=== PATIENT | male | born 1945 | race Caucasian/White ===

== ENCOUNTER 2025-01-28 10:11 | Outpatient (CLI) | payer MEDICARE, SELFPAY ==
--- NOTE | ~2025-01-28 | US_ITS ---
EXAMINATION: US soft tissue head and neck DATE: 01/28/2025 10:41 INDICATION: Glottis and swollen neck with difficulty swallowing and breathing TECHNIQUE: Multiple grayscale and Doppler ultrasound images of the left and right neck and submandibu lar regions were obtained. COMPARISON: None FINDINGS: No abnormal masses, fluid collections or pathologically enlarged lymphadenopathy at the region of con cern. Thyroid measures 3.2 x 1.1 x 1.3 similar on the right and 3.4 x 1.3 x 0.9 cm on the left. IMPRESSION: 1. No abnormal masses, fluid collections or pathologically enlarged lymphadenopathy in the visualized cervical soft tissues. Reviewed, dictated and finalized at location A. IMPRESSION: 1. No abnormal masses, fluid collections or pathologically enlarged lymphadenop athy in the visualized cervical soft tissues.
== END 2025-01-28 10:12 | disposition home or self-care (01) ==
LOC: MICIMG 10:12
PROVIDERS: PCP Family Medicine; Visit Provider Family Medicine
DX: R22.1 Localized swelling, mass and lump, neck (principal); K14.8 Other diseases of tongue
CPT/HCPCS: 76536

== ENCOUNTER 2025-03-18 07:52 | Emergency (ER) | payer MEDICARE, SELFPAY ==
--- NOTE | ~2025-03-18 | CT_ITS ---
CT soft tissue neck w con Ordering provider: Zain Vicente MD History: 80 years Male with . non healing tongue ulcer, right . Comparison: None. Technique: CT soft tissues neck was performed with contrast. . Automated exposure control and iterat kristin reconstruction technique were employed. The dose-length product was 426.94 mGy-cm. 75 mL Omnipaqu e 350 was given IV. Findings: LOWER HEAD: The visualized brain parenchyma, optic globes/orbits and mastoids are normal. The visua lized paranasal sinuses shows bilateral maxillary and ethmoid sinuses. SALIVARY GLANDS: Normal. THYROID: Normal. SUPRAHYOID DEEP SPACES: Normal. CAROTID ARTERIES: Left carotid atherosclerotic changes with narrowing of about 20-30 %. Right carotid atherosclerotic changes with no stenosis. JUGULAR VEINS: Normal. TONSILS: Normal. ORAL CAVITY: Partially obscured by dental amalgam but normal as visualized. PHARYNX, LARYNX AND TRACHEA: Narrowing in the area of the oropharynx. Clinical evaluation advised. Ot herwise, Patent and normal. No prevertebral soft tissue swelling. SUPERFICIAL SOFT TISSUES: Normal. No lymphadenopathy or neck mass. THORACIC INLET/VISUALIZED UPPER CHEST: Emphysematous changes of the lungs. The SKELETAL: Age appropriate degenerative changes. IMPRESSION: 1. Bilateral maxillary and ethmoid sinus disease. 2. Narrowing of the procedure in the area of the oropharynx. The mentioned ulcer in the tongue is no t demonstrated. Clinical evaluation advised. Metallic Artifacts are seen in the area of the tongue. 3. Bilateral atherosclerotic changes of the carotid arteries with narrowing of 20-30% on the left.. Reviewed, dictated and finalized at location A. IMPRESSION: 1. Bilateral maxillary and ethmoid sinus disease. 2. Narrowing of the procedure in the area of the oropharynx. The mentioned ulc er in the tongue is not demonstrated. Clinical evaluation advised. Metallic Art ifacts are seen in the area of the tongue. 3. Bilateral atherosclerotic changes of the carotid arteries with narrowing of 20-30% on the left..
[2025-03-18 07:54] VITALS: BP 149/77; PULSE 68; RESP 18; TEMP 36.6; O2SAT 98
[2025-03-18 08:32] LABS: Basophils Absolute Auto 0.1 K/mm3 (0.0-0.1); Basophils Percent Auto 1.5 % (0.2-1.2); Eosinophils Absolute Auto 0.2 K/mm3 (0-0.3); Eosinophils Percent Auto 2.6 % (0-4.4); Hematocrit 37.5 % (42.0-52.0); Hemoglobin 12.1 g/dL (14.0-18.0); Immature Granulocyte Absolute 0.02 K/mm3 (0.00-0.031); Immature Granulocyte Percent A 0.3 % (0-0.5); Lymphocytes Absolute Auto 1.04 K/mm3 (0.9-3.2); Lymphocytes Percent Auto 16.9 % (18.3-44.2); Mean Corpuscular HGB Conc 32.3 g/dl (32-36); Mean Corpuscular Hemoglobin 28.9 pg (26-34); Mean Corpuscular Volume 89.5 fl (80-100); Mean Platelet Volume 8.9 fl (7.4-10.4); Monocytes Absolute Auto 0.5 K/mm3 (0.1-0.6); Monocytes Percent Auto 8.6 % (2.6-8.5); Neutrophils Absolute Auto 4.3 K/mm3 (1.3-6.7); Neutrophils Percent Auto 70.1 % (45.5-73.1); Platelet Count Result 178 k/mm3 (150-375); Red Blood Count 4.19 M/mm3 (4.6-6.20); Red Cell Distribution Width 14.2 % (11.5-14.5); White Blood Count 6.2 K/mm3 (4.5-10.0)
[2025-03-18 08:43] LABS: Alanine Aminotransferase 20 U/L (6-50); Albumin Level 3.8 g/dL (3.5-5.1); Alkaline Phosphatase 59 U/L (38-126); Anion Gap 7 mmol/L (4-12); Aspartate Amino Transferase 28 U/L (17-59); Blood Urea Nitrogen 17 mg/dL (9-20); Calcium 8.5 mg/dL (8.4-10.2); Carbon Dioxide 25 mmol/L (22-30); Chloride 103 mmol/L (98-107); Estimated CRCL calculation 48 ml/min; Estimated Glomerular Filt Rate > 60; Glucose 103 mg/dL (65-110); Potassium 4.1 mmol/L (3.4-5.0); Sodium 135 mmol/L (137-145)
--- OUTSIDE RECORDS SUMMARY | 2025-03-18 09:08 | XMS_ITS | Clinical Summary ---
Author Organization [facility] Facility Address [address] [place] [address] Care Team Providers Care Asphalt Tar And Gravel Roofer Name Role Phone Antoine Lundberg MD Primary Care Provider [phone] Allergies Active Allergy Reactions Criticality Noted Date Comments Bupropion 07/04/2022 Other reaction(s): worsening symptoms Medications zolpidem (AMBIEN) 5 MG tablet Take 5 mg by mouth at night if needed 03/14/2022 Active tiZANidine (ZANAFLEX) 2 MG tablet Take 2 mg by mouth every 8 (eight) hours 03/10/2022 Active sertraline (ZOLOFT) 100 MG tablet Take 100 mg by mouth in the morning and 100 mg in the evening. 03/10/2022 Active lamoTRIgine (LaMICtal) 25 MG tablet Take 25 mg by mouth in the morning and 25 mg in the evening. 03/13/2022 Active hydrALAZINE 50 MG tablet Take 50 mg by mouth in the morning and 50 mg at noon and 50 mg in the evening. 03/20/2022 Active carvedilol (COREG) 6.25 MG tablet TAKE 1 TABLET BY MOUTH EVERY 12 HOURS TAKE WITH SNACK / FOOD 03/20/2022 Active atorvastatin (LIPITOR) 40 MG tablet Take 40 mg by mouth 1 (one) time each day 03/14/2022 Active ALPRAZolam (XANAX) 0.25 MG tablet Take 0.25 mg by mouth in the morning and 0.25 mg in the evening. 01/31/2022 Active levothyroxine (SYNTHROID, LEVOTHROID) 200 MCG tablet Take 200 mcg by mouth 1 (one) time each day Active lisinopril 20 MG tablet Take 1 tablet (20 mg total) by mouth 1 (one) time each day 90 tablet 3 06/07/2022 Active levothyroxine (SYNTHROID, LEVOTHROID) 50 MCG tablet Take 50 mcg by mouth 1 (one) time each day Active Active Problems Problem Noted Date Diagnosed Date Weight loss 07/04/2022 Vitamin D deficiency 07/04/2022 Tobacco user 07/04/2022 Screening status 07/04/2022 Restless legs 07/04/2022 Recurrent major depressive episodes, mild 2021 Patient encounter status 07/04/2022 Obstructive sleep apnea syndrome 07/04/2022 Muscle weakness of upper limb 07/04/2022 Insomnia 07/04/2022 Hypertensive disorder 07/04/2022 Hyperglycemia 07/04/2022 History of nasal sinus surgery 07/04/2022 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 Stephens;ll referred by Dr. 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 Arthritis 07/04/2022 Anxiety 07/04/2022 Allergic disorder of skin 07/04/2022 Acute nontraumatic kidney injury 07/04/2022 Hypothyroidism 06/23/2022 Overview (07/04/2022): E03.9 Hypothyroidism Hyperlipidemia 06/23/2022 Anemia 06/23/2022 Pneumonia 02/14/2022 Overview (07/29/2024): Replacing diagnoses that were inactivated after the 07/29/24 Regulatory Import Acute respiratory failure with hypoxia 2 Pleural effusion 02/03/2022 Hypertensive urgency 02/03/2022 Dyspnea 02/03/2022 Cervical radiculopathy 05/20/2021 Cervicalgia 05/20/2021 Post-laminectomy syndrome 09/14/2014 Lumbago 09/14/2014 Degeneration of lumbar intervertebral disc 09/14 Immunizations Immunization Administration Dates Next Due Influenza, Unspecified 09/12/2021,2019,09/15/2019,08/16/2018 ,09/05/2017,09/20/2016,09/07/2015, 4,08/26/2013,07/30/2012,08/25/2011 Moderna SARS-COV-2 08/24/2021,02/04/2021, 021 Pneumococcal Conjugate 13-Valent 09/07/2015 Pneumococcal Polysaccharide 04/29/2019, 4 Zoster 10/29/2013 Social History Tobacco Use Types Packs/Day Years Used Date Smoking Tobacco: Every Day Smokeless Tobacco: Never Alcohol Use Standard Drinks/Week Comments Never 0 (1 standard drink = 0.6 oz pur e alcohol) Sex and Gender Information Value Date Recorded Sex Assigned at Not on file Legal Sex Male 12:09 PM EDT Gender Identity Not on file Sexual Orientation Not on file Last Filed Vital Signs Vital Sign Reading Time Taken Comments Blood Pressure 111/59 07/05/2022 9:10 AM CDT Pulse 54 07/05/2022 9:10 AM CDT Temperature - - Respiratory Rate - - Oxygen Saturation - - Inhaled Oxygen Concentration - - Weight 72.1 kg (159 lb) 07/05/2022 9:10 AM CDT Height 162.6 cm (5' 4 ) 07/05/2022 9:10 AM CDT Body Mass Index 27.29 07/05/2022 9:10 AM CDT Plan of Treatment Health Maintenance Due Date Last Done Comments Influenza Vaccine (Season Ended) 2025 09/12/2021, 08/02/2020, 09/15/2019, Additional history exists Pneumococcal Vaccine: 50+ Years Completed 04/29/2019, 09/07/2015, 06/01/2014 Hepatitis B Vaccine Aged Out No longe r eligible based on patient's age to complete this topic Insurance [facility] ([id number]) Care Teams Asphalt Tar And Gravel Roofer Relationship Specialty Start Date End Date Antoine Lundberg MD [address] [place] [phone] PCP - General Occupational Medicine 02/23/22
--- OUTSIDE RECORDS SUMMARY | 2025-03-18 09:09 | XMS_ITS | Encounter Summary ---
Author Organization [facility] Address [address] [place] [address] Care Team Providers Care Hydraulic Dredge Operator Name Role Phone Antoine Lundberg MD Primary Care Provider [phone] Encounter Details Date Type Department Care Team (Late st Contact Info) Description 07/05/2023 Lab Requisition [facility] - DermPath Lab [address] [place] [id number] Latrice Swan MD [address] [place] [address] Neoplasm of unspecified behavior of bone, soft tissue, and skin Social History Tobacco Use Types Packs/Day Years Used Date Smoking Tobacco: Every Day Cigarettes 1 61 Smokeless Tobacco: Never Alcohol Use Standard Drinks/Week Comments No 0 (1 standard drink = 0.6 oz pur e alcohol) AUDIT-C Answer Date Recorded Q1: How often do you have a drink containing alc ohol? Never 02/14/2022 Average Number of Drinks Not on file 022 Frequency of Binge Drinking Not on file 01/27 Overall Financial Resource Strain (CARDIA) Answe r Date Recorded How hard is it for you to pa y for the very basics like food, housing, medical care, and heating? Not hard at all 06/12/2023 PHQ-2 Answer Date Recorded PHQ2 TOTAL SCORE 0 09/15/2022 [facility] [place] [facility] Occup[facility] - Occupational Stress Questionnaire Answer Date Recorded Do you feel stress - tense, restless, nervous, or anxious, or unable to sleep at night because your mind is troubled all the time - these days? Not at all 06/12/2023 Hunger Vital Sign Answer Date Recorded Within the past 12 months, y ou worried that your food would run out before you got the money to buy more. Never true 06/12/20 23 Within the past 12 months, t he food you bought just didn't last and you didn't have money to get more. Never true 06/12/2023 PRAPARE - Transportation Answer Date Re corded In the past 12 months, has l ack of transportation kept you from medical appointments or from getting medications? No 05/29 In the past 12 months, has l ack of transportation kept you from meetings, work, or from getting things needed for daily living? No 06/12/2023 Housing Stability Vital Sign Answer Deshaun e Recorded In the last 12 months, was t here a time when you were not able to pay the mortgage or rent on time? No 06/12/2023 In the last 12 months, how many places have you lived? 1 06/12/2023 In the last 12 months, was t here a time when you did not have a steady place to sleep or slept in a nursing home (including now)? 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 Answer Date of Assessment Author No 06/12/2023 11:45 PM CDT Marsha Doran LPN * Is person blind or have serious difficulty seeing? Answer Date of Assessment Author No 06/12/2023 11:45 PM CDT Marsha Doran LPN * Does person have serious difficulty walking/climbing stairs? Answer Date of Assessment Author No 06/12/2023 11:45 PM CDT Marsha Doran LPN * Does person have difficulty dressing/bathing? Answer Date of Assessment Author No 06/12/2023 11:45 PM CDT Marsha Doran LPN * Does person have difficulty doing errands alone? Answer Date of Assessment Author No 06/12/2023 11:45 PM CDT Marsha Doran LPN documented as of this encounter Mental Status * Does person have difficulty concentrating/remembering/making decisions? Answer Entry Date Author No 06/12/2023 11:45 PM CDT Marsha Doran LPN documented in this encounter Plan of Treatment Not on file documented as of this encounter Procedures Procedure Name Priority Date/Time Associated Diagnosis Comments DERMATOPATHOLOGY Routine 07/04/2023 3:33 AM CDT Neoplasm of unspecified behavior of bone, soft tissue, and skin documented in this encounter Results * DERMATOPATHOLOGY (07/04/2023 3:33 AM CDT) Case Report Dermatopathology Report Case: [id number] Authorizing Provider: Latrice Swan MD Collected: 07/04/2023 03:33 AM Ordering Location: [facility] Lab Received: 07/06/2023 09:55 AM Pathologist: Bertha Rodriguez MD Specimens: A) - Skin, right medial malar cheek B) - Skin, right sabianism C) - Skin, left lateral neck 3 1:37 PM CDT DERMATOPATHOLOGY LABORATORY Final Diagnosis Specimen A. 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 SKIN, right sabianism: BASAL CELL CARCINOMA, NODULAR TYPE (C44.319) Specimen C. SKIN, left lateral neck: BASAL CELL CARCINOMA, NODULAR TYPE (C44.41) 3 1:37 PM CDT DERMATOPATHOLOGY LABORATORY at 1337 CDT Clinical History A-B: Neoplasm of unspecified behavior vs basal cell carcinoma C: Neoplasm of unspecified behavior vs squamous cell carcinoma vs basal cell carcinoma vs irritated seborrheic keratosis 3 1:37 PM CDT DERMATOPATHOLOGY LABORATORY Gross Description Specimen A: Received is one formalin filled container labeled with the patient's name and designated right medial malar cheek. The specimen consists of a shave biopsy measuring 3x2x1 mm. Jar 0. Specimen B: Received is one formalin filled container labeled with the patient's name and designated right sabianism. The specimen consists of a shave biopsy measuring 7x4x1 mm. Jar 0. Specimen C: Received is one formalin filled container labeled with the patient's name and designated left lateral neck. The specimen consists of a shave biopsy measuring 8x5x2 mm. Jar 0. 3 1:37 PM T DERMATOPATHOLOGY LABORATORY Microscopic Description Specimen A. SKIN, right medial malar cheek: Within the dermis there are aggregates of basaloid cells with a high nuclear to cytoplasmic ratio and peripheral palisading. Additional deeper sections were obtained and reviewed. Specimen B. SKIN, right sabianism: Within the dermis there are aggregates of basaloid cells with a high nuclear to cytoplasmic ratio and peripheral palisading. Specimen C. SKIN, left lateral neck: Within the dermis there are aggregates of basaloid cells with a high nuclear to cytoplasmic ratio and peripheral palisading. 3 1:37 PM T DERMATOPATHOLOGY LABORATORY Disclaimer An external and internal positive and negative controls are appropriate for the histochemical, immunohistochemical and immunofluorescence stain(s) in this case (if any), except where stated explicitly. The performance characteristics of the stain(s) cited in this report were developed and its performance characteristic determined by the Dermatopathology Laboratory at [facility], directed by Dr. Lara Nava. These tests need not be, and therefore are not, approved by the [place] Food and Drug Administration. The tests are used for clinical purposes. Billing Codes Specimen Charges Stain Charges 89614 05175 74760 1 1 1 3 1:37 PM CDT DERMATOPATHOLOGY LABORATORY Embedded Images 3 1:37 PM CDT DERMATOPATHOLOGY LABORATORY Pathology/Cytology TISSUE SPECIMEN FROM SKIN / Unknown 07/04/2023 3:33 AM CDT 07/06/2023 9:55 AM CDT Miscellaneous samples (specimen) TISSUE SPECIMEN FROM SKIN / Unknown 07/04/2023 3:33 AM CDT 07/06/2023 9:55 AM CDT Miscellaneous samples (specimen) TISSUE SPECIMEN FROM SKIN / Unknown 07/04/2023 3:33 AM CDT 07/06/2023 9:55 AM CDT us Latrice Swan MD LAB - PATHOLOGY/CYTOLOGY [facility]IREZ Final Result DERMATOPATHOLOGY LABORATORY [facility] - Department of Dermatology [facility] Specialized Medicine [facility] [facility], [address]rd Floor [address] [phone] documented in this encounter Visit Diagnoses Diagnosis Neoplasm of unspecified behavior of bone, soft tissue, and skin documented in this encounter Care Teams Hydraulic Dredge Operator Relationship Specialty Start Date End Date Antoine Lundberg MD [address] [address] PCP - General Internal Medicine 03/30/19 documented as of this encounter
--- OUTSIDE RECORDS SUMMARY | 2025-03-18 09:09 | XMS_ITS | Encounter Summary ---
Author Organization [facility] Address [address] [place] [address] Care Team Providers Care Welding Teacher Name Role Phone Indra Yates MD Primary Care Provider [phone] Megha Crane Unavailable [phone] Tacos Moreno MD Unavailable [phone] Antonieta Pimentel MD Unavailable [phone] Gurmeet Sands MD Unavailable Mao Dodson MD Unavailable [phone] Encounter Details Date Type Department Care Team (Late st Contact Info) Description 01/19/2025 Results Follow-Up [facility] Pulmonology [address] [facility] [address] [place] [address] [place] [address] [place] [address] [address] [place] [address] CT Chest WO Contrast Social History Tobacco Use Types Packs/Day Years Used Date Smoking Tobacco: Every Day Cigarettes Smokeless Tobacco: Never Alcohol Use Standard Drinks/Week Comments No 0 (1 standard drink = 0.6 oz pur e alcohol) PHQ-2 Answer Date Recorded PHQ-2 Total Score (If total score is 3 or more points, staff should administer the PHQ-9) 5 12/31/2024 PHQ-9 Answer Date Recorded PHQ-9 Total Score 14 12/31/2024 Sex and Gender Information Value Date Recorded Sex Assigned at Not on file Legal Sex Male 12:09 AM PUBLICIST Gender Identity Not on file Sexual Orientation Not on file documented as of this encounter Plan of Treatment Not on file documented as of this encounter Visit Diagnoses Not on filedocumented in this encounter Care Teams Welding Teacher Relationship Specialty Start Date End Date Indra Yates MD [address] [place] [address] PCP - General Family Medicine 07/02/24 Megha Craen PA [address] [place], [place] [address] Physician Assembly Department Supervisor 07/02/24 Tacos Moreno MD [address] [place] [address] Referring Physician Psychiatry 12/31/24 Antonieta Pimentel MD [address] [place] [address] Consulting Physician Pulmonary Disease 12/31/24 Gurmeet Sands MD [address] [place] [address] Consulting Physician Gastroenterology 12/31/24 Mao Dodson MD [address] [place] [address] Consulting Physician Otolaryngology 02/25/25 documented as of this encounter
--- OUTSIDE RECORDS SUMMARY | 2025-03-18 09:09 | XMS_ITS | Encounter Summary ---
Author Organization [facility] Address [address] [facility] [place] [address] Care Team Providers Care Meteorology Instructor Name Role Phone Antoine Lundberg MD Primary Care Provider [phone] Encounter Details Date Type Department Care Team (Late st Contact Info) Description 05/09/[address] [facility] DermPath Lab [address] [facility] [place] [phone] Latrice Swan MD [address] [address] [place] [address] Social History Tobacco Use Types Packs/Day Years Used Date Smoking Tobacco: Every Day Cigarettes Alcohol Use Standard Drinks/Week Comments No 0 (1 standard drink = 0.6 oz pur e alcohol) Sex and Gender Information Value Date Recorded Sex Assigned at Male 06/12/2023 3:47 PM CDT Legal Sex Male 4:34 AM INFORMATION TECHNOLOGY INTERN Gender Identity Not on file Sexual Orientation Not on file documented as of this encounter Plan of Treatment Not on file documented as of this encounter Procedures Procedure Name Priority Date/Time Associated Diagnosis Comments DERMATOPATHOLOGY Routine 05/08/2018 12:0 0 AM CDT documented in this encounter Results * DERMATOPATHOLOGY (05/08/2018 12:00 AM CDT) Case Report Dermatopathology Report Case: [id number] Authorizing Provider: Latrice Swan MD Collected: 05/08/2018 12:00 AM Pathologist: Kelsey Martell MD Received: 05/09/2018 08:33 AM Specimen: Skin, left superior neck 1:42 PM CDT DERMATOPATHOLOGY LABORATORY Final Diagnosis Specimen A. SKIN, left superior neck: BASAL CELL CARCINOMA (C44.41) (see microscopic description and comment) 1:42 PM CDT DERMATOPATHOLOGY LABORATORY at 1342 CDT Clinical History Neoplasm of unspecified behavior vs actinic keratosis vs basal cell carcinoma vs squamous cell carcinoma. 1:42 PM CDT DERMATOPATHOLOGY LABORATORY Gross Description Specimen A: Received is one formalin filled container labeled with the patient's name and designated left superior neck. The specimen consists of a shave biopsy measuring [id number]. Jar 0. 1:42 PM CDT DERMATOPATHOLOGY LABORATORY Microscopic Description Specimen A. SKIN, left superior neck: The specimen consists of aggregates of basaloid cells, located within the superficial dermis, with high nuclear to cytoplasmic ratio and peripheral palisading. COMMENT: The small size of the specimen limits subtyping of the lesion. 1:42 PM CDT DERMATOPATHOLOGY LABORATORY Disclaimer An external and internal positive and negative controls are appropriate for the histochemical, immunohistochemical and immunofluorescence stain(s) in this case (if any), except where stated explicitly. The performance characteristics of the stain(s) cited in this report were developed and its performance characteristic determined by the Dermatopathology Laboratory at [facility]. These tests need not be, and therefore are not, approved by the [place] Food and Drug Administration. The tests are used for clinical purposes. Billing Codes Specimen Charges Stain Charges 61115 1 8 1:42 PM CDT DERMATOPATHOLOGY LABORATORY Embedded Images 1:42 PM CDT DERMATOPATHOLOGY LABORATORY Pathology/Cytolog y TISSUE SPECIMEN FROM SKIN / Unknown 05/08/2018 05/09/2018 8:33 AM CDT us Latrice Swan MD LAB - PATHOLOGY/CYTOLOGY [facility] RAMIREZ Final Result DERMATOPATHOLOGY LABORATORY [facility] - Department of Dermatology [facility] [facility], 5th Floor Lab [address] [phone] documented in this encounter Visit Diagnoses Not on filedocumented in this encounter Care Teams Meteorology Instructor Relationship Specialty Start Date End Date Antoine Lundberg MD [address] [address] PCP - General Internal Medicine 03/30/19 documented as of this encounter
--- OUTSIDE RECORDS SUMMARY | 2025-03-18 09:09 | XMS_ITS | Encounter Summary ---
Author Organization [facility] Address [address] [place] [address] Care Team Providers Care Admitting Counselor Name Role Phone Syd Tate MD Primary Care Provider [phone] Encounter Details Date Type Department Care Team (Latest Contact Info) Description 02/04/2005 Inpatient Historical [facility] [place] [address] [place] [address] LUNG CONTUSION-CLOSED (Primary Dx) Social History Tobacco Use Types Packs/Day Years Used Date Smoking Tobacco: Never Assessed Sex and Gender Information Value Date Recorded Sex Assigned at Not on file Legal Sex Male 4:43 AM AMMUNITION AND EXPLOSIVES HANDLER Gender Identity Not on file Sexual Orientation Not on file documented as of this encounter Plan of Treatment Not on file documented as of this encounter Procedures Procedure Name Priority Date/Time Associated Diagnosis Comments CREATININE Routine 02/04/2005 2:26 PM CDT documented in this encounter Results * CREATININE (02/04/2005 2:26 PM CDT) CREATININE 0.9 0.5 - 1.3 mg/dL INTERFACE SYSTEM 02/04/2005 2:26 PM CDT Alicia Valelcillo MD CHEMISTRY ORDERABLES Final Resul t INTERFACE SYSTEM Refer to clinic/hospital department documented in this encounter Visit Diagnoses Diagnosis Lung contusion without mention of open wound into thorax- Primary documented in this encounter Care Teams Admitting Counselor Relationship Specialty Start Date End Date Syd Tate MD [address] [facility] [address] [place] [address] PCP - General 02/04/05 06/27/23 documented as of this encounter
--- OUTSIDE RECORDS SUMMARY | 2025-03-18 09:09 | XMS_ITS | Encounter Summary ---
Author Organization [facility] Address [address] [place] [address] Care Team Providers Care Metal Fabricating Shop Helper Name Role Phone Syd Tate MD Primary Care Provider [phone] Antoine Lundebrg MD Primary Care Provider [phone] Encounter Details Date Type Department Care Team (Late st Contact Info) Description 11/03/2014 Therapy Visit EXTERNAL NON-SS DEPT Unknown, Provider Social History Tobacco Use Types Packs/Day Years Used Date Smoking Tobacco: Every Day Cigarettes Alcohol Use Standard Drinks/Week Comments No 0 (1 standard drink = 0.6 oz pur e alcohol) Sex and Gender Information Value Date Recorded Sex Assigned at Male 06/12/2023 3:47 PM CDT Legal Sex Male 4:34 AM 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
--- OUTSIDE RECORDS SUMMARY | 2025-03-18 09:09 | XMS_ITS | Encounter Summary ---
Author Organization [facility] Address [address] [place] [address] Care Team Providers Care Bleacher Operator Name Role Phone Syd Tate MD Primary Care Provider [phone] Encounter Details Date Type Department Care Team (Late st Contact Info) Description 02/05/[address] [facility] Trauma and General Surgery [address] [facility] [address] [phone] [place] [address] [place] [address] Social History Tobacco Use Types Packs/Day Years Used Date Smoking Tobacco: Never Assessed Sex and Gender Information Value Date Recorded Sex Assigned at Not on file Legal Sex Male 4:43 AM INSTRUMENT REPAIRER HELPER Gender Identity Not on file Sexual Orientation Not on file documented as of this encounter Plan of Treatment Not on file documented as of this encounter Visit Diagnoses Not on filedocumented in this encounter Care Teams Bleacher Operator Relationship Specialty Start Date End Date Syd Tate MD [address] [facility] [address] [place] [address] PCP - General 02/04/05 06/27/23 documented as of this encounter
--- OUTSIDE RECORDS SUMMARY | 2025-03-18 09:09 | XMS_ITS | Referral Summary ---
Author Organization [facility] Address [address] [place] [address] Care Team Providers Care Fashion Intern Name Role Phone Indra Yates MD Primary Care Provider [phone] Megha Crane Unavailable [phone] Tacos Moreno MD Unavailable [phone] Antonieta Pimentel MD Unavailable [phone] Gurmeet Sands MD Unavailable Mao Dodson MD Unavailable [phone] Encounters Date Type Department Care Team Description 03/04/2025 9:00 AM CDT Office Visit [facility] Pulmonary [address] [address] Antonieta Pimentel MD Obstructive sleep apnea syndrome (Primary Dx); Centrilobular emphysema (HCC); Restless legs; Cigarette nicotine dependence without complication; Abnormal CT of the chest; Recurrent cold sores; Psychophysiological insomnia; Non-seasonal allergic rhinitis due to pollen; Pulmonary air trapping; Simple chronic bronchitis (HCC) 02/25/2025 10:00 AM CDT Office Visit [facility] Primary Care at [address] [address] Indra Yates MD Encounter for annual wellness visit (AWV) in Medicare patient (Primary Dx); RLS (restless legs syndrome); Personal history of nicotine dependence 02/17/2025 Telephone [facility] Pulmonary [place] [address] [facility] [address] [place] [address] Chris Thompson CMA 02/11/2025 11:30 AM CDT Office Visit [facility] [place] [facility] [id number] [place] [address] [address] [place] [address] Hao Mann MD Acquired hypothyroidism (Primary Dx) 01/28/2025 Orders Only [facility] Primary Care at [address] [address] Indra Yates MD Neck mass; Acquired macroglossia 01/28/2025 9:00 AM CDT Office Visit [facility] Primary Care at [address] [address] Indra Yates MD Encounter for Medicare annual wellness exam (Primary Dx); Moderately severe major depression (HCC); Chronic lymphocytic leukemia (HCC); Other emphysema (HCC); Autoimmune hepatitis (HCC); Stage 3a chronic kidney disease (HCC); Primary hypertension; Vitamin D deficiency; Mixed hyperlipidemia; Acquired hypothyroidism; Centrilobular emphysema (HCC); Neck mass; Acquired macroglossia; Need for hepatitis C screening test 01/19/2025 Results Follow-Up [facility] Pulmonology [address] [facility] [address] [place] [address] Antonieta Pimentel MD CT Chest WO Contrast 01/13/2025 8:03 AM CDT - 01/13/2025 11:59 PM CDT Hospital Encounter [facility] Respiratory [address] [place] [address] Obstructive sleep apnea syndrome; Restless legs; Psychophysiological insomnia; Cigarette nicotine dependence without complication; Pharyngeal dysphagia; Tongue swelling Discharge Disposition: Discharge to home or self care 01/12/2025 3:15 PM CDT - 01/12/2025 11:59 PM CDT Hospital Encounter [facility] [address] [place] [address] Obstructive sleep apnea syndrome; Restless legs; Psychophysiological insomnia; Cigarette nicotine dependence without complication; Pharyngeal dysphagia; Tongue swelling Discharge Disposition: Discharge to home or self care 01/09/2025 Telephone [facility] Diabetes and Endocrinology [address] [place] [address] Hao Mann MD New referral to Endocrinology 2025 10:00 AM CDT Office Visit [facility] Gastroenterology at [address] [place] [address] Belen Carter NP Irritable bowel syndrome with both constipation and diarrhea 01/04/2025 Results Follow-Up [facility] Primary Care at [address] [address] Indra Yates MD Comprehensive metabolic panel, CBC with auto differential, Lipid panel, Additional followed-up results: 4 12/31/2024 9:42 AM ASSISTANT REFINERY OPERATOR - 12/31/2024 11:59 PM ASSISTANT REFINERY OPERATOR Hospital Encounter [address] [address] Primary hypertension; Mixed hyperlipidemia; Acquired hypothyroidism Discharge Disposition: Discharge to home or self care 12/31/2024 9:45 AM ASSISTANT REFINERY OPERATOR Lab [facility] Outpatient Lab at [address] [address] Hyperlipidemia (Primary Dx); Hypertensive disorder; Hypothyroidism 12/31/2024 9:00 AM ASSISTANT REFINERY OPERATOR Office Visit [facility] Primary Care at [address] [address] Indra Yates MD Mixed hyperlipidemia (Primary Dx); Chronic diastolic heart failure (HCC); Primary hypertension; Acquired hypothyroidism; Vitamin D deficiency; Tongue swelling; Other emphysema (HCC); Stage 3a chronic kidney disease (HCC) from Last 3 Months Allergies Active Allergy Reactions Criticality Noted Date Comments Bupropion Other (See comments) Low 07/04/2022 Other reaction(s): worsening symptoms Medications sertraline (ZOLOFT) 100 mg tablet Take 2 tablets (200 mg total) by mouth daily Active atorvastatin (LIPITOR) 40 mg tablet Take 1 tablet (40 mg total) by mouth daily Active potassium 99 mg tablet Take 1 tablet (99 mg total) by mouth daily Active carvediloL (COREG) 6.25 mg tablet Take 1 tablet (6.25 mg total) by mouth 02/28/20 22 Active fluorouraciL (EFUDEX) 5 % cream 10/19/20 21 Active hydrALAZINE (APRESOLINE) 50 mg tablet Take 1 tablet (50 mg total) by mouth 3 (three) times a day 02/28/20 22 Active zolpidem (AMBIEN) 10 mg tabletIndications :Sleep-Onset Insomnia Take 1 tablet (10 mg total) by mouth nightly as needed for sleep 30 tablet 1 11/06/19 25 Active dicyclomine (BENTYL) 20 mg tablet Take 1 tablet (20 mg total) by mouth every 6 (six) hours 12/01/19 25 Active ondansetron ODT (ZOFRAN-ODT) 4 mg disintegrating tablet Take 1 tablet (4 mg total) by mouth every 8 (eight) hours as needed for nausea 12/01/19 25 Active magnesium glycinate 100 mg magnesium capsule every 8 hours Active inulin (FIBER GUMMIES ORAL) Take by mouth Active Bifidobacterium infantis (ALIGN) 4 mg capsule 1 capsule (4 mg total) Active vitamin B complex capsule Take 1 capsule by mouth daily Active amLODIPine (NORVASC) 10 mg tabletIndications :hypertension Take 1 tablet (10 mg total) by mouth daily 30 tablet 3 01/29/20 25 026 Active Unithroid 200 mcg tabletIndications :Acquired hypothyroidism Take 1 tablet (200 mcg total) by mouth airway traffic controller before breakfast 90 tablet 02/12/20 25 025 Active escitalopram (LEXAPRO) 5 mg tablet 1 tablet (5 mg total) daily 01/22/20 25 025 Discontinued rOPINIRole (REQUIP) 1 mg tablet Take 1 tablet (1 mg total) by mouth daily 01/22/20 25 025 Discontinued Active Problems Problem Noted Date Diagnosed Date Recurrent cold sores 03/04/[address] of the chest 03/04/2025 Non-seasonal allergic rhinitis due to pollen 04/2025 Pulmonary air trapping 03/04/2025 Simple chronic bronchitis 03/04/2025 Moderately severe major depression 01/28/2025 Irritable bowel syndrome wit h both constipation and diarrhea 2025 Assessment & Plan (2025 10:52 AM CDT): 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 States that he can have constipation along with abdominal bloating. Supplemental fiber supplements provided great relief in the past but did not stay consistent. - Discuss repeat colonoscopy but declined at this time. -Discussed possible food irritants -Recommended restarting fiber supplements at 5 g daily may titrate up to 25 g -Recommend starting [id number] probiotic like align or [employer]. -IB guard to help with complaints of abdominal bloating and gas as well as increased exercise. -Discuss small titration dose of MiraLax to help have regularity if fiber is not well tolerated. CKD (chronic kidney disease) stage 3, GFR 30-59 ml/min 12/31/2024 Cigarette nicotine dependence without complicati on 12/03/2024 Tongue swelling 12/03/2024 Pharyngeal dysphagia 12/03/2024 Anxiety 07/04/2022 Assessment & Plan (09/09/2024 1:22 PM ASSISTANT REFINERY OPERATOR): Discussed with Dr. Yates, his PCP. In he is to continue BuSpar 7.5 b.i.d.. I gave him another 30 days of alprazolam and made him a follow-up appointment with Dr. Yates to discuss. I did discuss with patient that goal would be to decrease and discontinue the alprazolam. We discussed risks and benefits of benzodiazepine medication, including fall risk, memory problems, and reasons to discontinue the medication which also includes that he takes it in the evening along with his Ambien which would cause further sedation. 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 Stephens;ll referred by Dr. Da Silva office 2018 Hypertensive disorder 07/04/2022 Insomnia 07/04/2022 Muscle weakness of upper extremity 07/04/2022 Obstructive sleep apnea syndrome 07/04/2022 Pulmonary emphysema 07/04/2022 Overview (07/02/2024): Incidental finding on CXR [facility] Recurrent major depressive episodes, mild 2021 Restless legs 07/04/2022 Assessment & Plan (09/09/2024 1:20 PM ASSISTANT REFINERY OPERATOR): Being treated by pulmonology. Will check ferritin today Vitamin D deficiency 07/04/2022 Anemia 06/23/2022 Hyperlipidemia 06/23/2022 Hypothyroidism 06/23/2022 Overview (07/02/2024): E03.9 Hypothyroidism Pleural effusion 02/03/2022 Cervicalgia 05/20/2021 Lumbosacral radiculopathy 09/14/2014 Degeneration of intervertebral disc of lumbar re gion 09/14/2014 Lumbago 09/14/2014 History of degenerative disc disease 09/14/2014 Resolved Problems Problem Noted Date Diagnosed Date Resolved Date Encounter to establish care 07/02/2024 09/04/2024 Assessment & Plan (07/02/2024 9:53 AM CDT): A(n) initial Medicare Annual Wellness Visit has been performed today. Pepito Ott is not up to date on screening tests. He is in need of hep B, C and Cholesterol screening. He is not up to date on needed preventative vaccinations; He is in need of Influenza and Zoster. We discussed healthy lifestyle habits, educational material has been given. Medications reviewed, changes documented as per the medical record and discussed with patient along with risks vs benefits. Specific topics reviewed: drugs, ETOH, and tobacco, importance of regular dental care, importance of regular exercise, importance of varied diet, limit TV, media violence, minimize junk food, and seat belts. Return in 3 months Acute nontraumatic kidney injury 07/04/2022 09/04/2024 Allergic contact dermatitis, unspecified cause 07/04/2022 09/04/2024 Calculus of gallbladder with out cholecystitis without obstruction 07/04/2022 09/04/2024 Hyperglycemia 07/04/2022 09/04/2024 Weight loss 07/04/2022 09/04/2024 Acute respiratory failure with hypoxia 02/14/2022 09/04/2024 Pneumonia due to infectious organism 02/14/2022 09/04/2024 Pneumonia 02/14/2022 09/04/2024 Overview (09/04/2024): Replacing diagnoses that were inactivated after the 07/29/24 Regulatory Import Dyspnea 02/03/2022 09/04/2024 Hypertensive urgency 02/03/2022 024 Complication of surgical procedure 09/14/2014 09/04/2024 Immunizations Immunization Administration Dates Next Due Influenza, Quadrivalent, Hig h Dose, Preservative Free, Intrr 07/05/2023,09/26/2022,09/12/2021 Influenza, Quadrivalent, Spl it, Preservative Free, Intramuscular 09/20/2016 Influenza, Trivalent, Adjuva nted, Intramuscular 08/06/2024 Influenza, Trivalent, High D ose, Split, Preservative Free, Intramuscular 09/05/2017 Influenza, Trivalent, IM (MDV) 08/16/2017,2015 Influenza, Unspecified 08/04/2024,2020,08/02/2020,09/15,08/16/2018,09/07/2015,08/03/2014 ,08/26/2013,07/30/2012,08/25/2011 Pneumococcal Conjugate PCV 13 09/07/2015 Pneumococcal Conjugate Pcv20 09/26/2022 Pneumococcal Polysaccharide PPV23 04/29/2019,10/2014,06/01/2014 Tdap 10/03/2023 ZOSTER LIVE 10/29/2013 Social History Tobacco Use Types Packs/Day Years Used Date Smoking Tobacco: Every Day Cigarettes 1 64.4 Started: 1959 Smokeless Tobacco: Never Tobacco Cessation:Ready to Q uit: Not Asked; Counseling Given: Not Answered Alcohol Use Standard Drinks/Week Comments No 0 (1 standard drink = 0.6 oz pur e alcohol) PHQ-2 Answer Date Recorded PHQ-2 Total Score (If total score is 3 or more points, staff should administer the PHQ-9) 2 02/25/2025 PHQ-9 Answer Date Recorded PHQ-9 Total Score 19 01/28/2025 Sex and Gender Information Value Date Recorded Sex Assigned at Not on file Legal Sex Male 12:09 AM ASSISTANT REFINERY OPERATOR Gender Identity Not on file Sexual Orientation Not on file Last Filed Vital Signs Vital Sign Reading Time Taken Comments Blood Pressure 124/70 03/04/2025 9:00 AM CDT Pulse 86 03/04/2025 9:00 AM CDT Temperature 35.8 C (96.4 F) 03/04/2025 9:00 AM CDT Respiratory Rate 16 03/04/2025 9:00 AM CDT Oxygen Saturation 94% 03/04/2025 9:00 AM CDT Inhaled Oxygen Concentration - - Weight 65.3 kg (144 lb) 03/04/2025 9:00 AM CDT Height 162.6 cm (5' 4 ) 03/04/2025 9:00 AM CDT Body Mass Index 24.72 03/04/2025 9:00 AM CDT Plan of Treatment Not on file Procedures Procedure Name Priority Date/Time Associated Diagnosis Comments PULMONARY FUNCTION TEST (PFT) Routine 01/13/2025 10:00 AM CDT Obstructive sleep apnea syndrome Restless legs Psychophysiological insomnia Cigarette nicotine dependence without complication Pharyngeal dysphagia Tongue swelling CT CHEST WO CONTRAST Schedule Routine, Read Routine (OP Routine) 01/12/2025 3:43 PM CDT Obstructive sleep apnea syndrome Restless legs Psychophysiological insomnia Cigarette nicotine dependence without complication Pharyngeal dysphagia Tongue swelling EGFR Routine 12/31/2024 9:42 AM ASSISTANT REFINERY OPERATOR Primary hypertension T4, FREE Routine 12/31/2024 9:42 AM ASSISTANT REFINERY OPERATOR Primary hypertension Acquired hypothyroidism DIFFERENTIAL AUTO Routine 12/31/2024 9:4 2 AM ASSISTANT REFINERY OPERATOR Primary hypertension THYROID FUNCTION CASCADE Routine 12/31/2024 9:42 AM ASSISTANT REFINERY OPERATOR Primary hypertension Acquired hypothyroidism LIPID PANEL Routine 12/31/2024 9:42 AM ASSISTANT REFINERY OPERATOR Mixed hyperlipidemia CBC WITH AUTO DIFFERENTIAL Routine 12/31/2024 9:42 AM ASSISTANT REFINERY OPERATOR Primary hypertension COMPREHENSIVE METABOLIC PANEL Routine 12/31/2024 9:42 AM ASSISTANT REFINERY OPERATOR Primary hypertension from Last 3 Months Results * Pulmonary Function Test - (01/13/2025 10:00 AM CDT) FVC POST 2.91 L 01/13/2025 11:08 AM CDT [facility] FEV1 POST 1.58 L 01/13/2025 11:08 AM CDT [facility] [id number] 54.17 % 01/13/2025 11:08 AM CDT [facility] TNJ10-38% POST 0.62 L/s 01/13/2025 11:08 AM CDT [facility] PEF POST 3.07 L/s 01/13/2025 11:08 AM CDT [facility] DLCOc SB 7.83 ml/(min*mm Hg) 01/13/2025 11:08 AM CDT [facility] DLCO/VA PRE 2.04 ml/(min*mm Hg*L) 01/13/2025 11:08 AM CDT [facility] VA 3.84 L 01/13/2025 11:08 AM CDT [facility] TLC PRE 5.92 L 01/13/2025 11:08 AM CDT [facility] VC PRE 2.64 L 01/13/2025 11:08 AM CDT [facility] IC PRE 1.34 L 01/13/2025 11:08 AM CDT [facility] FRC PL PRE 4.30 L 01/13/2025 11:08 AM CDT [facility] ERV PRE 1.02 L 01/13/2025 11:08 AM CDT [facility] RV PRE 3.28 L 01/13/2025 11:08 AM CDT [facility] RAW PRE 3.28 cmH2O*s/L 01/13/2025 11:08 AM CDT [facility] VTG 4.20 L 01/13/2025 11:08 AM CDT [facility] FVC PRE 2.64 L 01/13/2025 11:08 AM CDT [facility] FEV1 PRE 1.73 L 01/13/2025 11:08 AM CDT [facility] [id number] 65.37 % 01/13/2025 11:08 AM CDT [facility] RFS90-91% PRE 0.99 L/s 01/13/2025 11:08 AM CDT [facility] PEF PRE 4.66 L/s 01/13/2025 11:08 AM CDT [facility] Anatomical Region Laterality Modality PFT 01/13/2025 9:00 AM CDT Impressions 01/15/2025 10:10 AM CDT 1. Mild obstructive ventilatory defect. 2. There is significant bronchodilator response. 3. Lung volumes demonstrate gas trapping. 4. Severe diffusion impairment. Clinical correlation is advised. Electronically signed by John Vaughan DO Pulmonary & Critical Care Narrative 01/15/2025 10:10 AM CDT PULMONARY FUNCTION TESTS Pepito Laura Ott 80 y.o. 01/15/2025 INTERPRETATION Please see technologist's comments mentioned in attached results report. SPIROMETRY: Pre bronchodilator FEV1 is 72 % predicted, FVC is 83 % predicted, FEV1/FVC is 65 Bronchodilator response: There is significant bronchodilator response Inspection of the patient's flow-volume loops shows: Expiratory airflow obstruction. LUNG VOLUMES: Lung volumes by body plethysmography: TLC is 100 % predicted, RV is 124 % predicted DLCO: Unadjusted for hemoglobin and carboxyhemoglobin DLCO is 38 % predicted Antonieta Pimentel MD PFT ORDERABLES Final Resul t * CT Chest WO Contrast (01/12/2025 3:43 PM CDT) Anatomical Region Laterality Modality Body N/A Computed Tomogra phy 01/17/2025 2:31 PM CDT Narrative 01/17/2025 2:33 PM CDT EXAM DESCRIPTION: CT CHEST WO CONTRAST REASON FOR STUDY: Dyspnea, chronic, unclear etiology, Respiratory illness, nondiagnostic xray Patient complains of shortness of breath that began about 1.5 years ago. Dyspnea, chronic, unclear etiology; Respiratory illness, nondiagnostic xray Dx: Obstructive sleep apnea syndrome G47.33 (ICD-10-CM); Restless legs G25.81 (ICD-10-CM); Psychophysiological insomnia F51.04 (ICD-10-CM); Cigarette nicotine dependence without complication F17.210 (ICD-10-CM); Pharyngeal dysphagia R13.13 (ICD-10-CM); Tongue swelling R22.0 (ICD-10-CM) TECHNIQUE: CT scan of the chest performed without intravenous contrast using helical scanning technique. Reconstructed coronal and sagittal MPR images reviewed. All images stored on PACS. Automated exposure control was used as a dose optimization technique for this examination. COMPARISON: None available FINDINGS: The sensitivity for detection of solid visceral lesions is diminished without the use of intravenous contrast. LUNGS: Moderate bilateral emphysema. There are multiple patchy ground-glass opacities and nodules greatest in the lower lobes, consistent with multifocal pneumonia. No lobar consolidation. Small bibasilar atelectasis. PLEURA: No effusion. No pneumothorax. MEDIASTINUM/VANNA: Calcified mediastinal lymph nodes. HEART: Heart size is normal with no pericardial effusion. CORONARY ARTERY CALCIFICATION: Present VASCULATURE: Atheromatous disease of the aorta with coronary artery calcification. No aneurysms of the aorta. AXILLA: No adenopathy. CHEST WALL: No masses. No subcutaneous air. HARDWARE/LINES/TUBES: None. UPPER ABDOMEN: No significant abnormality. MUSCULOSKELETAL: No significant abnormality. OTHER: No other significant abnormality. IMPRESSION: Multifocal pneumonia. No lobar consolidation. Moderate emphysema. THIS IS AN ELECTRONICALLY VERIFIED FINAL REPORT 01/17/2025 2:33 PM - Electronically signed by Juanis Dominguez M.D. FT T: Report ID: [id number] Reading Location: [place] [address] Procedure Note Juanis Felton MD - 01/17/2025 EXAM DESCRIPTION: CT CHEST WO CONTRAST REASON FOR STUDY: Dyspnea, chronic, unclear etiology, Respiratoryillness, nondiagnostic xray Patient complains of shortness of breath that began about 1.5 years ago. Dyspnea, chronic, unclear etiology; Respiratory illness, nondiagnosticxray Dx: Obstructive sleep apnea syndrome G47.33 (ICD-10-CM); Restless legsG25.81 (ICD-10-CM); Psychophysiological insomnia F51.04 (ICD-10-CM); Cigarette nicotine dependence without complication F17.210 (ICD-10-CM); Pharyngeal dysphagia R13.13 (ICD-10-CM); Tongue swelling R22.0 (ICD-10-CM) TECHNIQUE: CT scan of the chest performed without intravenous contrastusing helical scanning technique. Reconstructed coronal and sagittal MPR images reviewed. All images stored on PACS. Automated exposure control was usedas a dose optimization technique for this examination. COMPARISON: None available FINDINGS: The sensitivity for detection of solid visceral lesions is diminished without the use of intravenous contrast. LUNGS: Moderate bilateral emphysema. There are multiple patchyground-glass opacities and nodules greatest in the lower lobes, consistent withmultifocal pneumonia. No lobar consolidation. Small bibasilar atelectasis. PLEURA: No effusion. No pneumothorax. MEDIASTINUM/VANNA: Calcified mediastinal lymph nodes. HEART: Heart size is normal with no pericardial effusion. CORONARY ARTERY CALCIFICATION: Present VASCULATURE: Atheromatous disease of the aorta with coronary artery calcification. No aneurysms of the aorta. AXILLA: No adenopathy. CHEST WALL: No masses. No subcutaneous air. HARDWARE/LINES/TUBES: None. UPPER ABDOMEN: No significant abnormality. MUSCULOSKELETAL: No significant abnormality. OTHER: No other significant abnormality. IMPRESSION: Multifocal pneumonia. No lobar consolidation. Moderate emphysema. THIS IS AN ELECTRONICALLY VERIFIED FINAL REPORT 01/17/2025 2:33 PM - Electronically signed by Juanis Dominguez M.D. FT T: Report ID: [id number] Reading Location: [place] [address] Antonieta Pimentel MD IM CT PROCEDURES Final Res ult * eGFR (12/31/2024 9:42 AM ASSISTANT REFINERY OPERATOR) eGFR 75 >=60 mL/min/1. 73 m2 Comment: Interpretive Data Reference Interval Normal >/= 90 mL/min/1.73m2 Mildly decreased* 60 - 89 mL/min/1.73m2 Mildly to moderately decreased 45 - 59 mL/min/1.73m2 Moderately to severely decreased 30 - 44 mL/min/1.73m2 Severely decreased 15 - 29 mL/min/1.73m2 Kidney Failure < 15 mL/min/1.73m2 *Relative to young adult level Estimated glomerular filtration rate is determined by the 2020 CKD-EPI equation recommended by the National Kid[employer] (A Unifying Approach to GFR Estimation: Recommendations of the NKF-ASK Task Force on Reassessing the Inclusion of Race in Diagnosing Kidney Disease, JASN 202). The CKD-EPI equation should not be used for patients with unstable renal function and has not been validated in children and those over 70. Current interpretive data was last reviewed 2021. Blood 12/31/2024 9:42 AM ASSISTANT REFINERY OPERATOR 12/31/2024 3:35 PM ASSISTANT REFINERY OPERATOR us Indra Yates MD LAB BLOOD ORDERABLES Final Result [facility] [address] [address] Department [place] [address] * Differential, auto (12/31/2024 9:42 AM ASSISTANT REFINERY OPERATOR) Neutrophil abs 2.9 1.5 - 6.5 K/cumm Imm gran abs 0.0 0.0 - 0.1 K/cumm [facility] Lymphocyte abs 1.4 0.8 - 3.3 K[facility] Monocyte abs 0.5 0.2 - 0.8 K[facility]umm [facility] Eosinophil abs 0.3 0.0 - 0.5 K[facility]umm [facility] Basophil abs 0.1 0.0 - 0.1 K/cumm [facility] Neutrophil pct 56.5 % [facility] Comment: Interpretive Data Percent cell count reference ranges are not reported, since discordance with absolute values may lead to misinterpretation of CBC data. Current Interpretive Data was last revised on 2018. Imm gran pct 0.2 % [facility] Comment: Interpretive Data Percent cell count reference ranges are not reported, since discordance with absolute values may lead to misinterpretation of CBC data. Current Interpretive Data was last revised on 2018. Lymphocyte pct 26.3 % [facility] Comment: Interpretive Data Percent cell count reference ranges are not reported, since discordance with absolute values may lead to misinterpretation of CBC data. Current Interpretive Data was last revised on 2018. Monocyte pct 9.7 % [facility] Comment: Interpretive Data Percent cell count reference ranges are not reported, since discordance with absolute values may lead to misinterpretation of CBC data. Current Interpretive Data was last revised on 2018. Eosinophil pct 5.0 % [facility] Comment: Interpretive Data Percent cell count reference ranges are not reported, since discordance with absolute values may lead to misinterpretation of CBC data. Current Interpretive Data was last revised on 2018. Basophil pct 2.3 % [facility] Comment: Interpretive Data Percent cell count reference ranges are not reported, since discordance with absolute values may lead to misinterpretation of CBC data. Current Interpretive Data was last revised on 2018. Blood 12/31/2024 9:42 AM ASSISTANT REFINERY OPERATOR 12/31/2024 3:07 PM ASSISTANT REFINERY OPERATOR Indra Yates MD LAB BLOOD ORDERABLES Final Result Performing Organization Address [facility] de Phone Number JAMEEL [id number] [address] Department [employer] [place] [address] * (ABNORMAL) Thyroid Function Richardson (12/31/2024 9:42 AM ASSISTANT REFINERY OPERATOR) TSH 13.40(H) 0.30 - 4.20 mcIUnit/mL Blood 12/31/2024 9:42 AM ASSISTANT REFINERY OPERATOR 12/31/2024 3:07 PM ASSISTANT REFINERY OPERATOR Indra Yates MD LAB BLOOD ORDERABLES Final Result Performing Organization Address [facility] de Phone Number [facility] [id number] [address] Department of [employer] [place] [address] * CBC with auto differential (12/31/2024 9:42 AM ASSISTANT REFINERY OPERATOR) WBC 5.2 3.8 - 9.9 K/cumm Hgb 14.1 13.0 - 17.5 g/dL [facility] Hct 43.1 38.9 - 50.3 % [facility] Plt 174 150 - 400 K/cumm [facility] MPV 9.8 9.1 - 12.3 fL [facility] RBC 4.69 4.30 - 5.80 M/cumm [facility] MCV 91.9 81.3 - 96.4 fL [facility] MCH 30.1 27.1 - 33.3 pg [facility] MCHC 32.7 32.3 - 35.7 g/dL [facility] RDW CV 13.6 11.1 - 14.9 % [facility] RDW SD 45.7 35.7 - 48.1 fL [facility] NRBC abs 0.00 0.00 - 0.01 K/cumm [facility] Blood 12/31/2024 9:42 AM ASSISTANT REFINERY OPERATOR 12/31/2024 3:07 PM ASSISTANT REFINERY OPERATOR Indra Yates MD LAB BLOOD ORDERABLES Final Result Performing Organization Address [facility] Co de Phone Number JAMEEL FITCH [phone] [address] [facility] of [employer] [place] [address] * T4, free (12/31/2024 9:42 AM ASSISTANT REFINERY OPERATOR) Free T4 1.35 0.90 - 1.70 ng/dL Blood 12/31/2024 9:42 AM ASSISTANT REFINERY OPERATOR 12/31/2024 3:35 PM ASSISTANT REFINERY OPERATOR Indra Yates MD LAB BLOOD ORDERABLES Final Result Performing Organization Address [facility] Co de Phone Number JAMEEL [phone] [address] Department of [employer] [place] [address] * (ABNORMAL) Lipid panel (12/31/2024 9:42 AM ASSISTANT REFINERY OPERATOR) Cholesterol 94 30 - 199 mg/dL Comment: Interpretive Data Ages < or = 19 years Acceptable: <170 mg/dL Borderline high: 170-199 mg/dL High: >or= 200 mg/dL Ages > or = 20 years Desirable: <200 mg/dL Borderline high: 200-239 mg/dL High: >or= 240 mg/dL Literature References: 1. Expert Panel on Integrated Guidelines for Cardiovascular Health and Risk Reduction in Children and Adolescents. Pediatrics 2011;128:S213 2. NCEP Expert Panel. Circulation 2004;110:227 Current Interpretive Data was last revised on 2018. Triglycerides 138 <=149 mg/dL JAMEEL Comment: Interpretive Data Ages < or = 9 years Acceptable: <75 mg/dL Borderline high: 75-99 mg/dL High: >or= 100 mg/dL Ages 10 to 20 years Acceptable: <90 mg/dL Borderline high: 90-129 mg/dL High: >or= 130 mg/dL Ages > or = 20 years Desirable: <150 mg/dL Borderline high: 150-199 mg/dL High: 200-499 mg/dL Very high: >or= 499 mg/dL Literature References: 1. Expert Panel on Integrated Guidelines for Cardiovascular Health and Risk Reduction in Children and Adolescents. Pediatrics 2011;128:S213 2. NCEP Expert Panel. Circulation 2004;110:227 Current Interpretive Data was last revised on 2018. HDL 25(L) >=40 mg/dL [facility] Comment: Interpretive Data Ages < or = 19 years Acceptable: >45 mg/dL Borderline low: 40-45 mg/dL Low: <40 mg/dL Ages > or = 20 years Desirable: >or= 60 mg/dL Low: <40 mg/dL Literature References: 1. Expert Panel on Integrated Guidelines for Cardiovascular Health and Risk Reduction in Children and Adolescents. Pediatrics 2011;128:S213 2. NCEP Expert Panel. Circulation 2004;110:227 Current Interpretive Data was last revised on 2018. LDL, calculated 45 <=129 mg/dL [facility] Comment: Interpretive Data Ages < or = 19 years Acceptable: <110 mg/dL Borderline high: 110-129 mg/dL High: >or= 130 mg/dL Ages > or = 20 years Optimal: <100 mg/dL Near optimal: 100-129 mg/dL Borderline high: 130-159 mg/dL High: >160 mg/dL Calculated using the Rubén LDL-C estimating equation. This equation was implemented on 2024. Prior to this date LDL-C was estimated using the Friedewald equation. Literature References: 1. Expert Panel on Integrated Guidelines for Cardiovascular Health and Risk Reduction in Children and Adolescents. Pediatrics 2011;128:S213 2. NCEP Expert Panel. Circulation 2004;110:227 3. Rubén Larson et al. NEAL Cardiol. 2020 February 26;5(5):540-548. doi: 10.1001/jamacardio.2020.0013 Current Interpretive Data was last revised on 2024. Non-HDL Cholesterol 69 mg/dL [facility] Comment: Interpretive Data Ages < or = 19 years Acceptable: <120 mg/dL Borderline high: 120-144 mg/dL High: >145 mg/dL Ages > or = 20 years When triglycerides are >200 mg/dL, Non-HDL cholesterol is a secondary target of therapy with treatment goals that are 30 mg/dL greater than the LDL cholesterol target. Literature References: 1. Expert Panel on Integrated Guidelines for Cardiovascular Health and Risk Reduction in Children and Adolescents. Pediatrics 2011;128:S213 2. NCEP Expert Panel. Circulation 2004;110:227 Current Interpretive Data was last revised on 2018. Chol/HDL ratio 4 [facility] Blood 12/31/2024 9:42 AM ASSISTANT REFINERY OPERATOR 12/31/2024 3:07 PM ASSISTANT REFINERY OPERATOR Indra Yates MD LAB BLOOD ORDERABLES Final Result [facility] [id number] [address] Department [place] [address] * Comprehensive metabolic panel (12/31/2024 9:42 AM ASSISTANT REFINERY OPERATOR) Sodium 138 135 - 145 mmol/L Potassium, pl 4.5 3.3 - 4.9 mmol/L [facility] Chloride 101 97 - 110 mmol/L [facility] CO2 26 22 - 32 mmol/L [facility] Anion gap 11 2 - 15 mmol/L [facility] BUN 14 6 - 25 mg/dL [facility] Creatinine 1.02 0.80 - 1.30 mg/dL [facility] Glucose 115 70 - 199 mg/dL [facility] Comment: Interpretive Data Fasting glucose >/= 126 mg/dl is diagnostic for diabetes. Fasting is defined as no caloric intake for at least 8 hours. Fasting glucose between 100 mg/dl to 125 mg/dl is diagnostic of prediabetes. In a patient with classic symptoms of hyperglycemia or hyperglycemic crisis, a random glucose >/= 200 mg/dl is diagnostic for diabetes. In the absence of unequivocal hyperglycemia, results should be confirmed by repeat testing. The classification and Diagnosis of Diabetes Diabetes Care 2021; 46: S19-S40. Current interpretive data was last revised 2022. Calcium 9.2 8.5 - 10.3 mg/dL [facility] Bilirubin, total 0.7 0.1 - 1.2 mg/dL [facility] Protein, pl 7.0 6.5 - 8.5 g/dL [facility] Albumin 4.1 3.5 - 5.0 g/dL [facility] Alk phos 75 40 - 130 Units/L [facility] ALT 19 7 - 55 Units/L [facility] AST 29 10 - 50 Units/L [facility] Blood 12/31/2024 9:42 AM ASSISTANT REFINERY OPERATOR 12/31/2024 3:07 PM ASSISTANT REFINERY OPERATOR Indra Yates MD LAB BLOOD ORDERABLES Final Result [facility] [id number] [address] Department [place] [address] from Last 3 Months Insurance [employer] MED[employer]ARE HMO PPO [facility] MEDICARE ADVANTAGE Care Teams Fashion Intern Relationship Specialty Start Date End Date Indra Yates MD [address] [place] [address] PCP - General Family Medicine 07/02/24 Megha Crane PA [address] [place], [place] [address] Physician Second Language Tutor 07/02/24 Tacos Moreno MD [address] [place] [address] Referring Physician Psychiatry 12/31/24 Antonieta Pimentel MD [address] [place] [address] Consulting Physician Pulmonary Disease 12/31/24 Gurmeet Sands MD [address] [place] [address] Consulting Physician Gastroenterology 12/31/24 Mao Dodson MD [address] [place] [address] Consulting Physician Otolaryngology 02/25/25
--- OUTSIDE RECORDS SUMMARY | 2025-03-18 09:09 | XMS_ITS | Clinical Summary ---
Author Organization [email or web address] [facility] Address [address] [place] [address] Phone Care Team Providers Care Stop Attacher Name Role Phone Unavailable Primary Care Provider Unavailabl e Allergies Active Allergy Reactions Criticality Noted Date Comments Bupropion Other (See Comments) 07/04/2022 Other reaction(s): worsening symptoms Medications acetaminophen (Tylenol 8 Hour) 650 mg Extended Release tablet 0 2 Active ALPRAZolam (XANAX) 0.25 mg tablet 1 tablet(s), Oral, bid, 180 tablet(s), 1, 1, Route to Pharmacy Electronically, [facility] [id number], 162, cm, 12/28/2022 0808, Height, 70.7, kg, 12/28/2022 1031, Weight 3 Active carvediloL (COREG) 6.25 mg tablet Take 6.25 mg by mouth. 2 Active atorvastatin (LIPITOR) 40 mg tablet Take 40 mg by mouth. 2 Active hydrALAZINE (APRESOLINE) 50 mg tablet 1 tablet(s), Oral, tid, 270 tablet(s), 3, 3, Route to Pharmacy Electronically, [facility] ([facility] ), [id number], 162, cm, 06/26/2022 0830, Height, 70.6, kg, 06/26/2022 1027, Weight 3 Active HYDROcodone-brien taminophen (NORCO) 5-325 mg tablet Take 1 Tablet by mouth every 4 hours as needed. 3 Active levothyroxine 200 mcg tablet See Instructions, 90 tablet(s), 3, TAKE 1 TABLET DAILY BEFORE BREAKFAST, Route to Pharmacy Electronically, [facility] ([facility]), [id number], Instructions Replace Required Details, 162, cm, 12/28/2022 0808, Height, 70.7, kg, 12/28/2022 1031, Weight 3 Active lisinopriL (PRINIVIL) 20 mg tablet Take 20 mg by mouth daily. 2 Active ondansetron (ZUPLENZ) 4 mg Film 1 dose(s), Oral, [id number], PRN, 10 each, MISC, 0, nausea 2 Active sertraline (ZOLOFT) 100 mg tablet Take 200 mg by mouth daily. 2 Active zolpidem (AMBIEN) 10 mg tablet Take 10 mg by mouth. 3 Active POTASSIUM CHLORIDE ORAL Take by mouth. A ctive magnesium oxide 250 mg magnesium Tablet Take by mouth. Activ e B-complex + vitamin C (SUPER B-C) Tablet Take 1 Tablet by mouth daily. Active psyllium (METAMUCIL) Packet Take 1 Packet by mouth daily. 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[employer] Gender Identity Not on file Sexual Orientation Not on file Last Filed Vital Signs Vital Sign Reading Time Taken Comments Blood Pressure 125/68 08/01/2023 9:19 AM CDT Pulse 48 08/01/2023 9:19 AM CDT Temperature - - Respiratory Rate - - Oxygen Saturation - - Inhaled Oxygen Concentration - - Weight 65.9 kg (145 lb 3.2 oz) 08/01/2023 9:19 A M CDT Height 162.6 cm (5' 4 ) 08/01/2023 9:19 AM CDT Body Mass Index 24.92 08/01/2023 9:19 AM CDT Plan of Treatment Health Maintenance Due Date Last Done Comments DTAP/TDAP/TD VACCINES (1 - Tdap) 1965 ZOSTER VACCINE (2 of 3) 12/24/2013 10/29/2013 RSV VACCINE (60+ or ) (1 - 1-dose 75+ series) 2021 INFLUENZA VACCINE (#1) 2024 07/05/2023, 2015 COVID-19 Vaccine (4 - 2023-2 5 season) 2024 08/24/2021, 02/04/2021, 2021 PNEUMOCOCCAL VACCINE 50+ YEARS Completed 1 11/26/2021, 04/29/2019, 09/07/2015, Additional history exists Insurance [employer] MEDICARE
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
--- OUTSIDE RECORDS SUMMARY | 2025-03-18 09:09 | XMS_ITS | Encounter Summary ---
Author Organization [facility] Address [address] [place] [address] Care Team Providers Care Music Professionals Name Role Phone Syd Tate MD Primary Care Provider [phone] Antoine Lundberg MD Primary Care Provider [phone] Encounter Details Date Type Department Care Team (Late st Contact Info) Description 09/21/2014 Therapy Visit EXTERNAL NON-SS DEPT Unknown, Provider Social History Tobacco Use Types Packs/Day Years Used Date Smoking Tobacco: Every Day Cigarettes Alcohol Use Standard Drinks/Week Comments No 0 (1 standard drink = 0.6 oz pur e alcohol) Sex and Gender Information Value Date Recorded Sex Assigned at Male 06/12/2023 3:47 PM CDT 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
--- OUTSIDE RECORDS SUMMARY | 2025-03-18 09:09 | XMS_ITS | Encounter Summary ---
Author Organization [employer] Address [address] [place] [address] Care Team Providers Care Baggage Clerk Name Role Phone Syd Tate MD Primary Care Provider Encounter Details Date Type Department Care Team (Late st Contact Info) Description 02/04/2005 Outpatient Historical [facility] (Adt Cardiology-[facility]) [address] [place] [address] Yosi Ervin MD [address] 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
--- OUTSIDE RECORDS SUMMARY | 2025-03-18 09:09 | XMS_ITS | Encounter Summary ---
Author Organization [facility] Address [address] [place] [address] Care Team Providers Care Skin Installer Name Role Phone Syd Tate MD Primary Care Provider [phone] Encounter Details Date Type Department Care Team (Late st Contact Info) Description 03/21/2005 Outpatient Historical [facility] Trauma and General Surgery [address] [facility] [address] [address] [place] [address] [place] [address] Social History Tobacco Use Types Packs/Day Years Used Date Smoking Tobacco: Never Assessed Sex and Gender Information Value Date Recorded Sex Assigned at Not on file 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
--- OUTSIDE RECORDS SUMMARY | 2025-03-18 09:09 | XMS_ITS | Encounter Summary ---
Author Organization [facility] Address [address] [place] [address] Care Team Providers Care Liquefaction And Regasification Helper Name Role Phone Syd Tate MD Primary Care Provider [phone] Encounter Details Date Type Department Care Team (Late st Contact Info) Description 02/20/2005 Outpatient Historical [facility] Trauma and General Surgery [address] [facility] [place] [address] Anand Cabrales MD [address] [facility] [address] [place] [address] Social History Tobacco Use Types Packs/Day Years Used Date Smoking Tobacco: Never Assessed Sex and Gender Information Value Date Recorded Sex Assigned at Not on file 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
--- OUTSIDE RECORDS SUMMARY | 2025-03-18 09:09 | XMS_ITS | Clinical Summary ---
Author Organization [facility] Address [address] [place] [address] Care Team Providers Care Work Environment Safety Inspector Name Role Phone Antoine Lundberg MD Primary Care Provider [phone] Source Comments [facility],non-owned Affiliates and Associated Physician Practices is amultiple site organization consisting of ambulatory clinics and hospital sitesin [place], [place], [place] and [place]. This disclosure is being madepursuant to the Care Everywhere program and may not contain all information available regarding this patient. Last updated 18.[facility] Allergies No known active allergies Medications * Be aware that medications may not be up to date on this document. Alwaysverify current medications with the patient. SYNTHROID 200 MCG tablet Take 1 (one) tablet by mouth daily before breakfast 7 Active ALPRAZolam (XANAX) 0.25 MG tablet Take 1 (one) tablet by mouth 2 times daily 2 Active lisinopril (PRINIVIL; ZESTRIL) 20 MG tablet Take 1 (one) tablet by mouth once daily 30 tablet 2 Active sertraline (ZOLOFT) 100 MG tablet Take 2 (two) tablets by mouth once daily 2 Active hydrALAZINE (APRESOLINE) 50 MG tablet Take 1 (one) tablet by mouth 3 times daily 2 Active carvedilol (COREG) 6.25 MG tablet Take 1 (one) tablet by mouth 2 times daily with morning and evening meal 2 Active atorvastatin (LIPITOR) 40 MG tablet Take 1 (one) tablet by mouth every evening 2 Active zolpidem (Ambien) 10 MG tablet Take 1 (one) tablet by mouth at bedtime 3 Active potassium chloride (Klor-Con) 20 MEQ packet Active B Complex-C (vitamin B complex with C) Take 1 (one) tablet by mouth once daily Active fluorouracil (Efudex) 5 % cream APPLY TOPICALLY TO THE SCALP TWICE DAILY FOR 4 WEEKS TOLERATED 1 Active levothyroxine (Synthroid) 50 MCG tablet 3 Active magnesium oxide 250 MG tablet Active PSYLLIUM PO Take 1 packet by mouth once daily Active busPIRone (Buspar) 7.5 MG tablet Take 1 (one) tablet by mouth 2 times daily 4 Active Active Problems Problem Noted Date Diagnosed Date Calculus of gallbladder with out cholecystitis without obstruction 06/12/2023 Musculoskeletal pain 09/15/2022 Acute respiratory failure with hypoxia 2 Pneumonia of both lungs due to infectious organi sm 02/14/2022 SOB (shortness of breath) 02/03/2022 Pleural effusion 02/03/2022 Hypertensive urgency 02/03/2022 Nonintractable headache 02/03/2022 Cervicalgia 05/20/2021 Cervical radiculopathy 05/20/2021 Lumbosacral radiculopathy 12/01/2016 Lumbar radiculopathy 09/14/2014 Lumbago 09/14/2014 DDD (degenerative disc disease), lumbar 09/14/20 14 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 - Occupational Stress [...] place to sleep or slept in a assisted (including now)? No 06/12/2023 Sex and Gender Information Value Date Recorded Sex Assigned at Male 06/12/2023 3:47 PM CDT Legal Sex Male 4:34 AM DOOR PERSON Gender Identity Not on file Sexual Orientation Not on file Last Filed Vital Signs Vital Sign Reading Time Taken Comments Blood Pressure 120/64 09/04/2024 9:32 AM DOOR PERSON Pulse 50 09/04/2024 9:32 AM DOOR PERSON Temperature 37.2 C (99 F) 06/14/2023 7:59 AM CDT Respiratory Rate 18 06/13/2023 11:43 PM CDT Oxygen Saturation 97% 09/04/2024 9:32 AM DOOR PERSON Inhaled Oxygen Concentration - - Weight 68 kg (150 lb) 09/04/2024 9:32 AM DOOR PERSON Height 162.6 cm (5' 4 ) 06/12/2023 11:25 PM CDT Body Mass Index 25.75 06/12/2023 11:25 PM CDT Plan of Treatment Health Maintenance Due Date Last Done Comments DTAP/TDAP/TD VACCINES (1 - Tdap) 1965 LUNG CANCER SCREENING 01/06/1996 ZOSTER VACCINE (1 of 2) 01/06/1996 Respiratory Syncytial Virus (RSV) Vaccine Pt: or over 60 yrs (1 - 1-dose 75+ series) 2021 COVID-19 VACCINE ( season) 2024 09/26/2022, 06/05/2022, 08/24/2021, Additional history exists DEPRESSION SCREENING 10/29/2024 09/15/2022 MEDICARE AWV CALENDAR YEAR 2024 INFLUENZA VACCINE (Season Ended) 2025 09/26/2022, 09/12/2021, 08/02/2020, Additional history exists PNEUMOCOCCAL VACCINE 50+ Completed 09/26/2022 HEPATITIS B VACCINE Aged Out No longe r eligible based on patient's age to complete this topic HIB VACCINE Aged Out No longer eligi ble based on patient's age to complete this topic HPV VACCINE Aged Out No longer eligi ble based on patient's age to complete this topic MENINGOCOCCAL (Group B) VACCINE SHARED DECISION-MAKING Aged Out No longer eligible based on patient's age to complete this topic MENINGOCOCCAL GROUPS A/C/Y/W VACCINE Aged Out No longer eligible based on patient's age to complete this topic Insurance [facility] MANAGED MEDICARE ADV ZACHERY Advance Directives * Full Code (Latest Code Status on File) Date Activated Date Inactivated Comments 06/12/2023 11:23 PM 06/14/2023 1:13 PM * LIMITED RESUSCITATION-PRIOR AND AFTER ARREST Date Activated Date Inactivated Comments 02/20/2022 10:04 AM 02/27/2022 5:11 PM Question Answer Comments Limited Resuscitation: No Chest Compress ionNo Intubation, No Invasive VentilationNo Cardioversion, No Defibrilation, No External or Internal Pacemaker * Full Code Date Activated Date Inactivated Comments 02/14/2022 8:04 PM 02/20/2022 10:04 AM * Full Code Date Activated Date Inactivated Comments 02/03/2022 10:10 PM 02/05/2022 12:33 PM Care Teams Work Environment Safety Inspector Relationship Specialty Start Date End Date Antoine Lundberg MD [address] [facility] [address] [place] [address] PCP - General Internal Medicine 03/30/19
--- OUTSIDE RECORDS SUMMARY | 2025-03-18 09:09 | XMS_ITS | Encounter Summary ---
Author Organization [facility] Address [address] [place] [address] Care Team Providers Care Rib Sawyer Name Role Phone Syd Tate MD Primary Care Provider [phone] Encounter Details Date Type Department Care Team (Late st Contact Info) Description 03/06/2005 Outpatient Historical [facility] Trauma and General Surgery [address] [facility] [address] [facility] [place] [address] Anand Cabrales MD [address] [place] [address] Social History Tobacco Use Types Packs/Day Years Used Date Smoking Tobacco: Never Assessed Sex and Gender Information Value Date Recorded Sex Assigned at Not on file 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
--- OUTSIDE RECORDS SUMMARY | 2025-03-18 09:09 | XMS_ITS | Clinical Summary ---
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 -IB guard to help with complaints of abdominal bloating and gas as well as increased exercise. -Discuss small titration dose of MiraLax to help have regularity if fiber is not well tolerated. CKD (chronic kidney disease) stage 3, GFR 30-59 ml/min 12/31/2024 Cigarette nicotine dependence without complicati on 12/03/2024 Tongue swelling 12/03/2024 Pharyngeal dysphagia 12/03/2024 Anxiety 07/04/2022 Assessment & Plan (09/09/2024 1:22 PM SLOT FLOOR SUPERVISOR): Discussed with Dr. Yates, his PCP. In [...] 07/04/2022 Assessment & Plan (09/09/2024 1:20 PM SLOT FLOOR SUPERVISOR): Being treated by pulmonology. Will check ferritin [...] 024 Complication of surgical procedure 09/14/2014 09/04/2024 Encounters Date Type Department Care Team Description 03/04/2025 9:00 AM CDT Office Visit [facility] Pulmonary [address] [phone] Antonieta Pimentel MD Obstructive sleep apnea syndrome (Primary Dx); Centrilobular emphysema (HCC); Restless legs; Cigarette nicotine dependence without complication; Abnormal CT of the chest; Recurrent cold sores; Psychophysiological insomnia; Non-seasonal allergic rhinitis due to pollen; Pulmonary air trapping; Simple chronic bronchitis (HCC) 02/25/2025 10:00 AM CDT Office Visit [facility] Primary Care at [address] [phone] Indra Yates MD Encounter for annual wellness visit (AWV) in Medicare patient (Primary Dx); RLS (restless legs syndrome); Personal history of nicotine dependence 02/17/[address] [phone] Chris Thompson CMA 02/11/2025 11:30 AM CDT Office Visit [facility] Specialists of [address] [address] Hao Mann MD Acquired hypothyroidism (Primary Dx) 01/28/2025 9:00 AM CDT Office Visit [facility] Primary Care at [address] [phone] Indra Yates MD Encounter for Medicare annual wellness exam (Primary Dx); Moderately severe major depression (HCC); Chronic lymphocytic leukemia (HCC); Other emphysema (HCC); Autoimmune hepatitis (HCC); Stage 3a chronic kidney disease (HCC); Primary hypertension; Vitamin D deficiency; Mixed hyperlipidemia; Acquired hypothyroidism; Centrilobular emphysema (HCC); Neck mass; Acquired macroglossia; Need for hepatitis C screening test 01/28/2025 Orders Only [facility] Primary Care at [address] [phone] Indra Yates MD Neck mass; Acquired macroglossia 01/19/2025 Results Follow-Up [facility] Pulmonology [address] [place] [address] Chest WO Contrast 01/13/2025 8:03 AM CDT - 01/13/2025 11:59 PM CDT Hospital Encounter [facility] Respiratory [address] [place] [address] Obstructive sleep apnea syndrome; Restless legs; Psychophysiological insomnia; Cigarette nicotine dependence without complication; Pharyngeal dysphagia; Tongue swelling Discharge Disposition: Discharge to home or self care 01/12/2025 3:15 PM CDT - 01/12/2025 11:59 PM CDT Hospital Encounter [facility] [address] [place] [address] Obstructive sleep apnea syndrome; Restless legs; Psychophysiological insomnia; Cigarette nicotine dependence without complication; Pharyngeal dysphagia; Tongue swelling Discharge Disposition: Discharge to home or self care 01/09/2025 Telephone [facility] Diabetes and Endocrinology [address] [place] [phone] Hao Mann MD New referral to Endocrinology 2025 10:00 AM CDT Office Visit [facility] Gastroenterology at [place] [address] [place] [address] Belen Carter NP Irritable bowel syndrome with both constipation and diarrhea 01/04/2025 Results Follow-Up [facility] Primary Care at [address] [phone] Indra Yates MD Comprehensive metabolic panel, CBC with auto differential, Lipid panel, Additional followed-up results: 4 12/31/2024 9:45 AM SLOT FLOOR SUPERVISOR Lab [facility] Outpatient Lab at [address] [phone] Hyperlipidemia (Primary Dx); Hypertensive disorder; Hypothyroidism 12/31/2024 9:42 AM SLOT FLOOR SUPERVISOR - 12/31/2024 11:59 PM SLOT FLOOR SUPERVISOR Hospital Encounter [address] [address] Primary hypertension; Mixed hyperlipidemia; Acquired hypothyroidism Discharge Disposition: Discharge to home or self care 12/31/2024 9:00 AM SLOT FLOOR SUPERVISOR Office Visit [facility] Primary Care at [address] [phone] Indra Yates MD Mixed hyperlipidemia (Primary Dx); Chronic diastolic heart failure (HCC); Primary hypertension; Acquired hypothyroidism; Vitamin D deficiency; Tongue swelling; Other emphysema (HCC); Stage 3a chronic kidney disease (HCC) from Last 3 Months Immunizations Immunization Administration Dates Next Due Influenza, [...] PPV23 04/29/2019,10/2014,06/01/2014 Tdap 10/03/2023 ZOSTER LIVE 10/29/2013 Surgical History Surgery Date Site/Laterality Comments NASAL SEPTUM SURGERY VASECTOMY SPINE SURGERY spinal stenosis FOOT SURGERY Medical History Medical History Date Comments Sleep apnea Hypertension Hyperlipidemia GERD (gastroesophageal reflux disease) Hypothyroidism Depression Anxiety Arthritis Social History Tobacco Use Types Packs/Day Years [...] on file Legal Sex Male 12:09 AM SLOT FLOOR SUPERVISOR Gender Identity Not on file Sexual Orientation Not on file Obstetrics History Last Filed Vital Signs Vital Sign Reading [...] 03/04/2025 9:00 AM CDT Plan of Treatment Health Maintenance Due Date Last Done Comments Hepatitis C Screening 1945 Lung Cancer Screening 01/06/1996 Covid-19 Vaccine ( season) 2024 09/26/2022, 06/05/2022, 08/24/2021, Additional history exists Zoster Vaccine (1 of 2) 10/02/2025 10/29/2013 Post poned from 12/24/2013 (Insurance / Financial) Depression Screening 02/25/2026 02/25/2025, 01/28/2025, 01/28/2025, Additional history exists Fall Risk Assessment 02/25/2026 02/25/2025, 01/28/2025, 07/02/2024 Well Visit 65+ 02/25/2026 02/25/2025 DTaP/Tdap/Td Vaccine (2 - Td or Tdap) 10/03/2033 10/03/2023 Pneumococcal vaccine 65+ Completed 022, 04/29/2019, 09/07/2015, Additional history exists Hepatitis B Screening Completed 07/02/2024 Influenza Vaccine Completed 08/06/2024, , 07/05/2023, Additional history exists Procedures Procedure Name Priority Date/Time Associated Diagnosis [...] Tongue swelling EGFR Routine 12/31/2024 9:42 AM SLOT FLOOR SUPERVISOR Primary hypertension T4, FREE Routine 12/31/2024 9:42 AM SLOT FLOOR SUPERVISOR Primary hypertension Acquired hypothyroidism DIFFERENTIAL AUTO Routine 12/31/2024 9:4 2 AM SLOT FLOOR SUPERVISOR Primary hypertension THYROID FUNCTION CASCADE Routine 12/31/2024 9:42 AM SLOT FLOOR SUPERVISOR Primary hypertension Acquired hypothyroidism LIPID PANEL Routine 12/31/2024 9:42 AM SLOT FLOOR SUPERVISOR Mixed hyperlipidemia CBC WITH AUTO DIFFERENTIAL Routine 12/31/2024 9:42 AM SLOT FLOOR SUPERVISOR Primary hypertension COMPREHENSIVE METABOLIC PANEL Routine 12/31/2024 9:42 AM SLOT FLOOR SUPERVISOR Primary hypertension from Last 3 Months Results * Pulmonary Function Test - (01/13/2025 10:00 AM CDT) FVC POST 2.91 L 01/13/2025 11:08 AM CDT [facility] FEV1 POST 1.58 L 01/13/2025 11:08 AM CDT [facility] [id number] 54.17 % 01/13/2025 11:08 AM CDT [facility] [id number]% POST 0.62 L/s 01/13/2025 11:08 AM CDT [facility] PEF POST 3.07 L/s 01/13/2025 11:08 AM CDT [facility] DLCOc SB 7.83 ml/(min*mm Hg) 01/13/2025 11:08 AM CDT [facility] DLCO/VA PRE 2.04 ml/(min*mm Hg*L) 01/13/2025 11:08 AM CDT [facility] VA 3.84 L 01/13/2025 11:08 AM CDT [facility] TLC PRE 5.92 L 01/13/2025 11:08 AM CDT [facility] VC PRE 2.64 L 01/13/2025 11:08 AM CDT [facility] IC PRE 1.34 L 01/13/2025 11:08 AM CDT [facility] FRC PL PRE 4.30 L 01/13/2025 11:08 AM CDT [facility] ERV PRE 1.02 L 01/13/2025 11:08 AM CDT [facility] RV PRE 3.28 L 01/13/2025 11:08 AM T [facility] RAW PRE 3.28 cmH2O*s/L 01/13/2025 11:08 AM T [facility] VTG 4.20 L 01/13/2025 11:08 AM T [facility] FVC PRE 2.64 L 01/13/2025 11:08 AM CDT [facility] FEV1 PRE 1.73 L 01/13/2025 11:08 AM T [facility] [id number] 65.37 % 01/13/2025 11:08 AM T [facility] CMH99-04% PRE 0.99 L/s 01/13/2025 11:08 AM T [facility] PEF PRE 4.66 L/s 01/13/2025 11:08 AM T [facility] Anatomical Region Laterality Modality PFT 01/13/2025 [...] Juanis Dominguez M.D. FT T: Report ID: [id number] Reading Location: [place] [address] Procedure Note Juanis Felton MD - 01/17/2025 [...] Juanis Dominguez M.D. FT T: Report ID: [id number] Reading Location: [place] [address] Antonieta Pimentel MD IMG CT PROCEDURES Final Res ult * eGFR (12/31/2024 9:42 AM SLOT FLOOR SUPERVISOR) eGFR 75 >=60 mL/min/1. 73 m2 Comment: [...] of Race in Diagnosing Kidney Disease, JASN 2020). The CKD-EPI equation should not be used for patients with unstable renal function and has not been validated in children and those over 70. Current interpretive data was last reviewed 2021. Blood 12/31/2024 9:42 AM SLOT FLOOR SUPERVISOR 12/31/2024 3:35 PM SLOT FLOOR SUPERVISOR us Indra Yates MD LAB BLOOD ORDERABLES Final Result J[facility]EL [address] Department [place] [address] * Differential, auto (12/31/2024 9:42 AM SLOT FLOOR SUPERVISOR) Neutrophil abs 2.9 1.5 - 6.5 K/cumm Imm gran abs 0.0 0.0 - 0.1 K/cumm [facility] Lymphocyte abs 1.4 0.8 - 3.3 K/cumm [facility] Monocyte abs 0.5 0.2 - 0.8 K/cumm [facility] Eosinophil abs 0.3 0.0 - 0.5 K/cumm [facility] Basophil abs 0.1 0.0 - 0.1 K/cumm [facility] Neutrophil pct 56.5 % [facility] Comment: Interpretive Data Percent cell count reference ranges are not reported, since discordance with absolute values may lead to misinterpretation of CBC data. Current Interpretive Data was last revised on 2018. Imm gran pct 0.2 % [facility] Comment: Interpretive Data Percent cell count reference ranges are not reported, since discordance with absolute values may lead to misinterpretation of CBC data. Current Interpretive Data was last revised on 2018. Lymphocyte pct 26.3 % [facility] Comment: Interpretive Data Percent cell count reference ranges are not reported, since discordance with absolute values may lead to misinterpretation of CBC data. Current Interpretive Data was last revised on 2018. Monocyte pct 9.7 % [facility] Comment: Interpretive Data Percent cell count reference ranges are not reported, since discordance with absolute values may lead to misinterpretation of CBC data. Current Interpretive Data was last revised on 2018. Eosinophil pct 5.0 % [facility] Comment: Interpretive Data Percent cell count reference ranges are not reported, since discordance with absolute values may lead to misinterpretation of CBC data. Current Interpretive Data was last revised on 2018. Basophil pct 2.3 % [facility] Comment: Interpretive Data Percent cell count reference ranges are not reported, since discordance with absolute values may lead to misinterpretation of CBC data. Current Interpretive Data was last revised on 2018. Blood 12/31/2024 9:42 AM SLOT FLOOR SUPERVISOR 12/31/2024 3:07 PM SLOT FLOOR SUPERVISOR Indra Yates MD LAB BLOOD ORDERABLES Final Result Performing Organization Address City/State/[facility] Co de Phone Number JAMEEL FIT[facility] [phone] [address] [facility] [employer] [place] [address] * (ABNORMAL) Thyroid Function [place] (12/31/2024 9:42 AM SLOT FLOOR SUPERVISOR) TSH 13.40(H) 0.30 - 4.20 mcIUnit/mL Blood 12/31/2024 9:42 AM SLOT FLOOR SUPERVISOR 12/31/2024 3:07 PM SLOT FLOOR SUPERVISOR Indra Yates MD LAB BLOOD ORDERABLES Final Result Performing Organization Address [facility] de Phone Number JAMEEL FITCH [phone] [address] [facility] [place] [address] * CBC with auto differential (12/31/2024 9:42 AM SLOT FLOOR SUPERVISOR) WBC 5.2 3.8 - 9.9 K/cumm Hgb 14.1 13.0 - 17.5 g/dL [facility] Hct 43.1 38.9 - 50.3 % [facility] Plt 174 150 - 400 K/cumm [facility] MPV 9.8 9.1 - 12.3 fL [facility] RBC 4.69 4.30 - 5.80 M/cumm [facility] MCV 91.9 81.3 - 96.4 fL [facility] MCH 30.1 27.1 - 33.3 pg [facility] MCHC 32.7 32.3 - 35.7 g/dL [facility] RDW CV 13.6 11.1 - 14.9 % [facility] RDW SD 45.7 35.7 - 48.1 fL [facility] NRBC abs 0.00 0.00 - 0.01 K/cumm [facility] Blood 12/31/2024 9:42 AM SLOT FLOOR SUPERVISOR 12/31/2024 3:07 PM SLOT FLOOR SUPERVISOR Indra Yates MD LAB BLOOD ORDERABLES Final Result Performing Organization Address City/[facility] Co de Phone Number JAMEEL FITCH [id number] [address] [facility] [employer] [place] [address] * T4, free (12/31/2024 9:42 AM SLOT FLOOR SUPERVISOR) Free T4 1.35 0.90 - 1.70 ng/dL Blood 12/31/2024 9:42 AM SLOT FLOOR SUPERVISOR 12/31/2024 3:35 PM SLOT FLOOR SUPERVISOR Indra Yates MD LAB BLOOD ORDERABLES Final Result JAMEEL [place]CH [address] [address] Department [place] [address] * (ABNORMAL) Lipid panel (12/31/2024 9:42 AM SLOT FLOOR SUPERVISOR) Cholesterol 94 30 - 199 mg/dL Comment: [...] on 2018. Triglycerides 138 <=149 mg/dL [facility] Comment: Interpretive Data Ages < or = [...] on 2018. HDL 25(L) >=40 mg/dL [facility] Comment: Interpretive Data Ages < or = [...] 2018. LDL, calculated 45 <=129 mg/dL [facility] Comment: Interpretive Data Ages < or = [...] 3. Rubén Larson et al. NEAL Cardiol. 2019February 26;5(5):540-548. doi: 10.1001/jamacardio.2020.0013 Current Interpretive Data was last revised on 2024. Non-HDL Cholesterol 69 mg/dL [facility] Comment: Interpretive Data Ages < or = [...] last revised on 2018. Chol/HDL ratio 4 [facility] Blood 12/31/2024 9:42 AM SLOT FLOOR SUPERVISOR 12/31/2024 3:07 PM SLOT FLOOR SUPERVISOR Indra Yates MD LAB [place] [address] [address] [facility] [place] [address] * Comprehensive metabolic panel (12/31/2024 9:42 AM SLOT FLOOR SUPERVISOR) Sodium 138 135 - 145 mmol/L Potassium, pl 4.5 3.3 - 4.9 mmol/L [facility] Chloride 101 97 - 110 mmol/L [facility] CO2 26 22 - 32 mmol/L [facility] Anion gap 11 2 - 15 mmol/L [facility] BUN 14 6 - 25 mg/dL [facility] Creatinine 1.02 0.80 - 1.30 mg/dL [facility] Glucose 115 70 - 199 mg/dL [facility] Comment: Interpretive Data Fasting glucose >/= 126 [...] classification and Diagnosis of Diabetes Diabetes Care 202; 46: S19-S40. Current interpretive data was last [...] Units/L [facility] Blood 12/31/2024 9:42 AM SLOT FLOOR SUPERVISOR 12/31/2024 3:07 PM SLOT FLOOR SUPERVISOR Indra Yates MD LAB BLOOD ORDERABLES Final Result Performing Organization Address City/State/[place] Number [place] [address] [address] Department [place] [address] from Last 3 Months Insurance [employer] HMO PPO Member Subscriber Plan / Payer (Ef fective 2018-Present) Name:Pepito Ott Relation to Subscriber:Self Name:Pepito Ott Payer ID:[id number] (NAIC) Type:MEDICARE RISK OTHER Address: [address] [facility] MEDICARE [facility] Address: [address] [address] [place] [address] Care Teams Search Specialist Relationship Specialty Start Date End Date Indra Yates MD [address] [place] [address] PCP - General Family Medicine 07/02/24 Megha Crane PA [address] [place] [address] Physician Wire Spring Relay Adjuster 07/02/24 Tacos Moreno MD [address] [place] [address] Referring Physician Psychiatry 12/31/24 Antonieta Pimentel MD [address] [place] [address] Consulting Physician Pulmonary Disease 12/31/24 Gurmeet Sands MD [address] [place] [address] Consulting Physician Gastroenterology 12/31/24 Mao Dodson MD [address] [place] [address] Consulting Physician Otolaryngology 02/25/25
--- NOTE | 2025-03-18 09:50 | ED_ITS ---
HPI - General Adult General Chief complaint: Dental/Oral Stated complaint: sore on tongue Time Seen by Provider: 03/18/25 08:03 History of Present Illness HPI narrative: Patient is a 80-year-old male who presents ER with a nonhealing ulcer to the right side of his tongue. Ongoing for approximately 2 months. He had an ultrasound of his neck that was unremarkable on 01/28/2025. He has been trying different mouth washes without improvement. Has increased feeling of swelling that gives some discomfort with swallowing and eating. He does have history of significant tobacco use since a child. Related Data Home Medications ?Medication ?Instructions ?Recorded ?Confirmed ?Last Taken ?Type amlodipine 10 mg tablet mg PO 03/18/25 03/18/25 Unknown History atorvastatin 40 mg tablet mg PO 03/18/25 03/18/25 Unknown History carvedilol 6.25 mg tablet mg PO 03/18/25 03/18/25 Unknown History hydralazine 50 mg tablet mg PO 03/18/25 03/18/25 Unknown History levothyroxine 200 mcg tablet mcg PO 03/18/25 03/18/25 Unknown History (Unithroid) zolpidem 10 mg tablet mg PO 03/18/25 03/18/25 Unknown History Allergies Allergy/AdvReac Type Severity Reaction Status Date / Time bupropion AdvReac Mild Unknown Unverified 03/18/25 13:14 Review of Systems 2 Constitutional: Constitutional: Reports no additional constitutional complaints ENT: Reports system reviewed and no additional complaints, except as documented Cardiovascular: Cardiovascular: Reports no additional cardiovascular complaints Respiratory: Respiratory: Reports no additional respiratory complaints PMFSH Past Medical History Medical History (Updated 03/18/25 @ 18:45 by Zain Vicente MD) Hyperlipidemia Hypertension Social History Social History Smoking status: Current every day smoker Exam 2 Narrative: GENERAL: Well-appearing, well-nourished, and in no acute distress. HEAD: Normocephalic, atraumatic. ENT: Mucous membranes moist. 1 cm lesion lateral aspect of the tongue on the right near the posterior aspect of the tongue. Is not firm and is not bleeding. No purulent drainage. Posterior oropharynx unremarkable on inspection. NECK: Supple. CHEST: Clear to auscultation. No respiratory distress. HEART: Regular rate and rhythm. Normal peripheral pulses. EXTREMITIES: Normal range of motion. No edema. NEURO: Alert and oriented x3. PSYCH: Normal mood and affect. Course Course Emergency Course: Discussed case with ENT who will see the patient in clinic and biopsy the lesion. Patient educated the there is is significant chance that this is an or pharyngeal cancer. Hopefully it is early since there are no enlarged lymph nodes. Vital Signs Vital signs: Vital Signs Temperature 98 F 03/18/25 07:54 Pulse Rate 68 03/18/25 07:54 Respiratory Rate 18 03/18/25 07:54 Blood Pressure 149/77 H 03/18/25 07:54 Pulse Oximetry 98 03/18/25 07:54 Oxygen Delivery Room Air 03/18/25 07:54 Temperature 98 F 03/18/25 07:54 Pulse Rate 63 03/18/25 11:15 Respiratory Rate 16 03/18/25 11:15 Blood Pressure 142/77 H 03/18/25 11:15 Pulse Oximetry 99 03/18/25 11:15 Oxygen Delivery Room Air 03/18/25 07:54 Medical Decision Making Vital Signs Vital Signs: Vital Signs Temperature 98 F 03/18/25 07:54 Pulse Rate 68 03/18/25 07:54 Respiratory Rate 18 03/18/25 07:54 Blood Pressure 149/77 H 03/18/25 07:54 Pulse Oximetry 98 03/18/25 07:54 Oxygen Delivery Room Air 03/18/25 07:54 Temperature 98 F 03/18/25 07:54 Pulse Rate 63 03/18/25 11:15 Respiratory Rate 16 03/18/25 11:15 Blood Pressure 142/77 H 03/18/25 11:15 Pulse Oximetry 99 03/18/25 11:15 Oxygen Delivery Room Air 03/18/25 07:54 Lab Data 03/18/25 08:25 03/18/25 08:25 Labs: Lab Results 03/18/25 Range/Units 08:25 WBC 6.2 (4.5-10.0) K/mm3 RBC 4.19 L (4.6-6.20) M/mm3 Hgb 12.1 L (14.0-18.0) g/dL Hct 37.5 L (42.0-52.0) % MCV 89.5 (80-100) fl MCH 28.9 (26-34) pg MCHC 32.3 (32-36) g/dl RDW 14.2 (11.5-14.5) % Plt Count 178 (150-375) k/mm3 MPV 8.9 (7.4-10.4) fl Immature Gran % (Auto) 0.3 (0-0.5) % Neut % (Auto) 70.1 (45.5-73.1) % Lymph % (Auto) 16.9 L (18.3-44.2) % [place] % (Auto) 8.6 H (2.6-8.5) % Eos % (Auto) 2.6 (0-4.4) % Baso % (Auto) 1.5 H (0.2-1.2) % Lymph # (Auto) 1.04 (0.9-3.2) K/mm3 [place] # (Auto) 0.5 (0.1-0.6) K/mm3 Eos # (Auto) 0.2 (0-0.3) K/mm3 Baso # (Auto) 0.1 (0.0-0.1) K/mm3 Abs Immat Gran (auto) 0.02 (0.00-0.031) K/mm3 Absolute Neuts (auto) 4.3 (1.3-6.7) K/mm3 Absolute Nucleated RBC 0.000 (0.0-0.012) K/mm3 Nucleated RBC % 0.0 (0.0-0.2) % Sodium 135 L (137-145) mmol/L Potassium 4.1 (3.4-5.0) mmol/L Chloride 103 (98-107) mmol/L Carbon Dioxide 25 (22-30) mmol/L Anion Gap 7 (4-12) mmol/L BUN 17 D (9-20) mg/dL Creatinine 0.91 (0.7-1.3) mg/dL Estim Creat Clear Calc 48 ml/min Estimated GFR > 60 (59 - ) Glucose 103 (65-110) mg/dL Calcium 8.5 (8.4-10.2) mg/dL Total Bilirubin 1.0 (0.2-1.3) mg/dL AST 28 (17-59) U/L ALT 20 (6-50) U/L Alkaline Phosphatase 59 (38-126) U/L Total Protein 7.0 (6.3-8.2) g/dL Albumin 3.8 (3.5-5.1) g/dL Imaging Data Radiologist's impression: ITS Impressions Soft Tissue Neck CT 03/18/25 09:21 IMPRESSION: 1. Bilateral maxillary and ethmoid sinus disease. 2. Narrowing of the procedure in the area of the oropharynx. The mentioned ulcer in the tongue is not demonstrated. Clinical evaluation advised. Metallic Artifacts are seen in the area of the tongue. 3. Bilateral atherosclerotic changes of the carotid arteries with narrowing of 20-30% on the left.. Discharge Plan Discharge Clinical Impression: Lesion of tongue Patient Disposition: Home Condition: Stable Additional Instructions: You have a nonhealing tongue ulcer. You need to be seen by ENT. Call the number listed for a biopsy to be performed. Patient Language: Austrian Prescriptions: No Action zolpidem 10 mg tablet PO levothyroxine [Unithroid] 200 mcg tablet PO carvedilol 6.25 mg tablet PO amlodipine 10 mg tablet PO hydralazine 50 mg tablet PO atorvastatin 40 mg tablet PO doxycycline hyclate 100 mg capsule 100 mg PO BID Qty: 14 0RF ondansetron 4 mg tablet,disintegrating 4 mg PO Q6-8H PRN (Reason: nausea and vomiting) Qty: 14 0RF dicyclomine 20 mg tablet 20 mg PO QID PRN (Reason: abdominal pain) Qty: 20 0RF Follow-up/Referrals: Trudy,Indra Botello MD [Primary Care Provider] - Jamey Ye MD [Physician] - 1 Week
[2025-03-18 11:15] VITALS: BP 142/77; PULSE 63; RESP 16; O2SAT 99
== END 2025-03-18 11:16 | disposition home or self-care (01) ==
PROVIDERS: Emergency Provider Emergency Medicine; PCP Family Medicine
DX: K14.8 Other diseases of tongue (principal); I10 Essential (primary) hypertension; E78.5 Hyperlipidemia, unspecified; F17.200 Nicotine dependence, unspecified, uncomplicated; J32.2 Chronic ethmoidal sinusitis; J32.0 Chronic maxillary sinusitis; Z79.899 Other long term (current) drug therapy
CPT/HCPCS: 36415; 70491; 80053; 85025; 99284; Q9967

== ENCOUNTER → 2025-03-18 14:02 | Outpatient (REF) | payer MEDICARE, SELFPAY ==
--- NOTE | 2025-03-18 14:02 | S_PTH ---
PATIENT: Pepito Ott LOC: [facility] U#:[id number] AGE/SX: 80/M ROOM: RE03/18/[address]: Jamey Ye MD : 1945 BED: DIS: SPEC #: [id number] RECD: 03/19/25 07:36 STATUS: BO RETosha #: [id number] CHANDAN: 03/18/25 14:[address]: Jamey Ye DEPT: [facility] Surgical RECD BY: Christi Ruby ENTERED: 03/19/25 07:36 SP TYPE: Surgical OTHR DR: Indra YatesMD Tissues: A - Mass Procedures: Hematoxylin and Eosin Stain Gross and Microscopic Level 3
--- OUTSIDE RECORDS SUMMARY | 2025-03-18 14:15 | XMS_ITS | Clinical Summary ---
Author Organization [facility] Facility Address [address] [place] [id number] Care Team Providers Care High School Assistant Principal Name Role Phone Antoine Lundberg MD Primary Care Provider [phone] Allergies Active Allergy Reactions Criticality Noted Date [...] 9:10 AM CDT Height 162.6 cm (5' 4) 07/05/2022 9:10 AM CDT Body Mass Index 27.29 07/05/2022 9:10 AM CDT Plan of Treatment Health Maintenance Due Date Last Done Comments Influenza Vaccine (Season Ended) 2025 09/12/2021, 08/02/2020, 09/15/2019, Additional history exists Pneumococcal Vaccine: 50+ Years Completed 04/29/2019, 09/07/2015, 06/01/2014 Hepatitis B Vaccine Aged Out No longe r eligible based on patient's age to complete this topic Insurance [facility] ([id number]) Care Teams High School Assistant Principal Relationship Specialty Start Date End Date Antoine Lundberg MD [address] [place] [phone] PCP - General Occupational Medicine 02/23/22
--- OUTSIDE RECORDS SUMMARY | 2025-03-18 14:15 | XMS_ITS | Encounter Summary ---
Author Organization [facility] Address 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
--- OUTSIDE RECORDS SUMMARY | 2025-03-18 14:15 | XMS_ITS | Encounter Summary ---
Author Organization [facility] Address 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 [address] [place] [address] PCP - General 02/04/05 06/27/23 documented as of this encounter
--- OUTSIDE RECORDS SUMMARY | 2025-03-18 14:15 | XMS_ITS | Encounter Summary ---
Author Organization [facility] Address [address] [place] [address] Care Team Providers Care Commercial Litigation Associate Name Role Phone Syd Tate MD Primary Care Provider [phone] Encounter Details Date Type Department Care Team (Late st Contact Info) Description 02/04/2005 Outpatient Historical [facility] Support Serv. (Adt Cardiology-[facility]) [address] 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
--- OUTSIDE RECORDS SUMMARY | 2025-03-18 14:16 | XMS_ITS | Encounter Summary ---
Author Organization [facility] Healthcare Address [address] [place] [address] Care Team Providers Care Peoplesoft Taleo Manager Name Role Phone Indra Yates MD Primary Care Provider [phone] Megha Crane Unavailable [phone] Tacos Moreno MD Unavailable [phone] Antonieta Pimentel MD Unavailable [phone] Gurmeet Sands MD Unavailable Mao Dodson MD Unavailable [phone] Encounter Details Date Type Department Care Team (Late st Contact Info) Description 01/19/2025 Results Follow-Up [facility] Medical Group Pulmonology [address] [facility] [facility] [address] [place] [address] [place] [address] [place] [address] [address] [place] [address] CT Chest WO Contrast Social [...] on file 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 Gender Identity Not on file Sexual Orientation Not on file documented as of this encounter Plan of Treatment Not on file documented as of this encounter Visit Diagnoses Not on filedocumented in this encounter Care Teams Peoplesoft Taleo Manager Relationship Specialty Start Date End Date Indra Yates MD [address] [place] [address] PCP - General Family Medicine 07/02/24 Megha Crane PA [address] [place], [place] [address] Physician Research Worker Encyclopedia 07/02/24 Tacos Moreno MD [address] [place] [address] Referring Physician Psychiatry 12/31/24 Antonieta Pimentel MD [address] [place] [address] Consulting Physician Pulmonary Disease 12/31/24 Gurmeet Sands MD [address] [facility] [place] [address] Consulting Physician Gastroenterology 12/31/24 Mao Dodson MD [address] [place] [address] Consulting Physician Otolaryngology 02/25/25 documented as of this encounter
--- OUTSIDE RECORDS SUMMARY | 2025-03-18 14:16 | XMS_ITS | Encounter Summary ---
Author Organization [facility] Address [address] [place] [address] Care Team Providers Care Grain Distributor Name Role Phone Syd Tate MD Primary Care Provider [phone] Encounter Details Date Type Department Care Team (Late st Contact Info) Description 02/20/2005 Outpatient Historical [facility] Trauma and General Surgery [address] [facility] [address] [facility] [place] [address] Anand Cabrales MD [address] [facility] [address] [place] [address] Social History Tobacco Use Types Packs/Day Years Used Date Smoking Tobacco: Never Assessed Sex and Gender Information Value Date Recorded Sex Assigned at Not on file 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
--- OUTSIDE RECORDS SUMMARY | 2025-03-18 14:16 | XMS_ITS | Encounter Summary ---
Author Organization [facility] Health Address [address] 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
--- OUTSIDE RECORDS SUMMARY | 2025-03-18 14:16 | XMS_ITS | Encounter Summary ---
Author Organization [facility] Address [address] [place] [address] Care Team Providers Care Manager Psychology Name Role Phone Syd Tate MD Primary Care Provider [phone] Encounter Details Date Type Department Care Team (Late st Contact Info) Description 03/06/2005 Outpatient Historical [facility] Trauma and General Surgery [address] [facility] [address] 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
--- OUTSIDE RECORDS SUMMARY | 2025-03-18 14:16 | XMS_ITS | Encounter Summary ---
Author Organization [facility] Address [address] [place] [address] Care Team Providers Care Skein Winder Name Role Phone Syd Tate MD Primary Care Provider [phone] Encounter Details Date Type Department Care Team (Late st Contact Info) Description 03/21/2005 Outpatient Historical [facility] Trauma and General Surgery [address] [facility] [address] [address] [place] [address] [place] [address] Social History Tobacco Use Types Packs/Day Years Used Date Smoking Tobacco: Never Assessed Sex and Gender Information Value Date Recorded Sex Assigned at Not on file 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 [address] [place] [address] PCP - General 02/04/05 06/27/23 documented as of this encounter
--- OUTSIDE RECORDS SUMMARY | 2025-03-18 14:16 | XMS_ITS | Encounter Summary ---
Author Organization [facility] Address [address] [place] [address] Care Team Providers Care Game Technician Name Role Phone Antoine Lundberg MD Primary Care Provider [phone] Encounter Details Date Type Department Care Team (Late st Contact Info) Description 05/09/2018 Lab Requisition [facility] Care DermPath Lab [address] 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 Jar 0. 1:42 PM CDT DERMATOPATHOLOGY LABORATORY [...] characteristic determined by the Dermatopathology Laboratory at [facility]. These tests need not be, and therefore are not, approved by the [place] Food and Drug Administration. The tests are used for clinical purposes. Billing Codes Specimen Charges Stain Charges 81580 1 8 1:42 PM CDT DERMATOPATHOLOGY LABORATORY Embedded Images 1:42 PM CDT DERMATOPATHOLOGY LABORATORY Pathology/Cytolog y TISSUE SPECIMEN FROM SKIN / Unknown 05/08/2018 05/09/2018 8:33 AM CDT us Latrice Swan MD LAB - PATHOLOGY/CYTOLOGY NORBERT RAMIREZ Final Result DERMATOPATHOLOGY LABORATORY [facility] - Department of Dermatology [facility] [facility], 5th Floor Lab [address] [phone] documented in this encounter Visit Diagnoses Not on filedocumented in this encounter Care Teams Game Technician Relationship Specialty Start Date End Date Antoine Lundberg MD [address] [address] PCP - General Internal Medicine 03/30/19 documented as of this encounter
--- OUTSIDE RECORDS SUMMARY | 2025-03-18 14:16 | XMS_ITS | Referral Summary ---
Author Organization [facility] Address [address] [place] [address] Care Team Providers Care Freight Forwarder Name Role Phone Indra Yates MD Primary Care Provider [phone] Megha Crane Unavailable [phone] Tacos Moreno MD Unavailable [phone] Antonieta Pimentel MD Unavailable [phone] Gurmeet Sands MD Unavailable Mao Dodson MD Unavailable [phone] Encounters Date Type Department Care Team Description 03/04/2025 9:00 AM CDT Office Visit [facility] Pulmonary [address] [address] Antonieta Pimentel MD Obstructive sleep apnea syndrome (Primary Dx); Centrilobular emphysema (HCC); Restless legs; Cigarette nicotine dependence without complication; Abnormal CT of the chest; Recurrent cold sores; Psychophysiological insomnia; Non-seasonal allergic rhinitis due to pollen; Pulmonary air trapping; Simple chronic bronchitis (HCC) 02/25/2025 10:00 AM CDT Office Visit [facility] Primary Care at [address] [address] Indra Yates MD Encounter for annual wellness visit (AWV) in Medicare patient (Primary Dx); RLS (restless legs syndrome); Personal history of nicotine dependence 02/17/2025 Telephone [facility] Pulmonary [place] [address] [place] [address] Chris Thompson CMA 02/11/2025 11:30 AM CDT Office Visit [facility] [address] [place] [address] [address] [place] [address] Hao Mann MD Acquired hypothyroidism (Primary Dx) 01/28/2025 Orders Only [facility] Primary Care at [address] [address] Indra Yates MD Neck mass; Acquired macroglossia 01/28/2025 9:00 AM CDT Office Visit [facility] Primary Care at [address] [address] Indra Yates MD Encounter for Medicare annual wellness exam (Primary Dx); Moderately severe major depression (HCC); Chronic lymphocytic leukemia (HCC); Other emphysema (HCC); Autoimmune hepatitis (HCC); Stage 3a chronic kidney disease (HCC); Primary hypertension; Vitamin D deficiency; Mixed hyperlipidemia; Acquired hypothyroidism; Centrilobular emphysema (HCC); Neck mass; Acquired macroglossia; Need for hepatitis C screening test 01/19/2025 Results Follow-Up [facility] Pulmonology [address] [facility] [address] [place] [id number] Antonieta Pimentel MD CT Chest WO Contrast 01/13/2025 8:03 AM CDT - 01/13/2025 11:59 PM CDT Hospital Encounter [facility] Respiratory [address] [place] [address] Obstructive sleep apnea syndrome; Restless legs; Psychophysiological insomnia; Cigarette nicotine dependence without complication; Pharyngeal dysphagia; Tongue swelling Discharge Disposition: Discharge to home or self care 01/12/2025 3:15 PM CDT - 01/12/2025 11:59 PM CDT Hospital Encounter [facility] [address] [place] [address] Obstructive sleep apnea syndrome; Restless legs; Psychophysiological insomnia; Cigarette nicotine dependence without complication; Pharyngeal dysphagia; Tongue swelling Discharge Disposition: Discharge to home or self care 01/09/2025 Telephone [facility] Diabetes and Endocrinology [address] [place] [address] Hao Mann MD New referral to Endocrinology 2025 10:00 AM CDT Office Visit [facility] Gastroenterology at [address] [place] [address] Belen Carter NP Irritable bowel syndrome with both constipation and diarrhea 01/04/2025 Results Follow-Up [facility] Primary Care at [address] [address] Indra Yates MD Comprehensive metabolic panel, CBC with auto differential, Lipid panel, Additional followed-up results: 4 12/31/2024 9:42 AM UX DESIGN LEAD - 12/31/2024 11:59 PM UX DESIGN LEAD Hospital Encounter [address] [address] Primary hypertension; Mixed hyperlipidemia; Acquired hypothyroidism Discharge Disposition: Discharge to home or self care 12/31/2024 9:45 AM UX DESIGN LEAD Lab [facility] Outpatient Lab at [address] [address] Hyperlipidemia (Primary Dx); Hypertensive disorder; Hypothyroidism 12/31/2024 9:00 AM UX DESIGN LEAD Office Visit [facility] Primary Care at [address] [address] Indra Yates MD Mixed hyperlipidemia [...] 1 tablet (200 mcg total) by mouth sole stapler welt before breakfast 90 tablet 02/12/20 25 025 [...] titrate up to 25 g -Recommend starting mvtu-cww-[id number] probiotic like align or Edkimo. -IB guard to help with complaints of abdominal bloating and gas as well as increased exercise. -Discuss small titration dose of MiraLax to help have regularity if fiber is not well tolerated. CKD (chronic kidney disease) stage 3, GFR 30-59 ml/min 12/31/2024 Cigarette nicotine dependence without complicati on 12/03/2024 Tongue swelling 12/03/2024 Pharyngeal dysphagia 12/03/2024 Anxiety 07/04/2022 Assessment & Plan (09/09/2024 1:22 PM UX DESIGN LEAD): Discussed with Dr. Yates, his PCP. In [...] 07/04/2022 Assessment & Plan (09/09/2024 1:20 PM UX DESIGN LEAD): Being treated by pulmonology. Will check ferritin [...] on file Legal Sex Male 12:09 AM UX DESIGN LEAD Gender Identity Not on file Sexual Orientation [...] 9:00 AM CDT Height 162.6 cm (5' 4) 03/04/2025 9:00 AM CDT Body Mass Index [...] Tongue swelling EGFR Routine 12/31/2024 9:42 AM UX DESIGN LEAD Primary hypertension T4, FREE Routine 12/31/2024 9:42 AM UX DESIGN LEAD Primary hypertension Acquired hypothyroidism DIFFERENTIAL AUTO Routine 12/31/2024 9:4 2 AM UX DESIGN LEAD Primary hypertension THYROID FUNCTION CASCADE Routine 12/31/2024 9:42 AM UX DESIGN LEAD Primary hypertension Acquired hypothyroidism LIPID PANEL Routine 12/31/2024 9:42 AM UX DESIGN LEAD Mixed hyperlipidemia CBC WITH AUTO DIFFERENTIAL Routine 12/31/2024 9:42 AM UX DESIGN LEAD Primary hypertension COMPREHENSIVE METABOLIC PANEL Routine 12/31/2024 9:42 AM UX DESIGN LEAD Primary hypertension from Last 3 Months Results * Pulmonary Function Test - (01/13/2025 10:00 AM CDT) FVC POST 2.91 L 01/13/2025 11:08 AM CDT [facility] FEV1 POST 1.58 L 01/13/2025 11:08 AM CDT [facility] [id number] 54.17 % 01/13/2025 11:08 AM CDT [facility] STI62-24% POST 0.62 L/s 01/13/2025 11:08 AM CDT [facility] PEF POST 3.07 L/s 01/13/2025 11:08 AM CDT [facility] DLCOc SB 7.83 ml/(min*mm Hg) 01/13/2025 11:08 AM CDT [facility] DLCO/VA PRE 2.04 ml/(min*mm Hg*L) 01/13/2025 11:08 AM CDT [facility] VA 3.84 L 01/13/2025 11:08 AM CDT [facility] TLC PRE 5.92 L 01/13/2025 11:08 AM CDT [facility] VC PRE 2.64 L 01/13/2025 11:08 AM CDT [facility] IC PRE 1.34 L 01/13/2025 11:08 AM CDT [facility] FRC PL PRE 4.30 L 01/13/2025 11:08 AM CDT [facility] ERV PRE 1.02 L 01/13/2025 11:08 AM CDT [facility] RV PRE 3.28 L 01/13/2025 11:08 AM CDT [facility] RAW PRE 3.28 cmH2O*s/L 01/13/2025 11:08 AM CDT [facility] VTG 4.20 L 01/13/2025 11:08 AM CDT [facility] FVC PRE 2.64 L 01/13/2025 11:08 AM CDT [facility] FEV1 PRE 1.73 L 01/13/2025 11:08 AM CDT [facility] [id number] 65.37 % 01/13/2025 11:08 AM CDT [facility] LDB06-66% PRE 0.99 L/s 01/13/2025 11:08 AM CDT [facility] PEF PRE 4.66 L/s 01/13/2025 11:08 AM CDT [facility] Anatomical Region Laterality Modality PFT 01/13/2025 9:00 [...] Juanis Dominguez M.D. FT T: Report ID: [id number] Reading Location: [place] [address] Procedure Note Juanis Felton MD - 01/17/2025 [...] Juanis Dominguez M.D. FT T: Report ID: [id number] Reading Location: [place] [address] Antonieta Pimentel MD IM CT PROCEDURES Final Res ult * eGFR (12/31/2024 9:42 AM UX DESIGN LEAD) eGFR 75 >=60 mL/min/1. 73 m2 Comment: [...] last reviewed 2021. Blood 12/31/2024 9:42 AM UX DESIGN LEAD 12/31/2024 3:35 PM UX DESIGN LEAD us Indra Yates MD LAB BLOOD ORDERABLES Final Result [facility] [address] Department of [place] [address] * Differential, auto (12/31/2024 9:42 AM UX DESIGN LEAD) Neutrophil abs 2.9 1.5 - 6.5 K/cumm Imm gran abs 0.0 0.0 - 0.1 K/cumm [facility] Lymphocyte abs 1.4 0.8 - 3.3 K/cumm [facility] Monocyte abs 0.5 0.2 - 0.8 K/cumm [facility] Eosinophil abs 0.3 0.0 - 0.5 K/cumm [facility] Basophil abs 0.1 0.0 - 0.1 K/cumm [facility] Neutrophil pct 56.5 % [facility] Comment: Interpretive Data Percent cell count reference ranges are not reported, since discordance with absolute values may lead to misinterpretation of CBC data. Current Interpretive Data was last revised on 2018. Imm gran pct 0.2 % [facility] Comment: Interpretive Data Percent cell count reference ranges are not reported, since discordance with absolute values may lead to misinterpretation of CBC data. Current Interpretive Data was last revised on 2018. Lymphocyte pct 26.3 % [facility] Comment: Interpretive Data Percent cell count reference ranges are not reported, since discordance with absolute values may lead to misinterpretation of CBC data. Current Interpretive Data was last revised on 2018. Monocyte pct 9.7 % [facility] Comment: Interpretive Data Percent cell count reference ranges are not reported, since discordance with absolute values may lead to misinterpretation of CBC data. Current Interpretive Data was last revised on 2018. Eosinophil pct 5.0 % [facility] Comment: Interpretive Data Percent cell count reference ranges are not reported, since discordance with absolute values may lead to misinterpretation of CBC data. Current Interpretive Data was last revised on 2018. Basophil pct 2.3 % [facility] Comment: Interpretive Data Percent cell count reference ranges are not reported, since discordance with absolute values may lead to misinterpretation of CBC data. Current Interpretive Data was last revised on 2018. Blood 12/31/2024 9:42 AM UX DESIGN LEAD 12/31/2024 3:07 PM UX DESIGN LEAD Indra Yates MD LAB BLOOD ORDERABLES Final Result Performing Organization Address [facility] de Phone Number JAMEEL [address] [place] [address] * (ABNORMAL) Thyroid Function [place] (12/31/2024 9:42 AM UX DESIGN LEAD) TSH 13.40(H) 0.30 - 4.20 mcIUnit/mL Blood 12/31/2024 9:42 AM UX DESIGN LEAD 12/31/2024 3:07 PM UX DESIGN LEAD Indra Yates MD LAB BLOOD ORDERABLES Final Result Performing Organization Address [facility] de Phone Number [facility] [address] Department [place] [address] * CBC with auto differential (12/31/2024 9:42 AM UX DESIGN LEAD) WBC 5.2 3.8 - 9.9 K/cumm Hgb 14.1 13.0 - 17.5 g/dL [facility] Hct 43.1 38.9 - 50.3 % [facility] Plt 174 150 - 400 K/cumm [facility] MPV 9.8 9.1 - 12.3 fL [facility] RBC 4.69 4.30 - 5.80 M/cumm [facility] MCV 91.9 81.3 - 96.4 fL [facility] MCH 30.1 27.1 - 33.3 pg [facility] MCHC 32.7 32.3 - 35.7 g/dL [facility] RDW CV 13.6 11.1 - 14.9 % [facility] RDW SD 45.7 35.7 - 48.1 fL [facility] NRBC abs 0.00 0.00 - 0.01 K/cumm [facility] Blood 12/31/2024 9:42 AM UX DESIGN LEAD 12/31/2024 3:07 PM UX DESIGN LEAD Indra Yates MD LAB BLOOD ORDERABLES Final Result Performing Organization Address City/[facility] Co de Phone Number JAMEEL FITCH [address] [facility] [place] [address] * T4, free (12/31/2024 9:42 AM UX DESIGN LEAD) Free T4 1.35 0.90 - 1.70 ng/dL Blood 12/31/2024 9:42 AM UX DESIGN LEAD 12/31/2024 3:35 PM UX DESIGN LEAD Indra Yates MD LAB BLOOD ORDERABLES Final Result Performing Organization Address [facility] Co de Phone Number JAMEEL [address] Department [place] [employer] [address] * (ABNORMAL) Lipid panel (12/31/2024 9:42 AM UX DESIGN LEAD) Cholesterol 94 30 - 199 mg/dL Comment: [...] revised on 2024. Non-HDL Cholesterol 69 mg/dL [facility] Comment: Interpretive Data Ages < or [...] last revised on 2018. Chol/HDL ratio 4 [facility] Blood 12/31/2024 9:42 AM UX DESIGN LEAD 12/31/2024 3:07 PM UX DESIGN LEAD Indra Yates MD LAB BLOOD ORDERABLES Final Result [facility] [address] Department of [place] [address] * Comprehensive metabolic panel (12/31/2024 9:42 AM UX DESIGN LEAD) Sodium 138 135 - 145 mmol/L Potassium, pl 4.5 3.3 - 4.9 mmol/L [facility] Chloride 101 97 - 110 mmol/L [facility] CO2 26 22 - 32 mmol/L [facility] Anion gap 11 2 - 15 mmol/L [facility] BUN 14 6 - 25 mg/dL [facility] Creatinine 1.02 0.80 - 1.30 mg/dL [facility] Glucose 115 70 - 199 mg/dL [facility] Comment: Interpretive Data Fasting glucose >/= [...] Units/L [facility] Blood 12/31/2024 9:42 AM UX DESIGN LEAD 12/31/2024 3:07 PM UX DESIGN LEAD Indra Yates MD LAB BLOOD ORDERABLES Final Result [facility] [address] Department of [place] [address] from Last 3 Months Insurance [employer] MEDICARE HMO PPO [facility] MEDICARE ADVANTAGE Care Teams Freight Forwarder Relationship Specialty Start Date End Date Indra Yates MD [address] [place] [address] PCP - General Family Medicine 07/02/24 Megha Crane PA [address] [place], [place] [address] Physician Supervisor Vendor Quality 07/02/24 Tacos Moreno MD [address] [place] [address] Referring Physician Psychiatry 12/31/24 Antonieta Pimentel MD [address] [place] [address] Consulting Physician Pulmonary Disease 12/31/24 Gurmeet Sands MD [address] [place] [address] Consulting Physician Gastroenterology 12/31/24 Mao Dodson MD [address] [place] [address] Consulting Physician Otolaryngology 02/25/25
--- OUTSIDE RECORDS SUMMARY | 2025-03-18 14:16 | XMS_ITS | Encounter Summary ---
Author Organization [facility] Health Address [address] [place] [address] Care Team Providers Care Patch Worker Name Role Phone Syd Tate MD Primary Care Provider [phone] Antoine Lundberg MD Primary Care Provider [phone] Encounter Details Date Type Department Care Team [...] PM CDT Legal Sex Male 4:34 AM CORE MOUNTER Gender Identity Not on file Sexual Orientation Not on file documented as of this encounter Plan of Treatment Not on file documented as of this encounter Visit Diagnoses Not on filedocumented in this encounter Care Teams Patch Worker Relationship Specialty Start Date End Date Syd Tate MD [address] [facility] [address] [place] [address] PCP - General 09/13/08 04/01/16 Antoine Lundberg MD [address] [place] [address] PCP - General Internal Medicine 03/30/19 documented as of this encounter
--- OUTSIDE RECORDS SUMMARY | 2025-03-18 14:16 | XMS_ITS | Clinical Summary ---
Author Organization [facility] Address [address] [place] [address] Care Team Providers Care Drug Abuse Worker Name Role Phone Antoine Lundberg MD Primary Care Provider [phone] Source Comments [facility],non-owned Affiliates and Associated Physician Practices is amultiple site organization consisting of ambulatory clinics and hospital sitesin [place], [place], [place] and [place]. This disclosure is being madepursuant to the Care Everywhere program and may not contain all information available regarding this patient. Last updated 18.[facility] Allergies No known active allergies Medications * [...] Type Department Care Team Description 01/06/2025 Telephone [facility] Sleep Services [address] [place] [phone] Stephanie Lyons, SOLVENT RECOVERER-PROCUREMENT REPRESENTATIVE Update (/) from Last 3 Months Immunizations [...] Date Recorded PHQ2 TOTAL SCORE 0 09/15/2022 [facility] - Occupational Stress [...] place to sleep or slept in a skilled nursing (including now)? No 06/12/2023 Sex and Gender Information Value Date Recorded Sex Assigned at Male 06/12/2023 3:47 PM CDT Legal Sex Male 4:34 AM FINANCIAL CONSULTANT Gender Identity Not on file Sexual Orientation Not on file Last Filed Vital Signs Vital Sign Reading Time Taken Comments Blood Pressure 120/64 09/04/2024 9:32 AM FINANCIAL CONSULTANT Pulse 50 09/04/2024 9:32 AM FINANCIAL CONSULTANT Temperature 37.2 C (99 F) 06/14/2023 7:59 AM CDT Respiratory Rate 18 06/13/2023 11:43 PM CDT Oxygen Saturation 97% 09/04/2024 9:32 AM FINANCIAL CONSULTANT Inhaled Oxygen Concentration - - Weight 68 kg (150 lb) 09/04/2024 9:32 AM FINANCIAL CONSULTANT Height 162.6 cm (5' 4) 06/12/2023 11:25 PM CDT Body Mass Index [...] patient's age to complete this topic Insurance [facility] MANAGED MEDICARE ADV ZACHERY Advance Directives * [...] 10:10 PM 02/05/2022 12:33 PM Care Teams Drug Abuse Worker Relationship Specialty Start Date End Date Antoine Lundberg MD [address] [facility] [address] [place] [address] PCP - General Internal Medicine 03/30/19
--- OUTSIDE RECORDS SUMMARY | 2025-03-18 14:16 | XMS_ITS | Clinical Summary ---
Author Organization [facility] Address [address] [place] [address] Care Team Providers Care Roll Tube Setter Name Role Phone Indra Yates MD Primary Care Provider [phone] Megha Crane Unavailable [phone] Tacos Moreno MD Unavailable [phone] Antonieta Pimentel MD Unavailable [phone] Gurmeet Sands MD Unavailable Mao Dodson MD Unavailable [phone] Allergies Active Allergy Reactions Criticality Noted Date [...] 1 tablet (200 mcg total) by mouth resident assistant cna before breakfast 90 tablet 02/12/20 25 025 [...] titrate up to 25 g -Recommend starting [id number]-bta-[id number] probiotic like align or [facility]. [...] 07/04/2022 Assessment & Plan (09/09/2024 1:22 PM CREDIT VERIFICATION CLERK): Discussed with Dr. Yates, his PCP. In [...] 07/04/2022 Assessment & Plan (09/09/2024 1:20 PM CREDIT VERIFICATION CLERK): Being treated by pulmonology. Will check ferritin [...] Description 03/04/2025 9:00 AM CDT Office Visit [facility] Pulmonary [address] [phone] Antonieta Pimentel MD Obstructive sleep apnea syndrome (Primary Dx); Centrilobular emphysema (HCC); Restless legs; Cigarette nicotine dependence without complication; Abnormal CT of the chest; Recurrent cold sores; Psychophysiological insomnia; Non-seasonal allergic rhinitis due to pollen; Pulmonary air trapping; Simple chronic bronchitis (HCC) 02/25/2025 10:00 AM CDT Office Visit [facility] Primary Care at [address] [phone] Indra Yates MD Encounter for annual wellness visit (AWV) in Medicare patient (Primary Dx); RLS (restless legs syndrome); Personal history of nicotine dependence 02/17/[address] [phone] Chris Thompson CMA 02/11/2025 11:30 AM CDT Office Visit [facility] Specialists of [address] [address] Hao Mann MD Acquired hypothyroidism (Primary Dx) 01/28/2025 9:00 AM CDT Office Visit [facility] Primary Care at [address] [phone] Indra Yates MD Encounter for Medicare annual wellness exam (Primary Dx); Moderately severe major depression (HCC); Chronic lymphocytic leukemia (HCC); Other emphysema (HCC); Autoimmune hepatitis (HCC); Stage 3a chronic kidney disease (HCC); Primary hypertension; Vitamin D deficiency; Mixed hyperlipidemia; Acquired hypothyroidism; Centrilobular emphysema (HCC); Neck mass; Acquired macroglossia; Need for hepatitis C screening test 01/28/2025 Orders Only [facility] Primary Care at [address] [phone] Indra Yates MD Neck mass; Acquired macroglossia 01/19/2025 Results Follow-Up [facility] Pulmonology [address] [place] [address] Chest WO Contrast 01/13/2025 8:03 AM CDT - 01/13/2025 11:59 PM CDT Hospital Encounter [facility] Respiratory [address] [place] [address] Obstructive sleep apnea syndrome; Restless legs; Psychophysiological insomnia; Cigarette nicotine dependence without complication; Pharyngeal dysphagia; Tongue swelling Discharge Disposition: Discharge to home or self care 01/12/2025 3:15 PM CDT - 01/12/2025 11:59 PM CDT Hospital Encounter [facility] [address] [place] [address] Obstructive sleep apnea syndrome; Restless legs; Psychophysiological insomnia; Cigarette nicotine dependence without complication; Pharyngeal dysphagia; Tongue swelling Discharge Disposition: Discharge to home or self care 01/09/2025 Telephone [facility] Diabetes and Endocrinology [address] [place] [phone] Hao Mann MD New referral to Endocrinology 2025 10:00 AM CDT Office Visit [facility] Gastroenterology at [place] [address] [place] [address] Belen Carter NP Irritable bowel syndrome with both constipation and diarrhea 01/04/2025 Results Follow-Up [facility] Primary Care at [address] [phone] Indra Yates MD Comprehensive metabolic panel, CBC with auto differential, Lipid panel, Additional followed-up results: 4 12/31/2024 9:45 AM CREDIT VERIFICATION CLERK Lab [facility] Outpatient Lab at [address] [phone] Hyperlipidemia (Primary Dx); Hypertensive disorder; Hypothyroidism 12/31/2024 9:42 AM CREDIT VERIFICATION CLERK - 12/31/2024 11:59 PM CREDIT VERIFICATION CLERK Hospital Encounter [address] [address] Primary hypertension; Mixed hyperlipidemia; Acquired hypothyroidism Discharge Disposition: Discharge to home or self care 12/31/2024 9:00 AM CREDIT VERIFICATION CLERK Office Visit [facility] Primary Care at [address] [phone] Indra Yates MD Mixed hyperlipidemia [...] on file Legal Sex Male 12:09 AM CREDIT VERIFICATION CLERK Gender Identity Not on file Sexual Orientation [...] Tongue swelling EGFR Routine 12/31/2024 9:42 AM CREDIT VERIFICATION CLERK Primary hypertension T4, FREE Routine 12/31/2024 9:42 AM CREDIT VERIFICATION CLERK Primary hypertension Acquired hypothyroidism DIFFERENTIAL AUTO Routine 12/31/2024 9:4 2 AM CREDIT VERIFICATION CLERK Primary hypertension THYROID FUNCTION CASCADE Routine 12/31/2024 9:42 AM CREDIT VERIFICATION CLERK Primary hypertension Acquired hypothyroidism LIPID PANEL Routine 12/31/2024 9:42 AM CREDIT VERIFICATION CLERK Mixed hyperlipidemia CBC WITH AUTO DIFFERENTIAL Routine 12/31/2024 9:42 AM CREDIT VERIFICATION CLERK Primary hypertension COMPREHENSIVE METABOLIC PANEL Routine 12/31/2024 9:42 AM CREDIT VERIFICATION CLERK Primary hypertension from Last 3 Months Results * Pulmonary Function Test - (01/13/2025 10:00 AM CDT) FVC POST 2.91 L 01/13/2025 11:08 AM CDT [facility] FEV1 POST 1.58 L 01/13/2025 11:08 AM CDT [facility] [id number] 54.17 % 01/13/2025 11:08 AM CDT [facility] YVK90-97% POST 0.62 L/s 01/13/2025 11:08 AM CDT [facility] PEF POST 3.07 L/s 01/13/2025 11:08 AM CDT [facility] DLCOc SB 7.83 ml/(min*mm Hg) 01/13/2025 11:08 AM CDT [facility] DLCO/VA PRE 2.04 ml/(min*mm Hg*L) 01/13/2025 11:08 AM CDT [facility] VA 3.84 L 01/13/2025 11:08 AM CDT [facility] TLC PRE 5.92 L 01/13/2025 11:08 AM CDT [facility] VC PRE 2.64 L 01/13/2025 11:08 AM CDT [facility] IC PRE 1.34 L 01/13/2025 11:08 AM CDT [facility] FRC PL PRE 4.30 L 01/13/2025 11:08 AM CDT [facility] ERV PRE 1.02 L 01/13/2025 11:08 AM CDT [facility] RV PRE 3.28 L 01/13/2025 11:08 AM T [facility] RAW PRE 3.28 cmH2O*s/L 01/13/2025 11:08 AM T [facility] VTG 4.20 L 01/13/2025 11:08 AM T [facility] FVC PRE 2.64 L 01/13/2025 11:08 AM CDT [facility] FEV1 PRE 1.73 L 01/13/2025 11:08 AM T [facility] CVE2HCU-AGO 65.37 % 01/13/2025 11:08 AM T [facility] ECR90-16% PRE 0.99 L/s 01/13/2025 11:08 AM T [facility] PEF PRE 4.66 L/s 01/13/2025 11:08 AM T [facility] Anatomical Region Laterality Modality PFT 01/13/2025 9:00 [...] Juanis Dominguez M.D. FT T: Report ID: [id number] Reading Location: [place] [address] Procedure Note Juanis Felton MD - 01/17/2025 [...] Juanis Dominguez M.D. FT T: Report ID: [id number] Reading Location: [place] [address] Antonieta Pimentel MD IMG CT PROCEDURES Final Res ult * eGFR (12/31/2024 9:42 AM CREDIT VERIFICATION CLERK) eGFR 75 >=60 mL/min/1. 73 m2 Comment: [...] last reviewed 2021. Blood 12/31/2024 9:42 AM CREDIT VERIFICATION CLERK 12/31/2024 3:35 PM CREDIT VERIFICATION CLERK us Indra Yates MD LAB BLOOD ORDERABLES Final Result [facility] [address] Department [place] [address] * Differential, auto (12/31/2024 9:42 AM CREDIT VERIFICATION CLERK) Neutrophil abs 2.9 1.5 - 6.5 K/cumm Imm gran abs 0.0 0.0 - 0.1 K/cumm [facility] Lymphocyte abs 1.4 0.8 - 3.3 K/cumm [facility] Monocyte abs 0.5 0.2 - 0.8 K/cumm [facility] Eosinophil abs 0.3 0.0 - 0.5 K/cumm [facility] Basophil abs 0.1 0.0 - 0.1 K/cumm [facility] Neutrophil pct 56.5 % [facility] Comment: Interpretive Data Percent cell count reference ranges are not reported, since discordance with absolute values may lead to misinterpretation of CBC data. Current Interpretive Data was last revised on 2018. Imm gran pct 0.2 % [facility] Comment: Interpretive Data Percent cell count reference ranges are not reported, since discordance with absolute values may lead to misinterpretation of CBC data. Current Interpretive Data was last revised on 2018. Lymphocyte pct 26.3 % [facility] Comment: Interpretive Data Percent cell count reference ranges are not reported, since discordance with absolute values may lead to misinterpretation of CBC data. Current Interpretive Data was last revised on 2018. Monocyte pct 9.7 % [facility] Comment: Interpretive Data Percent cell count reference ranges are not reported, since discordance with absolute values may lead to misinterpretation of CBC data. Current Interpretive Data was last revised on 2018. Eosinophil pct 5.0 % [facility] Comment: Interpretive Data Percent cell count reference ranges are not reported, since discordance with absolute values may lead to misinterpretation of CBC data. Current Interpretive Data was last revised on 2018. Basophil pct 2.3 % [facility] Comment: Interpretive Data Percent cell count reference ranges are not reported, since discordance with absolute values may lead to misinterpretation of CBC data. Current Interpretive Data was last revised on 2018. Blood 12/31/2024 9:42 AM CREDIT VERIFICATION CLERK 12/31/2024 3:07 PM CREDIT VERIFICATION CLERK Indra Yates MD LAB BLOOD ORDERABLES Final Result Performing Organization Address City/State/[facility] Co de Phone Number [facility] [id number] [address] [facility] [place] [address] * (ABNORMAL) Thyroid Function [place] (12/31/2024 9:42 AM CREDIT VERIFICATION CLERK) TSH 13.40(H) 0.30 - 4.20 mcIUnit/mL Blood 12/31/2024 9:42 AM CREDIT VERIFICATION CLERK 12/31/2024 3:07 PM CREDIT VERIFICATION CLERK Indra Yates MD LAB BLOOD ORDERABLES Final Result Performing Organization Address [facility] de Phone Number J[facility] [address] [address] [address] [facility] [place] [address] * CBC with auto differential (12/31/2024 9:42 AM CREDIT VERIFICATION CLERK) WBC 5.2 3.8 - 9.9 K/cumm Hgb [...] K/cumm [facility] Blood 12/31/2024 9:42 AM CREDIT VERIFICATION CLERK 12/31/2024 3:07 PM CREDIT VERIFICATION CLERK Indra Yates MD LAB BLOOD ORDERABLES Final Result Performing Organization Address City/[facility] Co de Phone Number JAMEEL [address] [address] [address] [facility] [place] [address] * T4, free (12/31/2024 9:42 AM CREDIT VERIFICATION CLERK) Free T4 1.35 0.90 - 1.70 ng/dL Blood 12/31/2024 9:42 AM CREDIT VERIFICATION CLERK 12/31/2024 3:35 PM CREDIT VERIFICATION CLERK Indra Yates MD LAB BLOOD ORDERABLES Final Result [facility] [address] [address] [address] [facility] [place] [address] * (ABNORMAL) Lipid panel (12/31/2024 9:42 AM CREDIT VERIFICATION CLERK) Cholesterol 94 30 - 199 mg/dL Comment: [...] 4 [facility] FITCH Blood 12/31/2024 9:42 AM CREDIT VERIFICATION CLERK 12/31/2024 3:07 PM CREDIT VERIFICATION CLERK Indra Yates MD LAB [place]LOOD [place] [address] [address] [facility] [place] [address] * Comprehensive metabolic panel (12/31/2024 9:42 AM CREDIT VERIFICATION CLERK) Sodium 138 135 - 145 mmol/L Potassium, [...] Units/L [facility] Blood 12/31/2024 9:42 AM CREDIT VERIFICATION CLERK 12/31/2024 3:07 PM CREDIT VERIFICATION CLERK Indra Yates MD LAB BLOOD ORDERABLES Final Result Performing Organization Address [place] Number [place] [address] [address] [place] [address] from Last 3 Months Insurance [employer] H[employer] PPO Member Subscriber Plan / Payer (Ef fective 2018-Present) Name:Pepito Ott Relation to Subscriber:Self Name:Pepito Ott Payer ID:[id number] (NAIC) Type:MEDICARE RISK OTHER Address: [address] [facility] MEDICARE [facility] MEDIC[facility] Address: [address] [address] [place] [address] Care Teams Roll Tube Setter Relationship Specialty Start Date End Date Indra Yates MD [address] [place] [address] PCP - General Family Medicine 07/02/24 Megha Crane PA [address] [place] [address] Physician Agent Licensing Clerk 07/02/24 Tacos Moreno MD [address] [place] [address] Referring Physician Psychiatry 12/31/24 Antonieta Pimentel MD [address] [place] [address] Consulting Physician Pulmonary Disease 12/31/24 Gurmeet Sands MD [address] [place] [address] Consulting Physician Gastroenterology 12/31/24 Mao Dodson MD [address] [place] [address] Consulting Physician Otolaryngology 02/25/25
--- OUTSIDE RECORDS SUMMARY | 2025-03-18 14:16 | XMS_ITS | Clinical Summary ---
Author Organization [facility] Address [address] [place] [address] Phone Care Team Providers Care Instrument Maker Apprentice Name Role Phone Unavailable Primary Care Provider Unavailabl e Allergies Active Allergy Reactions Criticality Noted Date Comments Bupropion Other (See Comments) 07/04/2022 Other reaction(s): worsening symptoms Medications acetaminophen (Tylenol 8 Hour) 650 mg Extended Release tablet 0 2 Active ALPRAZolam (XANAX) 0.25 mg tablet 1 tablet(s), Oral, bid, 180 tablet(s), 1, 1, Route to Pharmacy Electronically, [facility] ([facility] ), [id number], 162, cm, 12/28/2022 0808, Height, 70.7, kg, 12/28/2022 1031, Weight 3 Active carvediloL (COREG) 6.25 mg tablet Take 6.25 mg by mouth. 2 Active atorvastatin (LIPITOR) 40 mg tablet Take 40 mg by mouth. 2 Active hydrALAZINE (APRESOLINE) 50 mg tablet 1 tablet(s), Oral, tid, 270 tablet(s), 3, 3, Route to Pharmacy Electronically, [facility] ([facility] ), [id number], 162, cm, 06/26/2022 0830, Height, 70.6, kg, 06/26/2022 1027, Weight 3 Active HYDROcodone-brien taminophen (NORCO) 5-325 mg tablet Take 1 Tablet by mouth every 4 hours as needed. 3 Active levothyroxine 200 mcg tablet See Instructions, 90 tablet(s), 3, TAKE 1 TABLET DAILY BEFORE BREAKFAST, Route to Pharmacy Electronically, [facility] ([facility]), [id number], Instructions Replace Required Details, 162, cm, 12/28/2022 0808, Height, 70.7, kg, 12/28/2022 1031, Weight 3 Active lisinopriL (PRINIVIL) 20 mg tablet Take 20 mg by mouth daily. 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
--- OUTSIDE RECORDS SUMMARY | 2025-03-18 14:16 | XMS_ITS | Encounter Summary ---
Author Organization [facility] Address [address] [place] [address] Care Team Providers Care Timber Girdler Name Role Phone Antoine Lundberg MD Primary Care Provider [phone] Encounter Details Date Type Department Care Team (Late st Contact Info) Description 07/05/2023 Lab Requisition [facility] [address] [place] [phone] Latrice Swan MD [address] [place] [address] Neoplasm of unspecified behavior of bone, soft [...] Date Recorded PHQ2 TOTAL SCORE 0 09/15/2022 [facility] - Occupational Stress [...] place to sleep or slept in a mcc (including now)? 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 Answer Date of Assessment Author No 06/12/2023 11:45 PM CDT Marsha oDran LPN * Is person blind or have [...] AM CDT) Case Report Dermatopathology Report Case: [id number] Authorizing Provider: Latrice Swan MD Collected: 07/04/2023 03:33 AM Ordering Location: [facility] DermPath Lab Received: 07/06/2023 09:55 AM Pathologist: Bertha Rodriguez MD Specimens: A) - Skin, right medial malar cheek B) - Skin, right sikhism C) - Skin, left lateral neck 3 1:37 PM CDT DERMATOPATHOLOGY LABORATORY Final Diagnosis Specimen A. 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 SKIN, right sikhism: BASAL CELL CARCINOMA, NODULAR TYPE (C44.319) Specimen [...] with the patient's name and designated right sikhism. The specimen consists of a shave biopsy [...] obtained and reviewed. Specimen B. SKIN, right sikhism: Within the dermis there are aggregates of [...] determined by the Dermatopathology Laboratory at [facility], directed by Dr. Lara Nava. These tests need not be, and therefore are not, approved by the [place] Food and Drug Administration. The tests are used for clinical purposes. Billing Codes Specimen Charges Stain Charges 86718 [id number] 1 1 1 3 1:37 PM CDT [...] PATHOLOGY/CYTOLOGY NORBERT RAMIREZ Final Result DERMATOPATHOLOGY LABORATORY [facility] - Department of Dermatology [facility] Specialized Medicine [facility], [address]rd Floor [address] [phone] documented in this encounter Visit Diagnoses Diagnosis Neoplasm of unspecified behavior of bone, soft tissue, and skin documented in this encounter Care Teams Timber Girdler Relationship Specialty Start Date End Date Antoine Lundberg MD [address] [address] PCP - General Internal Medicine 03/30/19 documented as of this encounter
== END ==
LOC: ANHGOSHLAB 14:02
PROVIDERS: PCP Family Medicine; Visit Provider Otolaryngology
DX: K14.8 Other diseases of tongue (principal)
CPT/HCPCS: 88304

== ENCOUNTER 2025-03-19 19:02 | Observation (INO) | payer MEDICARE, SELFPAY ==
--- NOTE | ~2025-03-19 | CT_ITS ---
CLINICAL INDICATION: Abdominal pain, nausea and vomiting COMPARISON: 12/01/2024. TECHNIQUE: Multiple contiguous axial images of the abdomen and pelvis were performed following the ad ministration of with 100 mL Omnipaque-350 intravenous contrast The dose-length product (DLP) was 358.39 mGy-cm. Automated exposure control and iterative reconstruction technique were employed. FINDINGS/OBSERVATIONS: Visualized lower thorax: Calcified pleural plaques are demonstrated. The remainder of the bilateral lung bases are clear. The heart is borderline enlarged, without pericardial effusion. Liver: The liver demonstrates homogeneous enhancement and is not enlarged. Gallbladder and biliary system: The gallbladder is surgically absent. Pancreas: The pancreas enhances homogeneously without ductal dilatation. Spleen: Punctate calcifications identified within the splenic parenchyma, suggesting prior granulomat ous disease. The remainder of the spleen otherwise enhances homogeneously and is not enlarged. Kidneys: The bilateral kidneys enhance symmetrically without hydronephrosis or renal calculi. Adrenal glands: Unremarkable. Gastrointestinal tract: Colonic diverticulosis without surrounding inflammatory change. Remaining bowel loops are fluid-filled and otherwise unremarkable. Appendix: The appendix is not definitively visualized. However, no pericecal inflammatory change is identified suggest the presence of acute appendicitis. Vasculature: Calcified atherosclerotic disease without aneurysmal dilatation Lymph nodes: No pathologically enlarged or morphologically suspicious lymph nodes within the retroperitoneum or at the root of the mesentery. Pelvic structures: The bladder is minimally distended, and otherwise unremarkable. The prostate gland is enlarged, and demonstrates mass effect on the base of the bladder. Body wall and musculoskeletal: Age-appropriate degenerative disease within the lumbosacral spine. IMPRESSION: No acute pathology within the abdomen or pelvis, as detailed above. Reviewed, dictated and finalized at location A.
--- NOTE | ~2025-03-19 | XR_ITS ---
Portable chest x-ray Comparison: None Clinical History: Hypoxia, cough Findings: Calcified right midlung granuloma present. Possible minimal left pleural effusion. Probabl e COPD. Cardiomediastinal silhouette is stable. Bones and soft tissues are unremarkable. Impression: Minimal left pleural effusion. COPD. Reviewed, dictated and finalized at location . Impression: Minimal left pleural effusion. COPD.
--- NOTE | ~2025-03-19 | CT_ITS ---
History: Right-sided headache with facial paresthesias PROCEDURE: CT head without contrast. COMPARISON: 10/03/2023 TECHNIQUE: Axial imaging of the head performed from the skull base to the vertex without IV contrast. Sagittal a nd coronal reformations obtained. DLP: 681 mGy-cm FINDINGS: The ventricles are enlarged. The dilatation of the ventricles is proportional to the degree of sulcal prominence, not uncommon in the senescent brain. Decreased attenuation is identified within the periventricular white matter, likely secondary to micr ovascular ischemic disease, in a patient of this age. There is no mass, mass effect or midline shift. There is no abnormal extra-axial fluid collection or intracranial hemorrhage. Visualized paranasal sinuses are clear. The mastoid air cells are well aerated. No acute displaced fractures within the overlying cranium. Impression: No acute intracranial hemorrhage or suspicious mass effect. Reviewed, dictated and finalized at location A. Impression: No acute intracranial hemorrhage or suspicious mass effect.
--- NOTE | ~2025-03-19 | CT_ITS ---
Clinical Indication: Hypoxia CT Scan of the Chest with Contrast: Technique: Contiguous sections were acquired throughout the chest after intravenous administration of 100 cc of Omnipaque 350. Dose reduction technique was used on this scan by utilizing automated expos ure control and iterative reconstruction technique. The dose-length product (DLP) was 281.18 mGy-cm. Findings: There is no evidence of any significant mediastinal, hilar or axillary lymphadenopathy. There is no f illing defect in the pulmonary arterial tree to suggest pulmonary embolus. There is no evidence of ao rtic dissection or aneurysm. There is no evidence of pleural or pericardial effusion. Moderate to advanced emphysema present. There are scattered, focal calcified pleural plaques Images through the upper abdomen reveal heterogeneous splenic enhancement, likely related to timing o f contrast and imaging.. Impression: No evidence of pulmonary embolus, aortic dissection, or aortic aneurysm. Moderate to advanced emphysema. Numerous scattered focal calcified pleural plaques. Heterogeneous splenic enhancement is likely related to timing of the contrast bolus. Reviewed, dictated and finalized at [facility]. Impression: No evidence of pulmonary embolus, aortic dissection, or aortic aneurysm. Moderate to advanced emphysema. Numerous scattered focal calcified pleural plaq ues. Heterogeneous splenic enhancement is likely related to timing of the contrast b olus.
--- OUTSIDE RECORDS SUMMARY | 2025-03-19 19:05 | XMS_ITS | Referral Summary ---
Author Organization [facility] Address [address] [place] [address] Care Team Providers Care Pre Coder Name Role Phone Indra Yates MD Primary Care Provider [phone] Megha Crane Unavailable [phone] Tacos Moreno MD Unavailable [phone] Antonieta Pimentel MD Unavailable [phone] Gurmeet Sands MD Unavailable Mao Dodson MD Unavailable [phone] Encounters Date Type Department Care Team Description 03/04/2025 9:00 AM CDT Office Visit [facility] [address] [address] Antonieta Pimentel MD Obstructive sleep apnea syndrome (Primary Dx); Centrilobular emphysema (HCC); Restless legs; Cigarette nicotine dependence without complication; Abnormal CT of the chest; Recurrent cold sores; Psychophysiological insomnia; Non-seasonal allergic rhinitis due to pollen; Pulmonary air trapping; Simple chronic bronchitis (HCC) 02/25/2025 10:00 AM CDT Office Visit [facility] at [address] [address] Indra Yates MD Encounter for annual wellness visit (AWV) in Medicare patient (Primary Dx); RLS (restless legs syndrome); Personal history of nicotine dependence 02/17/2025 Telephone [facility] [place] [address] [place] [address] Chris Thompson CMA 02/11/2025 11:30 AM CDT Office Visit [facility] [address] [place] [address] [address] [place] [address] Hao Mann MD Acquired hypothyroidism (Primary Dx) 01/28/2025 Orders Only [facility] at [address] [address] Indra Yates MD Neck mass; Acquired macroglossia 01/28/2025 9:00 AM CDT Office Visit [facility] at [address] [address] Indra Yates MD Encounter for Medicare annual wellness exam (Primary Dx); Moderately severe major depression (HCC); Chronic lymphocytic leukemia (HCC); Other emphysema (HCC); Autoimmune hepatitis (HCC); Stage 3a chronic kidney disease (HCC); Primary hypertension; Vitamin D deficiency; Mixed hyperlipidemia; Acquired hypothyroidism; Centrilobular emphysema (HCC); Neck mass; Acquired macroglossia; Need for hepatitis C screening test 01/19/2025 Results Follow-Up [facility] Pulmonology [address] [facility] [address] [place] [address] Antonieta Pimentel MD CT Chest WO Contrast 01/13/2025 8:03 AM CDT - 01/13/2025 11:59 PM CDT Hospital Encounter [facility] Respiratory [address] [place] [address] Obstructive sleep apnea syndrome; Restless legs; Psychophysiological insomnia; Cigarette nicotine dependence without complication; Pharyngeal dysphagia; Tongue swelling Discharge Disposition: Discharge to home or self care 01/12/2025 3:15 PM CDT - 01/12/2025 11:59 PM CDT Hospital Encounter [facility] CT [address] [place] [address] Obstructive sleep apnea syndrome; Restless legs; Psychophysiological insomnia; Cigarette nicotine dependence without complication; Pharyngeal dysphagia; Tongue swelling Discharge Disposition: Discharge to home or self care 01/09/2025 Telephone [facility] [address] [place] [address] Hao Mann MD New referral to Endocrinology 2025 10:00 AM CDT Office Visit [facility] Gastroenter[facility] at [address] [place] [address] Belen Carter NP Irritable bowel syndrome with both constipation and diarrhea 01/04/2025 Results Follow-Up [facility] at [address] [address] Indra Yates MD Comprehensive metabolic panel, CBC with auto differential, Lipid panel, Additional followed-up results: 4 12/31/2024 9:42 AM PATIENT ACCESS SPECIALIST - 12/31/2024 11:59 PM PATIENT ACCESS SPECIALIST Hospital Encounter [address] [address] Primary hypertension; Mixed hyperlipidemia; Acquired hypothyroidism Discharge Disposition: Discharge to home or self care 12/31/2024 9:45 AM PATIENT ACCESS SPECIALIST Lab [facility] at [address] [address] Hyperlipidemia (Primary Dx); Hypertensive disorder; Hypothyroidism 12/31/2024 9:00 AM PATIENT ACCESS SPECIALIST Office Visit [facility] at [address] [address] Indra Yates MD Mixed hyperlipidemia [...] 1 tablet (200 mcg total) by 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 -IB guard to help with complaints of abdominal bloating and gas as well as increased exercise. -Discuss small titration dose of MiraLax to help have regularity if fiber is not well tolerated. CKD (chronic kidney disease) stage 3, GFR 30-59 ml/min 12/31/2024 Cigarette nicotine dependence without complicati on 12/03/2024 Tongue swelling 12/03/2024 Pharyngeal dysphagia 12/03/2024 Anxiety 07/04/2022 Assessment & Plan (09/09/2024 1:22 PM PATIENT ACCESS SPECIALIST): Discussed with Dr. Yates, his PCP. In [...] 07/04/2022 Assessment & Plan (09/09/2024 1:20 PM PATIENT ACCESS SPECIALIST): Being treated by pulmonology. Will check ferritin [...] on file Legal Sex Male 12:09 AM PATIENT ACCESS SPECIALIST Gender Identity Not on file Sexual Orientation [...] Tongue swelling EGFR Routine 12/31/2024 9:42 AM PATIENT ACCESS SPECIALIST Primary hypertension T4, FREE Routine 12/31/2024 9:42 AM PATIENT ACCESS SPECIALIST Primary hypertension Acquired hypothyroidism DIFFERENTIAL AUTO Routine 12/31/2024 9:4 2 AM PATIENT ACCESS SPECIALIST Primary hypertension THYROID FUNCTION CASCADE Routine 12/31/2024 9:42 AM PATIENT ACCESS SPECIALIST Primary hypertension Acquired hypothyroidism LIPID PANEL Routine 12/31/2024 9:42 AM PATIENT ACCESS SPECIALIST Mixed hyperlipidemia CBC WITH AUTO DIFFERENTIAL Routine 12/31/2024 9:42 AM PATIENT ACCESS SPECIALIST Primary hypertension COMPREHENSIVE METABOLIC PANEL Routine 12/31/2024 9:42 AM PATIENT ACCESS SPECIALIST Primary hypertension from Last 3 Months Results * Pulmonary Function Test - (01/13/2025 10:00 AM CDT) FVC POST 2.91 L 01/13/2025 11:08 AM CDT [facility] FEV1 POST 1.58 L 01/13/2025 11:08 AM CDT [facility] [id number] 54.17 % 01/13/2025 11:08 AM CDT [facility] IVL50-78% POST 0.62 L/s 01/13/2025 11:08 AM CDT [facility] PEF POST 3.07 L/s 01/13/2025 11:08 AM CDT [facility] DLCOc SB 7.83 ml/(min*mm Hg) 01/13/2025 11:08 AM CDT [facility] DLCO/VA PRE 2.04 ml/(min*mm Hg*L) 01/13/2025 11:08 AM CDT [facility] VA 3.84 L 01/13/2025 11:08 AM CDT [facility] TLC PRE 5.92 L 01/13/2025 11:08 AM CDT [facility] VC PRE 2.64 L 01/13/2025 11:08 AM CDT [facility] IC PRE 1.34 L 01/13/2025 11:08 AM CDT [facility] FRC PL PRE 4.30 L 01/13/2025 11:08 AM CDT [facility] ERV PRE 1.02 L 01/13/2025 11:08 AM CDT [facility] RV PRE 3.28 L 01/13/2025 11:08 AM CDT [facility] RAW PRE 3.28 cmH2O*s/L 01/13/2025 11:08 AM CDT [facility] VTG 4.20 L 01/13/2025 11:08 AM CDT [facility] FVC PRE 2.64 L 01/13/2025 11:08 AM CDT [facility] FEV1 PRE 1.73 L 01/13/2025 11:08 AM CDT [facility] [id number] 65.37 % 01/13/2025 11:08 AM CDT [facility] ICP67-90% PRE 0.99 L/s 01/13/2025 11:08 AM CDT [facility] PEF PRE 4.66 L/s 01/13/2025 11:08 AM CDT [facility] Anatomical Region Laterality Modality PFT 01/13/2025 9:00 [...] Juanis Dominguez M.D. FT T: Report ID: [id number] Reading Location: [place] [address] Procedure Note Juanis Felton MD - 01/17/2025 [...] Juanis Dominguez M.D. FT T: Report ID: [id number] Reading Location: [place] [address] Antonieta Pimentel MD IM CT PROCEDURES Final Res ult * eGFR (12/31/2024 9:42 AM PATIENT ACCESS SPECIALIST) eGFR 75 >=60 mL/min/1. 73 m2 Comment: [...] last reviewed 2021. Blood 12/31/2024 9:42 AM PATIENT ACCESS SPECIALIST 12/31/2024 3:35 PM PATIENT ACCESS SPECIALIST us Indra Yates MD LAB BLOOD ORDERABLES Final Result [facility] [address] Department [place] [address] * Differential, auto (12/31/2024 9:42 AM PATIENT ACCESS SPECIALIST) Neutrophil abs 2.9 1.5 - 6.5 K/cumm Imm gran abs 0.0 0.0 - 0.1 K/cumm [facility] Lymphocyte abs 1.4 0.8 - 3.3 K/cumm [facility] Monocyte abs 0.5 0.2 - 0.8 K/cumm [facility] Eosinophil abs 0.3 0.0 - 0.5 K/cumm [facility] Basophil abs 0.1 0.0 - 0.1 K/cumm [facility] Neutrophil pct 56.5 % [facility] Comment: Interpretive Data Percent cell count reference ranges are not reported, since discordance with absolute values may lead to misinterpretation of CBC data. Current Interpretive Data was last revised on 2018. Imm gran pct 0.2 % [facility] Comment: Interpretive Data Percent cell count reference ranges are not reported, since discordance with absolute values may lead to misinterpretation of CBC data. Current Interpretive Data was last revised on 2018. Lymphocyte pct 26.3 % [facility] Comment: Interpretive Data Percent cell count reference ranges are not reported, since discordance with absolute values may lead to misinterpretation of CBC data. Current Interpretive Data was last revised on 2018. Monocyte pct 9.7 % [facility] Comment: Interpretive Data Percent cell count reference ranges are not reported, since discordance with absolute values may lead to misinterpretation of CBC data. Current Interpretive Data was last revised on 2018. Eosinophil pct 5.0 % [facility] Comment: Interpretive Data Percent cell count reference ranges are not reported, since discordance with absolute values may lead to misinterpretation of CBC data. Current Interpretive Data was last revised on 2018. Basophil pct 2.3 % [facility] Comment: Interpretive Data Percent cell count reference ranges are not reported, since discordance with absolute values may lead to misinterpretation of CBC data. Current Interpretive Data was last revised on 2018. Blood 12/31/2024 9:42 AM PATIENT ACCESS SPECIALIST 12/31/2024 3:07 PM PATIENT ACCESS SPECIALIST Indra Yates MD LAB BLOOD ORDERABLES Final Result Performing Organization Address [facility] de Phone Number JAMEEL [address] [address] [place] [address] * (ABNORMAL) Thyroid Function [place] (12/31/2024 9:42 AM PATIENT ACCESS SPECIALIST) TSH 13.40(H) 0.30 - 4.20 mcIUnit/mL Blood 12/31/2024 9:42 AM PATIENT ACCESS SPECIALIST 12/31/2024 3:07 PM PATIENT ACCESS SPECIALIST Indra Yates MD LAB BLOOD ORDERABLES Final Result Performing Organization Address [facility] de Phone Number [facility] [address] [place] [address] * CBC with auto differential (12/31/2024 9:42 AM PATIENT ACCESS SPECIALIST) WBC 5.2 3.8 - 9.9 K/cumm Hgb 14.1 13.0 - 17.5 g/dL [facility] Hct 43.1 38.9 - 50.3 % [facility] Plt 174 150 - 400 K/cumm [facility] MPV 9.8 9.1 - 12.3 fL [facility] RBC 4.69 4.30 - 5.80 M/cumm [facility] MCV 91.9 81.3 - 96.4 fL [facility] MCH 30.1 27.1 - 33.3 pg [facility] MCHC 32.7 32.3 - 35.7 g/dL [facility] RDW CV 13.6 11.1 - 14.9 % [facility] RDW SD 45.7 35.7 - 48.1 fL [facility] NRBC abs 0.00 0.00 - 0.01 K/cumm [facility] Blood 12/31/2024 9:42 AM PATIENT ACCESS SPECIALIST 12/31/2024 3:07 PM PATIENT ACCESS SPECIALIST Indra Yates MD LAB BLOOD ORDERABLES Final Result Performing Organization Address City/[facility] Co de Phone Number JAMEEL FITCH [address] [address] [facility] [place] [address] * T4, free (12/31/2024 9:42 AM PATIENT ACCESS SPECIALIST) Free T4 1.35 0.90 - 1.70 ng/dL Blood 12/31/2024 9:42 AM PATIENT ACCESS SPECIALIST 12/31/2024 3:35 PM PATIENT ACCESS SPECIALIST Indra Yates MD LAB BLOOD ORDERABLES Final Result Performing Organization Address [facility] Co de Phone Number JAMEEL [address] [address] [place] [address] * (ABNORMAL) Lipid panel (12/31/2024 9:42 AM PATIENT ACCESS SPECIALIST) Cholesterol 94 30 - 199 mg/dL Comment: [...] revised on 2024. Non-HDL Cholesterol 69 mg/dL [facility] Comment: Interpretive Data Ages < or [...] last revised on 2018. Chol/HDL ratio 4 [facility] Blood 12/31/2024 9:42 AM PATIENT ACCESS SPECIALIST 12/31/2024 3:07 PM PATIENT ACCESS SPECIALIST Indra Yates MD LAB BLOOD ORDERABLES Final Result [facility] [address] Department [place] [address] * Comprehensive metabolic panel (12/31/2024 9:42 AM PATIENT ACCESS SPECIALIST) Sodium 138 135 - 145 mmol/L Potassium, pl 4.5 3.3 - 4.9 mmol/L [facility] Chloride 101 97 - 110 mmol/L [facility] CO2 26 22 - 32 mmol/L [facility] Anion gap 11 2 - 15 mmol/L [facility] BUN 14 6 - 25 mg/dL [facility] Creatinine 1.02 0.80 - 1.30 mg/dL [facility] Glucose 115 70 - 199 mg/dL [facility] Comment: Interpretive Data Fasting glucose >/= [...] Units/L [facility] Blood 12/31/2024 9:42 AM PATIENT ACCESS SPECIALIST 12/31/2024 3:07 PM PATIENT ACCESS SPECIALIST Indra Yates MD LAB BLOOD ORDERABLES Final Result [facility] [address] Department [place] [address] from Last 3 Months Insurance [employer] MEDICARE HMO PPO [facility] MEDICARE [employer] [facility] MEDICARE Address: [address] [address] [place] [address] Care Teams Pre Coder Relationship Specialty Start Date End Date Indra Yates MD [address] [place] [address] PCP - General Family Medicine 07/02/24 Megha Crane PA [address] [place], [place] [address] Physician Construction Representative 07/02/24 Tacos Moreno MD [address] [place] [address] Referring Physician Psychiatry 12/31/24 Antonieta Pimentel MD [address] [place] [address] Consulting Physician Pulmonary Disease 12/31/24 Gurmeet Sands MD [address] [place] [address] Consulting Physician Gastroenterology 12/31/24 Mao Dodson MD [address] [place] [address] Consulting Physician Otolaryngology 02/25/25
--- OUTSIDE RECORDS SUMMARY | 2025-03-19 19:05 | XMS_ITS | Encounter Summary ---
Author Organization [employer] Address [address] [place] [address] Care Team Providers Care Mmd Unit Teacher Name Role Phone Syd Tate MD Primary Care Provider [phone] Encounter Details Date Type Department Care Team (Late st Contact Info) Description 02/04/[address] [facility] Support Serv. (Adt Cardiology-[facility]) [address] 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
--- OUTSIDE RECORDS SUMMARY | 2025-03-19 19:05 | XMS_ITS | Encounter Summary ---
Author Organization [facility] Address [address] [place] [address] Care Team Providers Care Project Development Engineer Name Role Phone Syd Tate MD Primary Care Provider [phone] Encounter Details Date Type Department Care Team (Late st Contact Info) Description 03/06/[address] 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
--- OUTSIDE RECORDS SUMMARY | 2025-03-19 19:05 | XMS_ITS | Continuity of Care Document ---
Author Organization [facility] Address [address] [place] [address] Phone Care Team Providers Care Oilseed Meat Presser Name Role Phone Elisabeth Carmen DPT Unavailable Unavailable Procedures Procedure Date THERAPEUTIC EXERCISES NEUROMUSCULAR RE-ED FUNC ACTIVITY 15 MIN ELECTRIC STIMULATION UNATT THERAPEUTIC EXERCISES NEUROMUSCULAR RE-ED FUNC ACTIVITY 15 MIN THERAPEUTIC EXERCISES NEUROMUSCULAR RE-ED FUNC ACTIVITY 15 MIN THERAPEUTIC EXERCISES NEUROMUSCULAR RE-ED FUNC ACTIVITY 15 MIN THERAPEUTIC EXERCISES NEUROMUSCULAR RE-ED MANUAL THERAPY FUNC ACTIVITY 15 MIN FUNC ACTIVITY 15 MIN THERAPEUTIC EXERCISES FUNC ACTIVITY 15 MIN PT EVALUATION THERAPEUTIC EXERCISES Advance Directives Directive Yes / No Effective Date File Name No Information Encounters Encounter Description Practice Location Reason(s) For Visit Diagnoses Date Provider Providers Copied on Encounter [facility], [address] [place], [place] [address], [place], [place], [id number], tel:[phone] [place] No Information Kermit Barber. [address] [facility], [address], [place]. tel:[phone], [place], [place], [id number], [place] tel:[phone] [place] No Information Kermit Barber. [address] [facility], [address], [place], [address], [place]. tel:[phone] [address], [place], [place], [id number], [place] tel:[phone] [place] No Information Carmen Farren. [address] [place] [address], [address], [place], [address], [place]. tel:[phone] [address], [place], [place], [id number], [place] tel:[phone] [place] No Information Kermit Barber. [address] [facility], [address], [place], [address], [place]. tel:[phone] [address], [place], [place], [address], [place] tel:[phone] [place] No Information Carmen Farren. [address] [facility], [address], [place], [address], [place]. tel:[phone] [address], [place], [place], [address], [place] tel:[phone] [place] No Information Carmenchula Barber. [address] [facility], [address], [place], [address], [place]. tel:[phone], [place], [address], [place] tel:[phone] [place] No Information Kermit Barber. [address] [place] [address], [address], [place], [address], [place]. tel:[phone], [place], [place], [address], [place] tel:[phone] Sandra Ortiz Kermit Barber. [address] [facility], [address], [place], [address], [place]. tel:[phone] Family History Family Member Type Diagnosis Age At Onset No Information Payers Payer name Insurance type Covered libertarian ID Angelica gisellgloria(s) Marcelo [id number] Social History Type Description Quantity Date Captured Comments Sex Male Smoking Status No Information Chief Complaint And Reason For Visit No Information Reason For Referral Reason For Referral No Information History Of Present Illness Encounter Date Complaint History Of Prese nt Illness No Information Functional Status Date Functional Assessmen t No Information Instructions Date Instruction Additional Infor mation No Information Assessments Type Assessment Date No Information Patient Care Teams Name Effective Dates (start - stop) Status Members No Information
--- OUTSIDE RECORDS SUMMARY | 2025-03-19 19:05 | XMS_ITS | Encounter Summary ---
Author Organization [facility] Address 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
--- OUTSIDE RECORDS SUMMARY | 2025-03-19 19:05 | XMS_ITS | Encounter Summary ---
Author Organization [employer] Address 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
--- OUTSIDE RECORDS SUMMARY | 2025-03-19 19:05 | XMS_ITS | Clinical Summary ---
Author Organization [facility] Address [address] [place] [address] Care Team Providers Care Bladder Cleaner Name Role Phone Indra Yates MD Primary Care Provider [phone] Megha Crane Unavailable [phone] Tacos Moreno MD Unavailable [phone] Antonieta Pimentel MD Unavailable [phone] Gurmeet Sands MD Unavailable Mao Dodson MD Unavailable [phone] Allergies Active Allergy Reactions Criticality Noted Date [...] 1 tablet (200 mcg total) by mouth watershed tender before breakfast 90 tablet 02/12/20 25 025 [...] titrate up to 25 g -Recommend starting [id number] probiotic like align or [facility]. [...] 07/04/2022 Assessment & Plan (09/09/2024 1:22 PM FUR DRESSING SUPERVISOR): Discussed with Dr. Yates, his PCP. [...] 07/04/2022 Assessment & Plan (09/09/2024 1:20 PM FUR DRESSING SUPERVISOR): Being treated by pulmonology. Will check [...] Description 03/04/2025 9:00 AM CDT Office Visit [facility] Pulmonary [address] [phone] Antonieta Pimentel MD Obstructive sleep apnea syndrome (Primary Dx); Centrilobular emphysema (HCC); Restless legs; Cigarette nicotine dependence without complication; Abnormal CT of the chest; Recurrent cold sores; Psychophysiological insomnia; Non-seasonal allergic rhinitis due to pollen; Pulmonary air trapping; Simple chronic bronchitis (HCC) 02/25/2025 10:00 AM CDT Office Visit [facility] Primary Care at [address] [address] Indra Yates MD Encounter for annual wellness visit (AWV) in Medicare patient (Primary Dx); RLS (restless legs syndrome); Personal history of nicotine dependence 02/17/[address] [phone] Chris Thompson CMA 02/11/2025 11:30 AM CDT Office Visit [facility] Specialists of [address] [address] Hao Mann MD Acquired hypothyroidism (Primary Dx) 01/28/2025 9:00 AM CDT Office Visit [facility] Primary Care at [address] [address] Indra Yates MD Encounter for Medicare annual wellness exam (Primary Dx); Moderately severe major depression (HCC); Chronic lymphocytic leukemia (HCC); Other emphysema (HCC); Autoimmune hepatitis (HCC); Stage 3a chronic kidney disease (HCC); Primary hypertension; Vitamin D deficiency; Mixed hyperlipidemia; Acquired hypothyroidism; Centrilobular emphysema (HCC); Neck mass; Acquired macroglossia; Need for hepatitis C screening test 01/28/2025 Orders Only [facility] Primary Care at [address] [address] Indra Yates MD Neck mass; Acquired macroglossia 01/19/2025 Results Follow-Up [facility] Pulmonology [address] [place] [address] Chest WO Contrast 01/13/2025 8:03 AM CDT - 01/13/2025 11:59 PM CDT Hospital Encounter [facility] Respiratory [address] [place] [address] Obstructive sleep apnea syndrome; Restless legs; Psychophysiological insomnia; Cigarette nicotine dependence without complication; Pharyngeal dysphagia; Tongue swelling Discharge Disposition: Discharge to home or self care 01/12/2025 3:15 PM CDT - 01/12/2025 11:59 PM CDT Hospital Encounter [facility] CT [address] [place] [address] Obstructive sleep apnea syndrome; Restless legs; Psychophysiological insomnia; Cigarette nicotine dependence without complication; Pharyngeal dysphagia; Tongue swelling Discharge Disposition: Discharge to home or self care 01/09/2025 Telephone [facility] Diabetes and Endocrinology [address] [place] [phone] Hao Mann MD New referral to Endocrinology 2025 10:00 AM CDT Office Visit [facility] Gastroenterology at [place] [address] [place] [address] Belen Carter NP Irritable bowel syndrome with both constipation and diarrhea 01/04/2025 Results Follow-Up [facility] Primary Care at [address] [phone] Indra Yates MD Comprehensive metabolic panel, CBC with auto differential, Lipid panel, Additional followed-up results: 4 12/31/2024 9:45 AM FUR DRESSING SUPERVISOR Lab [facility] Outpatient Lab at [address] [phone] Hyperlipidemia (Primary Dx); Hypertensive disorder; Hypothyroidism 12/31/2024 9:42 AM FUR DRESSING SUPERVISOR - 12/31/2024 11:59 PM FUR DRESSING SUPERVISOR Hospital Encounter [address] [address] Primary hypertension; Mixed hyperlipidemia; Acquired hypothyroidism Discharge Disposition: Discharge to home or self care 12/31/2024 9:00 AM FUR DRESSING SUPERVISOR Office Visit [facility] Primary Care at [address] [address] Indra Yates MD Mixed hyperlipidemia [...] on file Legal Sex Male 12:09 AM FUR DRESSING SUPERVISOR Gender Identity Not on file Sexual [...] Tongue swelling EGFR Routine 12/31/2024 9:42 AM FUR DRESSING SUPERVISOR Primary hypertension T4, FREE Routine 12/31/2024 9:42 AM FUR DRESSING SUPERVISOR Primary hypertension Acquired hypothyroidism DIFFERENTIAL AUTO Routine 12/31/2024 9:4 2 AM FUR DRESSING SUPERVISOR Primary hypertension THYROID FUNCTION CASCADE Routine 12/31/2024 9:42 AM FUR DRESSING SUPERVISOR Primary hypertension Acquired hypothyroidism LIPID PANEL Routine 12/31/2024 9:42 AM FUR DRESSING SUPERVISOR Mixed hyperlipidemia CBC WITH AUTO DIFFERENTIAL Routine 12/31/2024 9:42 AM FUR DRESSING SUPERVISOR Primary hypertension COMPREHENSIVE METABOLIC PANEL Routine 12/31/2024 9:42 AM FUR DRESSING SUPERVISOR Primary hypertension from Last 3 Months Results * Pulmonary Function Test - (01/13/2025 10:00 AM CDT) FVC POST 2.91 L 01/13/2025 11:08 AM CDT [facility] FEV1 POST 1.58 L 01/13/2025 11:08 AM CDT [facility] [id number] 54.17 % 01/13/2025 11:08 AM CDT [facility] CQV75-05% POST 0.62 L/s 01/13/2025 11:08 AM CDT [facility] PEF POST 3.07 L/s 01/13/2025 11:08 AM CDT [facility] DLCOc SB 7.83 ml/(min*mm Hg) 01/13/2025 11:08 AM CDT [facility] DLCO/VA PRE 2.04 ml/(min*mm Hg*L) 01/13/2025 11:08 AM CDT [facility] VA 3.84 L 01/13/2025 11:08 AM CDT [facility] TLC PRE 5.92 L 01/13/2025 11:08 AM CDT [facility] VC PRE 2.64 L 01/13/2025 11:08 AM CDT [facility] IC PRE 1.34 L 01/13/2025 11:08 AM CDT [facility] FRC PL PRE 4.30 L 01/13/2025 11:08 AM CDT [facility] ERV PRE 1.02 L 01/13/2025 11:08 AM CDT [facility] RV PRE 3.28 L 01/13/2025 11:08 AM T [facility] RAW PRE 3.28 cmH2O*s/L 01/13/2025 11:08 AM T [facility] VTG 4.20 L 01/13/2025 11:08 AM T [facility] FVC PRE 2.64 L 01/13/2025 11:08 AM CDT [facility] FEV1 PRE 1.73 L 01/13/2025 11:08 AM T [facility] [id number] 65.37 % 01/13/2025 11:08 AM T [facility] SGY07-57% PRE 0.99 L/s 01/13/2025 11:08 AM T [facility] PEF PRE 4.66 L/s 01/13/2025 11:08 AM T [facility] Anatomical Region Laterality Modality PFT 01/13/2025 [...] Juanis Dominguez M.D. FT T: Report ID: [id number] Reading Location: [place] [address] Procedure Note Juanis Felton MD - 01/17/2025 [...] Juanis Dominguez M.D. FT T: Report ID: [id number] Reading Location: [place] [address] Antonieta Pimentel MD IMG CT PROCEDURES Final Res ult * eGFR (12/31/2024 9:42 AM FUR DRESSING SUPERVISOR) eGFR 75 >=60 mL/min/1. 73 m2 [...] last reviewed 2021. Blood 12/31/2024 9:42 AM FUR DRESSING SUPERVISOR 12/31/2024 3:35 PM FUR DRESSING SUPERVISOR us Indra Yates MD LAB BLOOD ORDERABLES Final Result JAMEEL [address] [address] Department [place] [address] * Differential, auto (12/31/2024 9:42 AM FUR DRESSING SUPERVISOR) Neutrophil abs 2.9 1.5 - 6.5 K/cumm Imm gran abs 0.0 0.0 - 0.1 K/cumm [facility] Lymphocyte abs 1.4 0.8 - 3.3 K/cumm [facility] Monocyte abs 0.5 0.2 - 0.8 K/cumm [facility] Eosinophil abs 0.3 0.0 - 0.5 K/cumm [facility] Basophil abs 0.1 0.0 - 0.1 K/cumm [facility] Neutrophil pct 56.5 % [facility] Comment: Interpretive Data Percent cell count reference [...] revised on 2018. Blood 12/31/2024 9:42 AM FUR DRESSING SUPERVISOR 12/31/2024 3:07 PM FUR DRESSING SUPERVISOR Indra Yates MD LAB BLOOD ORDERABLES Final Result Performing Organization Address City/State/[facility] Co de Phone Number JAMEEL FITCH [address] [address] [facility] [place] [address] * (ABNORMAL) Thyroid Function [place] (12/31/2024 9:42 AM FUR DRESSING SUPERVISOR) TSH 13.40(H) 0.30 - 4.20 mcIUnit/mL Blood 12/31/2024 9:42 AM FUR DRESSING SUPERVISOR 12/31/2024 3:07 PM FUR DRESSING SUPERVISOR Indra Yates MD LAB BLOOD ORDERABLES Final Result Performing Organization Address [facility] de Phone Number JAMEEL FITCH [address] [address] [facility] [place] [address] * CBC with auto differential (12/31/2024 9:42 AM FUR DRESSING SUPERVISOR) WBC 5.2 3.8 - 9.9 K/cumm [...] K/cumm [facility] Blood 12/31/2024 9:42 AM FUR DRESSING SUPERVISOR 12/31/2024 3:07 PM FUR DRESSING SUPERVISOR Indra Yates MD LAB BLOOD ORDERABLES Final Result Performing Organization Address City/[facility] Co de Phone Number JAMEEL FITCH [address] [address] [facility] [place] [address] * T4, free (12/31/2024 9:42 AM FUR DRESSING SUPERVISOR) Free T4 1.35 0.90 - 1.70 ng/dL Blood 12/31/2024 9:42 AM FUR DRESSING SUPERVISOR 12/31/2024 3:35 PM FUR DRESSING SUPERVISOR Indra Yates MD LAB BLOOD ORDERABLES Final Result JAMEEL FITCH [address] [address] Department [place] [address] * (ABNORMAL) Lipid panel (12/31/2024 9:42 AM FUR DRESSING SUPERVISOR) Cholesterol 94 30 - 199 mg/dL [...] on 2018. LDL, calculated 45 <=129 mg/dL AJ[facility] FITCH Comment: Interpretive Data Ages < or [...] 4 JAMEEL FITCH Blood 12/31/2024 9:42 AM FUR DRESSING SUPERVISOR 12/31/2024 3:07 PM FUR DRESSING SUPERVISOR Indra Yates MD LAB [place] [address] [address] [facility] [place] [address] * Comprehensive metabolic panel (12/31/2024 9:42 AM FUR DRESSING SUPERVISOR) Sodium 138 135 - 145 mmol/L [...] Units/L [facility] Blood 12/31/2024 9:42 AM FUR DRESSING SUPERVISOR 12/31/2024 3:07 PM FUR DRESSING SUPERVISOR Indra Yates MD LAB BLOOD ORDERABLES Final Result Performing Organization Address City/State/[place] [address] [address] [facility] [place] [address] from Last 3 Months Insurance [employer] HMO PPO Member Subscriber Plan / Payer (Ef fective 2018-Present) Name:Pepito Ott Relation to Subscriber:Self Name:Pepito Ott Payer ID:[id number] (NAIC) Type:MEDICARE RISK OTHER Address: [address] [facility] MEDICARE ADVANTAGE Care Teams Bladder Cleaner Relationship Specialty Start Date End Date Indra Yates MD [address] [place] [address] PCP - General Family Medicine 07/02/24 Megha Crane PA [address] [place] [address] Physician Computer Trainer 07/02/24 Tacos Moreno MD [address] [place] [address] Referring Physician Psychiatry 12/31/24 Antonieta Pimentel MD [address] [place] [address] Consulting Physician Pulmonary Disease 12/31/24 Gurmeet Sands MD [address] [facility] [place] [address] Consulting Physician Gastroenterology 12/31/24 Mao Dodson MD [address] [place] [address] Consulting Physician Otolaryngology 02/25/25
--- OUTSIDE RECORDS SUMMARY | 2025-03-19 19:05 | XMS_ITS | Clinical Summary ---
Author Organization [facility] Facility Address [address] [place] [address] Care Team Providers Care Insole Presser Name Role Phone Antoine Lundberg MD Primary Care Provider [phone] Allergies Active Allergy Reactions Criticality Noted Date [...] age to complete this topic Insurance Celsa [facility] ([id number]) Care Teams Insole Presser Relationship Specialty Start Date End Date Antoine Lundberg MD [address] [place] [phone] PCP - General Occupational Medicine 02/23/22
--- OUTSIDE RECORDS SUMMARY | 2025-03-19 19:05 | XMS_ITS | Encounter Summary ---
Author Organization [facility] Address [address] [place] [address] Care Team Providers Care Hris Coordinator Name Role Phone Syd Tate MD Primary Care Provider [phone] Encounter Details Date Type Department Care Team (Late st Contact Info) Description 02/20/2005 Outpatient Historical [facility] Trauma and General Surgery [address] [facility] [address] [facility] [place] [address] Anand Cabrales MD [address] [place] [address] Social History Tobacco Use Types Packs/Day Years Used Date Smoking Tobacco: Never Assessed Sex and Gender Information Value Date Recorded Sex Assigned at Not on file Legal Sex Male 4:43 AM ELECTRICAL AND INSTRUMENT ENGINEER Gender Identity Not on file Sexual Orientation Not on file documented as of this encounter Plan of Treatment Not on file documented as of this encounter Visit Diagnoses Not on filedocumented in this encounter Care Teams Hris Coordinator Relationship Specialty Start Date End Date Syd Tate MD [address] [facility] [address] [place] [address] PCP - General 02/04/05 06/27/23 documented as of this encounter
--- OUTSIDE RECORDS SUMMARY | 2025-03-19 19:05 | XMS_ITS | Encounter Summary ---
Author Organization [facility] Address [address] [place] [address] Care Team Providers Care Meteorological Equipment Repairer Name Role Phone Syd Tate MD Primary Care Provider [phone] Encounter Details Date Type Department Care Team (Late st Contact Info) Description 03/21/2005 Outpatient Historical [facility] Trauma and General Surgery [address] [address] [phone] [place] [address] [place] [address] Social History Tobacco Use Types Packs/Day Years Used Date Smoking Tobacco: Never Assessed Sex and Gender Information Value Date Recorded Sex Assigned at Not on file Legal Sex Male 4:43 AM LEAD SUSTAINABILITY SPECIALIST Gender Identity Not on file Sexual Orientation Not on file documented as of this encounter Plan of Treatment Not on file documented as of this encounter Visit Diagnoses Not on filedocumented in this encounter Care Teams Meteorological Equipment Repairer Relationship Specialty Start Date End Date Syd Tate MD [address] [facility] [address] [place] [address] PCP - General 02/04/05 06/27/23 documented as of this encounter
--- OUTSIDE RECORDS SUMMARY | 2025-03-19 19:06 | XMS_ITS | Encounter Summary ---
Author Organization [facility] Address [address] [place] [address] Care Team Providers Care Collections Clerk Name Role Phone Antoine Lundberg MD Primary Care Provider [phone] Encounter Details Date Type Department Care Team (Late st Contact Info) Description 07/05/2023 Lab Requisition [facility] - DermPath Lab [address] [facility] [place] [phone] Latrice Swan MD [address] [place] [address] Neoplasm of unspecified behavior of bone, soft [...] Date Recorded PHQ2 TOTAL SCORE 0 09/15/2022 [facility] [place] [facility] Occupat ional [facility] - Occupational Stress [...] place to sleep or slept in a usp (including now)? No 06/12/2023 Sex and Gender Information Value Date Recorded Sex Assigned at Male 06/12/2023 3:47 PM CDT Legal Sex Male 4:34 AM FLIGHT SERVICE SPECIALIST Gender Identity Not on file Sexual [...] AM CDT) Case Report Dermatopathology Report Case: [id number] Authorizing Provider: Latrice Swan MD Collected: 07/04/2023 03:33 AM Ordering Location: [facility] DermPath Lab Received: 07/06/2023 09:55 AM Pathologist: Bertha Rodriguez MD Specimens: A) - Skin, right medial malar cheek B) - Skin, right lutheran C) - Skin, left lateral neck 3 1:37 PM CDT DERMATOPATHOLOGY LABORATORY Final Diagnosis Specimen A. 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 SKIN, right lutheran: BASAL CELL CARCINOMA, NODULAR TYPE (C44.319) Specimen [...] with the patient's name and designated right lutheran. The specimen consists of a shave biopsy [...] obtained and reviewed. Specimen B. SKIN, right lutheran: Within the dermis there are aggregates of [...] by the Dermatopathology Laboratory at [facility], directed by Dr. Lara Nava. These tests need not be, and therefore are not, approved by the [place] Food and Drug Administration. The tests are used for clinical purposes. Billing Codes Specimen Charges Stain Charges 22420 61177 03944 1 1 1 3 1:37 PM CDT [...] PATHOLOGY/CYTOLOGY NORBERT RAMIREZ Final Result DERMATOPATHOLOGY LABORATORY [facility] - Department of Dermatology [facility] Specialized Medicine [facility] [facility], [address]rd Floor [address] [phone] documented in this encounter Visit Diagnoses Diagnosis Neoplasm of unspecified behavior of bone, soft tissue, and skin documented in this encounter Care Teams Collections Clerk Relationship Specialty Start Date End Date Antoine Lundberg MD [address] [address] PCP - General Internal Medicine 03/30/19 documented as of this encounter
--- OUTSIDE RECORDS SUMMARY | 2025-03-19 19:06 | XMS_ITS | Encounter Summary ---
Author Organization [facility] Address [address] [place] [address] Care Team Providers Care Box Gluer Name Role Phone Indra Yates MD Primary Care Provider [phone] Megha Crane Unavailable [phone] Tacos Moreno MD Unavailable [phone] Antonieta Pimentel MD Unavailable [phone] Gurmeet Sands MD Unavailable Mao Dodson MD Unavailable [phone] Encounter Details Date Type Department Care Team (Late st Contact Info) Description 01/19/2025 Results Follow-Up [facility] Pulmonology [address] [address] [place] [address] [place] [address] [place] [address] [address] [place] [address] CT Chest WO Contrast Social [...] on file Legal Sex Male 12:09 AM SKIP LOCATOR Gender Identity Not on file Sexual Orientation Not on file documented as of this encounter Plan of Treatment Not on file documented as of this encounter Visit Diagnoses Not on filedocumented in this encounter Care Teams Box Gluer Relationship Specialty Start Date End Date Indra Yates MD [address] [place] [address] PCP - General Family Medicine 07/02/24 Megha Crane PA [address] [place], [place] [address] Physician Irrigation Service Technician 07/02/24 Tacos Moreno MD [address] [place] [address] Referring Physician Psychiatry 12/31/24 Antonieta Pimentel MD [address] [place] [address] Consulting Physician Pulmonary Disease 12/31/24 Gurmeet Sands MD [address] [facility] [address] Consulting Physician Gastroenterology 12/31/24 Mao Dodson MD [address] [place] [address] Consulting Physician Otolaryngology 02/25/25 documented as of this encounter
--- OUTSIDE RECORDS SUMMARY | 2025-03-19 19:06 | XMS_ITS | Encounter Summary ---
Author Organization [facility] Address [address] [place] [address] Care Team Providers Care Cooling Tower Operator Name Role Phone Antoine Lundberg MD Primary Care Provider [phone] Encounter Details Date Type Department Care Team (Late st Contact Info) Description 05/09/2018 Lab Requisition [facility] Care DermPath Lab [address] [place] [phone] Latrice Swan MD [address] [facility] [address] [place] [address] Social History Tobacco Use Types Packs/Day Years Used Date Smoking Tobacco: Every Day Cigarettes Alcohol Use Standard Drinks/Week Comments No 0 (1 standard drink = 0.6 oz pur e alcohol) Sex and Gender Information Value Date Recorded Sex Assigned at Male 06/12/2023 3:47 PM CDT Legal Sex Male 4:34 AM PRUNE WASHER Gender Identity Not on file Sexual Orientation Not on file documented as of this encounter Plan of Treatment Not on file documented as of this encounter Procedures Procedure Name Priority Date/Time Associated Diagnosis Comments DERMATOPATHOLOGY Routine 05/08/2018 12:0 0 AM CDT documented in this encounter Results * DERMATOPATHOLOGY (05/08/2018 12:00 AM CDT) Case Report Dermatopathology Report Case: [id number] Authorizing Provider: Latrice Swan MD Collected: 05/08/2018 [...] specimen consists of a shave biopsy measuring [id number]. Jar 0. 1:42 PM CDT DERMATOPATHOLOGY LABORATORY [...] characteristic determined by the Dermatopathology Laboratory at [facility]. These tests need not be, and therefore are not, approved by the [place] Food and Drug Administration. The tests are used for clinical purposes. Billing Codes Specimen Charges Stain Charges 17748 1 8 1:42 PM CDT DERMATOPATHOLOGY LABORATORY Embedded Images 1:42 PM CDT DERMATOPATHOLOGY LABORATORY Pathology/Cytolog y TISSUE SPECIMEN FROM SKIN / Unknown 05/08/2018 05/09/2018 8:33 AM CDT us Latrice Swan MD LAB - PATHOLOGY/CYTOLOGY NORBERT RAMIREZ Final Result DERMATOPATHOLOGY LABORATORY [facility] - Department of Dermatology [facility] [place], 5th Floor Lab [address] [phone] documented in this encounter Visit Diagnoses Not on filedocumented in this encounter Care Teams Cooling Tower Operator Relationship Specialty Start Date End Date Antoine Lundberg MD [address] [address] PCP - General Internal Medicine 03/30/19 documented as of this encounter
--- OUTSIDE RECORDS SUMMARY | 2025-03-19 19:06 | XMS_ITS | Encounter Summary ---
Author Organization [facility] Address [address] [place] [address] Care Team Providers Care Certified Fraud Examiner Name Role Phone Syd Tate MD Primary Care Provider [phone] Antoine Lundberg MD Primary Care Provider Encounter Details Date [...] PM CDT Legal Sex Male 4:34 AM MANAGER RISK Gender Identity Not on file Sexual Orientation Not on file documented as of this encounter Plan of Treatment Not on file documented as of this encounter Visit Diagnoses Not on filedocumented in this encounter Care Teams Certified Fraud Examiner Relationship Specialty Start Date End Date Syd Tate MD [address] [facility] [address] [place] [address] PCP - General 09/13/08 04/01/16 Antoine Lundberg MD [address] [place] [address] PCP - General Internal Medicine 03/30/19 documented as of this encounter
--- OUTSIDE RECORDS SUMMARY | 2025-03-19 19:06 | XMS_ITS | Continuity of Care Document ---
Author Organization [facility] Address [address] [place] [address] [address] [place] [address] Phone Care Team Providers Care Line Erector Apprentice Name Role Phone Franky Templeton MD Unavailable Unavailable Medications Medication Instructions Dosage Effective Dates (start - stop) Status Comments Restasis 0.05 % eye drops in a dropperette instill 1 drop BID OU - Active prednisolone 1 %-gatifloxacin 0.5 %-bromfenac 0.075 % eye drops,suspen 1 drop in operative eye TID, starting 4 hours after surgery and use for 2 weeks. - Active 7ml replace acetate with phosphate .sx 02/07/21 prednisolone acetate 1 %-bromfenac 0.075 % eye drops,suspension 1 drop in operative eye BID for weeks 3 and 4. - Active 4ml replace acetate with phosphate .sx 02/07/21 Procedures Procedure Date CATARACT SURG W/IOL, 1 STAGE CATARACT SURG W/IOL, 1 STAGE OFFICE/OUTPATIENT VISIT, [facility] O[facility]ARMACY 2 EYES Advance Directives Directive Yes / No Effective Date File Name No Information Encounters Encounter Description Practice Location Reason(s) For Visit Diagnoses Date Provider Providers Copied on Encounter [facility], [address], [place], [place], [id number], [place] tel:[phone] [facility] JAYLON DARBY No Information 3 Jareth Wilkins. [address] , [address], [place], [place], [id number] , [place]. tel:[phone] Referring Provider: Franky Vargas, [address], [place], [address]. tel:[phone] [facility], [address] [place] [address], [id number], tel:[phone] [facility] No Information 1 Jareth Wilkins. [address], [address], [place], [place], [id number] , [place]. tel:[phone] Referring Provider: Franky Vargas, [address], [place], [address]. tel:[phone] [facility], [address] [place] [address], [id number], [place] tel:[phone] [facility] No Information 1 Jareth Wilkins. [address], [address], [place], [place], [id number] , [place]. tel:[phone] Referring Provider: Franky Vargas, [address], [place], [address]. tel:[phone] [facility], [address] [place] [address], [id number], [place] tel:[phone] [facility] JAYLON DARBY No Information 1 Duncan Bhakta. [address], [place], [place], [address] , [place]. tel:[phone] OFFICE/OUTPA TIENT VISIT, [facility], [address] [place] [address], [id number], tel:[phone] [facility] No Information 1 Jareth Wilkins. [address], [place], [place], [id number] , [place]. tel:[phone] Referring Provider: Livia Niehoff OD, [address] [place], [address]. tel:[phone] Family History Family Member Type Diagnosis Age At Onset No Information Payers Payer name Insurance type Covered libertarian ID Authoriza tigloria(s) [facility] [id number] Social History Type Description Quantity Date Captured [...]
--- OUTSIDE RECORDS SUMMARY | 2025-03-19 19:06 | XMS_ITS | Encounter Summary ---
Author Organization [facility] Address [address] 

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
--- OUTSIDE RECORDS SUMMARY | 2025-03-19 19:06 | XMS_ITS | Clinical Summary ---
Author Organization [facility] Address [address] [place] [address] Phone Care Team Providers Care Test Hole Driller Name Role Phone Unavailable Primary Care Provider Unavailabl e Allergies Active Allergy Reactions Criticality Noted Date Comments Bupropion Other (See Comments) 07/04/2022 Other reaction(s): worsening symptoms Medications acetaminophen (Tylenol 8 Hour) 650 mg Extended Release tablet 0 2 Active ALPRAZolam (XANAX) 0.25 mg tablet 1 tablet(s), Oral, bid, 180 tablet(s), 1, 1, Route to Pharmacy Electronically, [facility] ([facility] ), [id number], 162, cm, 12/28/2022 0808, Height, 70.7, kg, 12/28/2022 1031, Weight 3 Active carvediloL (COREG) 6.25 mg tablet Take 6.25 mg by mouth. 2 Active atorvastatin (LIPITOR) 40 mg tablet Take 40 mg by mouth. 2 Active hydrALAZINE (APRESOLINE) 50 mg tablet 1 tablet(s), Oral, tid, 270 tablet(s), 3, 3, Route to Pharmacy Electronically, [facility] ([facility] ), [id number], 162, cm, 06/26/2022 0830, Height, 70.6, kg, 06/26/2022 1027, Weight 3 Active HYDROcodone-brien taminophen (NORCO) 5-325 mg tablet Take 1 Tablet by mouth every 4 hours as needed. 3 Active levothyroxine 200 mcg tablet See Instructions, 90 tablet(s), 3, TAKE 1 TABLET DAILY BEFORE BREAKFAST, Route to Pharmacy Electronically, [facility] ([facility]), [id number], Instructions Replace Required Details, 162, cm, 12/28/2022 0808, Height, 70.7, kg, 12/28/2022 1031, Weight 3 Active lisinopriL (PRINIVIL) 20 mg tablet Take 20 mg by mouth daily. 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
[2025-03-19 19:19] VITALS: BP 110/63; PULSE 67; RESP 15; TEMP 36.4; O2SAT 96
[2025-03-19 19:36] LABS: Basophils Absolute Auto 0.1 K/mm3 (0.0-0.1); Eosinophils Absolute Auto 0.2 K/mm3 (0-0.3); Eosinophils Percent Auto 3.2 % (0-4.4); Hematocrit 37.2 % (42.0-52.0); Hemoglobin 12.4 g/dL (14.0-18.0); Immature Granulocyte Absolute 0.02 K/mm3 (0.00-0.031); Immature Granulocyte Percent A 0.4 % (0-0.5); Lymphocytes Absolute Auto 1.15 K/mm3 (0.9-3.2); Lymphocytes Percent Auto 20.5 % (18.3-44.2); Mean Corpuscular HGB Conc 33.3 g/dl (32-36); Mean Corpuscular Hemoglobin 28.8 pg (26-34); Mean Corpuscular Volume 86.3 fl (80-100); Mean Platelet Volume 8.9 fl (7.4-10.4); Monocytes Absolute Auto 0.5 K/mm3 (0.1-0.6); Monocytes Percent Auto 8.9 % (2.6-8.5); Neutrophils Absolute Auto 3.7 K/mm3 (1.3-6.7); Platelet Count Result 175 k/mm3 (150-375); Red Blood Count 4.31 M/mm3 (4.6-6.20); White Blood Count 5.6 K/mm3 (4.5-10.0)
[2025-03-19 19:48] LABS: Alanine Aminotransferase 23 U/L (6-50); Albumin Level 3.9 g/dL (3.5-5.1); Alkaline Phosphatase 69 U/L (38-126); Anion Gap 10 mmol/L (4-12); Aspartate Amino Transferase 34 U/L (17-59); Bilirubin,Total 0.9 mg/dL (0.2-1.3); Blood Urea Nitrogen 18 mg/dL (9-20); Calcium 8.7 mg/dL (8.4-10.2); Carbon Dioxide 23 mmol/L (22-30); Chloride 102 mmol/L (98-107); Estimated CRCL calculation 44 ml/min; Estimated Glomerular Filt Rate > 60; Glucose 111 mg/dL (65-110); Lipase 41 U/L (23-300); Potassium 4.2 mmol/L (3.4-5.0); Sodium 135 mmol/L (137-145)
[2025-03-19 22:58] VITALS: BP 140/72; PULSE 65; RESP 18; TEMP 36.4; O2SAT 93
--- NOTE | 2025-03-19 23:02 | ED_ITS ---
HPI - General Adult General Chief complaint: Unspecified Stated complaint: Tongue ulcer, abd pain, facial pain-seen yesterday Time Seen by Provider: 03/19/25 22:36 Source: patient and family Mode of arrival: EMS Limitations: no limitations History of Present Illness HPI narrative: Patient presents with complaint of headache with associated right-sided facial pain and ear pain. He is also complaining tongue pain for which he has had an ulcer for approximately 1 biopsied within the past 24 hours after being seen in the emergency department yesterday. He is complaining of nausea and diarrhea as well as abdominal no vomiting. He was started on doxycycline sinus infection. He has had decreased p.o. intake . He has photophobia but no phonophobia. He usually wears hearing aids bilaterally but have not been wearing them. He denies any acute hearing changes. He has chronic right ear tinnitus without any acute changes. No paresthesias in his face or elsewhere. He is not on anticoagulation. /family not symptomatic. Related Data Home Medications ?Medication ?Instructions ?Recorded ?Confirmed ?Last Taken ?Type amlodipine 10 mg tablet 10 mg PO DAILY 03/18/25 03/20/25 Unknown History atorvastatin 40 mg tablet 40 mg PO DAILY 03/18/25 03/20/25 Unknown History carvedilol 6.25 mg tablet 6.25 mg PO Q12H 03/18/25 03/20/25 Unknown History hydralazine 50 mg tablet 50 mg PO TID 03/18/25 03/20/25 Unknown History levothyroxine 200 mcg tablet 200 mcg PO DAILY 03/18/25 03/20/25 Unknown History (Unithroid) zolpidem 10 mg tablet 10 mg PO .hs 03/18/25 03/20/25 Unknown History Bifidobacterium infantis 10.5 mg 10.5 mg PO DAILY 03/20/25 03/20/25 Unknown History (10 million cell) chewable tablet (Align (B.infantis)) inulin 1.7 gram chewable tablet 6 g PO DAILY 03/20/25 03/20/25 Unknown History (Fiber Gummies) potassium chloride 20 mEq oral 40 meq PO DAILY 03/20/25 03/20/25 Unknown History packet sertraline 100 mg tablet 200 mg PO DAILY 03/20/25 03/20/25 Unknown History vitamin B complex 1 cap PO DAILY 03/20/25 03/20/25 Unknown History Allergies Allergy/AdvReac Type Severity Reaction Status Date / Time bupropion AdvReac Mild Unknown Verified 03/20/25 01:11 [facility] Past Medical History Medical History Lesion of tongue Hyperlipidemia Hypertension Social History Social History Smoking packs per day: 1 Smoking cigarettes per day: 20.0 Years smoked: 60 Smoking pack-years: 60.00 Smoking status: Heavy tobacco smoker Tobacco type: cigarettes Additional smoking assessment comments: heavy Alcohol intake: former Substance use: never Substance use type: does not use Do You Feel Safe in your Home?: Yes Lack of Transportation: No Lack of Food: Never True Current Housing: I Have Housing Concerned About Future Housing: No Difficulty Paying Gas/Electric Bills: No Difficulty Paying for Meds: No Currently Unemployed: No Education: Decline to Answer Difficulty w/ Childcare or Family Care: No Spiritual care concerns: No Exam 2 Narrative: GENERAL: well-nourished, and in no acute distress. HEAD: Normocephalic, atraumatic. EYES: Non injected, non icteric ENT: No rhinorrhea or epistaxis. Gross auditory acuity intact. Left tympanic membrane normal. Right tympanic membrane with white tissue/calcification but without effusion, bulging, or erythema and no cholesteatoma. Tacky mucous membranes with lesion along right lateral surface, not actively bleeding. NECK: Supple. No meningismus. CHEST: Speaking in full sentences. No respiratory distress. Lungs clear to auscultation bilaterally without appreciable wheezes or crackles. HEART: Regular rate and rhythm. ABDOMEN: Soft, nondistended. No rigidity or guarding. Not peritoneal EXTREMITIES: Normal range of motion. No lower extremity edema. SKIN: Warm, dry, no rash. NEURO: No focal deficits. Alert and oriented. Answering questions. Following commands. Normal speech without aphasia or dysarthria. Sensation intact throughout distribution of face x3. No loss of nasolabial fold/facial asymmetry and patient able to close eyes and furrow brow without asymmetry. PSYCH: Normal mood and affect. Course Vital Signs Vital signs: Vital Signs Temperature 97.5 F L 03/19/25 19:19 Pulse Rate 67 03/19/25 19:19 Respiratory Rate 15 03/19/25 19:19 Blood Pressure 110/63 03/19/25 19:19 Pulse Oximetry 96 03/19/25 19:19 Oxygen Delivery Room Air 03/19/25 19:19 Temperature 97.9 F 03/20/25 13:20 Pulse Rate 67 03/20/25 13:20 Respiratory Rate 18 03/20/25 13:20 Blood Pressure 131/56 L 03/20/25 13:20 Pulse Oximetry 95 03/20/25 13:20 Oxygen Delivery Nasal Cannula 03/20/25 09:27 Oxygen Flow Rate 2 03/20/25 09:27 Medical Decision Making MDM Narrative Medical decision making narrative: Patient presents with right-sided headache and facial pain and ear pain. He is also complaining of nausea and diarrhea as well as abdominal pain. In addition he has tongue pain. Patient was seen yesterday for the issues with the tongue which he has had a lesion for more than a month. Biopsy taken by ENT, pathology report not yet resulted. He was started on doxycycline for sinus infection. In the emergency department they are afebrile with vital signs within normal limits. After obtaining the patient's history and performing a physical exam, the headache is most likely due to benign etiology. The neurological examination is non-focal, there are no high-risk features on history, vital signs are stable, and the patient is non-toxic appearing. The Ddx for the patient's headache is tension headache, migraine, or other headache of non-emergent etiology. In particular, I suspect migraine due to the unilateral nature with associated mild photophobia and nausea. It is also strongly suspected that his symptoms of nausea diarrhea abdominal pain potentially due to the doxycycline which he started. Nevertheless given his age and risk factors, will obtain CT imaging. Unlikely subdural/epidural hematoma: no history of trauma, no anticoagulation Unlikely meningitis: afebrile, no meningismus, mild photophobia Unlikely acute angle glaucoma: no eye pain Unlikely carbon monoxide poisoning: no other house members with similar symptoms Normocytic anemia stable from previous. Patient given IV fluids and Zofran. The patient's headache was treated symptomatically with ketorolac, compazine after negative CT. This should also help with patient's nausea and pain which he is still complaining about per family. Patient reassessed states that the pain at his face is gone. His nausea is also gone he is still having some epigastric abdominal pain. Omeprazole and Bentyl are ordered. Patient reassessed at 1:40 a.m. and he seated upright, appears while and states he is ready to be discharged. He is nearly asymptomatic although he does state that he has low bit of residual epigastric discomfort. However, patient became hypoxic during ED visit and remains so, requiring supplemental oxygen despite multiple attempts at titrating him off. Patient likely has emphysema/COPD given longstanding smoking history however, the possibility that his tongue lesion is cancer is also puts him at higher risk PE. Dimer elevated. CT imaging ordered though there is a significant delay in its interpretation. Multiple attempts continue to be performed to attempt to titrate patient off of oxygen in the interim but does notably he desaturate to 82-86% frequently if off of oxygen, even when seated upright and fully alert. Patient and family are frustrated. CT does resolved and is without PE although there is notation emphysema. Family note that he has had PFTs and seen a gravure press set up operator. 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 Nevertheless the recommendation is that patient be admitted to undergo home O2 evaluation. Patient had initially declined ABG. Thorough conversation with family and ultimately he does state he is willing to stay. Discussed with on-call hospitalist Dr Alberto. Discussed code status with patient and family at bedside. He does state in the event of cardiopulmonary arrest, do not resuscitate would be more in line with his goals/wishes. Differential Diagnosis Differential Diagnosis: Medication side effect Medical Records Medical records reviewed: Yes I reviewed the external patient's medical records. Medical records narrative: ED visit and ENT note reviewed. Pathology report pending. Vital Signs Vital Signs: Vital Signs Temperature 97.5 F L 03/19/25 19:19 Pulse Rate 67 03/19/25 19:19 Respiratory Rate 15 03/19/25 19:19 Blood Pressure 110/63 03/19/25 19:19 Pulse Oximetry 96 03/19/25 19:19 Oxygen Delivery Room Air 03/19/25 19:19 Temperature 97.9 F 03/20/25 13:20 Pulse Rate 67 03/20/25 13:20 Respiratory Rate 18 03/20/25 13:20 Blood Pressure 131/56 L 03/20/25 13:20 Pulse Oximetry 95 03/20/25 13:20 Oxygen Delivery Nasal Cannula 03/20/25 09:27 Oxygen Flow Rate 2 03/20/25 09:27 Lab Data Lab results reviewed: Yes I reviewed the patient's lab results. Lab results narrative: Normal renal function. Normal lipase. Viral swab negative. 03/19/25 19:30 03/19/25 19:30 Labs: Lab Results 03/19/25 03/20/25 03/20/25 Range/Units 19:30 00:28 02:12 WBC 5.6 (4.5-10.0) K/mm3 RBC 4.31 L (4.6-6.20) M/mm3 Hgb 12.4 L (14.0-18.0) g/dL Hct 37.2 L (42.0-52.0) % MCV 86.3 (80-100) fl MCH 28.8 (26-34) pg MCHC 33.3 (32-36) g/dl RDW 14.0 (11.5-14.5) % Plt Count 175 (150-375) k/mm3 MPV 8.9 (7.4-10.4) fl Immature Gran % (Auto) 0.4 (0-0.5) % Neut % (Auto) 65.0 (45.5-73.1) % Lymph % (Auto) 20.5 (18.3-44.2) % [place] % (Auto) 8.9 H (2.6-8.5) % Eos % (Auto) 3.2 (0-4.4) % Baso % (Auto) 2.0 H (0.2-1.2) % Lymph # (Auto) 1.15 (0.9-3.2) K/mm3 [place] # (Auto) 0.5 (0.1-0.6) K/mm3 Eos # (Auto) 0.2 (0-0.3) K/mm3 Baso # (Auto) 0.1 (0.0-0.1) K/mm3 Abs Immat Gran (auto) 0.02 (0.00-0.031) K/mm3 Absolute Neuts (auto) 3.7 (1.3-6.7) K/mm3 Absolute Nucleated RBC 0.000 (0.0-0.012) K/mm3 Nucleated RBC % 0.0 (0.0-0.2) % D-Dimer 2.82 H (<0.48) ug/mL Sodium 135 L (137-145) mmol/L Potassium 4.2 (3.4-5.0) mmol/L Chloride 102 (98-107) mmol/L Carbon Dioxide 23 (22-30) mmol/L Anion Gap 10 (4-12) mmol/L BUN 18 (9-20) mg/dL Creatinine 1.01 (0.7-1.3) mg/dL Estim Creat Clear Calc 44 ml/min Estimated GFR > 60 (59 - ) Glucose 111 H (65-110) mg/dL Calcium 8.7 (8.4-10.2) mg/dL Total Bilirubin 0.9 (0.2-1.3) mg/dL AST 34 (17-59) U/L ALT 23 (6-50) U/L Alkaline Phosphatase 69 (38-126) U/L NT-Pro-B Natriuret Pep 468 H (19.9-100) pg/mL Total Protein 7.0 (6.3-8.2) g/dL Albumin 3.9 (3.5-5.1) g/dL Lipase 41 (23-300) U/L Urine Color Yellow (Yellow) Urine Appearance Clear (Clear) Urine pH 5.5 (5.0-9.0) Ur Specific [place] 1.034 (1.001-1.035) Urine Protein 2+ H (Negative) mg/dL Urine Glucose (UA) Negative (Negative) mg/dL Urine Ketones Negative (Negative) mg/dL Ur Blood (Man) Negative (Negative) Urine Nitrate Negative (Negative) Urine Bilirubin Negative (Negative) Urine Urobilinogen 0.2 (<2.0) mg/dL Leukocyte Esterase Rfl Trace H (Negative) CARLA/UL Urine RBC 0-2 (0-2) /hpf Urine WBC 0-5 (0-3) /hpf Ur Squamous Epith Cells None seen (Few) /hpf Urine Bacteria None seen /hpf Urine Casts 3-5 Influenza A (RT-PCR) Negative (Negative) Influenza B (RT-PCR) Negative (Negative) RSV (RT-PCR) Negative (Negative) SARS-CoV-2 RNA (RT-PCR) Negative (Negative) Imaging Data Radiologist's impression: XR Stat Rad: Patchy bibasilar airspace opacities could represent atelectasis, pulmonary scarring, however cannot exclude atypical infection or pulmonary edema. Small bilateral pleural effusions. No pneumothorax. The cardiac silhouette is within normal limits. No fracture. No incidental findings Impressions Head CT 03/19/25 23:47 Impression: No acute intracranial hemorrhage or suspicious mass effect. Abdomen/Pelvis CT 03/19/25 23:49 IMPRESSION: No acute pathology within the abdomen or pelvis, as detailed above. Chest X-Ray 03/20/25 06:20 Impression: Minimal left pleural effusion. COPD. Chest CTA 03/20/25 06:24 Impression: No evidence of pulmonary embolus, aortic dissection, or aortic aneurysm. Moderate to advanced emphysema. Numerous scattered focal calcified pleural plaques. Heterogeneous splenic enhancement is likely related to timing of the contrast bolus. Discharge Plan Discharge Clinical Impression: Right facial pain, Otalgia of right ear, Normocytic anemia, Abdominal pain in male, Nausea, Diarrhea, Hypoxia, Emphysema lung, Pleural plaque, COPD (chronic obstructive pulmonary disease) Patient Disposition: Still a Patient Condition: Stable
--- OUTSIDE RECORDS SUMMARY | 2025-03-19 23:11 | XMS_ITS | Clinical Summary ---
Author Organization [facility] Address [address] [place] [address] Care Team Providers Care Fitter Tacker Name Role Phone Antoine Lundberg MD Primary Care Provider [phone] Source Comments [facility],non-owned Affiliates and Associated Physician Practices is amultiple site organization consisting of ambulatory clinics and hospital sitesin [place], [place], [place] and [place]. This disclosure is being madepursuant to the Care Everywhere program and may not contain all information available regarding this patient. Last updated 18.[facility] Allergies No known active allergies Medications * [...] Type Department Care Team Description 01/06/2025 Telephone [facility] [address] [place] [id number] Stephanie Lyons, ORGANIC CHEMISTRY PROFESSOR-FIXING MACHINE OPERATOR Update (/) from Last 3 Months [...] Date Recorded PHQ2 TOTAL SCORE 0 09/15/2022 [facility] Occupat ional Health - Occupational Stress [...] place to sleep or slept in a prison (including now)? No 06/12/2023 Sex and Gender Information Value Date Recorded Sex Assigned at Male 06/12/2023 3:47 PM CDT Legal Sex Male 4:34 AM GENERAL INTERNAL MEDICINE PHYSICIAN Gender Identity Not on file Sexual Orientation Not on file Last Filed Vital Signs Vital Sign Reading Time Taken Comments Blood Pressure 120/64 09/04/2024 9:32 AM GENERAL INTERNAL MEDICINE PHYSICIAN Pulse 50 09/04/2024 9:32 AM GENERAL INTERNAL MEDICINE PHYSICIAN Temperature 37.2 C (99 F) 06/14/2023 7:59 AM CDT Respiratory Rate 18 06/13/2023 11:43 PM CDT Oxygen Saturation 97% 09/04/2024 9:32 AM GENERAL INTERNAL MEDICINE PHYSICIAN Inhaled Oxygen Concentration - - Weight 68 kg (150 lb) 09/04/2024 9:32 AM GENERAL INTERNAL MEDICINE PHYSICIAN Height 162.6 cm (5' 4) 06/12/2023 11:25 [...] patient's age to complete this topic Insurance [facility] MANAGED MEDICARE ADV ZACHERY Advance Directives [...] 10:10 PM 02/05/2022 12:33 PM Care Teams Fitter Tacker Relationship Specialty Start Date End Date Antoine Lundberg MD [address] [facility] [address] [place] [address] PCP - General Internal Medicine 03/30/19
--- OUTSIDE RECORDS SUMMARY | 2025-03-19 23:11 | XMS_ITS | Encounter Summary ---
Author Organization [facility] Address 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
--- OUTSIDE RECORDS SUMMARY | 2025-03-19 23:11 | XMS_ITS | Encounter Summary ---
Author Organization [facility] Address [address] 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
--- OUTSIDE RECORDS SUMMARY | 2025-03-19 23:11 | XMS_ITS | Encounter Summary ---
Author Organization [facility] Address [address] [place] [address] Care Team Providers Care Building Insulation Supervisor Name Role Phone Syd Tate MD Primary Care Provider [phone] Encounter Details Date Type Department Care Team (Late st Contact Info) Description 02/20/2005 Outpatient Historical [facility] Trauma and General Surgery [address] [facility] [address] [facility] [place] [address] Anand Cabrales MD [address] [facility] 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
--- OUTSIDE RECORDS SUMMARY | 2025-03-19 23:11 | XMS_ITS | Clinical Summary ---
Author Organization [facility] Address [address] [place] [address] Care Team Providers Care Planning Division Superintendent Name Role Phone Indra Yates MD Primary Care Provider [phone] Megha Crane Unavailable [phone] Tacos Moreno MD Unavailable [phone] Antonieta Pimentel MD Unavailable [phone] Gurmeet Sands MD Unavailable Mao Dodson MD Unavailable [phone] Allergies Active Allergy Reactions Criticality Noted Date [...] 1 tablet (200 mcg total) by mouth carding doubler before breakfast 90 tablet 02/12/20 25 025 [...] titrate up to 25 g -Recommend starting [id number]-gjq-dwoacsw probiotic like align or [facility]. [...] 07/04/2022 Assessment & Plan (09/09/2024 1:22 PM CABIN SERVICE AGENT): Discussed with Dr. Yates, his PCP. In [...] 07/04/2022 Assessment & Plan (09/09/2024 1:20 PM CABIN SERVICE AGENT): Being treated by pulmonology. Will check ferritin [...] Description 03/04/2025 9:00 AM CDT Office Visit [facility] Pulmonary [address] [phone] Antonieta Pimentel MD Obstructive sleep apnea syndrome (Primary Dx); Centrilobular emphysema (HCC); Restless legs; Cigarette nicotine dependence without complication; Abnormal CT of the chest; Recurrent cold sores; Psychophysiological insomnia; Non-seasonal allergic rhinitis due to pollen; Pulmonary air trapping; Simple chronic bronchitis (HCC) 02/25/2025 10:00 AM CDT Office Visit [facility] Primary Care at [address] [address] Indra Yates MD Encounter for annual wellness visit (AWV) in Medicare patient (Primary Dx); RLS (restless legs syndrome); Personal history of nicotine dependence 02/17/[address] [phone] Chris Thompson CMA 02/11/2025 11:30 AM CDT Office Visit [facility] [address] [address] Hao Mann MD Acquired hypothyroidism (Primary Dx) 01/28/2025 9:00 AM CDT Office Visit [facility] Primary Care at [address] [phone] Indra Yates MD Encounter for Medicare annual wellness exam (Primary Dx); Moderately severe major depression (HCC); Chronic lymphocytic leukemia (HCC); Other emphysema (HCC); Autoimmune hepatitis (HCC); Stage 3a chronic kidney disease (HCC); Primary hypertension; Vitamin D deficiency; Mixed hyperlipidemia; Acquired hypothyroidism; Centrilobular emphysema (HCC); Neck mass; Acquired macroglossia; Need for hepatitis C screening test 01/28/2025 Orders Only [facility] Primary Care at [address] [phone] Indra Yates MD Neck mass; Acquired macroglossia 01/19/2025 Results Follow-Up [facility] Pulmonology [address] [facility] [address] [place] [address] Chest WO Contrast 01/13/2025 8:03 AM CDT - 01/13/2025 11:59 PM CDT Hospital Encounter [facility] Respiratory [address] [place] [address] Obstructive sleep apnea syndrome; Restless legs; Psychophysiological insomnia; Cigarette nicotine dependence without complication; Pharyngeal dysphagia; Tongue swelling Discharge Disposition: Discharge to home or self care 01/12/2025 3:15 PM CDT - 01/12/2025 11:59 PM CDT Hospital Encounter [facility] CT [address] [place] [address] Obstructive sleep apnea syndrome; Restless legs; Psychophysiological insomnia; Cigarette nicotine dependence without complication; Pharyngeal dysphagia; Tongue swelling Discharge Disposition: Discharge to home or self care 01/09/2025 Telephone [facility] Diabetes and Endocrinology [address] [place] [phone] Hao Mann MD New referral to Endocrinology 2025 10:00 AM CDT Office Visit [facility] Gastroenterology at [place] [address] [facility] [address] [place] [address] Belen Carter NP Irritable bowel syndrome with both constipation and diarrhea 01/04/2025 Results Follow-Up [facility] Primary Care at [address] [phone] Indra Yates MD Comprehensive metabolic panel, CBC with auto differential, Lipid panel, Additional followed-up results: 4 12/31/2024 9:45 AM CABIN SERVICE AGENT Lab [facility] Outpatient Lab at [address] [phone] Hyperlipidemia (Primary Dx); Hypertensive disorder; Hypothyroidism 12/31/2024 9:42 AM CABIN SERVICE AGENT - 12/31/2024 11:59 PM CABIN SERVICE AGENT Hospital Encounter [address] [address] Primary hypertension; Mixed hyperlipidemia; Acquired hypothyroidism Discharge Disposition: Discharge to home or self care 12/31/2024 9:00 AM CABIN SERVICE AGENT Office Visit [facility] Primary Care at [address] [phone] Indra Yates MD Mixed [...] on file Legal Sex Male 12:09 AM CABIN SERVICE AGENT Gender Identity Not on file Sexual Orientation [...] Tongue swelling EGFR Routine 12/31/2024 9:42 AM CABIN SERVICE AGENT Primary hypertension T4, FREE Routine 12/31/2024 9:42 AM CABIN SERVICE AGENT Primary hypertension Acquired hypothyroidism DIFFERENTIAL AUTO Routine 12/31/2024 9:4 2 AM CABIN SERVICE AGENT Primary hypertension THYROID FUNCTION CASCADE Routine 12/31/2024 9:42 AM CABIN SERVICE AGENT Primary hypertension Acquired hypothyroidism LIPID PANEL Routine 12/31/2024 9:42 AM CABIN SERVICE AGENT Mixed hyperlipidemia CBC WITH AUTO DIFFERENTIAL Routine 12/31/2024 9:42 AM CABIN SERVICE AGENT Primary hypertension COMPREHENSIVE METABOLIC PANEL Routine 12/31/2024 9:42 AM CABIN SERVICE AGENT Primary hypertension from Last 3 Months Results * Pulmonary Function Test - (01/13/2025 10:00 AM CDT) FVC POST 2.91 L 01/13/2025 11:08 AM CDT [facility] FEV1 POST 1.58 L 01/13/2025 11:08 AM CDT [facility] [id number] 54.17 % 01/13/2025 11:08 AM CDT [facility] [id number]% POST 0.62 L/s 01/13/2025 11:08 AM CDT [facility] PEF POST 3.07 L/s 01/13/2025 11:08 AM CDT [facility] DLCOc SB 7.83 ml/(min*mm Hg) 01/13/2025 11:08 AM CDT [facility] DLCO/VA PRE 2.04 ml/(min*mm Hg*L) 01/13/2025 11:08 AM CDT [facility] VA 3.84 L 01/13/2025 11:08 AM CDT [facility] TLC PRE 5.92 L 01/13/2025 11:08 AM CDT [facility] VC PRE 2.64 L 01/13/2025 11:08 AM CDT [facility] IC PRE 1.34 L 01/13/2025 11:08 AM CDT [facility] FRC PL PRE 4.30 L 01/13/2025 11:08 AM CDT [facility] ERV PRE 1.02 L 01/13/2025 11:08 AM CDT [facility] RV PRE 3.28 L 01/13/2025 11:08 AM T [facility] RAW PRE 3.28 cmH2O*s/L 01/13/2025 11:08 AM T [facility] VTG 4.20 L 01/13/2025 11:08 AM T [facility] FVC PRE 2.64 L 01/13/2025 11:08 AM CDT [facility] FEV1 PRE 1.73 L 01/13/2025 11:08 AM T [facility] [id number] 65.37 % 01/13/2025 11:08 AM T [facility] VWF05-87% PRE 0.99 L/s 01/13/2025 11:08 AM T [facility] PEF PRE 4.66 L/s 01/13/2025 11:08 AM T [facility] Anatomical Region Laterality Modality PFT 01/13/2025 9:00 [...] Juanis Dominguez M.D. FT T: Report ID: [id number] Reading Location: [place] [address] Procedure Note Juanis Felton MD - 01/17/2025 [...] Juanis Dominguez M.D. FT T: Report ID: [id number] Reading Location: [place] [address] Antonieta Pimentel MD IMG CT PROCEDURES Final Res ult * eGFR (12/31/2024 9:42 AM CABIN SERVICE AGENT) eGFR 75 >=60 mL/min/1. 73 m2 Comment: [...] last reviewed 2021. Blood 12/31/2024 9:42 AM CABIN SERVICE AGENT 12/31/2024 3:35 PM CABIN SERVICE AGENT us Indra Yates MD LAB BLOOD ORDERABLES Final Result [address] [address] [facility] [place] [address] * Differential, auto (12/31/2024 9:42 AM CABIN SERVICE AGENT) Neutrophil abs 2.9 1.5 - 6.5 K/cumm Imm gran abs 0.0 0.0 - 0.1 K/cumm [facility] Lymphocyte abs 1.4 0.8 - 3.3 K/cumm [facility] Monocyte abs 0.5 0.2 - 0.8 K/cumm [facility] Eosinophil abs 0.3 0.0 - 0.5 K/cumm [facility] Basophil abs 0.1 0.0 - 0.1 K/cumm [facility] Neutrophil pct 56.5 % [facility] Comment: Interpretive Data Percent cell count reference ranges are not reported, since discordance with absolute values may lead to misinterpretation of CBC data. Current Interpretive Data was last revised on 2018. Imm gran pct 0.2 % [facility] Comment: Interpretive Data Percent cell count reference ranges are not reported, since discordance with absolute values may lead to misinterpretation of CBC data. Current Interpretive Data was last revised on 2018. Lymphocyte pct 26.3 % [facility] Comment: Interpretive Data Percent cell count reference ranges are not reported, since discordance with absolute values may lead to misinterpretation of CBC data. Current Interpretive Data was last revised on 2018. Monocyte pct 9.7 % [facility] Comment: Interpretive Data Percent cell count reference ranges are not reported, since discordance with absolute values may lead to misinterpretation of CBC data. Current Interpretive Data was last revised on 2018. Eosinophil pct 5.0 % [facility] Comment: Interpretive Data Percent cell count reference ranges are not reported, since discordance with absolute values may lead to misinterpretation of CBC data. Current Interpretive Data was last revised on 2018. Basophil pct 2.3 % [facility] Comment: Interpretive Data Percent cell count reference ranges are not reported, since discordance with absolute values may lead to misinterpretation of CBC data. Current Interpretive Data was last revised on 2018. Blood 12/31/2024 9:42 AM CABIN SERVICE AGENT 12/31/2024 3:07 PM CABIN SERVICE AGENT Indra Yates MD LAB BLOOD ORDERABLES Final Result Performing Organization Address City/State/[facility] Co de Phone Number JAMEEL FITCH [id number] [facility] [place] [address] * (ABNORMAL) Thyroid Function [place] (12/31/2024 9:42 AM CABIN SERVICE AGENT) TSH 13.40(H) 0.30 - 4.20 mcIUnit/mL Blood 12/31/2024 9:42 AM CABIN SERVICE AGENT 12/31/2024 3:07 PM CABIN SERVICE AGENT Indra Yates MD LAB BLOOD ORDERABLES Final Result Performing Organization Address [facility] de Phone Number JAMEEL FITCH [address] [facility] [place] [address] * CBC with auto differential (12/31/2024 9:42 AM CABIN SERVICE AGENT) WBC 5.2 3.8 - 9.9 K/cumm Hgb [...] K/cumm [facility] Blood 12/31/2024 9:42 AM CABIN SERVICE AGENT 12/31/2024 3:07 PM CABIN SERVICE AGENT Indra Yates MD LAB BLOOD ORDERABLES Final Result Performing Organization Address City/[facility] Co de Phone Number JAMEEL FITCH [address] [facility] [place] [address] * T4, free (12/31/2024 9:42 AM CABIN SERVICE AGENT) Free T4 1.35 0.90 - 1.70 ng/dL Blood 12/31/2024 9:42 AM CABIN SERVICE AGENT 12/31/2024 3:35 PM CABIN SERVICE AGENT Indra Yates MD LAB BLOOD ORDERABLES Final Result J[facility]EL [facility] [facility] [place] [address] * (ABNORMAL) Lipid panel (12/31/2024 9:42 AM CABIN SERVICE AGENT) Cholesterol 94 30 - 199 mg/dL Comment: [...] 4 JAMEEL FITCH Blood 12/31/2024 9:42 AM CABIN SERVICE AGENT 12/31/2024 3:07 PM CABIN SERVICE AGENT Indra Yates MD LAB [place] [address] [address] [facility] [place] [address] * Comprehensive metabolic panel (12/31/2024 9:42 AM CABIN SERVICE AGENT) Sodium 138 135 - 145 mmol/L Potassium, [...] Units/L [facility] Blood 12/31/2024 9:42 AM CABIN SERVICE AGENT 12/31/2024 3:07 PM CABIN SERVICE AGENT Indra Yates MD LAB BLOOD ORDERABLES Final Result Performing Organization Address City/[place] Number [place] [address] [address] [facility] [place] [address] from Last 3 Months Insurance [employer] H[employer] PPO Member Subscriber Plan / Payer (Ef fective 2018-Present) Name:Pepito Ott Relation to Subscriber:Self Name:Pepito Ott Payer ID:[id number] (NAIC) Type:MEDICARE RISK OTHER Address: [address] [facility] MEDICARE ADVANTAGE Care Teams Planning Division Superintendent Relationship Specialty Start Date End Date Indra Yates MD [address] [place] [address] PCP - General Family Medicine 07/02/24 Megha Crane PA [address] [place] [address] Physician Deckhand [employer] 07/02/24 Tacos Moreno MD [address] [place] [address] Referring Physician Psychiatry 12/31/24 Antonieta Pimentel MD [address] [place] [address] Consulting Physician Pulmonary Disease 12/31/24 Gurmeet Sands MD [address] [place] [address] Consulting Physician Gastroenterology 12/31/24 Mao Dodson MD [address] [place] [address] Consulting Physician Otolaryngology 02/25/25
--- OUTSIDE RECORDS SUMMARY | 2025-03-19 23:11 | XMS_ITS | Encounter Summary ---
Author Organization [facility] Address [address] [place] [address] Care Team Providers Care Admin Dir Name Role Phone Syd Tate MD Primary Care Provider [phone] Encounter Details Date Type Department Care Team (Late st Contact Info) Description 03/06/2005 Outpatient Historical [facility] Trauma and General Surgery [address] [facility] [address] [facility] [place] [address] Anand Cabrales MD [address] [facility] [address] [place] [address] Social History Tobacco Use Types Packs/Day Years Used Date Smoking Tobacco: Never Assessed Sex and Gender Information Value Date Recorded Sex Assigned at Not on file Legal Sex Male 4:43 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
--- OUTSIDE RECORDS SUMMARY | 2025-03-19 23:11 | XMS_ITS | Referral Summary ---
Author Organization [facility] Address [address] [place] [address] Care Team Providers Care Audio Visual Arts Director Name Role Phone Indra Yates MD Primary Care Provider [phone] Megha Crane Unavailable [phone] Tacos Moreno MD Unavailable [phone] Antonieta Pimentel MD Unavailable [phone] Gurmeet Sands MD Unavailable Mao Dodson MD Unavailable [phone] Encounters Date Type Department Care Team Description 03/04/2025 9:00 AM CDT Office Visit [facility] Pulmonary [address] [address] Antonieta Pimentel MD Obstructive sleep apnea syndrome (Primary Dx); Centrilobular emphysema (HCC); Restless legs; Cigarette nicotine dependence without complication; Abnormal CT of the chest; Recurrent cold sores; Psychophysiological insomnia; Non-seasonal allergic rhinitis due to pollen; Pulmonary air trapping; Simple chronic bronchitis (HCC) 02/25/2025 10:00 AM CDT Office Visit [facility] Primary Care at [address] [address] Indra Yates MD Encounter for annual wellness visit (AWV) in Medicare patient (Primary Dx); RLS (restless legs syndrome); Personal history of nicotine dependence 02/17/2025 Telephone [facility] Pulmonary [place] [address] [facility] [address] [place] [address] Chris Thompson CMA 02/11/2025 11:30 AM CDT Office Visit [facility] [address] [place] [address] [address] [place] [address] Hao Mann MD Acquired hypothyroidism (Primary Dx) 01/28/2025 Orders Only [facility] Primary Care at [address] [address] Indra Yates MD Neck mass; Acquired macroglossia 01/28/2025 9:00 AM CDT Office Visit [facility] Primary Care at [address] [address] Indra Yates MD Encounter for Medicare annual wellness exam (Primary Dx); Moderately severe major depression (HCC); Chronic lymphocytic leukemia (HCC); Other emphysema (HCC); Autoimmune hepatitis (HCC); Stage 3a chronic kidney disease (HCC); Primary hypertension; Vitamin D deficiency; Mixed hyperlipidemia; Acquired hypothyroidism; Centrilobular emphysema (HCC); Neck mass; Acquired macroglossia; Need for hepatitis C screening test 01/19/2025 Results Follow-Up [facility] Pulmonology [address] [facility] [address] [place] [address] Antonieta Pimentel MD CT Chest WO Contrast 01/13/2025 8:03 AM CDT - 01/13/2025 11:59 PM CDT Hospital Encounter [facility] Respiratory [address] [place] [address] Obstructive sleep apnea syndrome; Restless legs; Psychophysiological insomnia; Cigarette nicotine dependence without complication; Pharyngeal dysphagia; Tongue swelling Discharge Disposition: Discharge to home or self care 01/12/2025 3:15 PM CDT - 01/12/2025 11:59 PM CDT Hospital Encounter [facility] CT [address] [place] [address] Obstructive sleep apnea syndrome; Restless legs; Psychophysiological insomnia; Cigarette nicotine dependence without complication; Pharyngeal dysphagia; Tongue swelling Discharge Disposition: Discharge to home or self care 01/09/2025 Telephone [facility] Diabetes and Endocrinology [address] [place] [address] Hao Mann MD New referral to Endocrinology 2025 10:00 AM CDT Office Visit [facility] Gastroenterology at [address] [place] [address] Belen Carter NP Irritable bowel syndrome with both constipation and diarrhea 01/04/2025 Results Follow-Up [facility] Primary Care at [address] [address] Indra Yates MD Comprehensive metabolic panel, CBC with auto differential, Lipid panel, Additional followed-up results: 4 12/31/2024 9:42 AM SHOTWELD OPERATOR - 12/31/2024 11:59 PM SHOTWELD OPERATOR Hospital Encounter [address] [address] Primary hypertension; Mixed hyperlipidemia; Acquired hypothyroidism Discharge Disposition: Discharge to home or self care 12/31/2024 9:45 AM SHOTWELD OPERATOR Lab [facility] Outpatient Lab at [address] [address] Hyperlipidemia (Primary Dx); Hypertensive disorder; Hypothyroidism 12/31/2024 9:00 AM SHOTWELD OPERATOR Office Visit [facility] Primary Care at [address] [address] Indra Yates MD Mixed hyperlipidemia [...] 1 tablet (200 mcg total) by mouth day care worker before breakfast 90 tablet 02/12/20 25 025 [...] titrate up to 25 g -Recommend starting qcqe-rcq-bvbldjb probiotic like align or [employer] -IB guard to help with complaints of abdominal bloating and gas as well as increased exercise. -Discuss small titration dose of MiraLax to help have regularity if fiber is not well tolerated. CKD (chronic kidney disease) stage 3, GFR 30-59 ml/min 12/31/2024 Cigarette nicotine dependence without complicati on 12/03/2024 Tongue swelling 12/03/2024 Pharyngeal dysphagia 12/03/2024 Anxiety 07/04/2022 Assessment & Plan (09/09/2024 1:22 PM SHOTWELD OPERATOR): Discussed with Dr. Yates, his PCP. [...] 07/04/2022 Assessment & Plan (09/09/2024 1:20 PM SHOTWELD OPERATOR): Being treated by pulmonology. Will check [...] on file Legal Sex Male 12:09 AM SHOTWELD OPERATOR Gender Identity Not on file Sexual [...] Tongue swelling EGFR Routine 12/31/2024 9:42 AM SHOTWELD OPERATOR Primary hypertension T4, FREE Routine 12/31/2024 9:42 AM SHOTWELD OPERATOR Primary hypertension Acquired hypothyroidism DIFFERENTIAL AUTO Routine 12/31/2024 9:4 2 AM SHOTWELD OPERATOR Primary hypertension THYROID FUNCTION CASCADE Routine 12/31/2024 9:42 AM SHOTWELD OPERATOR Primary hypertension Acquired hypothyroidism LIPID PANEL Routine 12/31/2024 9:42 AM SHOTWELD OPERATOR Mixed hyperlipidemia CBC WITH AUTO DIFFERENTIAL Routine 12/31/2024 9:42 AM SHOTWELD OPERATOR Primary hypertension COMPREHENSIVE METABOLIC PANEL Routine 12/31/2024 9:42 AM SHOTWELD OPERATOR Primary hypertension from Last 3 Months Results * Pulmonary Function Test - (01/13/2025 10:00 AM CDT) FVC POST 2.91 L 01/13/2025 11:08 AM CDT [facility] FEV1 POST 1.58 L 01/13/2025 11:08 AM CDT [facility] [id number] 54.17 % 01/13/2025 11:08 AM CDT [facility] UGH21-64% POST 0.62 L/s 01/13/2025 11:08 AM CDT [facility] PEF POST 3.07 L/s 01/13/2025 11:08 AM CDT [facility] DLCOc SB 7.83 ml/(min*mm Hg) 01/13/2025 11:08 AM CDT [facility] DLCO/VA PRE 2.04 ml/(min*mm Hg*L) 01/13/2025 11:08 AM CDT [facility] VA 3.84 L 01/13/2025 11:08 AM CDT [facility] TLC PRE 5.92 L 01/13/2025 11:08 AM CDT [facility] VC PRE 2.64 L 01/13/2025 11:08 AM CDT [facility] IC PRE 1.34 L 01/13/2025 11:08 AM CDT [facility] FRC PL PRE 4.30 L 01/13/2025 11:08 AM CDT [facility] ERV PRE 1.02 L 01/13/2025 11:08 AM CDT [facility] RV PRE 3.28 L 01/13/2025 11:08 AM CDT [facility] RAW PRE 3.28 cmH2O*s/L 01/13/2025 11:08 AM CDT [facility] VTG 4.20 L 01/13/2025 11:08 AM CDT [facility] FVC PRE 2.64 L 01/13/2025 11:08 AM CDT [facility] FEV1 PRE 1.73 L 01/13/2025 11:08 AM CDT [facility] [id number] 65.37 % 01/13/2025 11:08 AM CDT [facility] RCU00-13% PRE 0.99 L/s 01/13/2025 11:08 AM CDT [facility] PEF PRE 4.66 L/s 01/13/2025 11:08 AM CDT [facility] Anatomical Region Laterality Modality PFT 01/13/2025 9:00 [...] Juanis Dominguez M.D. FT T: Report ID: [id number] Reading Location: [place] [address] Procedure Note Juanis Felton MD - 01/17/2025 [...] Juanis Dominguez M.D. FT T: Report ID: [id number] Reading Location: [place] [address] Antonieta Pimentel MD IM CT PROCEDURES Final Res ult * eGFR (12/31/2024 9:42 AM SHOTWELD OPERATOR) eGFR 75 >=60 mL/min/1. 73 m2 [...] last reviewed 2021. Blood 12/31/2024 9:42 AM SHOTWELD OPERATOR 12/31/2024 3:35 PM SHOTWELD OPERATOR us Indra Yates MD LAB BLOOD ORDERABLES Final Result [facility] [address] [address] Department [place] [address] * Differential, auto (12/31/2024 9:42 AM SHOTWELD OPERATOR) Neutrophil abs 2.9 1.5 - 6.5 K/cumm Imm gran abs 0.0 0.0 - 0.1 K/cumm [facility] Lymphocyte abs 1.4 0.8 - 3.3 K/cumm [facility] Monocyte abs 0.5 0.2 - 0.8 K/cumm [facility] Eosinophil abs 0.3 0.0 - 0.5 K/cumm [facility] Basophil abs 0.1 0.0 - 0.1 K/cumm [facility] Neutrophil pct 56.5 % [facility] Comment: Interpretive Data Percent cell count reference ranges are not reported, since discordance with absolute values may lead to misinterpretation of CBC data. Current Interpretive Data was last revised on 2018. Imm gran pct 0.2 % [facility] Comment: Interpretive Data Percent cell count reference ranges are not reported, since discordance with absolute values may lead to misinterpretation of CBC data. Current Interpretive Data was last revised on 2018. Lymphocyte pct 26.3 % [facility] Comment: Interpretive Data Percent cell count reference ranges are not reported, since discordance with absolute values may lead to misinterpretation of CBC data. Current Interpretive Data was last revised on 2018. Monocyte pct 9.7 % [facility] Comment: Interpretive Data Percent cell count reference ranges are not reported, since discordance with absolute values may lead to misinterpretation of CBC data. Current Interpretive Data was last revised on 2018. Eosinophil pct 5.0 % [facility] Comment: Interpretive Data Percent cell count reference ranges are not reported, since discordance with absolute values may lead to misinterpretation of CBC data. Current Interpretive Data was last revised on 2018. Basophil pct 2.3 % [facility] Comment: Interpretive Data Percent cell count reference ranges are not reported, since discordance with absolute values may lead to misinterpretation of CBC data. Current Interpretive Data was last revised on 2018. Blood 12/31/2024 9:42 AM SHOTWELD OPERATOR 12/31/2024 3:07 PM SHOTWELD OPERATOR Indra Yates MD LAB BLOOD ORDERABLES Final Result Performing Organization Address [facility] de Phone Number JAMEEL [address] [address] [place] [address] * (ABNORMAL) Thyroid Function Heard (12/31/2024 9:42 AM SHOTWELD OPERATOR) TSH 13.40(H) 0.30 - 4.20 mcIUnit/mL Blood 12/31/2024 9:42 AM SHOTWELD OPERATOR 12/31/2024 3:07 PM SHOTWELD OPERATOR Indra Yates MD LAB BLOOD ORDERABLES Final Result Performing Organization Address [facility] de Phone Number [facility] [address] [address] [place] [address] * CBC with auto differential (12/31/2024 9:42 AM SHOTWELD OPERATOR) WBC 5.2 3.8 - 9.9 K/cumm Hgb 14.1 13.0 - 17.5 g/dL [facility] Hct 43.1 38.9 - 50.3 % [facility] Plt 174 150 - 400 K/cumm [facility] MPV 9.8 9.1 - 12.3 fL [facility] RBC 4.69 4.30 - 5.80 M/cumm [facility] MCV 91.9 81.3 - 96.4 fL [facility] MCH 30.1 27.1 - 33.3 pg [facility] MCHC 32.7 32.3 - 35.7 g/dL [facility] RDW CV 13.6 11.1 - 14.9 % [facility] RDW SD 45.7 35.7 - 48.1 fL [facility] NRBC abs 0.00 0.00 - 0.01 K/cumm [facility] Blood 12/31/2024 9:42 AM SHOTWELD OPERATOR 12/31/2024 3:07 PM SHOTWELD OPERATOR Indra Yates MD LAB BLOOD ORDERABLES Final Result Performing Organization Address [facility] Co de Phone Number JAMEEL FITCH [address] [address] [facility] [place] [address] * T4, free (12/31/2024 9:42 AM SHOTWELD OPERATOR) Free T4 1.35 0.90 - 1.70 ng/dL Blood 12/31/2024 9:42 AM SHOTWELD OPERATOR 12/31/2024 3:35 PM SHOTWELD OPERATOR Indra Yates MD LAB BLOOD ORDERABLES Final Result Performing Organization Address [facility] Co de Phone Number JAMEEL [address] [place] [address] * (ABNORMAL) Lipid panel (12/31/2024 9:42 AM SHOTWELD OPERATOR) Cholesterol 94 30 - 199 mg/dL [...] revised on 2024. Non-HDL Cholesterol 69 mg/dL [facility] Comment: Interpretive Data Ages < or = [...] last revised on 2018. Chol/HDL ratio 4 [facility] Blood 12/31/2024 9:42 AM SHOTWELD OPERATOR 12/31/2024 3:07 PM SHOTWELD OPERATOR Indra Yates MD LAB BLOOD ORDERABLES Final Result [facility] [address] [address] Department [place] [address] * Comprehensive metabolic panel (12/31/2024 9:42 AM SHOTWELD OPERATOR) Sodium 138 135 - 145 mmol/L Potassium, pl 4.5 3.3 - 4.9 mmol/L [facility] Chloride 101 97 - 110 mmol/L [facility] CO2 26 22 - 32 mmol/L [facility] Anion gap 11 2 - 15 mmol/L [facility] BUN 14 6 - 25 mg/dL [facility] Creatinine 1.02 0.80 - 1.30 mg/dL [facility] Glucose 115 70 - 199 mg/dL [facility] Comment: Interpretive Data Fasting glucose >/= 126 [...] Units/L [facility] Blood 12/31/2024 9:42 AM SHOTWELD OPERATOR 12/31/2024 3:07 PM SHOTWELD OPERATOR Indra Yates MD LAB BLOOD ORDERABLES Final Result [facility] [address] [address] Department [place] [address] from Last 3 Months Insurance [employer] MEDICARE HMO PPO [facility] MEDICARE ADVANT[facility] MEDIC[facility] Address: [address] [address] [place] [address] Care Teams Audio Visual Arts Director Relationship Specialty Start Date End Date Indra Yates MD [address] [place] [address] PCP - General Family Medicine 07/02/24 Megha Crane PA [address] [place], [place] [address] Physician Marketing Liaison 07/02/24 Tacos Moreno MD [address] [place] [address] Referring Physician Psychiatry 12/31/24 Antonieta Pimentel MD [address] [place] [address] Consulting Physician Pulmonary Disease 12/31/24 Gurmeet Sands MD [address] [facility] [place] [address] Consulting Physician Gastroenterology 12/31/24 Mao Dodson MD [address] [place] [address] Consulting Physician Otolaryngology 02/25/25
--- OUTSIDE RECORDS SUMMARY | 2025-03-19 23:11 | XMS_ITS | Encounter Summary ---
Author Organization [employer] Address [address] [place] [address] Care Team Providers Care Diesel Scoop Operator Name Role Phone Syd Tate MD Primary Care Provider [phone] Encounter Details Date Type Department Care Team (Late st Contact Info) Description 02/04/2005 Outpatient Historical [facility] Support Serv. (Adt Cardiology-SJ) [address] [place] [address] Yosi Ervin MD [address] [facility] [address] [place] [address] Social History Tobacco Use Types Packs/Day Years Used Date Smoking Tobacco: Never Assessed Sex and Gender Information Value Date Recorded Sex Assigned at Not on file Legal Sex Male 4:43 AM MOLDED GRID AND PARTS INSPECTOR Gender Identity Not on file Sexual Orientation Not on file documented as of this encounter Plan of Treatment Not on file documented as of this encounter Visit Diagnoses Not on filedocumented in this encounter Care Teams Diesel Scoop Operator Relationship Specialty Start Date End Date Syd Tate MD [address] [address] PCP - General 02/04/05 06/27/23 documented as of this encounter
--- OUTSIDE RECORDS SUMMARY | 2025-03-19 23:11 | XMS_ITS | Encounter Summary ---
Author Organization [facility] Address [address] [place] [address] Care Team Providers Care Specialty Person Name Role Phone Syd Tate MD Primary Care Provider [phone] Encounter Details Date Type Department Care Team (Late st Contact Info) Description 02/05/2005 Outpatient Historical [facility] Trauma and General Surgery [address] [facility] [address] [address] [place] [address] [place] [address] Social History Tobacco Use Types Packs/Day Years Used Date Smoking Tobacco: Never Assessed Sex and Gender Information Value Date Recorded Sex Assigned at Not on file Legal Sex Male 4:43 AM PSYCHIATRY TEACHER Gender Identity Not on file Sexual Orientation Not on file documented as of this encounter Plan of Treatment Not on file documented as of this encounter Visit Diagnoses Not on filedocumented in this encounter Care Teams Specialty Person Relationship Specialty Start Date End Date Syd Tate MD [address] [facility] [address] [place] [address] PCP - General 02/04/05 06/27/23 documented as of this encounter
--- OUTSIDE RECORDS SUMMARY | 2025-03-19 23:11 | XMS_ITS | Encounter Summary ---
Author Organization [facility] Health Address [address] [address] [place] [address] Care Team Providers Care Logging Tractor Operator Name Role Phone Syd Tate MD Primary Care Provider [phone] Antoine Lundberg MD Primary Care Provider [phone] Encounter Details Date Type Department Care Team [...] PM CDT Legal Sex Male 4:34 AM HAIR BOILER OPERATOR Gender Identity Not on file Sexual Orientation Not on file documented as of this encounter Plan of Treatment Not on file documented as of this encounter Visit Diagnoses Not on filedocumented in this encounter Care Teams Logging Tractor Operator Relationship Specialty Start Date End Date Syd Tate MD [address] [facility] [address] [place] [address] PCP - General 09/13/08 04/01/16 Antoine Lundberg MD [address] [place] [address] PCP - General Internal Medicine 03/30/19 documented as of this encounter
--- OUTSIDE RECORDS SUMMARY | 2025-03-19 23:11 | XMS_ITS | Clinical Summary ---
Author Organization [facility] Address [address] [place] [address] Care Team Providers Care Diecast Machine Operator Name Role Phone Antoine Lundberg MD Primary Care Provider [phone] Allergies Active Allergy Reactions Criticality Noted Date [...] age to complete this topic Insurance [facility] ([id number]) Care Teams Diecast Machine Operator Relationship Specialty Start Date End Date Antoine Lundberg MD [address] [place] [id number] PCP - General Occupational Medicine 02/23/22
--- OUTSIDE RECORDS SUMMARY | 2025-03-19 23:11 | XMS_ITS | Encounter Summary ---
Author Organization [facility] Address [address] [place] [address] Care Team Providers Care Ash Collector Name Role Phone Syd Tate MD Primary Care Provider [phone] Encounter Details Date Type Department Care Team (Latest Contact Info) Description 02/04/2005 Inpatient Historical [facility] [place] [address] [place] [address] LUNG CONTUSION-CLOSED (Primary Dx) Social History Tobacco Use Types Packs/Day Years Used Date Smoking Tobacco: Never Assessed Sex and Gender Information Value Date Recorded Sex Assigned at Not on file Legal Sex Male 4:43 AM CUSHION MAT MAKER Gender Identity Not on file Sexual [...] Primary documented in this encounter Care Teams Ash Collector Relationship Specialty Start Date End Date Syd Tate MD [address] [facility] [address] [place] [address] PCP - General 02/04/05 06/27/23 documented as of this encounter
--- OUTSIDE RECORDS SUMMARY | 2025-03-19 23:11 | XMS_ITS | Continuity of Care Document ---
Author Organization [facility] Address [address] [facility] [address] [place] [address] Phone Care Team Providers Care Urban And Regional Planner Name Role Phone Elisabeth Carmen DPT Unavailable [...] Diagnoses Date Provider Providers Copied on Encounter [facility], [address] [place], [place] [address], [place], [place], [id number], tel:[phone] [place] No Information Kermit Barber. [address] [facility], [address], [address], [place]. tel:[phone], [place], [place], [id number], [place] tel:[phone] [place] No Information Kermit Barber. [address] [facility], [address], [place], [address], [place]. tel:[phone] [address], [place], [place], [id number], [place] tel:[phone] [place] No Information Carmen Farren. [address] [place] [address], [address], [place], [address], [place]. tel:[phone] [address], [place], [place], [id number], [place] tel:[phone] [place] No Information Kermit Barber. [address] [facility], [address], [place], [address], [place]. tel:[phone] [address], [place], [place], [id number], [place] tel:[phone] [place] No Information Carmen Farren. [address] [facility], [address], [place], [address], [place]. tel:[phone] [address], [place], [place], [id number], [place] tel:[phone] [place] No Information Carmenchula Barber. [address] [facility], [address], [place], [address], [place]. tel:[phone], [place], [place], [id number], [place] tel:[phone] [place] No Information Kermit Barber. [address] [place] [address], [address], [place], [address], [place]. tel:[phone], [place], [place], [id number], [place] tel:[phone] Sandra Ortiz Kemrit Barber. [address] [facility], [address], [place], [address], [place]. tel:[phone] Family History Family Member Type Diagnosis Age At Onset No Information Payers Payer name Insurance type Covered democrat ID Angelica gisellgloria(s) Marcelo [id number] Social History Type Description Quantity Date Captured [...]
--- OUTSIDE RECORDS SUMMARY | 2025-03-19 23:11 | XMS_ITS | Encounter Summary ---
Author Organization [facility] Address [address] [place] [address] Care Team Providers Care Student Support Advisor Name Role Phone Indra Yates MD Primary Care Provider [phone] Megha Crane Unavailable [phone] Tacos Moreno MD Unavailable [phone] Antonieta Pimentel MD Unavailable [phone] Gurmeet Sands MD Unavailable Mao Dodson MD Unavailable [phone] Encounter Details Date Type Department Care Team (Late st Contact Info) Description 01/19/2025 Results Follow-Up [facility] Medical Group Pulmonology [address] [facility] [address] [place] [address] [place] [address] [place] [address] [address] [place] [address] CT Chest WO Contrast Social [...] on file Legal Sex Male 12:09 AM PHARMACY INFORMATICS MANAGER Gender Identity Not on file Sexual Orientation Not on file documented as of this encounter Plan of Treatment Not on file documented as of this encounter Visit Diagnoses Not on filedocumented in this encounter Care Teams Student Support Advisor Relationship Specialty Start Date End Date Indra Yates MD [address] [place] [address] PCP - General Family Medicine 07/02/24 Megha Crane PA [address] [place], [place] [address] Physician Auto Rental Clerk 07/02/24 Tacos Moreno MD [address] [place] [address] Referring Physician Psychiatry 12/31/24 Antonieta Pimentel MD [address] [place] [address] Consulting Physician Pulmonary Disease 12/31/24 Gurmeet Sands MD [address] [facility] [place] [address] Consulting Physician Gastroenterology 12/31/24 Mao Dodson MD [address] [place] [address] Consulting Physician Otolaryngology 02/25/25 documented as of this encounter
--- OUTSIDE RECORDS SUMMARY | 2025-03-19 23:12 | XMS_ITS | Encounter Summary ---
Author Organization [facility] Address [address] [place] [address] Care Team Providers Care Registered Nurse Name Role Phone Antoine Lundberg MD Primary Care Provider [phone] Encounter Details Date Type Department Care Team (Late st Contact Info) Description 07/05/2023 Lab Requisition [facility] - DermPath Lab [address] [place] [id number] Latrice Swan MD [address] [place] [address] Neoplasm of unspecified behavior of bone, soft [...] Date Recorded PHQ2 TOTAL SCORE 0 09/15/2022 [facility] - Occupational Stress [...] place to sleep or slept in a correction (including now)? 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 SKIN, right yazidism: BASAL CELL CARCINOMA, NODULAR TYPE (C44.319) Specimen [...] with the patient's name and designated right yazidism. The specimen consists of a shave biopsy [...] obtained and reviewed. Specimen B. SKIN, right yazidism: Within the dermis there are aggregates of [...] characteristic determined by the Dermatopathology Laboratory at [facility], directed by Dr. Lara Nava. These tests need not be, and therefore are not, approved by the [place] Food and Drug Administration. The tests are used for clinical purposes. Billing Codes Specimen Charges Stain Charges 46524 66864 98995 1 1 1 3 1:37 PM CDT [...] PATHOLOGY/CYTOLOGY NORBERT RAMIREZ Final Result DERMATOPATHOLOGY LABORATORY [facility] - Department of Dermatology [facility] Special[facility], 3rd Floor [address] [phone] documented in this encounter Visit Diagnoses Diagnosis Neoplasm of unspecified behavior of bone, soft tissue, and skin documented in this encounter Care Teams Registered Nurse Relationship Specialty Start Date End Date Antoine Lundberg MD [address] [address] PCP - General Internal Medicine 03/30/19 documented as of this encounter
--- OUTSIDE RECORDS SUMMARY | 2025-03-19 23:12 | XMS_ITS | Encounter Summary ---
Author Organization [facility] Address [address] [place] [address] Care Team Providers Care Grinder Set Up Operator External Name Role Phone Antoine Lundberg MD Primary Care Provider [phone] Encounter Details Date Type Department Care Team (Late st Contact Info) Description 05/09/2018 Lab Requisition [facility] Care DermPath Lab 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 Jar 0. 1:42 PM CDT DERMATOPATHOLOGY LABORATORY [...] characteristic determined by the Dermatopathology Laboratory at [facility]. These tests need not be, and therefore are not, approved by the [place] Food and Drug Administration. The tests are used for clinical purposes. Billing Codes Specimen Charges Stain Charges 70733 1 8 1:42 PM CDT DERMATOPATHOLOGY LABORATORY Embedded Images 1:42 PM CDT DERMATOPATHOLOGY LABORATORY Pathology/Cytolog y TISSUE SPECIMEN FROM SKIN / Unknown 05/08/2018 05/09/2018 8:33 AM CDT us Latrice Swan MD LAB - PATHOLOGY/CYTOLOGY NORBERT RAMIREZ Final Result DERMATOPATHOLOGY LABORATORY [facility] - Department of Dermatology [facility] [facility], 5th Floor Lab [address] [phone] documented in this encounter Visit Diagnoses Not on filedocumented in this encounter Care Teams Grinder Set Up Operator External Relationship Specialty Start Date End Date Antoine Lundberg MD [address] [address] PCP - General Internal Medicine 03/30/19 documented as of this encounter
--- OUTSIDE RECORDS SUMMARY | 2025-03-19 23:12 | XMS_ITS | Continuity of Care Document ---
Author Organization [facility] Address [address] [place] [address] [address] [place] [address] Phone Care Team Providers Care Five Roll Refiner Batch Mixer Name Role Phone Franky Templeton MD Unavailable [...] CATARACT SURG W/IOL, 1 STAGE OFFICE/OUTPATIENT VISIT, [facility] OPHTHALMIC BIOMETRY OPHTHALMIC BIOMETRY PHARMACY 2 EYES Advance Directives Directive Yes / No Effective Date File Name No Information Encounters Encounter Description Practice Location Reason(s) For Visit Diagnoses Date Provider Providers Copied on Encounter [facility], [address], [place], [place], [id number], [place] tel:[phone] [facility] JAYLON DARBY No Information 3 Jareth Wilkins. [address] , [address], [place], [place], [id number] , [place]. tel:[phone] Referring Provider: Franky Vargas, [address], [place], [address]. tel:[phone] [facility], [address] [place] [address], [id number], tel:[phone] [facility] No Information 1 Jareth Wilkins. [address], [place], [place], [id number] , [place]. tel:[phone] Referring Provider: Franky Vargas, [address], [place], [address]. tel:[phone] [facility], [address] [place] [address], [id number], [place] tel:[phone] [facility] No Information 1 Jareth Wilkins. [address], [address], [place], [place], [id number] , [place]. tel:[phone] Referring Provider: Franky Vargas, [address], [place], [address]. tel:[phone] [facility], [address] [place] [address], [id number], [place] tel:[phone] O[facility] CONSULT JAYLON DARBY No Information 1 Duncan Bhakta. [address], [address], [place], [place], [id number] , [place]. tel:[phone] OFFICE/OUTPA TIENT VISIT, [facility], [address] [place] [address], [id number], tel:[phone] [facility] No Information 1 Jareth Wilkins. [address], [place], [place], [id number] , [place]. tel:[phone] Referring Provider: Livia Niehoff OD, [address] [place], [address]. tel:[phone] Family History Family Member Type Diagnosis Age At Onset No Information Payers Payer name Insurance type Covered green party ID Authoriza tigloria(s) [facility] [id number] Social History Type Description Quantity Date Captured [...]
--- OUTSIDE RECORDS SUMMARY | 2025-03-19 23:12 | XMS_ITS | Clinical Summary ---
Author Organization [facility] Address [address] [place] [address] Phone Care Team Providers Care Telephone Operator Chief Name Role Phone Unavailable Primary Care Provider Unavailabl e Allergies Active Allergy Reactions Criticality Noted Date Comments Bupropion Other (See Comments) 07/04/2022 Other reaction(s): worsening symptoms Medications acetaminophen (Tylenol 8 Hour) 650 mg Extended Release tablet 0 2 Active ALPRAZolam (XANAX) 0.25 mg tablet 1 tablet(s), Oral, bid, 180 tablet(s), 1, 1, Route to Pharmacy Electronically, [facility] ([facility] ), [id number], 162, cm, 12/28/2022 0808, Height, 70.7, kg, 12/28/2022 1031, Weight 3 Active carvediloL (COREG) 6.25 mg tablet Take 6.25 mg by mouth. 2 Active atorvastatin (LIPITOR) 40 mg tablet Take 40 mg by mouth. 2 Active hydrALAZINE (APRESOLINE) 50 mg tablet 1 tablet(s), Oral, tid, 270 tablet(s), 3, 3, Route to Pharmacy Electronically, [facility] ([facility] ), [id number], 162, cm, 06/26/2022 0830, Height, 70.6, kg, 06/26/2022 1027, Weight 3 Active HYDROcodone-brien taminophen (NORCO) 5-325 mg tablet Take 1 Tablet by mouth every 4 hours as needed. 3 Active levothyroxine 200 mcg tablet See Instructions, 90 tablet(s), 3, TAKE 1 TABLET DAILY BEFORE BREAKFAST, Route to Pharmacy Electronically, [facility] ([facility]), [id number], Instructions Replace Required Details, 162, cm, 12/28/2022 0808, Height, 70.7, kg, 12/28/2022 1031, Weight 3 Active lisinopriL (PRINIVIL) 20 mg tablet Take 20 mg by mouth daily. 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
[2025-03-19] MEDS: ONDANSETRON INJ 4 MG/2 ML VIAL IV PUSH (23:23)
[2025-03-19] MEDS: SODIUM CHLORIDE 0.9% IV 500 ML 999 ML IV CONT (23:23)
--- NOTE | 2025-03-19 23:25 | PC.NURSE ---
This RN attempted to collect urine. Pt was taken to cat scan and will try when he returns.
[2025-03-19] MEDS: MORPHINE SULFATE (*CRX) 2 MG/ML INJ IV PUSH (23:44)
[2025-03-19 23:46] VITALS: O2SAT 95
[2025-03-19 23:48] VITALS: BP 131/65; PULSE 69; RESP 17; O2SAT 95
[2025-03-20] VITALS (32 sets, daily range): BP systolic 104–146; BP diastolic 56–75; PULSE 58–94; RESP 14–18; TEMP 36.6–37.2; O2SAT 88–97; BMI 24.4
[2025-03-20] MEDS: PROCHLORPERAZINE EDISYLATE 10 MG/2 ML VIAL 2.5 MG IV PUSH (00:21)
[2025-03-20] MEDS: KETOROLAC 15 MG/ML VIAL (*BKC) IV PUSH (00:21)
[2025-03-20 00:49] LABS: Add Urine Microscopic? YES; Appearance Urine Clear (Clear); Bacteria Urine None Seen /hpf; Bilirubin Urine Negative (Negative); Blood Urine Negative (Negative); Color Urine Yellow (Yellow); Glucose Urine UA Negative (Negative); Ketones Urine Negative (Negative); Leukocyte Esterase Ur Trace LEU/UL (Negative); Nitrate Urine Negative (Negative); Protein Urine 2+ mg/dL (Negative); RBC Urine 0-2 /hpf (0-2); Specific Grav Ur 1.034 (1.001-1.035); Squamous Epithelial Cell Urine None Seen /hpf (Few); Urobilinogen Urine 0.2 mg/dL (<2.0); WBC Urine 0-5 /hpf (0-3); pH Urine 5.5 (5.0-9.0)
[2025-03-20] MEDS: PANTOPRAZOLE 40 MG TABLET PO (01:11)
[2025-03-20] MEDS: DICYCLOMINE HCL 10 MG CAPSULE PO (01:11)
[2025-03-20 02:15] LABS: NT Pro B Type Natriuretic Pept 468 pg/mL (19.9-100)
[2025-03-20 02:35] LABS: D Dimer 2.82 ug/mL (<0.48)
[2025-03-20 03:18] LABS: Influenza A QL RT-PCR Negative (Negative); Influenza B QL RT-PCR Negative (Negative); RSV RNA, RT-PCR Negative (Negative); SARS-CoV-2 RNA PCR Negative (Negative)
--- NOTE | 2025-03-20 06:40 | PCRCNOTE ---
The patient refused the arterial blood gas. Dr. Lipscomb is aware.
--- NOTE | 2025-03-20 08:58 | ADMGEN ---
This patient, Pepito Ott, was admitted to 2 Medical Room 240-. Patient/family oriented to hospital policies and general routines including ID bracelet, bed and alarms, visiting hours, pain management, procedures, bathroom and other care routines, personal items, smoking policy, room service/diet, and visiting hours. Information on how to activate the Rapid Response Team has been discussed. Patient/Family are encouraged to report perceived risks to care and to ask questions if they do not understand what they are told or what they should do.
[2025-03-20] MEDS: ACETAMINOPHEN 325 MG TABLET 650 MG PO ×2 (15:24→21:38)
--- NOTE | 2025-03-20 21:00 | P.HP_ITS ---
H&P: HPI History of Present Illness Date/Time: 03/20/25 21:00 Chief Complaint: Tongue pain, abdominal pain, nausea, and diarrhea. Narrative: This is a 80-year-old male smoker with chronic obstructive pulmonary disease, hypertension, hyperlipidemia, and hypothyroidism who presented to the emergency department via EMS from home for evaluation of abdominal pain, nausea, and diarrhea. He was seen in the ED 2 days ago for evaluation of an ulcer on the right side of his tongue which had been present for about 2 months. Lesion was biopsied by Dr. Ye later that day and the pathology is still pending. Airway was normal on laryngoscopy. He was given a prescription for doxycycline for sinusitis and was discharged home. He continues to have sinus congestion and drainage with occasional cough due to postnasal drip. He reports pain on the right side of the tongue and the right side of his face since the lesion was biopsied. He is now having nausea and diarrhea however at the time my evaluation he tells me he only had a couple of episodes of diarrhea and none in the last 24 hours or so. He denies fever, chills, sweats, chest pain, pleuritic pain, palpitations, shortness of breath, bloating, belching, hematemesis, melena, hematochezia, dysuria, lower extremity edema, and calf pain. At the time my evaluation he complains mainly of the pain at the site of the tongue biopsy. Nausea has improved and diarrhea has been nonexistent since admission. In the ED: He has been afebrile since arrival with stable vital sounds though SpO2 had dipped into the upper 80s and he is currently on 2 L. labs are signifi cant for WBC count of 5.6, hemoglobin 12.4, sodium 135, proBNP 468. He tested negative for influenza, RSV, and COVID. Chest CTA showed no evidence of pulmonary embolus, aortic dissection, or aortic aneurysm. Moderate to advanced emphysema noted with numerous scattered focal calcified pleural plaques. CT of the abdomen and pelvis as well as head CT were without acute findings. He was given a L of normal saline, prochlorperazine, and ondansetron. Oxygen was unable to be weaned and he was admitted to the hospital for a home O2 evaluation. Review of Systems Review of Systems: 12 systems were reviewed and are negativ e except for as per HPI. [facility] Past Medical History Medical History (Updated 03/20/25 @ 21:21 by Kailey Patel PA-C) Lesion of tongue Depression with anxiety Hypothyroidism Skin cancer Pleural plaque Emphysema of lung Chronic obstructive pulmonary disease Hyperlipidemia Hypertension Surgical History Surgical History (Updated 03/20/25 @ 21:18 by Kailey Patel PA-C) History of tonsillectomy History of spinal surgery Social History Social History (Updated 03/20/25 @ 21:18 by Kailey Patel PA-C) Social History: Surrogate medical decision maker: Alicia Saavedrajimenaprateek, spouse. Code status: Do not resuscitate. Smoking packs per day: 1 Smoking cigarettes per day: 20.0 Years smoked: 60 Smoking pack-years: 60.00 Smoking status: Heavy tobacco smoker Tobacco type: cigarettes Alcohol intake: former Substance use: never Substance use type: does not use Do You Feel Safe in your Home?: Yes Lack of Transportation: No Lack of Food: Never True Current Housing: I Have Housing Concerned About Future Housing: No Difficulty Paying Gas/Electric Bills: No Difficulty Paying for Meds: No Currently Unemployed: No Education: Decline to Answer Difficulty w/ Childcare or Family Care: No Spiritual care concerns: No Meds Home Medications and Allergies Home Medications ?Medication ?Instructions ?Recorded ?Confirmed ?Type dicyclomine 20 mg tablet 20 mg PO QID PRN abdominal pain 12/01/24 03/20/25 Rx #20 tabs amlodipine 10 mg tablet 10 mg PO DAILY 03/18/25 03/20/25 History atorvastatin 40 mg tablet 40 mg PO DAILY 03/18/25 03/20/25 History carvedilol 6.25 mg tablet 6.25 mg PO Q12H 03/18/25 03/20/25 History doxycycline hyclate 100 mg capsule 100 mg PO BID #14 caps 03/18/25 03/20/25 Rx hydralazine 50 mg tablet 50 mg PO TID 03/18/25 03/20/25 History levothyroxine 200 mcg tablet 200 mcg PO DAILY 03/18/25 03/20/25 History (Unithroid) zolpidem 10 mg tablet 10 mg PO .hs 03/18/25 03/20/25 History Bifidobacterium infantis 10.5 mg 10.5 mg PO DAILY 03/20/25 03/20/25 History (10 million cell) chewable tablet (Align (B.infantis)) inulin 1.7 gram chewable tablet 6 g PO DAILY 03/20/25 03/20/25 History (Fiber Gummies) potassium chloride 20 mEq oral 40 meq PO DAILY 03/20/25 03/20/25 History packet sertraline 100 mg tablet 200 mg PO DAILY 03/20/25 03/20/25 History vitamin B complex 1 cap PO DAILY 03/20/25 03/20/25 History Allergies Allergy/AdvReac Type Severity Reaction Status Date / Time bupropion AdvReac Mild Unknown Verified 03/20/25 01:11 Vital Signs Vital Signs - 24 hr 03/19/25 22:58 03/19/25 23:46 03/19/25 23:48 Temperature 97.5 F L Pulse Rate 65 69 Respiratory Rate 18 17 Blood Pressure 140/72 131/65 Pulse Oximetry 93 95 95 Oxygen Delivery Nasal Cannula Oxygen Flow Rate 2 03/20/25 00:31 03/20/25 00:45 03/20/25 01:00 Temperature Pulse Rate Respiratory Rate Blood Pressure 127/71 Pulse Oximetry 90 95 94 Oxygen Delivery Oxygen Flow Rate 03/20/25 01:01 03/20/25 01:13 03/20/25 01:15 Temperature Pulse Rate 67 Respiratory Rate 17 Blood Pressure 117/62 117/62 Pulse Oximetry 93 93 90 Oxygen Delivery Oxygen Flow Rate 03/20/25 01:30 03/20/25 01:31 03/20/25 01:45 Temperature Pulse Rate Respiratory Rate Blood Pressure 114/71 Pulse Oximetry 94 90 91 Oxygen Delivery Oxygen Flow Rate 03/20/25 02:00 03/20/25 02:01 03/20/25 02:15 Temperature Pulse Rate Respiratory Rate Blood Pressure 104/66 Pulse Oximetry 96 95 97 Oxygen Delivery Oxygen Flow Rate 03/20/25 02:30 03/20/25 02:31 03/20/25 02:45 Temperature Pulse Rate Respiratory Rate Blood Pressure 119/65 Pulse Oximetry 95 93 93 Oxygen Delivery Oxygen Flow Rate 03/20/25 03:00 03/20/25 03:01 03/20/25 03:42 Temperature Pulse Rate Respiratory Rate Blood Pressure 111/75 118/59 L Pulse Oximetry 92 92 94 Oxygen Delivery Oxygen Flow Rate 03/20/25 03:45 03/20/25 04:00 03/20/25 04:01 Temperature Pulse Rate Respiratory Rate Blood Pressure 123/70 Pulse Oximetry 95 95 95 Oxygen Delivery Oxygen Flow Rate 03/20/25 04:31 03/20/25 05:01 03/20/25 05:18 Temperature Pulse Rate Respiratory Rate Blood Pressure 125/63 Pulse Oximetry 88 L 89 L 88 L Oxygen Delivery Room Air Oxygen Flow Rate 03/20/25 05:18 03/20/25 05:20 03/20/25 06:27 Temperature 98.9 F Pulse Rate 67 Respiratory Rate 14 Blood Pressure 119/60 Pulse Oximetry 94 93 92 Oxygen Delivery Nasal Cannula Oxygen Flow Rate 1 03/20/25 07:45 03/20/25 09:00 03/20/25 09:27 Temperature Pulse Rate 94 Respiratory Rate 16 Blood Pressure 141/75 H Pulse Oximetry 93 96 97 Oxygen Delivery Nasal Cannula Nasal Cannula Oxygen Flow Rate 1 2 03/20/25 13:20 03/20/25 20:23 Temperature 97.9 F 98.3 F Pulse Rate 67 58 L Respiratory Rate 18 16 Blood Pressure 131/56 L 146/65 H Pulse Oximetry 95 96 Oxygen Delivery Oxygen Flow Rate Exam Narrative: General: Nontoxic-appearing elderly gentleman lying on his right side in bed in no distress. Weight: 64.5 kg. BMI: 24.4. HEENT: PERRL, EOMI. Sclera anicteric. Tacky mucous membranes. Biopsy site on the lateral right mid posterior tongue is healing nicely with perhaps mild swelling but nothing significant. Mucus in the posterior oropharynx. Neck: Supple. No midline vertebral tenderness or significant lymphadenopathy. Respiratory: Respirations are nonlabored. Lung sounds are diminished throughout but are otherwise clear to auscultation. Cardiovascular: Regular rate and rhythm with S1-S2. Gastrointestinal: Abdomen is soft, nontender, and nondistended with positive bowel sounds. Skin: Warm and dry. No rash or lesions on limited exam. Extremities: No cyanosis, clubbing, or edema. Radial and pedal pulses intact. No palpable knots or cords. Neurological: Alert. Cranial nerves 2-12 are grossly intact. No gross focal deficits to casual conversation. Psychiatric: Pleasant and cooperative with normal mood and affect. H&P: Results Labs Labs: Urine 03/20/25 Range/Units 00:28 Urine Color Yellow (Yellow) Urine Appearance Clear (Clear) Urine pH 5.5 (5.0-9.0) Ur Specific [place] 1.034 (1.001-1.035) Urine Protein 2+ H (Negative) mg/dL Urine Glucose (UA) Negative (Negative) mg/dL Impressions Head CT 03/19/25 23:47 Impression: No acute intracranial hemorrhage or suspicious mass effect. Abdomen/Pelvis CT 03/19/25 23:49 IMPRESSION: No acute pathology within the abdomen or pelvis, as detailed above. Chest X-Ray 03/20/25 06:20 Impression: Minimal left pleural effusion. COPD. Chest CTA 03/20/25 06:24 Impression: No evidence of pulmonary embolus, aortic dissection, or aortic aneurysm. Moderate to advanced emphysema. Numerous scattered focal calcified pleural plaques. Heterogeneous splenic enhancement is likely related to timing of the contrast bolus. Assessment and Plan Assessment and plan (1) Hypoxia: Code(s): R09.02 - Hypoxemia Status: Acute (2) Sinusitis: Code(s): J32.9 - Chronic sinusitis, unspecified Status: Acute (3) Lesion of tongue: Code(s): K14.8 - Other diseases of tongue Status: Acute (4) Chronic obstructive pulmonary disease: Code(s): J44.9 - Chronic obstructive pulmonary disease, unspecified Status: Acute (5) Emphysema of lung: Code(s): J43.9 - Emphysema, unspecified Status: Acute (6) Hypothyroidism: Code(s): E03.9 - Hypothyroidism, unspecified Status: Acute (7) Hypertension: Code(s): I10 - Essential (primary) hypertension Status: Acute Plan The patient presented to the emergency department with complaints of abdominal discomfort, nausea, and diarrhea as detailed in HPI. Labs, imaging, EKG, and all reports were personally reviewed. CT scan and labs were pretty unremarkable. Antiemetics are available as needed. Continue doxycycline for sinusitis; it is possible that this drug is causing some of his symptoms. No evidence to suggest COPD exacerbation. He was admitted for hypoxia (no acute findings on chest CTA) and he will need a home O2 evaluation tomorrow prior to discharge. Blood pressures have been stable. His home medications will be reviewed and resumed as appropriate. Pathology of tongue lesion is pending. Smoking cessation is encouraged. He declines the need for nicotine patch. Findings and treatment plan were discussed with the patient. Questions were solicited and answered to satisfaction. The patient's medical management will be taken over by the hospitalist team in a.m. Quality VTE Prophylaxis VTE prophylaxis: pharmacologic ordered The patient has been admitted under observation status. Hospitalist [facility] Advance Care Plan I have confirmed that the patient's Advanced Care Plan is present, code status is documented, or surrogate decision maker is listed in patient medical record.: Yes Medication Reconciliation I have utilized all available resources to obtain, update and review the patients current medications (includes all prescriptions, OTC, herbals, cannabis, and nutritional supplements).: Yes
[2025-03-20] MEDS: ZOLPIDEM TARTRATE (*CRX) 5 MG TABLET 10 MG PO (21:38)
[2025-03-20] MEDS: hydrALAZINE HCL 50 MG TABLET PO (21:38)
[2025-03-20] MEDS: carvediloL 6.25 MG TABLET PO (21:38)
[2025-03-20] MEDS: DOXYCYCLINE HYCLATE 100 MG TABLET PO (21:38)
[2025-03-21] VITALS (15 sets, daily range): BP systolic 107–137; BP diastolic 55–68; PULSE 58–77; RESP 16–28; TEMP 36.3–37.1; O2SAT 94–98
[2025-03-21 04:49] LABS: Mean Corpuscular HGB Conc 33.3 g/dl (32-36); Mean Corpuscular Hemoglobin 29.3 pg (26-34); Mean Corpuscular Volume 87.8 fl (80-100); Platelet Count Result 181 k/mm3 (150-375); Red Blood Count 3.76 M/mm3 (4.6-6.20); White Blood Count 5.5 K/mm3 (4.5-10.0)
[2025-03-21 05:06] LABS: Anion Gap 8 mmol/L (4-12); Blood Urea Nitrogen 19 mg/dL (9-20); Calcium 8.3 mg/dL (8.4-10.2); Carbon Dioxide 24 mmol/L (22-30); Chloride 104 mmol/L (98-107); Estimated CRCL calculation 41 ml/min; Estimated Glomerular Filt Rate > 60; Glucose 85 mg/dL (65-110); Magnesium 1.7 mg/dL (1.6-2.3); Potassium 4.2 mmol/L (3.4-5.0); Sodium 136 mmol/L (137-145)
[2025-03-21] MEDS: LIDOCAINE 2% VISC SOLN 15 ML UDC PO (05:34)
[2025-03-21] MEDS: hydrALAZINE HCL 50 MG TABLET PO ×3 (05:34→20:12)
[2025-03-21] MEDS: LEVOTHYROXINE SODIUM 100 MCG TABLET 200 MCG PO (05:34)
[2025-03-21] MEDS: SERTRALINE HCL 50 MG TABLET 200 MG PO (08:55)
[2025-03-21] MEDS: guaiFENesin 12 HR 600 MG TABCR PO ×2 (08:55→20:12)
[2025-03-21] MEDS: AZITHROMYCIN 250 MG TABLET 500 MG PO (08:56)
[2025-03-21] MEDS: ATORVASTATIN 40 MG TABLET PO (08:56)
[2025-03-21] MEDS: POTASSIUM CHLORIDE 20 MEQ PACKET (FOR LIQUID) 40 MEQ PO (08:56)
[2025-03-21] MEDS: ACIDOPHILUS/BULGARICUS CHEWABLE TABLET 1 TABLET PO (08:56)
[2025-03-21] MEDS: amLODIPine BESYLATE 10 MG TABLET PO (08:57)
[2025-03-21] MEDS: VITAMIN B COMPLEX CAPSULE 1 CAP PO (08:57)
[2025-03-21] MEDS: carvediloL 6.25 MG TABLET PO ×2 (08:57→20:12)
[2025-03-21] MEDS: predniSONE 20 MG TABLET 40 MG PO (08:57)
[2025-03-21] MEDS: DOXYCYCLINE HYCLATE 100 MG TABLET PO (08:57)
[2025-03-21] MEDS: ENOXAPARIN 40 MG/0.4 ML SYRINGE SUB-Q (09:05)
[2025-03-21] MEDS: IPRATROPIUM 0.5 MG/ALBUTEROL SULFATE 2.5 MG AMPUL.NEB 3 ML INHALATION ×3 (09:11→19:52)
[2025-03-21] MEDS: HYDROcodone/acetaminophen (*CRX) 5-325 MG TABLET 1 TAB PO (12:40)
[2025-03-21] MEDS: NYSTATIN 100,000 UNITS/ML SUSP 5 ML ORAL.SUSP PO ×3 (12:41→21:40)
--- NOTE | 2025-03-21 13:41 | P.PNIM_ITS ---
Progress Note: A&P Assessment and Plan (1) Chronic obstructive pulmonary disease: Code(s): J44.9 - Chronic obstructive pulmonary disease, unspecified Status: Acute Assessment and Plan: CTA showing moderate to advanced emphysema found to be hypoxic in the emergency department and was placed on supplemental oxygen at 2 L. * hold off on prednisone due to potential thrush and new oral surgical wound * Dounebs * changed doxycycline to oral Augmentin/added Azithromycin * mucolytic * wean oxygen tolerated to maintain a 92% * home walk study pending (2) Sinusitis: Code(s): J32.9 - Chronic sinusitis, unspecified Status: Acute Assessment and Plan: Previously placed on doxycycline * broaden coverage in switch patient to Augmentin (3) Lesion of tongue: Code(s): K14.8 - Other diseases of tongue Status: Acute Assessment and Plan: biopsy completed right lung mass 03/19/2025 biopsy pending * switch doxycycline to Augmentin * appears patient may some thrush added nystatin oral * magic mouthwash * hydrocodone for pain control * soft bland diet (4) Hypothyroidism: Code(s): E03.9 - Hypothyroidism, unspecified Status: Acute Assessment and Plan: * continue levothyroxine (5) Hypertension: Code(s): I10 - Essential (primary) hypertension Status: Acute Assessment and Plan: * continue patient's amlodipine, carvedilol, hydralazine * monitor BP per unit protocol Plan Code status: Full code per patient DVT prophylaxis: Lovenox Stress ulcer prophylaxis: NA PT/OT notes: Ambulatory Disposition: patient admitted to the medical unit for further evaluation and treatment COPD exacerbation with hypoxia as well as severe postop pain from tongue mass biopsy able to tolerate oral intake. patient ambulatory plan will be to discharge home medically stable. Time Spent With Patient Time with patient: 15 - 25 minutes Subjective Date/time seen: 03/21/25 13:41 Interval history: Patient is was admitted for further evaluation and treatment acute respiratory with hypoxia as well as difficulty and inability eating due to severe pain postop biopsy to his tongue 2 days prior. 03/21/2025: Patient in severe pain post-op after biopsy of mass from right side of tongue 2 days prior however he was admitted due to noted hypoxia in the ED and CTA showing moderate to advanced emphysema. Patient reports pain 9/10 and that he has lost weight due to his inability to eat. Patient denied CP, SOB, N/V did state he was still smoking but hasn't had a cigarette for 3 days. Review of Systems Review of Systems: All systems reviewed & are unremarkable except as noted in HPI and below Exam Narrative: General: Elderly male in no acute distress but with moderate to severe mouth pain HEENT: PERRL, Biopsy site on the lateral right mid posterior tongue, white patches to tongue Neck: Supple. No midline vertebral tenderness or significant lymphadenopathy. Respiratory: RR diminished throughout with scant wheezing throughout Cardiovascular: RRR Gastrointestinal: Abdomen is soft, nontender Skin: Warm and dry. No rash or lesions on limited exam. Neurological: A&O 3 Psychiatric: Pleasant and cooperative Objective Data Vital Signs Vital Signs: Vital Signs - 24 hr 03/20/25 20:00 03/20/25 20:23 03/21/25 04:46 Temperature 98.3 F 97.4 F L Pulse Rate 58 L 60 Respiratory Rate 16 16 Blood Pressure 146/65 H 127/68 Pulse Oximetry 96 96 97 Oxygen Delivery Nasal Cannula Oxygen Flow Rate 1 03/21/25 08:57 03/21/25 09:00 03/21/25 09:12 Temperature Pulse Rate 70 Respiratory Rate Blood Pressure Pulse Oximetry 94 96 Oxygen Delivery Nasal Cannula Nasal Cannula Oxygen Flow Rate 1 1 03/21/25 09:12 03/21/25 09:27 03/21/25 10:06 Temperature Pulse Rate 69 66 Respiratory Rate 16 16 Blood Pressure Pulse Oximetry 94 Oxygen Delivery Room Air Oxygen Flow Rate Intake/Output Intake/Output: Intake & Output 03/18/25 03/19/25 03/20/25 03/21/25 23:59 23:59 23:59 23:59 Intake Total 1330 390 Balance 1330 390 Meds/Results Medications: Active Medications Generic Name Dose Route Start Last Admin Trade Name Freq PRN Reason Stop Dose Admin Acetaminophen 650 mg 03/20/25 07:29 03/20/25 21:38 Acetaminophen 325 Mg Tablet PO 650 mg Q4H PRN Administration Mild Pain (1-3) or Fever Hydrocodone Bitart/Acetaminophen 1 tab 03/21/25 12:25 03/21/25 12:40 Hydrocodone/Acetaminophen (*Crx) 5-325 Mg Tablet PO 1 tab Q4H PRN Administration Pain Rated 4-6 Albuterol/Ipratropium 3 ml 03/21/25 08:00 03/21/25 13:33 Ipratropium 0.5 Mg/Albuterol Sulfate 2.5 Mg Ampul.Neb 3 Ml INHALATION 3 ml Q6HRT ZAHIRA Administration Amlodipine Besylate 10 mg 03/21/25 09:00 03/21/25 08:57 Amlodipine Besylate 10 Mg Tablet PO 10 mg DAILY ZAHIRA Administration Amoxicillin/Clavulanate Potassium 1 tablet 03/21/25 21:00 Amoxicillin/Clavulanate K 875-125 Mg Tab PO Q12HR [facility] Atorvastatin Calcium 40 mg 03/21/25 09:00 03/21/25 08:56 Atorvastatin 40 Mg Tablet PO 40 mg DAILY [facility] Administration Azithromycin 250 mg 03/22/25 09:00 Azithromycin 250 Mg Tablet PO 03/25/25 09:01 DAILY [facility] Carvedilol 6.25 mg 03/20/25 21:00 03/21/25 08:57 Carvedilol 6.25 Mg Tablet PO 6.25 mg Q12HR [facility] Administration Lidocaine HCl 30 ml/ Al Hydrox 0 ml 03/21/25 13:00 /Mg Hydrox/Simethicone 30 ml/ PO Diphenhydramine HCl 75 mg Q4HWA [facility] Dicyclomine HCl 20 mg 03/20/25 20:43 Dicyclomine Hcl 10 Mg Capsule PO QID PRN abdominal pain Enoxaparin Sodium 40 mg 03/21/25 09:00 03/21/25 09:05 Enoxaparin 40 Mg/0.4 Ml Syringe SUB-Q 40 mg DAILY [facility] Administration Guaifenesin 600 mg 03/21/25 09:00 03/21/25 08:55 Guaifenesin 12 Hr 600 Mg Tabcr PO 600 mg Q12HR [facility] Administration Hydralazine HCl 50 mg 03/20/25 22:00 03/21/25 05:34 Hydralazine Hcl 50 Mg Tablet PO 50 mg Q8HR ZAHIRA Administration Lactobacillus Acidophilus 1 tablet 03/21/25 09:00 03/21/25 08:56 Acidophilus/Bulgaricus Chewable Tablet PO 1 tablet DAILY [facility] Administration Levothyroxine Sodium 200 mcg 03/21/25 06:30 03/21/25 05:34 Levothyroxine Sodium 100 Mcg Tablet PO 200 mcg DAILY@0630 [facility] Administration Nystatin 5 ml 03/21/25 13:00 03/21/25 12:41 Nystatin 100,000 Units/Ml Susp 5 Ml Oral.Susp PO 5 ml QID ZAHIRA Administration Ondansetron HCl 4 mg 03/20/25 07:29 Ondansetron Inj 4 Mg/2 Ml Vial IV PUSH Q4H PRN Nausea Ondansetron HCl 4 mg 03/20/25 21:25 Ondansetron Inj 4 Mg/2 Ml Vial IV PUSH Q6H PRN Nausea And Vomiting Potassium Chloride 40 meq 03/21/25 09:00 03/21/25 08:56 Potassium Chloride 20 Meq Packet (For Liquid) PO 40 meq DAILY ZAHIRA Administration Sertraline HCl 200 mg 03/21/25 09:00 03/21/25 08:55 Sertraline Hcl 50 Mg Tablet PO 200 mg DAILY ZAHIRA Administration Vitamin B Complex 1 cap 03/21/25 09:00 03/21/25 08:57 Vitamin B Complex Capsule PO 1 cap DAILY ZAHIRA Administration Zolpidem Tartrate 10 mg 03/20/25 21:00 03/20/25 21:38 Zolpidem Tartrate (*Crx) 5 Mg Tablet PO 10 mg QHS ZAHIRA Administration Radiology Results: ITS Impressions Head CT 03/19/25 23:47 Impression: No acute intracranial hemorrhage or suspicious mass effect. Abdomen/Pelvis CT 03/19/25 23:49 IMPRESSION: No acute pathology within the abdomen or pelvis, as detailed above. Chest X-Ray 03/20/25 06:20 Impression: Minimal left pleural effusion. COPD. Chest CTA 03/20/25 06:24 Impression: No evidence of pulmonary embolus, aortic dissection, or aortic aneurysm. Moderate to advanced emphysema. Numerous scattered focal calcified pleural plaques. Heterogeneous splenic enhancement is likely related to timing of the contrast bolus. Labs Labs: Laboratory Results - last 24 hr 03/21/25 04:01 WBC 5.5 RBC 3.76 L Hgb 11.0 L Hct 33.0 L MCV 87.8 MCH 29.3 MCHC 33.3 RDW 14.0 Plt Count 181 MPV 9.0 Sodium 136 L Potassium 4.2 Chloride 104 Carbon Dioxide 24 Anion Gap 8 BUN 19 Creatinine 1.08 Estim Creat Clear Calc 41 Estimated GFR > 60 Glucose 85 Calcium 8.3 L Magnesium 1.7 Quality VTE Prophylaxis VTE prophylaxis: pharmacologic ordered -Patient's previous records reviewed on admission -ER notes reviewed in detail on admission -discussed all findings and current treatment plan with patient/Family/POA -Consultations reviewed for recommendations -Patient's disposition for safe discharge discussed with ed case manager Dictation performed by [employer] direct speech recognition software, therefore automatic door mechanic variants and typographical errors may occur. Hospitalist [facility] Advance Care Plan I have confirmed that the patient's Advanced Care Plan is present, code status is documented, or surrogate decision maker is listed in patient medical record.: Yes Medication Reconciliation I have utilized all available resources to obtain, update and review the patients current medications (includes all prescriptions, OTC, herbals, cannabis, and nutritional supplements).: Yes The patient is not eligible for med reconciliation; the patient is in a emergent medical situation where delaying treatment would jeopardize the patients health.: No
[2025-03-21] MEDS: LIDOCAINE 2% VISC SOLN 30 ML, ALUMINUM/MAGNESIUM/SIMETH SUSP 30 ML, diphenhydrAMINE HCl... PO ×3 (14:00→20:13)
[2025-03-21] MEDS: AMOXICILLIN/CLAVULANATE K 875-125 MG TAB 1 TABLET PO (20:12)
[2025-03-21] MEDS: ZOLPIDEM TARTRATE (*CRX) 5 MG TABLET 10 MG PO (21:42)
[2025-03-22] VITALS (7 sets, daily range): BP systolic 135; BP diastolic 64; PULSE 60–74; RESP 16; TEMP 36.6; O2SAT 96–100
[2025-03-22] MEDS: IPRATROPIUM 0.5 MG/ALBUTEROL SULFATE 2.5 MG AMPUL.NEB 3 ML INHALATION ×2 (02:34→07:35)
[2025-03-22] MEDS: LIDOCAINE 2% VISC SOLN 30 ML, ALUMINUM/MAGNESIUM/SIMETH SUSP 30 ML, diphenhydrAMINE HCl... PO ×2 (05:56→08:38)
[2025-03-22] MEDS: hydrALAZINE HCL 50 MG TABLET PO (05:56)
[2025-03-22] MEDS: LEVOTHYROXINE SODIUM 100 MCG TABLET 200 MCG PO (05:56)
[2025-03-22] MEDS: NYSTATIN 100,000 UNITS/ML SUSP 5 ML ORAL.SUSP PO (08:38)
[2025-03-22] MEDS: VITAMIN B COMPLEX CAPSULE 1 CAP PO (08:39)
[2025-03-22] MEDS: guaiFENesin 12 HR 600 MG TABCR PO (08:39)
[2025-03-22] MEDS: amLODIPine BESYLATE 10 MG TABLET PO (08:39)
[2025-03-22] MEDS: SERTRALINE HCL 50 MG TABLET 200 MG PO (08:39)
[2025-03-22] MEDS: carvediloL 6.25 MG TABLET PO (08:39)
[2025-03-22] MEDS: AMOXICILLIN/CLAVULANATE K 875-125 MG TAB 1 TABLET PO (08:39)
[2025-03-22] MEDS: ATORVASTATIN 40 MG TABLET PO (08:39)
[2025-03-22] MEDS: ACIDOPHILUS/BULGARICUS CHEWABLE TABLET 1 TABLET PO (08:39)
[2025-03-22] MEDS: AZITHROMYCIN 250 MG TABLET PO (08:39)
[2025-03-22] MEDS: POTASSIUM CHLORIDE 20 MEQ PACKET (FOR LIQUID) 40 MEQ PO (08:39)
[2025-03-22] MEDS: ENOXAPARIN 40 MG/0.4 ML SYRINGE SUB-Q (08:44)
--- NOTE | 2025-03-22 10:45 | P.DS_ITS ---
DS: Admitting Diagnosis Discharge Date 03/22/2025 Admitting Diagnosis COPD/Hypoxia/post biopsy of tongue mass pain DS: Discharge Diagnosis Discharge Diagnosis (1) Chronic obstructive pulmonary disease: Code(s): J44.9 - Chronic obstructive pulmonary disease, unspecified Status: Acute (2) Sinusitis: Code(s): J32.9 - Chronic sinusitis, unspecified Status: Acute (3) Lesion of tongue: Code(s): K14.8 - Other diseases of tongue Status: Acute (4) Hypothyroidism: Code(s): E03.9 - Hypothyroidism, unspecified Status: Acute (5) Hypertension: Code(s): I10 - Essential (primary) hypertension Status: Acute DS: Summary Hospital Course Reason for hospitalization: COPD/Hypoxia/post biopsy of tongue mass pain Hospital Course: Admission: This is a 80-year-old male smoker with chronic obstructive pulmonary disease, hypertension, hyperlipidemia, and hypothyroidism who presented to the emergency department via EMS from home for evaluation of abdominal pain, nausea, and diarrhea. He was seen in the ED 2 days ago for evaluation of an ulcer on the right side of his tongue which had been present for about 2 months. Lesion was biopsied by Dr. Ye later that day and the pathology is still pending. Airway was normal on laryngoscopy. He was given a prescription for doxycycline for sinusitis and was discharged home. He continues to have sinus congestion and drainage with occasional cough due to postnasal drip. He reports pain on the right side of the tongue and the right side of his face since the lesion was biopsied. He is now having nausea and diarrhea however at the time my evaluation he tells me he only had a couple of episodes of diarrhea and none in the last 24 hours or so. He denies fever, chills, sweats, chest pain, pleuritic pain, palpitations, shortness of breath, bloating, belching, hematemesis, melena, hematochezia, dysuria, lower extremity edema, and calf pain. At the time my evaluation he complains mainly of the pain at the site of the tongue biopsy. Nausea has improved and diarrhea has been nonexistent since admission. In the ED: He has been afebrile since arrival with stable vital sounds though SpO2 had dipped into the upper 80s and he is currently on 2 L. labs are significant for WBC count of 5.6, hemoglobin 12.4, sodium 135, proBNP 468. He tested negative for influenza, RSV, and COVID. Chest CTA showed no evidence of pulmonary embolus, aortic dissection, or aortic aneurysm. Moderate to advanced emphysema noted with numerous scattered focal calcified pleural plaques. CT of the abdomen and pelvis as well as head CT were without acute findings. He was given a L of normal saline, prochlorperazine, and ondansetron. Oxygen was unable to be weaned and he was admitted to the hospital for a home O2 evaluation. Hospital Course: Patient was seen following day still with complaints of moderate to severe pain from recent biopsy of his tongue reported he was unable to tolerate food oral intake and had lost over 5 lb. on evaluation patient was weaned to room air oxygen saturations anywhere between 96-95%. I transition patient to amoxicillin initiated nystatin for what appeared to be thrush in added oral pain management which also included magic mouthwash. patient reported significant improvement to his symptoms after 24 hours he was then able to tolerate food and oral intake in reported pain was well controlled. Patient had remained on room air over 24 hours patient was ambulatory on own in room nursing staff assisted with getting patient up and walking him while monitoring his oxygen saturation which he never went below 95%. patient was then discharged home on oral Augmentin, Magic mouthwash, nystatin, and [place] for his recent oral biopsy reviewed pathology which was still pending at time of discharge in which she was instructed to follow-up with his ENT for final reports. patient was provided information on his CTA showing emphysema moderate to severe advised him on immediate smoking cessation I did not start him on any steroids which could ultimately worsening his oral thrush. patient acknowledged and agree with discharge plan who is seen in assessed prior to discharge in no acute distress and no further complaints Status at Discharge Functional status at discharge: independent ambulation Overall status at discharge: patient is back to baseline Time Spent with Patient Time attestation: Total time spent providing and/or coordinating discharge services: Time spent: Greater than 30 minutes Exam Narrative: General: Elderly male in no acute distress but with moderate to severe mouth pain HEENT: PERRL, Biopsy site on the lateral right mid posterior tongue, white patches to tongue Neck: Supple. No midline vertebral tenderness or significant lymphadenopathy. Respiratory: RR diminished throughout with scant wheezing throughout Cardiovascular: RRR Gastrointestinal: Abdomen is soft, nontender Skin: Warm and dry. No rash or lesions on limited exam. Neurological: A&O 3 Psychiatric: Pleasant and cooperative DS: Data Imaging Radiologist's impression: Clinical Indication: Hypoxia CT Scan of the Chest with Contrast: Technique: Contiguous sections were acquired throughout the chest after intravenous administration of 100 cc of Omnipaque 350. Dose reduction technique was used on this scan by utilizing automated exposure control and iterative reconstruction technique. The dose-length product (DLP) was 281.18 mGy-cm. Findings: There is no evidence of any significant mediastinal, hilar or axillary lymphadenopathy. There is no filling defect in the pulmonary arterial tree to suggest pulmonary embolus. There is no evidence of aortic dissection or aneurysm. There is no evidence of pleural or pericardial effusion. Moderate to advanced emphysema present. There are scattered, focal calcified pleural plaques Images through the upper abdomen reveal heterogeneous splenic enhancement, likely related to timing of contrast and imaging.. Impression: No evidence of pulmonary embolus, aortic dissection, or aortic aneurysm. Moderate to advanced emphysema. Numerous scattered focal calcified pleural plaques. Heterogeneous splenic enhancement is likely related to timing of the contrast bolus. Discharge Plan Discharge Attending physician on discharge: Mike Smart Consulting providers: Azalia Weaver Discharging Clinician: Azalia Weaver Anticipated Discharge Date/Time: 03/22/25 10:23 Patient Disposition: Home Activity: may shower and as tolerated Diet: as tolerated and other - see discharge instructions Wound Care Instructions: other - see discharge instructions Discharge Instructions: 1). Tongue mass Biopsy/sinusitis * I have prescribed oral Magic mouth wash and oral pain medication for pain management * I have also prescribed Nystatin mouth rinse for thrush please take as indicated * Pathology report is still pending ENT to follow * I have prescribed Augmentin for your sinusitis and discontinued your Doxycycline please take as indicated and complete even if felling better 2). Emphysema: * An oxygen study was completed * I encourage immediate smoking cessation * Please follow-up with a production planning manager for further Pulmonary function testing How can you care for yourself at home? ? Keep track of any new symptoms or changes in your symptoms. ? Rest until you feel better. ? Be safe with medicines. Take your medicines exactly as prescribed. Call your doctor if you think you are having a problem with your medicine. ? Do not drive after taking a prescription pain medicine. ? Ensure to follow-up with primary care physician as indicated and provide updated medication list provided to you at discharge. When should you call for help? Call 911 anytime you think you may need emergency care. For example, call if: ? You passed out (lost consciousness). Call your doctor now or seek immediate medical care if: ? You have new symptoms like fever, difficulty breathing, Chest pain, vomiting, or rash. ? You have new or different pain. ? You are confused and are having trouble thinking clearly. ? Your symptoms are getting worse. Watch closely for changes in your health, and be sure to contact your doctor if: ? You do not get better as expected. Patient Instructions: Antibiotic Form, Sinusitis (GEN), Emphysema (DC) Patient Language: Tamazight Stand Alone Forms: General Discharge Information Follow-up/Referrals: Trudy,Indra Botello MD [Primary Care Provider] - 2 Weeks Jamey Ye MD [Physician] - Call for Appointment (Follow-up for Pathology report of tongue biopsy) Discharge Medications: New amoxicillin-pot clavulanate 875-125 mg tablet 1 tablet PO Q12H Qty: 18 0RF azithromycin [Zithromax] 250 mg Tablet 250 mg PO DAILY Qty: 3 0RF guaifenesin [Mucus Relief ER] 600 mg Tablet Extended Release 12hr 600 mg PO Q12HR Qty: 30 0RF nystatin 100,000 unit/mL Suspension 5 ml PO QID Qty: 60 0RF hydrocodone-acetaminophen 5-325 mg Tablet 1 tablet PO Q4H PRN (Reason: Pain Rated 4-6) Qty: 20 0RF Magic Mouthwash 50 mL suspension 5 ml PO QID Qty: 50 1RF Rx Instructions: Belladonna-Phenobarbital 16.2 mg-0.1037 mg-0.0194 mg/5 mL oral elixir 10 mL; Maalox Maximum Strength 400 mg-400 mg-40 mg/5 mL oral suspension 30 mL; lidocaine 2 % mucosal solution 10 mL; Per 50 mL Continued zolpidem 10 mg tablet 10 mg PO .hs levothyroxine [Unithroid] 200 mcg tablet 200 mcg PO DAILY carvedilol 6.25 mg tablet 6.25 mg PO Q12H amlodipine 10 mg tablet 10 mg PO DAILY hydralazine 50 mg tablet 50 mg PO TID atorvastatin 40 mg tablet 40 mg PO DAILY dicyclomine 20 mg tablet 20 mg PO QID PRN (Reason: abdominal pain) Qty: 20 0RF sertraline 100 mg tablet 200 mg PO DAILY potassium chloride 20 mEq packet 40 meq PO DAILY Fiber Gummies 1.7 gram tablet,chewable 6 g PO DAILY vitamin B complex Capsule 1 cap PO DAILY Align (B.infantis) 10.5 mg (10 million cell) tablet,chewable 10.5 mg PO DAILY Discontinued doxycycline hyclate 100 mg capsule 100 mg PO BID Qty: 14 0RF Date of admission: 03/20/25 07:29 Primary Care Provider: TrudyIndra Admitting Provider: Mike Smart Attending physician on admission: Mike Smart Condition: Stable Quality VTE Prophylaxis VTE prophylaxis: pharmacologic ordered -Patient's previous records reviewed on admission -ER notes reviewed in detail on admission -discussed all findings and current treatment plan with patient/Family/POA -Consultations reviewed for recommendations -Patient's disposition for safe discharge discussed with bilingual case manager Dictation performed by [employer] direct speech recognition software, therefore separating machine operator variants and typographical errors may occur. Hospitalist CAILIN Heart Failure (Exclusion) Patient has history of Heart Transplant or Left Ventricular Assistive Device?: No IF YES, STOP HERE Heart Failure (Qualifier) Patient has current or prior documentation of LVEF less than or equal to 40%, or mod/servere depressed LVSF?: No IF NO, STOP HERE
== END 2025-03-22 11:50 | disposition home or self-care (01) ==
LOC: ANHED 23:27 → ANH2MED 03-20 08:09
PROVIDERS: Physician Assistant; Admitting Provider Family Medicine; Emergency Provider Student in an Organized Health Care Education/Training Program; PCP Family Medicine; Visit Provider Family Medicine
DX: J43.9 Emphysema, unspecified (principal); R09.02 Hypoxemia; J32.9 Chronic sinusitis, unspecified; K14.8 Other diseases of tongue; G89.18 Other acute postprocedural pain; E03.9 Hypothyroidism, unspecified; I10 Essential (primary) hypertension; F17.210 Nicotine dependence, cigarettes, uncomplicated; E78.5 Hyperlipidemia, unspecified; D64.9 Anemia, unspecified; R10.9 Unspecified abdominal pain; R11.0 Nausea; R19.7 Diarrhea, unspecified; J92.9 Pleural plaque without asbestos; H93.11 Tinnitus, right ear; F41.8 Other specified anxiety disorders; Z66 Do not resuscitate; Z20.822 Contact with and (suspected) exposure to COVID-19; Z79.899 Other long term (current) drug therapy; Z85.828 Personal history of other malignant neoplasm of skin; Z98.890 Other specified postprocedural states
CPT/HCPCS: 36415; 36600; 70450; 71045; 71275; 74177; 80048; 80053; 81001; 83690; 83735; 83880; 85025; 85027; 85380; 87637; 94640; 96361; 96372; 96374; 96375; 99285; A9270; G0378; J0780; J1650; J1885; J2270; J2405; J7040; J7512; Q9967

== ENCOUNTER 2025-04-09 18:27 | Inpatient (IN) | payer MEDICARE, SELFPAY ==
[2025-04-09] VITALS (8 sets, daily range): BP systolic 122–139; BP diastolic 71–79; PULSE 59–63; RESP 16–25; TEMP 36.4; O2SAT 87–96; BMI 25.2
--- NOTE | ~2025-04-09 | XR_ITS ---
XR chest 1V portable Ordering provider: Josiah Davis MD History: 80 years Male with . sob, low 02 sats . Comparison: March 20, 2025 FINDINGS: MEDIASTINUM: The cardiac silhouette is moderately enlarged. LUNGS: No infiltrates, effusions or pneumothorax. Prominent markings in the left lower lobe. OTHER: No free air under the diaphragm. Healing fracture in the left fourth, fifth and 6 ribs. Degene rative changes of the spine. IMPRESSION: No acute cardiopulmonary pathology. Reviewed, dictated and finalized at location A.
--- NOTE | ~2025-04-09 | CT_ITS ---
CTA chest PE protocol Ordering provider: Hoda Reddy PA-C History: 80 years Male with . new onset hypoxia with elevated d dimer . Comparison: March 22, 2025 Technique: CT angiogram chest was performed following timed intravenous inje ction of contrast. Thin slice axial images and reformatted coronal images were obtained. Three dimens ional reformatted images of the chest were also obtained using a [employer] workstation. . Automated exp osure control and iterative reconstruction technique were employed. The dose-length product was 296.0 6 mGy-cm. 100 mL Omnipaque 350 was given IV. Findings: PULMONARY ARTERIES: No pulmonary embolus. VISUALIZED THORACIC INLET: Normal. MEDIASTINUM: Aorta/coronary arteries: Mild atheromatous disease. Heart/other: The heart is slightly enlarged. Moderate pericardial effusion is seen with increased den sity. Further evaluation advised. Lymph nodes: No mediastinal or hilar adenopathy. Prevascular lymph nodes are seen with the largest me asures 1.3 cm. Calcified subcarinal lymph nodes are also noted. LUNGS: Emphysematous changes seen bilaterally more in the right lung. Pleural calcification is seen in multi ple areas. Multiple pleural base nodules seen. Right basilar atelectasis versus pneumonia. No pulmona ry masses. No effusions. No pneumothorax. VISUALIZED UPPER ABDOMEN: Status post cholecystectomy. Otherwise, the visualized upper abdomen is nor mal. MUSCULOSKELETAL: Soft tissues: The superficial soft tissues are normal. Bones: Age appropriate degenerative changes of the spine. Healing fractures in the left fourth, fifth , sixth and seventh ribs. IMPRESSION: 1. No pulmonary embolism. 2. Pericardial effusion with increased density. Further evaluation advised. 3. Emphysematous changes. , Pleural calcification and multiple pleural-based nodules. 4. Right basilar atelectasis versus pneumonia. Reviewed, dictated and finalized at location A. IMPRESSION: 1. No pulmonary embolism. 2. Pericardial effusion with increased density. Further evaluation advised. 3. Emphysematous changes. , Pleural calcification and multiple pleural-based n odules. 4. Right basilar atelectasis versus pneumonia.
--- NOTE | 2025-04-09 18:29 | ECG_ITS ---
Test Date: 2025-04-09 19:18:35 Measurements Intervals [place] Rate: 60 P: 29 OK: 169 QRS: 67 QRSD: 93 T: 77 QT: 421 QTc: 422 Interpretive Statements SINUS RHYTHM WITH OCCASIONAL SUPRAVENTRICULAR PREMATURE COMPLEXES CONSIDER ANTERIOR INFARCT, AGE INDETERMINATE BORDERLINE ST-T WAVE ABNORMALITY- ANT/HIGH LAT LEADS BASELINE ARTIFACT- I, II, AVR, AVL, AVF ABNORMAL ECG No previous ECG available for comparison Electronically Signed On 04-09-2025 21:02:39 CDT by Severino Gamez D.O.
--- OUTSIDE RECORDS SUMMARY | 2025-04-09 18:29 | XMS_ITS | Referral Summary ---
Author Organization [facility] Address [address] [place] [address] Care Team Providers Care Bail Bonding Agent Name Role Phone Indra Yates MD Primary Care Provider [phone] Megha Crane Unavailable [phone] Tacos Moreno MD Unavailable [phone] Antonieta Pimentel MD Unavailable [phone] Gurmeet Sands MD Unavailable Mao Dodson MD Unavailable [phone] Encounters Date Type Department Care Team Description 03/25/2025 Orders Only [facility] Medical [facility] Primary Care at [address] [address] Chloé Lipscomb MD 03/04/2025 9:00 AM CDT Office Visit [facility] Pulmonary [address] [place] [address] Antonieta Pimentel MD Obstructive sleep apnea syndrome (Primary Dx); Centrilobular emphysema (HCC); Restless legs; Cigarette nicotine dependence without complication; Abnormal CT of the chest; Recurrent cold sores; Psychophysiological insomnia; Non-seasonal allergic rhinitis due to pollen; Pulmonary air trapping; Simple chronic bronchitis (HCC) 02/25/2025 10:00 AM CDT Office Visit [facility] Primary Care at [address] [address] Indra Yates MD Encounter for annual wellness visit (AWV) in Medicare patient (Primary Dx); RLS (restless legs syndrome); Personal history of nicotine dependence 02/17/2025 Telephone [facility] Pulmonary [place] [address] [place] [address] [address] [place] [address] Chris Thompson CMA 02/11/2025 11:30 AM CDT Office Visit [facility] Specialists of [address], [place] [address] Hao Mann MD Acquired hypothyroidism (Primary Dx) 01/28/2025 Orders Only [facility] Primary Care at [address] [address] Indra Yates MD Neck mass; Acquired macroglossia 01/28/2025 9:00 AM CDT Office Visit [facility] Primary Care at [address] [address] Indra Yates MD Encounter for Medicare annual wellness exam (Primary Dx); Moderately severe major depression (HCC); Chronic lymphocytic leukemia (HCC); Other emphysema (HCC); Autoimmune hepatitis (HCC); Stage 3a chronic kidney disease (HCC); Primary hypertension; Vitamin D deficiency; Mixed hyperlipidemia; Acquired hypothyroidism; Centrilobular emphysema (HCC); Neck mass; Acquired macroglossia; Need for hepatitis C screening test 01/19/2025 Results Follow-Up [facility] Pulmonology [address] [place] [address] Antonieta Pimentel MD CT Chest WO Contrast 01/13/2025 8:03 AM CDT - 01/13/2025 11:59 PM CDT Hospital Encounter [facility] Respiratory [address] [place] [address] Obstructive sleep apnea syndrome; Restless legs; Psychophysiological insomnia; Cigarette nicotine dependence without complication; Pharyngeal dysphagia; Tongue swelling Discharge Disposition: Discharge to home or self care 01/12/2025 3:15 PM CDT - 01/12/2025 11:59 PM CDT Hospital Encounter [facility] CT [address] [place] [address] Obstructive sleep apnea syndrome; Restless legs; Psychophysiological insomnia; Cigarette nicotine dependence without complication; Pharyngeal dysphagia; Tongue swelling Discharge Disposition: Discharge to home or self care 01/09/2025 Telephone [facility] Medical Group Diabetes and Endocrinology [address] [place] [phone] Hao Mann MD New referral to Endocrinology from Last 3 Months Allergies Active Allergy [...] 1 tablet (6.25 mg total) by mouth 2 Active fluorouraciL (EFUDEX) 5 % cream 1 Active hydrALAZINE (APRESOLINE) 50 mg tablet Take 1 tablet (50 mg total) by mouth 3 (three) times a day 2 Active zolpidem (AMBIEN) 10 mg tabletIndications: Sleep-Onset Insomnia Take 1 tablet (10 mg total) by mouth nightly as needed for sleep 30 tablet 1 5 Active dicyclomine (BENTYL) 20 mg tablet Take 1 tablet (20 mg total) by mouth every 6 (six) hours 5 Active ondansetron ODT (ZOFRAN-ODT) 4 mg disintegrating tablet Take 1 tablet (4 mg total) by mouth every 8 (eight) hours as needed for nausea 5 Active magnesium glycinate 100 mg magnesium capsule every 8 hours Active inulin (FIBER GUMMIES ORAL) Take by mouth Ac tive Bifidobacterium infantis (ALIGN) 4 mg capsule 1 capsule (4 mg total) Active vitamin B complex capsule Take 1 capsule by mouth daily Active amLODIPine (NORVASC) 10 mg tabletIndications: hypertension Take 1 tablet (10 mg total) by mouth daily 30 tablet 3 5 01/29/20 26 Active Unithroid 200 mcg tabletIndications: Acquired hypothyroidism Take 1 tablet (200 mcg total) by mouth director of industrial relations before breakfast 90 tablet 5 05/12/20 25 Active Active Problems Problem Noted Date Diagnosed [...] titrate up to 25 g -Recommend starting iyas-xal-zpwmuqv probiotic like Brickfish or TowerMetriX. -IB guard to help with complaints of abdominal bloating and gas as well as increased exercise. -Discuss small titration dose of MiraLax to help have regularity if fiber is not well tolerated. CKD (chronic kidney disease) stage 3, GFR 30-59 ml/min 12/31/2024 Cigarette nicotine dependence without complicati on 12/03/2024 Tongue swelling 12/03/2024 Pharyngeal dysphagia 12/03/2024 Anxiety 07/04/2022 Assessment & Plan (09/09/2024 1:22 PM TAKER OFF): Discussed with Dr. Yates, his PCP. In [...] 07/04/2022 Assessment & Plan (09/09/2024 1:20 PM TAKER OFF): Being treated by pulmonology. Will check ferritin [...] on file Legal Sex Male 12:09 AM TAKER OFF Gender Identity Not on file Sexual Orientation [...] Procedure Name Priority Date/Time Associated Diagnosis Comments HEAD COMPUTED TOMOGRAPHY (CT) WITHOUT CONTRAST Schedule Routine, Read Routine (OP Routine) 03/19/2025 8:49 AM CDT PULMONARY FUNCTION TEST (PFT) Routine 01/13/2025 10:00 AM CDT Obstructive sleep apnea syndrome Restless legs Psychophysiologic al insomnia Cigarette nicotine dependence without complication Pharyngeal dysphagia Tongue swelling CT CHEST WO CONTRAST Schedule Routine, Read Routine (OP Routine) 01/12/2025 3:43 PM CDT Obstructive sleep apnea syndrome Restless legs Psychophysiologic al insomnia Cigarette nicotine dependence without complication Pharyngeal dysphagia Tongue swelling from Last 3 Months Results * HEAD COMPUTED TOMOGRAPHY (CT) WITHOUT CONTRAST (03/19/2025 8:49 AM CDT) Anatomical Region Laterality Modality N/A Computed Tomogra phy us Chloé Lipscomb MD IMG CT PROCEDURES Final Result * Pulmonary Function Test - (01/13/2025 10:00 AM CDT) FVC POST 2.91 L 01/13/2025 11:08 AM CDT [facility] FEV1 POST 1.58 L 01/13/2025 11:08 AM CDT [facility] [id number] 54.17 % 01/13/2025 11:08 AM CDT [facility] SHR63-40% POST 0.62 L/s 01/13/2025 11:08 AM CDT [facility] PEF POST 3.07 L/s 01/13/2025 11:08 AM CDT [facility] DLCOc SB 7.83 ml/(min*mm Hg) 01/13/2025 11:08 AM CDT [facility] DLCO/VA PRE 2.04 ml/(min*mm Hg*L) 01/13/2025 11:08 AM CDT [facility] VA 3.84 L 01/13/2025 11:08 AM CDT [facility] TLC PRE 5.92 L 01/13/2025 11:08 AM CDT [facility] VC PRE 2.64 L 01/13/2025 11:08 AM CDT [facility] IC PRE 1.34 L 01/13/2025 11:08 AM CDT [facility] FRC PL PRE 4.30 L 01/13/2025 11:08 AM CDT [facility] ERV PRE 1.02 L 01/13/2025 11:08 AM CDT [facility] RV PRE 3.28 L 01/13/2025 11:08 AM CDT [facility] RAW PRE 3.28 cmH2O*s/L 01/13/2025 11:08 AM CDT [facility] VTG 4.20 L 01/13/2025 11:08 AM CDT [facility] FVC PRE 2.64 L 01/13/2025 11:08 AM CDT [facility] FEV1 PRE 1.73 L 01/13/2025 11:08 AM CDT [facility] [id number] 65.37 % 01/13/2025 11:08 AM CDT [facility] HAX52-18% PRE 0.99 L/s 01/13/2025 11:08 AM CDT [facility] PEF PRE 4.66 L/s 01/13/2025 11:08 AM CDT [facility] Anatomical Region Laterality Modality PFT 01/13/2025 9:00 AM CDT Impressions 01/15/2025 10:10 AM CDT 1. Mild obstructive ventilatory defect. 2. There is significant bronchodilator response. 3. Lung volumes demonstrate gas trapping. 4. Severe diffusion impairment. Clinical correlation is advised. Electronically signed by John Vaughan DO Pulmonary & Critical Care Narrative 01/15/2025 10:10 AM CDT PULMONARY FUNCTION TESTS Pepito Ott 80 y.o. 01/15/2025 INTERPRETATION Please see [...] Juanis Dominguez M.D. FT T: Report ID: [id number] Reading Location: [id number] Procedure Note Juanis Felton MD - 01/17/2025 [...] Juanis Dominguez M.D. FT T: Report ID: [id number] Reading Location: [place] [address] Antonieta Pimentel MD IMG CT PROCEDURES Final Res ult from Last 3 Months Insurance [employer] MEDICARE HMO [facility] AD[facility]AGE Care Teams Bail Bonding Agent Relationship Specialty Start Date End Date Indra Yates MD [address] [place] [id number] PCP - General Family Medicine 07/02/24 Megha Crane PA [address] [place] [address] Physician Coil Spring Assembler 07/02/24 Tacos Moreno MD [address] [place] [address] Referring Physician Psychiatry 12/31/24 Antonieta Pimentel MD [address] [place] [address] Consulting Physician Pulmonary Disease 12/31/24 Gurmeet Sands MD [address] [facility] [place] [address] [place] [address] Consulting Physician Gastroenterology 12/31/24 Mao Dodson MD [address] [place] [address] Consulting Physician Otolaryngology 02/25/25
--- OUTSIDE RECORDS SUMMARY | 2025-04-09 18:29 | XMS_ITS | Continuity of Care Document ---
Author Organization [facility] Address [address] [facility] [address] [place] [address] Phone Care Team Providers Care Mixing And Molding Machine Operator Name Role Phone Elisabeth Carmen DPT Unavailable [...] Diagnoses Date Provider Providers Copied on Encounter [facility], [address] [place], [place] [address], [place], [place], [id number], tel:[phone] [place] No Information Kermit Barber. [address] [facility], [address], [place], [address], [place]. tel:[phone], [place], [place], [id number], [place] tel:[phone] [place] No Information Kermit Barber. [address] [facility], [address], [place], [address], [place]. tel:[phone] [address], [place], [place], [id number], [place] tel:[phone] [place] No Information Carmen Farren. [address] [place] [address], [address], [place], [address], [place]. tel:[phone] [address], [place], [place], [id number], [place] tel:[phone] [place] No Information Kermit Barber. [address] [facility], [address], [place], [address], [place]. tel:[phone] [address], [place], [place], [id number], [place] tel:[phone] [place] No Information Carmen Farren. [address] [facility], [address], [place], [address], [place]. tel:[phone] [address], [place], [place], [id number], [place] tel:[phone] [place] No Information Carmenchula Barber. [address] [facility], [address], [place], [address], [place]. tel:[phone], [place], [place], [id number], [place] tel:[phone] [place] No Information Kermit Barber. [address] [place] [address], [address], [place], [address], [place]. tel:[phone], [place], [place], [id number], [place] tel:[phone] Sandra Ortiz Kermit Barber. [address] [facility], [address], [place], [address], [place]. tel:[phone] Family History Family Member Type Diagnosis Age At Onset No Information Payers Payer name Insurance type Covered green party ID Angelica gisellgloria(s) Marcelo [id number] Social History Type Description Quantity Date Captured [...]
--- OUTSIDE RECORDS SUMMARY | 2025-04-09 18:29 | XMS_ITS | Clinical Summary ---
Author Organization [facility] Address [address] [place] [address] Care Team Providers Care Hydrogenation Operator Name Role Phone Antoine Lundberg MD Primary Care Provider Allergies Active Allergy Reactions Criticality Noted Date [...] age to complete this topic Insurance Celsa [facility] ([id number]) Care Teams Hydrogenation Operator Relationship Specialty Start Date End Date Antoine Lundberg MD [address] [place] [id number] PCP - General Occupational Medicine 02/23/22
--- OUTSIDE RECORDS SUMMARY | 2025-04-09 18:29 | XMS_ITS | Encounter Summary ---
Author Organization [facility] Address [address] [place] [address] Care Team Providers Care Java Programmer Name Role Phone Syd Tate MD Primary Care Provider [phone] Encounter Details Date Type Department Care Team (Late st Contact Info) Description 03/06/2005 Outpatient Historical [facility] Trauma and General Surgery [address] [facility] [facility] [address] [facility] [place] [address] Anand Cabrales MD [address] [facility] [address] [place] [address] Social History Tobacco Use Types Packs/Day Years Used Date Smoking Tobacco: Never Assessed Sex and Gender Information Value Date Recorded Sex Assigned at Not on file Legal Sex Male 4:43 AM GRAIN INSPECTOR Gender Identity Not on file Sexual Orientation Not on file documented as of this encounter Plan of Treatment Not on file documented as of this encounter Visit Diagnoses Not on filedocumented in this encounter Care Teams Java Programmer Relationship Specialty Start Date End Date Syd Tate MD [address] [facility] [address] [place] [address] PCP - General 02/04/05 06/27/23 documented as of this encounter
--- OUTSIDE RECORDS SUMMARY | 2025-04-09 18:29 | XMS_ITS | Encounter Summary ---
Author Organization [facility] Address [address] [place] [address] Care Team Providers Care Senior Sql Database Developer Name Role Phone Syd Tate MD Primary Care Provider [phone] Antoine Lundberg MD Primary Care Provider [phone] Encounter Details Date Type Department Care Team [...] PM CDT Legal Sex Male 4:34 AM MEDICAL SCHEDULER Gender Identity Not on file Sexual Orientation Not on file documented as of this encounter Plan of Treatment Not on file documented as of this encounter Visit Diagnoses Not on filedocumented in this encounter Care Teams Senior Sql Database Developer Relationship Specialty Start Date End Date Syd Tate MD [address] [facility] [address] [place] [address] PCP - General 09/13/08 04/01/16 Antoine Lundberg MD [address] [place] [address] PCP - General Internal Medicine 03/30/19 documented as of this encounter
--- OUTSIDE RECORDS SUMMARY | 2025-04-09 18:29 | XMS_ITS | Encounter Summary ---
Author Organization [facility] Address [address] [place] [address] Care Team Providers Care Graphite Grinder Name Role Phone Syd Tate MD Primary Care Provider Encounter Details Date Type Department Care Team (Late st Contact Info) Description 02/05/2005 Outpatient Historical [facility] Trauma and General Surgery [address] [facility] [address] [address] [place] [address] [place] [address] Social History Tobacco Use Types Packs/Day Years Used Date Smoking Tobacco: Never Assessed Sex and Gender Information Value Date Recorded Sex Assigned at Not on file Legal Sex Male 4:43 AM SENIOR PAINTER Gender Identity Not on file Sexual Orientation Not on file documented as of this encounter Plan of Treatment Not on file documented as of this encounter Visit Diagnoses Not on filedocumented in this encounter Care Teams Graphite Grinder Relationship Specialty Start Date End Date Syd Tate MD [address] [facility] [address] [place] [address] PCP - General 02/04/05 06/27/23 documented as of this encounter
--- OUTSIDE RECORDS SUMMARY | 2025-04-09 18:29 | XMS_ITS | Clinical Summary ---
Author Organization [employer] [facility] Address [address] [place] [address] Phone Care Team Providers Care Ripsaw Grader Name Role Phone Unavailable Primary Care Provider Unavailabl e Allergies Active Allergy Reactions Criticality Noted Date Comments Bupropion Other (See Comments) 07/04/2022 Other reaction(s): worsening symptoms Medications acetaminophen (Tylenol 8 Hour) 650 mg Extended Release tablet 0 2 Active ALPRAZolam (XANAX) 0.25 mg tablet 1 tablet(s), Oral, bid, 180 tablet(s), 1, 1, Route to Pharmacy Electronically, [facility] ([facility] ), [id number], 162, cm, 12/28/2022 0808, Height, 70.7, kg, 12/28/2022 1031, Weight 3 Active carvediloL (COREG) 6.25 mg tablet Take 6.25 mg by mouth. 2 Active atorvastatin (LIPITOR) 40 mg tablet Take 40 mg by mouth. 2 Active hydrALAZINE (APRESOLINE) 50 mg tablet 1 tablet(s), Oral, tid, 270 tablet(s), 3, 3, Route to Pharmacy Electronically, [facility] ([facility] ), [id number], 162, cm, 06/26/2022 0830, Height, 70.6, kg, 06/26/2022 1027, Weight 3 Active HYDROcodone-brien taminophen (NORCO) 5-325 mg tablet Take 1 Tablet by mouth every 4 hours as needed. 3 Active levothyroxine 200 mcg tablet See Instructions, 90 tablet(s), 3, TAKE 1 TABLET DAILY BEFORE BREAKFAST, Route to Pharmacy Electronically, [facility] ([facility]), [id number], Instructions Replace Required Details, 162, cm, 12/28/2022 0808, Height, 70.7, kg, 12/28/2022 1031, Weight 3 Active lisinopriL (PRINIVIL) 20 mg tablet Take 20 mg by mouth daily. 2 Active ondansetron (ZUPLENZ) 4 mg Film 1 dose(s), Oral, m2pecvs, PRN, 10 each, MISC, 0, nausea 2 [...] on file Legal Sex Male 4:43 AM MEETING PLANNER Gender Identity Not on file Sexual Orientation [...]
--- OUTSIDE RECORDS SUMMARY | 2025-04-09 18:29 | XMS_ITS | Clinical Summary ---
Author Organization [facility] Address [address] [place] [address] Care Team Providers Care Professor Of Business Administration Name Role Phone Antoine Lundberg MD Primary Care Provider [phone] Source Comments [facility],non-owned Affiliates and Associated Physician Practices is amultiple site organization consisting of ambulatory clinics and hospital sitesin [place], [place], [place] and [place]. This disclosure is being madepursuant to the Care Everywhere program and may not contain all information available regarding this patient. 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 No 06/12/2023 Sex and Gender Information Value Date Recorded Sex Assigned at Male 06/12/2023 3:47 PM CDT Legal Sex Male 4:34 AM SAUSAGE MEAT TRIMMER Gender Identity Not on file Sexual Orientation Not on file Last Filed Vital Signs Vital Sign Reading Time Taken Comments Blood Pressure 120/64 09/04/2024 9:32 AM SAUSAGE MEAT TRIMMER Pulse 50 09/04/2024 9:32 AM SAUSAGE MEAT TRIMMER Temperature 37.2 C (99 F) 06/14/2023 7:59 AM CDT Respiratory Rate 18 06/13/2023 11:43 PM CDT Oxygen Saturation 97% 09/04/2024 9:32 AM SAUSAGE MEAT TRIMMER Inhaled Oxygen Concentration - - Weight 68 kg (150 lb) 09/04/2024 9:32 AM SAUSAGE MEAT TRIMMER Height 162.6 cm (5' 4) 06/12/2023 11:25 [...] patient's age to complete this topic Insurance [employer] ADV [employer] ADV SELF PAY NO INSURANCE Member Subscriber Plan / Payer (Ef fective for All Dates) Name:Ryan Ashby Member ID:Not on file Relation to Subscriber:Not on file Name:RYAN ASHBY Subscriber ID:Not on file (Home) Address: [address] [place] [address] [address] [place] [id number] Payer ID:Not on file Group ID:Not on file Type:Self Pay Address: [place], [place] ANTH Advance Directives * Full Code (Latest Code [...] 10:10 PM 02/05/2022 12:33 PM Care Teams Professor Of Business Administration Relationship Specialty Start Date End Date Antoine Lundberg MD [address] [address] PCP - General Internal Medicine 03/30/19
--- OUTSIDE RECORDS SUMMARY | 2025-04-09 18:29 | XMS_ITS | Encounter Summary ---
Author Organization [facility] Address [address] [place] [address] Care Team Providers Care Media Traffic Manager Name Role Phone Antoine Lundberg MD Primary Care Provider [phone] Encounter Details Date Type Department Care Team (Late st Contact Info) Description 07/05/2023 Lab Requisition [facility] - DermPath Lab [address] [facility] [place] [address] Latrice Swan MD [address] [place] [address] Neoplasm of unspecified behavior of bone, soft [...] Date Recorded PHQ2 TOTAL SCORE 0 09/15/2022 [facility] of Occupat ional Health - Occupational Stress [...] place to sleep or slept in a long-term (including now)? No 06/12/2023 Sex and Gender Information Value Date Recorded Sex Assigned at Male 06/12/2023 3:47 PM CDT Legal Sex Male 4:34 AM MEDICAL ADMINISTRATOR Gender Identity Not on file Sexual Orientation [...] AM CDT) Case Report Dermatopathology Report Case: [id number] Authorizing Provider: Latrice Swan MD Collected: 07/04/2023 03:33 AM Ordering Location: [facility] DermPath Lab Received: 07/06/2023 09:55 AM Pathologist: Bertha Rodriguez MD Specimens: A) - Skin, right medial malar cheek B) - Skin, right protestant C) - Skin, left lateral neck 3 1:37 PM CDT DERMATOPATHOLOGY LABORATORY Final Diagnosis Specimen A. 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 SKIN, right protestant: BASAL CELL CARCINOMA, NODULAR TYPE (C44.319) Specimen [...] with the patient's name and designated right protestant. The specimen consists of a shave biopsy [...] obtained and reviewed. Specimen B. SKIN, right protestant: Within the dermis there are aggregates of [...] characteristic determined by the Dermatopathology Laboratory at [facility], directed by Dr. Lara Nava. These tests need not be, and therefore are not, approved by the [place] Food and Drug Administration. The tests are used for clinical purposes. Billing Codes Specimen Charges Stain Charges 72297 [id number] 22225 1 1 1 3 1:37 PM CDT [...] PATHOLOGY/CYTOLOGY NORBERT RAMIREZ Final Result DERMATOPATHOLOGY LABORATORY [facility] - Department of Dermatology [facility], 3rd Floor [address] [phone] documented in this encounter Visit Diagnoses Diagnosis Neoplasm of unspecified behavior of bone, soft tissue, and skin documented in this encounter Care Teams Media Traffic Manager Relationship Specialty Start Date End Date Antoine Lundberg MD [address] [address] PCP - General Internal Medicine 03/30/19 documented as of this encounter
--- OUTSIDE RECORDS SUMMARY | 2025-04-09 18:29 | XMS_ITS | Encounter Summary ---
Author Organization [facility] Address [address] [place] [address] Care Team Providers Care Open Pit Quarry Supervisor Name Role Phone Antoine Lundberg MD Primary Care Provider [phone] Encounter Details Date Type Department Care Team (Late st Contact Info) Description 05/09/2018 Lab Requisition [facility] Care DermPath Lab [address] [facility] [place] [address] Latrice Swan MD [address] [place] [address] Social History Tobacco Use Types Packs/Day Years Used Date Smoking Tobacco: Every Day Cigarettes Alcohol Use Standard Drinks/Week Comments No 0 (1 standard drink = 0.6 oz pur e alcohol) Sex and Gender Information Value Date Recorded Sex Assigned at Male 06/12/2023 3:47 PM CDT Legal Sex Male 4:34 AM APPRENTICE/LINEMAN Gender Identity Not on file Sexual Orientation Not on file documented as of this encounter Plan of Treatment Not on file documented as of this encounter Procedures Procedure Name Priority Date/Time Associated Diagnosis Comments DERMATOPATHOLOGY Routine 05/08/2018 12:0 0 AM CDT documented in this encounter Results * DERMATOPATHOLOGY (05/08/2018 12:00 AM CDT) Case Report Dermatopathology Report Case: [id number] Authorizing Provider: Latrice Swan MD Collected: 05/08/2018 [...] specimen consists of a shave biopsy measuring [id number]. Jar 0. 1:42 PM CDT DERMATOPATHOLOGY LABORATORY [...] characteristic determined by the Dermatopathology Laboratory at [facility]. These tests need not be, and therefore are not, approved by the [place] Food and Drug Administration. The tests are used for clinical purposes. Billing Codes Specimen Charges Stain Charges 38186 1 8 1:42 PM CDT DERMATOPATHOLOGY LABORATORY Embedded Images 1:42 PM CDT DERMATOPATHOLOGY LABORATORY Pathology/Cytolog y TISSUE SPECIMEN FROM SKIN / Unknown 05/08/2018 05/09/2018 8:33 AM CDT us Latrice Swan MD LAB - PATHOLOGY/CYTOLOGY NORBERT RAMIREZ Final Result DERMATOPATHOLOGY LABORATORY [facility] - Department of Dermatology [facility], 5th Floor Lab [address] [phone] documented in this encounter Visit Diagnoses Not on filedocumented in this encounter Care Teams Open Pit Quarry Supervisor Relationship Specialty Start Date End Date Antoine Lundberg MD [address] [address] PCP - General Internal Medicine 03/30/19 documented as of this encounter
--- OUTSIDE RECORDS SUMMARY | 2025-04-09 18:29 | XMS_ITS | Encounter Summary ---
Author Organization [email or web address] Address [address] [place] [address] Care Team Providers Care Child Nutrition Manager Name Role Phone Syd Tate MD Primary Care Provider [phone] Encounter Details Date Type Department Care Team (Late st Contact Info) Description 02/04/[address] [facility] Support [facility]. (Adt Cardiology[facility]) [address] 

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
--- OUTSIDE RECORDS SUMMARY | 2025-04-09 18:29 | XMS_ITS | Encounter Summary ---
Author Organization [facility] Address [address] [place] [address] Care Team Providers Care Tower Erector Helper Name Role Phone Syd Tate MD Primary Care Provider [phone] Encounter Details Date Type Department Care Team (Late st Contact Info) Description 03/21/2005 Outpatient Historical [facility]] Trauma and General Surgery [address] [facility] [address] [address] [place] [address] [place] [address] Social History Tobacco Use Types Packs/Day Years Used Date Smoking Tobacco: Never Assessed Sex and Gender Information Value Date Recorded Sex Assigned at Not on file 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
--- OUTSIDE RECORDS SUMMARY | 2025-04-09 18:29 | XMS_ITS | Continuity of Care Document ---
Author Organization [facility] Address [address] [place] [address] [address] [place] [address] Phone Care Team Providers Care Die Baker Name Role Phone Franky Templeton MD Unavailable [...] CATARACT SURG W/IOL, 1 STAGE OFFICE/OUTPATIENT VISIT, [facility] OPHTHALMIC BIOMETRY OPHTHALMIC BIOMETRY PHARMACY 2 EYES Advance Directives Directive Yes / No Effective Date File Name No Information Encounters Encounter Description Practice Location Reason(s) For Visit Diagnoses Date Provider Providers Copied on Encounter [facility], [address] [address], [place], [place], [id number], [place] tel:[phone] [facility] JAYLON DARBY No Information 3 Jareth Wilkins. [address] , [address], [place], [place], [id number] , [place]. tel:[phone] Referring Provider: Franky Vargas, [address], [place], [address]. tel:[phone] [facility], [address] [place] [address], [id number], tel:[phone] [facility] No Information 1 Jareth Wilkins. [address], [place], [place], [id number] , [place]. tel:[phone] Referring Provider: Franky Vargas, [address], [place], [address]. tel:[phone] [facility], [address] [place] [address], [id number], [place] tel:[phone] [facility] No Information 1 Jareth Wilkins. [address], [address], [place], [place], [id number] , [place]. tel:[phone] Referring Provider: Franky Vargas, [address], [place], [address]. tel:[phone] [facility], [address] [place] [address], [id number], [place] tel:[phone] OPH CONSULT JAYLON DARBY No Information 1 Duncan Bhakta. [address], [address], [place], [place], [id number] , [place]. tel:[phone] OFFICE/OUTPA TIENT VISIT, [facility], [address] [place] [address], [id number], tel:[phone] [facility] No Information 1 Jareth Wilkins. [address], [address], [place], [place], [id number] , [place]. tel:[phone] Referring Provider: Livia Niehoff OD, [address] [place], [address]. tel:[phone] Family History Family Member Type Diagnosis Age At Onset No Information Payers Payer name Insurance type Covered constitution party ID Authoriza tigloria(s) [facility] [id number] Social History Type Description Quantity Date Captured [...]
--- OUTSIDE RECORDS SUMMARY | 2025-04-09 18:29 | XMS_ITS | Encounter Summary ---
Author Organization [facility] Address [address] [place] [address] Care Team Providers Care Soil Field Technician Name Role Phone Syd Tate MD Primary Care Provider [phone] Encounter Details Date Type Department Care Team (Late st Contact Info) Description 02/20/[address] 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
--- OUTSIDE RECORDS SUMMARY | 2025-04-09 18:29 | XMS_ITS | Encounter Summary ---
Author Organization [facility] Address [address] 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 [place] [address] PCP - General 09/13/08 04/01/16 Antoine Lundberg MD [address] [place] [address] PCP - General Internal Medicine 03/30/19 documented as of this encounter
--- OUTSIDE RECORDS SUMMARY | 2025-04-09 18:29 | XMS_ITS | Encounter Summary ---
Author Organization [facility] Address 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
--- OUTSIDE RECORDS SUMMARY | 2025-04-09 18:29 | XMS_ITS | Clinical Summary ---
Author Organization [facility] Address [address] [place] [address] Care Team Providers Care Ocularist Name Role Phone Indra Yates MD Primary Care Provider [phone] Megha Crane Unavailable [phone] Tacos Moreno MD Unavailable [phone] Antonieta Pimentel MD Unavailable [phone] Gurmeet Sands MD Unavailable Mao Dodson MD Unavailable [phone] Allergies Active Allergy Reactions Criticality Noted Date [...] 1 tablet (200 mcg total) by mouth environmental maintenance worker before breakfast 90 tablet 5 05/12/20 25 [...] titrate up to 25 g -Recommend starting lfjv-akq-xumygfc probiotic like align or Dada Room. -IB guard to help with complaints of abdominal bloating and gas as well as increased exercise. -Discuss small titration dose of MiraLax to help have regularity if fiber is not well tolerated. CKD (chronic kidney disease) stage 3, GFR 30-59 ml/min 12/31/2024 Cigarette nicotine dependence without complicati on 12/03/2024 Tongue swelling 12/03/2024 Pharyngeal dysphagia 12/03/2024 Anxiety 07/04/2022 Assessment & Plan (09/09/2024 1:22 PM SURVEY RESEARCH MANAGER): Discussed with Dr. Yates, his PCP. In [...] 07/04/2022 Assessment & Plan (09/09/2024 1:20 PM SURVEY RESEARCH MANAGER): Being treated by pulmonology. Will check ferritin [...] Department Care Team Description 03/25/2025 Orders Only [facility] Primary Care at [address] [address] Chléo Lipscomb MD 03/04/2025 9:00 AM CDT Office Visit [facility] Pulmonary [address] [phone] Antonieta Pimentel MD Obstructive sleep apnea syndrome (Primary Dx); Centrilobular emphysema (HCC); Restless legs; Cigarette nicotine dependence without complication; Abnormal CT of the chest; Recurrent cold sores; Psychophysiological insomnia; Non-seasonal allergic rhinitis due to pollen; Pulmonary air trapping; Simple chronic bronchitis (HCC) 02/25/2025 10:00 AM CDT Office Visit [facility] Primary Care at [address] [address] Indra Yates MD Encounter for annual wellness visit (AWV) in Medicare patient (Primary Dx); RLS (restless legs syndrome); Personal history of nicotine dependence 02/17/2025 Telephone [facility] Pulmonary [address] [address] Chris Thompson CMA 02/11/2025 11:30 AM CDT Office Visit [facility] Specialists of [address] [address] Hao Mann MD Acquired hypothyroidism (Primary Dx) 01/28/2025 9:00 AM CDT Office Visit [facility] Primary Care at [address] [address] Indra Yates MD Encounter for [...] [facility] Primary Care at [address] [address] Indra Yates MD Neck mass; Acquired macroglossia 01/19/2025 Results Follow-Up [facility] Pulmonology [address] [facility] [address] [place] [address] Chest WO Contrast 01/13/2025 8:03 AM CDT - 01/13/2025 11:59 PM CDT Hospital Encounter [facility] Respiratory [address] [place] [address] Obstructive sleep apnea syndrome; Restless legs; Psychophysiological insomnia; Cigarette nicotine dependence without complication; Pharyngeal dysphagia; Tongue swelling Discharge Disposition: Discharge to home or self care 01/12/2025 3:15 PM CDT - 01/12/2025 11:59 PM CDT Hospital Encounter [facility] [address] [place] [address] Obstructive sleep apnea syndrome; Restless legs; Psychophysiological insomnia; Cigarette nicotine dependence without complication; Pharyngeal dysphagia; Tongue swelling Discharge Disposition: Discharge to home or self care 01/09/2025 Telephone [facility] Diabetes and Endocrinology [address] [place] [address] Chilo Woo, Hao Woo MD New referral to Endocrinology from Last 3 Months Immunizations Immunization Administration [...] on file Legal Sex Male 12:09 AM SURVEY RESEARCH MANAGER Gender Identity Not on file Sexual [...] Region Laterality Modality N/A Computed Tomogra phy Chloé Lipscomb MD IM CT PROCEDURES Final Result * Pulmonary Function Test - (01/13/2025 10:00 AM CDT) FVC POST 2.91 L 01/13/2025 11:08 AM CDT [facility] FEV1 POST 1.58 L 01/13/2025 11:08 AM CDT [facility] [id number] 54.17 % 01/13/2025 11:08 AM CDT [facility] SAN45-35% POST 0.62 L/s 01/13/2025 11:08 AM CDT [facility] PEF POST 3.07 L/s 01/13/2025 11:08 AM CDT [facility] DLCOc SB 7.83 ml/(min*mm Hg) 01/13/2025 11:08 AM CDT [facility] DLCO/VA PRE 2.04 ml/(min*mm Hg*L) 01/13/2025 11:08 AM CDT [facility] VA 3.84 L 01/13/2025 11:08 AM CDT [facility] TLC PRE 5.92 L 01/13/2025 11:08 AM CDT [facility] VC PRE 2.64 L 01/13/2025 11:08 AM CDT [facility] IC PRE 1.34 L 01/13/2025 11:08 AM CDT [facility] FRC PL PRE 4.30 L 01/13/2025 11:08 AM CDT [facility] ERV PRE 1.02 L 01/13/2025 11:08 AM CDT [facility] RV PRE 3.28 L 01/13/2025 11:08 AM CDT [facility] RAW PRE 3.28 cmH2O*s/L 01/13/2025 11:08 AM CDT [facility] VTG 4.20 L 01/13/2025 11:08 AM CDT [facility] FVC PRE 2.64 L 01/13/2025 11:08 AM CDT [facility] FEV1 PRE 1.73 L 01/13/2025 11:08 AM CDT [facility] [id number] 65.37 % 01/13/2025 11:08 AM CDT [facility] NCG35-05% PRE 0.99 L/s 01/13/2025 11:08 AM T [facility] PEF PRE 4.66 L/s 01/13/2025 11:08 AM T [facility] Anatomical Region Laterality Modality PFT 01/13/2025 [...] and carboxyhemoglobin DLCO is 38 % predicted us Antonieta Pimentel MD PFT ORDERABLES Final Resul [...] Juanis Dominguez M.D. FT T: Report ID: [id number] Reading Location: [place] [address] Procedure Note Juanis Felton MD - 01/17/2025 [...] Juanis Dominguez M.D. FT T: Report ID: [id number] Reading Location: [place] [address] Antonieta Pimentel MD IMG CT PROCEDURES Final Res ult from Last 3 Months Insurance [employer] MEDICARE HMO PPO [facility] MEDICARE ADVANTAGE Care Teams Ocularist Relationship Specialty Start Date End Date Indra Yates MD [address] [place] [address] PCP - General Family Medicine 07/02/24 Megha Crane PA [address] [place] [address] Physician Plumber'S Assistant 07/02/24 Tacos Moreno MD [address] [place] [address] Referring Physician Psychiatry 12/31/24 Antonieta Pimentel MD [address] [place] [address] Consulting Physician Pulmonary Disease 12/31/24 Gurmeet Sands MD [address] [place] [address] Consulting Physician Gastroenterology 12/31/24 Mao Dodson MD [address] [place], [place] [address] Consulting Physician Otolaryngology 02/25/25
[2025-04-09 18:43] LABS: Basophils Absolute Auto 0.1 K/mm3 (0.0-0.1); Basophils Percent Auto 1.3 % (0.2-1.2); Eosinophils Absolute Auto 0.2 K/mm3 (0-0.3); Eosinophils Percent Auto 4.2 % (0-4.4); Hematocrit 34.9 % (42.0-52.0); Hemoglobin 11.5 g/dL (14.0-18.0); Immature Granulocyte Absolute 0.02 K/mm3 (0.00-0.031); Immature Granulocyte Percent A 0.4 % (0-0.5); Lymphocytes Absolute Auto 1.03 K/mm3 (0.9-3.2); Lymphocytes Percent Auto 19.4 % (18.3-44.2); Mean Corpuscular Hemoglobin 29.3 pg (26-34); Mean Corpuscular Volume 88.8 fl (80-100); Mean Platelet Volume 8.5 fl (7.4-10.4); Monocytes Absolute Auto 0.4 K/mm3 (0.1-0.6); Monocytes Percent Auto 7.4 % (2.6-8.5); Neutrophils Absolute Auto 3.6 K/mm3 (1.3-6.7); Neutrophils Percent Auto 67.3 % (45.5-73.1); Platelet Count Result 197 k/mm3 (150-375); Red Blood Count 3.93 M/mm3 (4.6-6.20); Red Cell Distribution Width 14.4 % (11.5-14.5); White Blood Count 5.3 K/mm3 (4.5-10.0)
--- OUTSIDE RECORDS SUMMARY | 2025-04-09 18:53 | XMS_ITS | Encounter Summary ---
Author Organization [facility] Address 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
--- OUTSIDE RECORDS SUMMARY | 2025-04-09 18:53 | XMS_ITS | Encounter Summary ---
Author Organization [facility] Address [address] [place] [address] Care Team Providers Care Assembler Camper Name Role Phone Syd Tate MD Primary Care Provider [phone] Encounter Details Date Type Department Care Team (Late st Contact Info) Description 02/04/2005 Outpatient Historical [facility] (Adt Cardiology-[facility]) [address] 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
--- OUTSIDE RECORDS SUMMARY | 2025-04-09 18:53 | XMS_ITS | Encounter Summary ---
Author Organization [facility] Address 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
--- OUTSIDE RECORDS SUMMARY | 2025-04-09 18:54 | XMS_ITS | Encounter Summary ---
Author Organization [facility] Address [address] [place] [address] Care Team Providers Care Relay Associate Name Role Phone Syd Tate MD Primary Care Provider [phone] Encounter Details Date Type Department Care Team (Late st Contact Info) Description 02/20/2005 Outpatient Historical [facility] Trauma and General Surgery [address] [facility] [address] [facility] 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
--- OUTSIDE RECORDS SUMMARY | 2025-04-09 18:54 | XMS_ITS | Encounter Summary ---
Author Organization [facility] Address [address] [place] [address] Care Team Providers Care Edge Kitter Name Role Phone Antoine Lundberg MD Primary Care Provider [phone] Encounter Details Date Type Department Care Team (Late st Contact Info) Description 07/05/2023 Lab Requisition [facility] - DermPath Lab [address] [facility] [place] [address] Latrice Swan MD [address] [place] [address] Neoplasm of unspecified behavior of bone, soft [...] Date Recorded PHQ2 TOTAL SCORE 0 09/15/2022 [facility] Occupat ional Health - Occupational Stress [...] place to sleep or slept in a m[facility]p (including now)? 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 SKIN, right christianity: BASAL CELL CARCINOMA, NODULAR TYPE (C44.319) Specimen [...] with the patient's name and designated right christianity. The specimen consists of a shave biopsy [...] obtained and reviewed. Specimen B. SKIN, right christianity: Within the dermis there are aggregates of [...] characteristic determined by the Dermatopathology Laboratory at [facility], directed by Dr. Lara Nava. These tests need not be, and therefore are not, approved by the [place] Food and Drug Administration. The tests are used for clinical purposes. Billing Codes Specimen Charges Stain Charges 85289 77042 60208 1 1 1 3 1:37 PM CDT [...] NORBERT RAMIREZ Final Result DERMATOPATHOLOGY LABORATORY [facility] - Department of Dermatology [facility] Specialized Medicine [facility], 3rd Floor [address] [phone] documented in this encounter Visit Diagnoses Diagnosis Neoplasm of unspecified behavior of bone, soft tissue, and skin documented in this encounter Care Teams Edge Kitter Relationship Specialty Start Date End Date Antoine Lundberg MD [address] [address] PCP - General Internal Medicine 03/30/19 documented as of this encounter
--- OUTSIDE RECORDS SUMMARY | 2025-04-09 18:54 | XMS_ITS | Encounter Summary ---
Author Organization [facility] Address [address] [facility] [place] [address] Care Team Providers Care Telesales Professional Name Role Phone Antoine Lundberg MD Primary Care Provider [phone] Encounter Details Date Type Department Care Team (Late st Contact Info) Description 05/09/2018 Lab Requisition [facility] Care DermPath Lab [address] [facility] [place] [address] Latrice Swan MD [address] [place] [address] Social History Tobacco Use Types Packs/Day Years Used Date Smoking Tobacco: Every Day Cigarettes Alcohol Use Standard Drinks/Week Comments No 0 (1 standard drink = 0.6 oz pur e alcohol) Sex and Gender Information Value Date Recorded Sex Assigned at Male 06/12/2023 3:47 PM CDT 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 Jar 0. 1:42 PM CDT DERMATOPATHOLOGY LABORATORY [...] determined by the Dermatopathology Laboratory at [facility]. These tests need not be, and therefore are not, approved by the [place] Food and Drug Administration. The tests are used for clinical purposes. Billing Codes Specimen Charges Stain Charges 33035 1 8 1:42 PM CDT DERMATOPATHOLOGY LABORATORY Embedded Images 1:42 PM CDT DERMATOPATHOLOGY LABORATORY Pathology/Cytolog y TISSUE SPECIMEN FROM SKIN / Unknown 05/08/2018 05/09/2018 8:33 AM CDT us Latrice Swan MD LAB - PATHOLOGY/CYTOLOGY NORBERT RAMIREZ Final Result DERMATOPATHOLOGY LABORATORY [facility] - Department of Dermatology [facility], 5th Floor Lab [address] [phone] documented in this encounter Visit Diagnoses Not on filedocumented in this encounter Care Teams Telesales Professional Relationship Specialty Start Date End Date Antoine Lundberg MD [address] [address] PCP - General Internal Medicine 03/30/19 documented as of this encounter
--- OUTSIDE RECORDS SUMMARY | 2025-04-09 18:54 | XMS_ITS | Encounter Summary ---
Author Organization [facility] Address [address] [place] [address] Care Team Providers Care C.O.D. Biller Name Role Phone Syd Tate MD Primary Care Provider [phone] Encounter Details Date Type Department Care Team (Late st Contact Info) Description 03/21/[address] 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 Biller Relationship Specialty Start Date End Date Syd Tate MD [address] [facility] [address] [place] [address] PCP - General 02/04/05 06/27/23 documented as of this encounter
--- OUTSIDE RECORDS SUMMARY | 2025-04-09 18:54 | XMS_ITS | Clinical Summary ---
Author Organization [facility] Address [address] [place] [address] Phone Care Team Providers Care Senior Shipping Clerk Name Role Phone Unavailable Primary Care Provider Unavailabl e Allergies Active Allergy Reactions Criticality Noted Date Comments Bupropion Other (See Comments) 07/04/2022 Other reaction(s): worsening symptoms Medications acetaminophen (Tylenol 8 Hour) 650 mg Extended Release tablet 0 2 Active ALPRAZolam (XANAX) 0.25 mg tablet 1 tablet(s), Oral, bid, 180 tablet(s), 1, 1, Route to Pharmacy Electronically, [facility] ([facility] ), [id number], 162, cm, 12/28/2022 0808, Height, 70.7, kg, 12/28/2022 1031, Weight 3 Active carvediloL (COREG) 6.25 mg tablet Take 6.25 mg by mouth. 2 Active atorvastatin (LIPITOR) 40 mg tablet Take 40 mg by mouth. 2 Active hydrALAZINE (APRESOLINE) 50 mg tablet 1 tablet(s), Oral, tid, 270 tablet(s), 3, 3, Route to Pharmacy Electronically, [facility] ([facility] ), [id number], 162, cm, 06/26/2022 0830, Height, 70.6, kg, 06/26/2022 1027, Weight 3 Active HYDROcodone-brien taminophen (NORCO) 5-325 mg tablet Take 1 Tablet by mouth every 4 hours as needed. 3 Active levothyroxine 200 mcg tablet See Instructions, 90 tablet(s), 3, TAKE 1 TABLET DAILY BEFORE BREAKFAST, Route to Pharmacy Electronically, [facility] ([facility]), [id number], Instructions Replace Required Details, 162, cm, 12/28/2022 0808, Height, 70.7, kg, 12/28/2022 1031, Weight 3 Active lisinopriL (PRINIVIL) 20 mg tablet Take 20 mg by mouth daily. 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
--- OUTSIDE RECORDS SUMMARY | 2025-04-09 18:54 | XMS_ITS | Encounter Summary ---
Author Organization [facility] Address [address] [place] [address] Care Team Providers Care Manager Water Name Role Phone Syd Tate MD Primary Care Provider [phone] Encounter Details Date Type Department Care Team (Late st Contact Info) Description 03/06/2005 Outpatient Historical [facility] Trauma and General Surgery [address] [facility] [address] [facility] [place] [address] Anand Cabrales MD [address] 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
--- OUTSIDE RECORDS SUMMARY | 2025-04-09 18:54 | XMS_ITS | Encounter Summary ---
Author Organization [facility] Address [address] 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
--- OUTSIDE RECORDS SUMMARY | 2025-04-09 18:54 | XMS_ITS | Referral Summary ---
Author Organization [facility] Address [address] [place] [address] Care Team Providers Care Senior Front End Engineer Name Role Phone Indra Yates MD Primary Care Provider [phone] Megha Crane Unavailable [phone] Tacos Moreno MD Unavailable [phone] Antonieat Pimentel MD Unavailable [phone] Gurmeet Sands MD Unavailable Mao Dodson MD Unavailable [phone] Encounters Date Type Department Care Team Description 03/25/2025 Orders Only [facility] Medical [facility] Primary Care at [address] [address] Chloé Lipscomb MD 03/04/2025 9:00 AM CDT Office Visit [facility] Pulmonary [address] [place] [address] Antonieta Pimentel MD Obstructive sleep apnea syndrome (Primary Dx); Centrilobular emphysema (HCC); Restless legs; Cigarette nicotine dependence without complication; Abnormal CT of the chest; Recurrent cold sores; Psychophysiological insomnia; Non-seasonal allergic rhinitis due to pollen; Pulmonary air trapping; Simple chronic bronchitis (HCC) 02/25/2025 10:00 AM CDT Office Visit [facility] Primary Care at [address] [address] Indra Yates MD Encounter for annual wellness visit (AWV) in Medicare patient (Primary Dx); RLS (restless legs syndrome); Personal history of nicotine dependence 02/17/2025 Telephone [facility] Pulmonary [place] [address] [place] [address] [address] [place] [address] Chris Thompson CMA 02/11/2025 11:30 AM CDT Office Visit [facility] Special[facility] of [address], [place] [address] Hao Mann MD Acquired hypothyroidism (Primary Dx) 01/28/2025 Orders Only [facility] Primary Care at [address] [address] Indra Yates MD Neck mass; Acquired macroglossia 01/28/2025 9:00 AM CDT Office Visit [facility] Primary Care at [address] [address] Indra Yates MD Encounter for Medicare annual wellness exam (Primary Dx); Moderately severe major depression (HCC); Chronic lymphocytic leukemia (HCC); Other emphysema (HCC); Autoimmune hepatitis (HCC); Stage 3a chronic kidney disease (HCC); Primary hypertension; Vitamin D deficiency; Mixed hyperlipidemia; Acquired hypothyroidism; Centrilobular emphysema (HCC); Neck mass; Acquired macroglossia; Need for hepatitis C screening test 01/19/2025 Results Follow-Up [facility] Pulmonology [address] [facility] [address] [place] [address] Antonieta Pimentel MD CT Chest WO Contrast 01/13/2025 8:03 AM CDT - 01/13/2025 11:59 PM CDT Hospital Encounter [facility] Respiratory [address] [place] [address] Obstructive sleep apnea syndrome; Restless legs; Psychophysiological insomnia; Cigarette nicotine dependence without complication; Pharyngeal dysphagia; Tongue swelling Discharge Disposition: Discharge to home or self care 01/12/2025 3:15 PM CDT - 01/12/2025 11:59 PM CDT Hospital Encounter [facility] [address] [place] [address] Obstructive sleep apnea syndrome; Restless legs; Psychophysiological insomnia; Cigarette nicotine dependence without complication; Pharyngeal dysphagia; Tongue swelling Discharge Disposition: Discharge to home or self care 01/09/2025 Telephone [facility] Group Diabetes and Endocrinology [address] [place] [address] Hao Mann MD New referral to [...] 1 tablet (200 mcg total) by mouth armature balancer before breakfast 90 tablet 5 05/12/20 25 [...] titrate up to 25 g -Recommend starting jwez-bde-vscerkw probiotic like Pact Fitness or Jelastic. -IB guard to help with complaints of abdominal bloating and gas as well as increased exercise. -Discuss small titration dose of MiraLax to help have regularity if fiber is not well tolerated. 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 Yates, his PCP. In [...] 07/04/2022 Assessment & Plan (09/09/2024 1:20 PM DIRECTOR COMMERCIAL SALES): Being treated by pulmonology. Will check ferritin [...] on file Legal Sex Male 12:09 AM DIRECTOR COMMERCIAL SALES Gender Identity Not on file Sexual Orientation [...] 2.91 L 01/13/2025 11:08 AM CDT [facility] FEV1 POST 1.58 L 01/13/2025 11:08 AM CDT [facility] [id number] 54.17 % 01/13/2025 11:08 AM CDT [facility] YBN95-37% POST 0.62 L/s 01/13/2025 11:08 AM CDT [facility] PEF POST 3.07 L/s 01/13/2025 11:08 AM CDT [facility] DLCOc SB 7.83 ml/(min*mm Hg) 01/13/2025 11:08 AM CDT [facility] DLCO/VA PRE 2.04 ml/(min*mm Hg*L) 01/13/2025 11:08 AM CDT [facility] VA 3.84 L 01/13/2025 11:08 AM CDT [facility] TLC PRE 5.92 L 01/13/2025 11:08 AM CDT [facility] VC PRE 2.64 L 01/13/2025 11:08 AM CDT [facility] IC PRE 1.34 L 01/13/2025 11:08 AM CDT [facility] FRC PL PRE 4.30 L 01/13/2025 11:08 AM CDT [facility] ERV PRE 1.02 L 01/13/2025 11:08 AM CDT [facility] RV PRE 3.28 L 01/13/2025 11:08 AM CDT [facility] RAW PRE 3.28 cmH2O*s/L 01/13/2025 11:08 AM CDT [facility] VTG 4.20 L 01/13/2025 11:08 AM CDT [facility] FVC PRE 2.64 L 01/13/2025 11:08 AM CDT [facility] FEV1 PRE 1.73 L 01/13/2025 11:08 AM CDT [facility] [id number] 65.37 % 01/13/2025 11:08 AM CDT [facility] KWK04-66% PRE 0.99 L/s 01/13/2025 11:08 AM CDT [facility] PEF PRE 4.66 L/s 01/13/2025 11:08 AM CDT [facility] Anatomical Region Laterality Modality PFT 01/13/2025 9:00 AM CDT Impressions 01/15/2025 10:10 AM CDT 1. Mild obstructive ventilatory defect. 2. There is significant bronchodilator response. 3. Lung volumes demonstrate gas trapping. 4. Severe diffusion impairment. Clinical correlation is advised. Electronically signed by John Vauhgan DO Pulmonary & Critical Care Narrative 01/15/2025 [...] Juanis Dominguez M.D. FT T: Report ID: [id number] Reading Location: [id number] Procedure Note Juanis Felton MD - 01/17/2025 [...] Juanis Dominguez M.D. FT T: Report ID: [id number] Reading Location: [place] [address] Antonieta Pimentel MD IMG CT PROCEDURES Final Res ult from Last 3 Months Insurance [employer] MEDICARE HMO PPO [facility] Care Teams Senior Front End Engineer Relationship Specialty Start Date End Date Indra Yates MD [address] [place] [address] PCP - General Family Medicine 07/02/24 Megha Crane PA [address] [place] [address] Physician Ocean Export Agent 07/02/24 Tacos Moreno MD [address] [place] [address] Referring Physician Psychiatry 12/31/24 Antonieta Pimentel MD [address] [place] [address] Consulting Physician Pulmonary Disease 12/31/24 Gurmeet Sands MD [address] [facility] [place] [address] [place] [address] Consulting Physician Gastroenterology 12/31/24 Mao Dodson MD [address] [place] [address] Consulting Physician Otolaryngology 02/25/25
--- OUTSIDE RECORDS SUMMARY | 2025-04-09 18:54 | XMS_ITS | Continuity of Care Document ---
Author Organization [facility] Address [address] [place] [address] [address] [place] [address] Phone Care Team Providers Care Kettleman Name Role Phone Franky Templeton MD Unavailable [...] CATARACT SURG W/IOL, 1 STAGE OFFICE/OUTPATIENT VISIT, [facility] PHARMACY 2 EYES Advance Directives Directive Yes / No Effective Date File Name No Information Encounters Encounter Description Practice Location Reason(s) For Visit Diagnoses Date Provider Providers Copied on Encounter [facility], [address], [place], [place], [id number], [place] tel:[phone] OPH CONSULT JAYLON DARBY No Information 3 Jareth Wilkins. [address], [place], [place], [id number] , [place]. tel:[phone] Referring Provider: Franky Vargas, [address], [place], [address]. tel:[phone] [facility], [address] [place] [address], [id number], tel:[phone] [facility] No Information 1 Jareth Wilkins. [address], [place], [place], [id number] , [place]. tel:[phone] Referring Provider: Franky Vargas, [address], [place], [address]. tel:[phone] [facility], [address] [place] [address], [id number], [place] tel:[phone] [facility] No Information 1 Jareth Wilkins. [address], [address], [place], [place], [id number] , [place]. tel:[phone] Referring Provider: Franky Vargas, [address], [place], [address]. tel:[phone] [facility], [address] [place] [address], [id number], [place] tel:[phone] OPH CONSULT JAYLON DARBY No Information 1 Duncan Bhakta. [address], [address], [place], [place], [id number] , [place]. tel:[phone] OFFICE/OUTPA TIENT VISIT, [facility], [address] [place] [address], [id number], tel:[phone] [facility] No Information 1 Jareth Wilkins. [address], [address], [place], [place], [id number] , [place]. tel:[phone] Referring Provider: Livia Niehoff OD, [address] [place], [address]. tel:[phone] Family History Family Member Type Diagnosis Age At Onset No Information Payers Payer name Insurance type Covered democrat ID Authoriza tigloria(s) [facility] [id number] Social History Type Description Quantity Date Captured [...]
--- OUTSIDE RECORDS SUMMARY | 2025-04-09 18:54 | XMS_ITS | Continuity of Care Document ---
Author Organization [facility] Address [address] [place] [address] Phone Care Team Providers Care Cowlman Name Role Phone Elisabeth Carmen DPT Unavailable [...] Diagnoses Date Provider Providers Copied on Encounter [facility], [address] [place], [place] [address], [place], [place], [id number], tel:[phone] [place] No Information Kermit Barber. [address] [facility], [address], [address], [place]. tel:[phone], [place], [place], [id number], [place] tel:[phone] [place] No Information Kermit Barber. [address] [facility], [address], [place], [address], [place]. tel:[phone] [address], [place], [place], [id number], [place] tel:[phone] [place] No Information Carmen Farren. [address] [place] [address], [address], [place], [address], [place]. tel:[phone] [address], [place], [place], [id number], [place] tel:[phone] [place] No Information Kermit Barber. [address] [facility], [address], [place], [address], [place]. tel:[phone] [address], [place], [place], [id number], [place] tel:[phone] [place] No Information Carmen Farren. [address] [facility], [address], [place], [address], [place]. tel:[phone] [address], [place], [place], [id number], [place] tel:[phone] [place] No Information Carmenchula Barber. [address] [facility], [address], [place], [address], [place]. tel:[phone], [place], [place], [id number], [place] tel:[phone] [place] No Information Kermit Barber. [address] [place] [address], [address], [place], [address], [place]. tel:[phone], [place], [place], [id number], [place] tel:[phone] Sandra Ortiz Kermit Barber. [address] [facility], [address], [place], [address], [place]. tel:[phone] Family History Family Member Type Diagnosis Age At Onset No Information Payers Payer name Insurance type Covered libertarian ID Angelica gisellgloria(s) Marcelo [id number] Social History Type Description Quantity Date Captured [...]
--- OUTSIDE RECORDS SUMMARY | 2025-04-09 18:54 | XMS_ITS | Clinical Summary ---
Author Organization [facility] Address [address] [place] [address] Care Team Providers Care Per Diem Rn Name Role Phone Indra Yates MD Primary Care Provider [phone] Megha Crane Unavailable [phone] Tacos Moreno MD Unavailable [phone] Antonieta Pimentel MD Unavailable [phone] Gurmeet Sands MD Unavailable Mao Dodson MD Unavailable [phone] Allergies Active Allergy Reactions Criticality Noted Date [...] 1 tablet (200 mcg total) by mouth maternity nurse before breakfast 90 tablet 5 05/12/20 25 [...] titrate up to 25 g -Recommend starting acuo-lsi-lkirkxm probiotic like align or BetBox. -IB guard to help with complaints of abdominal bloating and gas as well as increased exercise. -Discuss small titration dose of MiraLax to help have regularity if fiber is not well tolerated. CKD (chronic kidney disease) stage 3, GFR 30-59 ml/min 12/31/2024 Cigarette nicotine dependence without complicati on 12/03/2024 Tongue swelling 12/03/2024 Pharyngeal dysphagia 12/03/2024 Anxiety 07/04/2022 Assessment & Plan (09/09/2024 1:22 PM PMP PROJECT MANAGER): Discussed with Dr. Yates, his PCP. [...] 07/04/2022 Assessment & Plan (09/09/2024 1:20 PM PMP PROJECT MANAGER): Being treated by pulmonology. Will check [...] Department Care Team Description 03/25/2025 Orders Only [facility] Primary Care at [address] [address] Chloé Lipscomb MD 03/04/2025 9:00 AM CDT Office Visit [facility] Pulmonary [address] [phone] Antonieta Pimentel MD Obstructive sleep apnea syndrome (Primary Dx); Centrilobular emphysema (HCC); Restless legs; Cigarette nicotine dependence without complication; Abnormal CT of the chest; Recurrent cold sores; Psychophysiological insomnia; Non-seasonal allergic rhinitis due to pollen; Pulmonary air trapping; Simple chronic bronchitis (HCC) 02/25/2025 10:00 AM CDT Office Visit [facility] Primary Care at [address] [address] Indra Yates MD Encounter for annual wellness visit (AWV) in Medicare patient (Primary Dx); RLS (restless legs syndrome); Personal history of nicotine dependence 02/17/2025 Telephone [facility] Pulmonary [address] [address] Chris Thompson CMA 02/11/2025 11:30 AM CDT Office Visit [facility] [address] [address] Hao Mann MD Acquired hypothyroidism (Primary Dx) 01/28/2025 9:00 AM CDT Office Visit [facility] Primary Care at [address] [address] Indra Yates MD Encounter for Medicare annual wellness exam (Primary Dx); Moderately severe major depression (HCC); Chronic lymphocytic leukemia (HCC); Other emphysema (HCC); Autoimmune hepatitis (HCC); Stage 3a chronic kidney disease (HCC); Primary hypertension; Vitamin D deficiency; Mixed hyperlipidemia; Acquired hypothyroidism; Centrilobular emphysema (HCC); Neck mass; Acquired macroglossia; Need for hepatitis C screening test 01/28/2025 Orders Only [facility] Primary Care at [address] [phone] Indra Yates MD Neck mass; Acquired macroglossia 01/19/2025 Results Follow-Up [facility] Pulmonology [address] [place] [address] Chest WO Contrast 01/13/2025 8:03 AM CDT - 01/13/2025 11:59 PM CDT Hospital Encounter [facility] Respiratory [address] [place] [address] Obstructive sleep apnea syndrome; Restless legs; Psychophysiological insomnia; Cigarette nicotine dependence without complication; Pharyngeal dysphagia; Tongue swelling Discharge Disposition: Discharge to home or self care 01/12/2025 3:15 PM CDT - 01/12/2025 11:59 PM CDT Hospital Encounter [facility] CT [address] [place] [address] Obstructive sleep apnea syndrome; Restless legs; Psychophysiological insomnia; Cigarette nicotine dependence without complication; Pharyngeal dysphagia; Tongue swelling Discharge Disposition: Discharge to home or self care 01/09/2025 Telephone [facility] Diabetes and Endocrinology [address] [place] [phone] Chilo Woo, Hao Woo MD New [...] on file Legal Sex Male 12:09 AM PMP PROJECT MANAGER Gender Identity Not on file Sexual [...] POST 2.91 L 01/13/2025 11:08 AM CDT [facility] FEV1 POST 1.58 L 01/13/2025 11:08 AM CDT [facility] [id number] 54.17 % 01/13/2025 11:08 AM CDT [facility] WRN14-66% POST 0.62 L/s 01/13/2025 11:08 AM CDT [facility] PEF POST 3.07 L/s 01/13/2025 11:08 AM CDT [facility] DLCOc SB 7.83 ml/(min*mm Hg) 01/13/2025 11:08 AM CDT [facility] DLCO/VA PRE 2.04 ml/(min*mm Hg*L) 01/13/2025 11:08 AM CDT [facility] VA 3.84 L 01/13/2025 11:08 AM CDT [facility] TLC PRE 5.92 L 01/13/2025 11:08 AM CDT [facility] VC PRE 2.64 L 01/13/2025 11:08 AM CDT [facility] IC PRE 1.34 L 01/13/2025 11:08 AM CDT [facility] FRC PL PRE 4.30 L 01/13/2025 11:08 AM CDT [facility] ERV PRE 1.02 L 01/13/2025 11:08 AM CDT [facility] RV PRE 3.28 L 01/13/2025 11:08 AM CDT [facility] RAW PRE 3.28 cmH2O*s/L 01/13/2025 11:08 AM CDT [facility] VTG 4.20 L 01/13/2025 11:08 AM CDT [facility] FVC PRE 2.64 L 01/13/2025 11:08 AM CDT [facility] FEV1 PRE 1.73 L 01/13/2025 11:08 AM CDT [facility] [id number] 65.37 % 01/13/2025 11:08 AM CDT [facility] XJQ18-96% PRE 0.99 L/s 01/13/2025 11:08 AM T [facility] PEF PRE 4.66 L/s 01/13/2025 11:08 AM T [facility] Anatomical Region Laterality Modality PFT [...] Juanis Dominguez M.D. FT T: Report ID: [id number] Reading Location: [place] [address] Procedure Note Juanis Felton MD - 01/17/2025 [...] Juanis Dominguez M.D. FT T: Report ID: [id number] Reading Location: [place] [address] Antonieta Pimentel MD IMG CT PROCEDURES Final Res ult from Last 3 Months Insurance [employer] MEDICARE HMO PPO [facility]ICARE AD[facility]ANT[facility] MEDIC[facility] Address: [facility] [address] [place] [address] Care Teams Per Diem Rn Relationship Specialty Start Date End Date Indra Yates MD [address] [place] [address] PCP - General Family Medicine 07/02/24 Megha Crane PA [address] [place] [address] Physician Administrative Project Coordinator 07/02/24 Tacos Moreno MD [address] [place] [address] Referring Physician Psychiatry 12/31/24 Antonieta Pimentel MD [address] [place] [address] Consulting Physician Pulmonary Disease 12/31/24 Gurmeet Sands MD [address] [place] [address] Consulting Physician Gastroenterology 12/31/24 Mao Dodson MD [address] [place], [place] [id number] Consulting Physician Otolaryngology 02/25/25
--- OUTSIDE RECORDS SUMMARY | 2025-04-09 18:54 | XMS_ITS | Clinical Summary ---
Author Organization [facility] Address [address] [place] [address] Care Team Providers Care Marble Cutter Operator Name Role Phone Antoine Lundberg MD Primary Care Provider Source Comments [facility],non-owned Affiliates and Associated Physician Practices is amultiple site organization consisting of ambulatory clinics and hospital sitesin [place], [place], [place] and [place]. This disclosure is being madepursuant to the Care Everywhere program and may not contain all information available regarding this patient. Last updated 18.[facility] Allergies No known active allergies Medications * [...] Date Recorded PHQ2 TOTAL SCORE 0 09/15/2022 [facility] [place] [facility] - Occupational Stress [...] place to sleep or slept in a care home (including now)? No 06/12/2023 Sex and Gender Information Value Date Recorded Sex Assigned at Male 06/12/2023 3:47 PM CDT Legal Sex Male 4:34 AM COMMERCIAL PRODUCTION EDITOR Gender Identity Not on file Sexual Orientation Not on file Last Filed Vital Signs Vital Sign Reading Time Taken Comments Blood Pressure 120/64 09/04/2024 9:32 AM COMMERCIAL PRODUCTION EDITOR Pulse 50 09/04/2024 9:32 AM COMMERCIAL PRODUCTION EDITOR Temperature 37.2 C (99 F) 06/14/2023 7:59 AM CDT Respiratory Rate 18 06/13/2023 11:43 PM CDT Oxygen Saturation 97% 09/04/2024 9:32 AM COMMERCIAL PRODUCTION EDITOR Inhaled Oxygen Concentration - - Weight 68 kg (150 lb) 09/04/2024 9:32 AM COMMERCIAL PRODUCTION EDITOR Height 162.6 cm (5' 4) 06/12/2023 11:25 [...] patient's age to complete this topic Insurance [facility] MANAGED MEDICARE ADV [facility] MANAGED MEDICARE ADV SELF PAY NO INSURANCE Member Subscriber Plan / Payer (Ef fective for All Dates) Name:Ryan Ashby Member ID:Not on file Relation to Subscriber:Not on file Name:RYAN ASHBY Subscriber ID:Not on file (Home) Address: [address] [place] [address] [address] [place] [id number] Payer ID:Not on file Group ID:Not on file Type:Self Pay Address: [place], [place] ANTH Advance Directives * Full Code [...] 10:10 PM 02/05/2022 12:33 PM Care Teams Marble Cutter Operator Relationship Specialty Start Date End Date Antoine Lundberg MD [address] [address] PCP - General Internal Medicine 03/30/19
--- OUTSIDE RECORDS SUMMARY | 2025-04-09 18:54 | XMS_ITS | Encounter Summary ---
Author Organization [facility] Health Address [address] 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
[2025-04-09 18:58] LABS: Alanine Aminotransferase 17 U/L (6-50); Albumin Level 3.6 g/dL (3.5-5.1); Alkaline Phosphatase 88 U/L (38-126); Anion Gap 9 mmol/L (4-12); Aspartate Amino Transferase 28 U/L (17-59); Bilirubin,Total 0.7 mg/dL (0.2-1.3); Blood Urea Nitrogen 24 mg/dL (9-20); Calcium 8.9 mg/dL (8.4-10.2); Carbon Dioxide 24 mmol/L (22-30); Chloride 105 mmol/L (98-107); Estimated CRCL calculation 33 ml/min; Estimated Glomerular Filt Rate 51; Glucose 105 mg/dL (65-110); Potassium 4.3 mmol/L (3.4-5.0); Sodium 138 mmol/L (137-145); Total Protein 6.7 g/dL (6.3-8.2)
--- NOTE | 2025-04-09 18:59 | ED_ITS ---
HPI - SOB/Dyspnea General Chief Complaint: Shortness of Breath/Dyspnea Stated Complaint: weak, low 02 sat Time Seen by Provider: 04/09/25 18:31 History of Present Illness HPI Narrative: 80-year-old male with history of COPD, hypertension, hyperlipidemia, hypothyroidism. Patient presents to the emergency department for evaluation of generalized weakness and hypoxia. Patient found to be 87% on room air requiring oxygen supplementation. He does not wear oxygen at home aside from a CPAP. Patient states he was seen here in the hospital several weeks ago for something similar where he was admitted for oxygen requirements had an oxygen evaluation and discharged without any oxygen after he had an ambulatory pulse ox that showed 95% without any decrease. Patient himself endorses feeling weak and short of breath, denies any chest pain, nausea, vomiting, abdominal pain, fever, chills. He endorses a cough that is seem willing nonproductive and worsened when he lays on his left side. Sees a aviation technical systems specialist for sleep apnea but not for COPD. Not any inhalers at home. History of sinus issues and sees ENT outpatient with new nasal steroids. Related Data Home Medications ?Medication ?Instructions ?Recorded ?Confirmed ?Last Taken ?Type amlodipine 10 mg tablet 10 mg PO DAILY 03/18/25 04/01/25 Unknown History atorvastatin 40 mg tablet 40 mg PO DAILY 03/18/25 04/01/25 Unknown History carvedilol 6.25 mg tablet 6.25 mg PO Q12H 03/18/25 04/01/25 Unknown History hydralazine 50 mg tablet 50 mg PO TID 03/18/25 04/01/25 Unknown History levothyroxine 200 mcg tablet 200 mcg PO DAILY 03/18/25 04/01/25 Unknown History (Unithroid) zolpidem 10 mg tablet 10 mg PO .hs 03/18/25 04/01/25 Unknown History Bifidobacterium infantis 10.5 mg 10.5 mg PO DAILY 03/20/25 04/01/25 Unknown History (10 million cell) chewable tablet (Align (B.infantis)) inulin 1.7 gram chewable tablet 6 g PO DAILY 03/20/25 04/01/25 Unknown History (Fiber Gummies) potassium chloride 20 mEq oral 40 meq PO DAILY 03/20/25 04/01/25 Unknown History packet sertraline 100 mg tablet 200 mg PO DAILY 03/20/25 04/01/25 Unknown History vitamin B complex 1 cap PO DAILY 03/20/25 04/01/25 Unknown History Allergies Allergy/AdvReac Type Severity Reaction Status Date / Time bupropion AdvReac Mild Unknown Verified 04/01/25 10:08 Review of Systems 2 Review of Systems: As reviewed above in [facility] Past Medical History Medical History Basal cell carcinoma (BCC) Lesion of tongue Depression with anxiety Hypothyroidism Skin cancer Pleural plaque Emphysema of lung Chronic obstructive pulmonary disease Hyperlipidemia Hypertension Surgical History Surgical History History of tonsillectomy History of spinal surgery Social History Social History Social History: Surrogate medical decision maker: Alicia Ott, spouse. Code status: Do not resuscitate. Smoking packs per day: 1 Smoking cigarettes per day: 20.0 Years smoked: 60 Smoking pack-years: 60.00 Smoking status: Heavy tobacco smoker Tobacco type: cigarettes Alcohol intake: former Substance use: never Substance use type: does not use Do You Feel Safe in your Home?: Yes Lack of Transportation: No Lack of Food: Never True Current Housing: I Have Housing Concerned About Future Housing: No Difficulty Paying Gas/Electric Bills: No Difficulty Paying for Meds: No Currently Unemployed: No Education: Decline to Answer Difficulty w/ Childcare or Family Care: No Spiritual care concerns: No Exam 2 Narrative: GENERAL: Ill-appearing, answering all questions appropriately, tachypneic HEAD: [Normocephalic, atraumatic.] EYES: [PERRLA and EOMI.] ENT: Nares clear, no rhinorrhea or epistaxis. Mucous membranes moist. NECK: Supple. CHEST: Coarse bibasilar breath sounds, tachypneic, no accessory muscle use, coughing frequently throughout the examination, wet sounding but nonproductive HEART: [Regular rate and rhythm]. No murmur heard. [Normal peripheral pulses.] ABDOMEN: [Soft, nondistended], [nontender], [No rigidity or guarding] EXTREMITIES: Normal range of motion. [No edema.] SKIN: Warm, dry, no rash. NEURO: [No focal deficits]. Alert and oriented [x3.] PSYCH: [Normal mood and affect.] Course Vital Signs Vital signs: Vital Signs Pulse Rate 62 04/09/25 18:30 Respiratory Rate 25 H 04/09/25 18:30 Blood Pressure 139/75 04/09/25 18:30 Pulse Oximetry 87 L 04/09/25 18:30 Oxygen Delivery Room Air 04/09/25 18:30 Pulse Rate 59 L 04/09/25 20:19 Respiratory Rate 25 H 04/09/25 20:19 Blood Pressure 132/71 04/09/25 20:19 Pulse Oximetry 95 04/09/25 20:19 Oxygen Delivery Nasal Cannula 04/09/25 19:09 Oxygen Flow Rate 2 04/09/25 19:09 MDM - SOB/Dyspnea MDM Narrative Medical decision making narrative: 80-year-old male presenting to the emergency department for difficulty breathing, hypoxia and nonproductive cough. Patient found to be 87% on room air requiring 2 L nasal cannula. Patient was evaluated for oxygen during his admission for hypoxia through weeks ago and was not discharged on any oxygen after he was doing well without any supplementation. Sees a aviation technical systems specialist for sleep apnea but not for COPD. Not any inhalers. Recently started nasal steroids for chronic sinusitis with ENT. Patient is ill-appearing, has a nonproductive cough and has coarse bibasilar breath sounds suspicious for potential pneumonia versus pneumonitis versus bronchitis. Low suspicion pneumothorax or thromboembolic disease as he just had a CT angiography of his chest recently without any findings aside from emphysema. Patient given DuoNeb treatment and placed on oxygen. Laboratory studies drawn including VBG, CBC, CMP, BNP, troponin. EKG and chest x-ray obtained. Patient placed on pulse oximetry and re-evaluated frequently. Patient's workup reveals no leukocytosis or anemia worse than baseline. Normal platelet count. Blood gas shows a normal pH, pCO2 49, normal bicarb. Electrolytes are largely unremarkable. He has a mildly elevated creatinine from baseline likely dehydration. Normal LFTs. Normal troponin, negative BNP. Chest x-ray shows no acute cardiopulmonary pathology. EKG shows sinus rhythm, no ST segment elevations, depressions. Patient is currently on 2 L nasal cannula and saturating 95%. I discussed the case with the hospitalist for admission to get oxygen evaluation and further workup as warranted. Patient was accepted to the hospital for observation under a med surge bed. Medical Records Attestation: I reviewed the patient's medical records. Lab Data Attestation: I reviewed the patient's lab results. 04/09/25 18:37 04/09/25 18:37 Labs: Lab Results 04/09/25 04/09/25 Range/Units 18:37 18:58 WBC 5.3 (4.5-10.0) K/mm3 RBC 3.93 L (4.6-6.20) M/mm3 Hgb 11.5 L (14.0-18.0) g/dL Hct 34.9 L (42.0-52.0) % MCV 88.8 (80-100) fl MCH 29.3 (26-34) pg MCHC 33.0 (32-36) g/dl RDW 14.4 (11.5-14.5) % Plt Count 197 (150-375) k/mm3 MPV 8.5 (7.4-10.4) fl Immature Gran % (Auto) 0.4 (0-0.5) % Neut % (Auto) 67.3 (45.5-73.1) % Lymph % (Auto) 19.4 (18.3-44.2) % [place] % (Auto) 7.4 (2.6-8.5) % Eos % (Auto) 4.2 (0-4.4) % Baso % (Auto) 1.3 H (0.2-1.2) % Lymph # (Auto) 1.03 (0.9-3.2) K/mm3 [place] # (Auto) 0.4 (0.1-0.6) K/mm3 Eos # (Auto) 0.2 (0-0.3) K/mm3 Baso # (Auto) 0.1 (0.0-0.1) K/mm3 Abs Immat Gran (auto) 0.02 (0.00-0.031) K/mm3 Absolute Neuts (auto) 3.6 (1.3-6.7) K/mm3 Absolute Nucleated RBC 0.000 (0.0-0.012) K/mm3 Nucleated RBC % 0.0 (0.0-0.2) % Sodium 138 (137-145) mmol/L Potassium 4.3 (3.4-5.0) mmol/L Chloride 105 (98-107) mmol/L Carbon Dioxide 24 (22-30) mmol/L Anion Gap 9 (4-12) mmol/L BUN 24 H (9-20) mg/dL Creatinine 1.35 H (0.7-1.3) mg/dL Estim Creat Clear Calc 33 ml/min Estimated GFR 51 L (59 - ) Glucose 105 (65-110) mg/dL Calcium 8.9 (8.4-10.2) mg/dL Total Bilirubin 0.7 (0.2-1.3) mg/dL AST 28 (17-59) U/L ALT 17 (6-50) U/L Alkaline Phosphatase 88 (38-126) U/L Troponin I < 0.012 (0.000-0.034) ng/mL NT-Pro-B Natriuret Pep 298 H (19.9-100) pg/mL Total Protein 6.7 (6.3-8.2) g/dL Albumin 3.6 (3.5-5.1) g/dL ABG Data ABG results: 04/09/25 19:06 VBG pH 7.341 VBG pCO2 49.2 H VBG pO2 33.8 L VBG HCO3 26.0 O2 Delivery Device Nasal cannula O2 Liters/Min 3.0 FiO2 32 Attestation: I personally reviewed and interpreted this ABG as follows: Interpretation: Normal pH, slightly elevated pCO2 likely chronic Imaging Data Attestation: I personally reviewed and interpreted this imaging study as follows: My impression: Impressions Chest X-Ray 04/09/25 19:03 IMPRESSION: No acute cardiopulmonary pathology. Discharge Plan Discharge Clinical Impression: Hypoxemia requiring supplemental oxygen, Shortness of breath, COPD (chronic obstructive pulmonary disease) Patient Disposition: Still a Patient Condition: Stable Patient Language: Slovak Prescriptions: No Action zolpidem 10 mg tablet 10 mg PO .hs levothyroxine [Unithroid] 200 mcg tablet 200 mcg PO DAILY carvedilol 6.25 mg tablet 6.25 mg PO Q12H amlodipine 10 mg tablet 10 mg PO DAILY hydralazine 50 mg tablet 50 mg PO TID atorvastatin 40 mg tablet 40 mg PO DAILY fluticasone propionate [Flonase Allergy Relief] 50 mcg/actuation spray,suspension 2 spray intranasal BID Qty: 16 3RF Rx Instructions: administer into each nostril. Aim back/up/out dicyclomine 20 mg tablet 20 mg PO QID PRN (Reason: abdominal pain) Qty: 20 0RF sertraline 100 mg tablet 200 mg PO DAILY potassium chloride 20 mEq packet 40 meq PO DAILY Fiber Gummies 1.7 gram tablet,chewable 6 g PO DAILY vitamin B complex Capsule 1 cap PO DAILY Align (B.infantis) 10.5 mg (10 million cell) tablet,chewable 10.5 mg PO DAILY hydrocodone-acetaminophen 5-325 mg Tablet 1 tablet PO Q4H PRN (Reason: Pain Rated 4-6) Qty: 20 0RF Follow-up/Referrals: Trudy,Indra Botello MD [Primary Care Provider] - Time of Disposition: 20:43
[2025-04-09] MEDS: IPRATROPIUM 0.5 MG/ALBUTEROL SULFATE 2.5 MG AMPUL.NEB 3 ML INHALATION (19:09)
[2025-04-09 19:11] LABS: Device NASAL CANNULA; Fractional Inspired Oxygen 32 %; PCO2 VBG 49.2 mmHg (42.0-48.0); PO2 VBG 33.8 mmHg (35.0-45.0); pH VBG 7.341 (7.300-7.400)
[2025-04-09] MEDS: LACTATED RINGERS 1,000 ML 999 ML IV CONT (19:17)
[2025-04-09 19:30] LABS: NT Pro B Type Natriuretic Pept 298 pg/mL (19.9-100); Troponin I < 0.012 ng/mL (0.000-0.034)
--- NOTE | 2025-04-09 21:00 | P.HP_ITS ---
H&P: HPI History of Present Illness Date/Time: 04/09/25 21:00 Chief Complaint: Weakness and shortness of breath. Narrative: This is a pleasant 80-year-old male with smoker with chronic obstructive pulmonary disease, hypertension, hyperlipidemia, and hypothyroidism who presented to the emergency department via private vehicle from home with complaints of weakness and shortness of breath. He is known to myself and the hospitalist service from an admission last month with hypoxia and a pretty unrevealing workup. Oxygen was weaned to room air and while he did not have a formal home oxygen evaluation study, he was ambulating with the nurses with stable SpO2 in the mid 90s and was discharged home. He has been doing pretty well at home although admits that he does get short of breath sometimes with exertion. Today he began to feel very weak with generalized malaise and increasing shortness of breath from baseline and he came in for evaluation. He endorses a cough productive of thick white/clear phlegm which is worse when lying on his left side. He does not have inhalers or nebulizers at home. He was recently treated with sinusitis and intranasal steroid and those symptoms seem to have improved significantly. He denies fever, sore throat, chest pain, pleuritic pain, palpitations, orthopnea, paroxysmal nocturnal dyspnea, nausea, vomiting, dysphagia, concerns for aspiration, diarrhea, lower extremity edema, and calf pain. He denies sick contacts. No history of coronary disease. In the ED: He was afebrile on arrival with a blood pressure 139/75 an SpO2 of 87% on room air with a respiratory rate of 25. Pertinent labs include a BUN of 24, creatinine 1.35, proBNP 298, less than 0.012. He tested negative for influenza, RSV, and COVID. Chest x-ray showed no acute cardiopulmonary pathology. EKG showed sinus rhythm with occasional supraventricular premature complexes, age-indeterminate anterior infarct, and borderline ST T-wave abnormalities in anterior/high lateral leads. He received a DuoNeb and is being admitted in this setting with hypoxia and the current oxygen requirement of 2 L. Review of Systems Review of Systems: 12 systems were reviewed and are negativ e except for as per HPI. [facility] Past Medical History Medical History (Updated 04/10/25 @ 00:20 by Kailey Patel PA-C) Tongue ulcer Basal cell carcinoma (BCC) Depression with anxiety Hypothyroidism Skin cancer Pleural plaque Emphysema of lung Chronic obstructive pulmonary disease Hyperlipidemia Hypertension Surgical History Surgical History History of tonsillectomy History of spinal surgery Social History Social History Social History: Surrogate medical decision maker: Alicia Ott, spouse. Code status: Do not resuscitate. Smoking packs per day: 1 Smoking cigarettes per day: 20.0 Years smoked: 60 Smoking pack-years: 60.00 Smoking status: Heavy tobacco smoker Alcohol intake: former Substance use: never Substance use type: does not use Do You Feel Safe in your Home?: Yes Lack of Transportation: No Lack of Food: Never True Current Housing: I Have Housing Concerned About Future Housing: No Difficulty Paying Gas/Electric Bills: No Difficulty Paying for Meds: No Currently Unemployed: No Education: Decline to Answer Difficulty w/ Childcare or Family Care: No Spiritual care concerns: No Meds Home Medications and Allergies Home Medications ?Medication ?Instructions ?Recorded ?Confirmed ?Type dicyclomine 20 mg tablet 20 mg PO QID PRN abdominal pain 12/01/24 04/09/25 Rx #20 tabs amlodipine 10 mg tablet 10 mg PO DAILY 03/18/25 04/09/25 History atorvastatin 40 mg tablet 40 mg PO DAILY 03/18/25 04/09/25 History carvedilol 6.25 mg tablet 6.25 mg PO Q12H 03/18/25 04/09/25 History hydralazine 50 mg tablet 50 mg PO TID 03/18/25 04/09/25 History levothyroxine 200 mcg tablet 200 mcg PO DAILY 03/18/25 04/09/25 History (Unithroid) zolpidem 10 mg tablet 10 mg PO .hs 03/18/25 04/09/25 History Bifidobacterium infantis 10.5 mg 10.5 mg PO DAILY 03/20/25 04/09/25 History (10 million cell) chewable tablet (Align (B.infantis)) inulin 1.7 gram chewable tablet 6 g PO DAILY 03/20/25 04/09/25 History (Fiber Gummies) potassium chloride 20 mEq oral 40 meq PO DAILY 03/20/25 04/09/25 History packet sertraline 100 mg tablet 200 mg PO DAILY 03/20/25 04/09/25 History vitamin B complex 1 cap PO DAILY 03/20/25 04/09/25 History fluticasone propionate 50 2 spray intranasal BID #16 mL 04/01/25 04/09/25 Rx mcg/actuation nasal spray,suspension (Flonase Allergy Relief) Allergies Allergy/AdvReac Type Severity Reaction Status Date / Time bupropion AdvReac Mild Unknown Verified 04/01/25 10:08 Vital Signs Vital Signs - 24 hr 04/09/25 18:30 04/09/25 18:39 04/09/25 19:09 Pulse Rate 62 Respiratory Rate 25 H Blood Pressure 139/75 Pulse Oximetry 87 L 96 95 Oxygen Delivery Room Air Nasal Cannula Nasal Cannula Oxygen Flow Rate 2 2 04/09/25 19:11 04/09/25 19:28 04/09/25 20:19 Pulse Rate 61 63 59 L Respiratory Rate 16 20 25 H Blood Pressure 132/71 Pulse Oximetry 95 Oxygen Delivery Oxygen Flow Rate Exam Narrative: General: Nontoxic-appearing elderly gentleman lying on his left side in bed in no distress. Weight: 66.7 kg. BMI: 25.2. HEENT: PERRL, EOMI. Sclera anicteric. Tacky mucous membranes. Neck: Supple. No JVD. Respiratory: Respirations are nonlabored and he is speaking in full sentences. Currently on 2 L nasal cannula. Scattered rhonchi which improved with cough. Rare expiratory wheezes. Cardiovascular: Regular rate and rhythm with S1-S2. Gastrointestinal: Abdomen is soft, nontender, and nondistended with positive bowel sounds. Skin: Warm and dry. Extremities: No cyanosis, clubbing, or edema. Radial and pedal pulses intact. No palpable knots or cords. Neurological: Alert. Cranial nerves 2-12 are grossly intact. No gross focal deficits to casual conversation. Psychiatric: Pleasant and cooperative with normal mood and affect. H&P: Results Labs Labs: Short CBC 04/09/25 Range/Units 18:37 WBC 5.3 (4.5-10.0) K/mm3 Hgb 11.5 L (14.0-18.0) g/dL Hct 34.9 L (42.0-52.0) % Plt Count 197 (150-375) k/mm3 BMP 04/09/25 18:37 Sodium 138 Potassium 4.3 Chloride 105 Carbon Dioxide 24 BUN 24 H Creatinine 1.35 H Glucose 105 Calcium 8.9 Cardiac Enzymes 04/09/25 Range/Units 18:58 Troponin I < 0.012 (0.000-0.034) ng/mL Liver Function 04/09/25 Range/Units 18:37 Total Bilirubin 0.7 (0.2-1.3) mg/dL AST 28 (17-59) U/L ALT 17 (6-50) U/L Alkaline Phosphatase 88 (38-126) U/L Albumin 3.6 (3.5-5.1) g/dL Imaging Chest X-Ray 04/09/25 19:03 IMPRESSION: No acute cardiopulmonary pathology. Assessment and Plan Assessment and plan (1) Hypoxia: Code(s): R09.02 - Hypoxemia Status: Acute (2) Abnormal EKG: Code(s): R94.31 - Abnormal electrocardiogram [ECG] [EKG] Status: Acute (3) Chronic obstructive pulmonary disease: Code(s): J44.9 - Chronic obstructive pulmonary disease, unspecified Status: Acute (4) Emphysema of lung: Code(s): J43.9 - Emphysema, unspecified Status: Acute (5) Hypertension: Code(s): I10 - Essential (primary) hypertension Status: Acute (6) Hypothyroidism: Code(s): E03.9 - Hypothyroidism, unspecified Status: Acute Plan The patient presented to the emergency department with complaints of weakness and shortness of breath which began today as detailed in HPI. Labs, imaging, EKG, and all reports were personally reviewed. SpO2 was 87% on room air on arrival to the ED and he is currently on 2 L. He will need a home oxygen evaluation prior to discharge. He has been started on scheduled bronchodilators as DuoNebs did help in the ED. No indication for steroids or antibiotics at this time. EKG showed borderline ST T-wave abnormalities in possible age indeterminate anterior infarct. While he has not had any chest pain, he does r eport weakness and shortness of breath thus the will be monitored on telemetry and an echocardiogram has been ordered. Blood pressures were reviewed and they are stable. Continue levothyroxine and check TSH. He needs to quit smoking. His home medications will be reviewed and resumed as appropriate. Findings and treatment plan were discussed with the patient. Questions were solicited and answered to satisfaction. The patient's medical management will be taken over by the hospitalist team in a.m. Quality VTE Prophylaxis VTE prophylaxis: pharmacologic ordered The patient has been admitted under observation status. Hospitalist MIPS Advance Care Plan I have confirmed that the patient's Advanced Care Plan is present, code status is documented, or surrogate decision maker is listed in patient medical record.: Yes Medication Reconciliation I have utilized all available resources to obtain, update and review the patients current medications (includes all prescriptions, OTC, herbals, cannabis, and nutritional supplements).: Yes
--- NOTE | 2025-04-09 22:12 | ADMGEN ---
This patient, Pepito Ott, was admitted to 2 Medical Room 256-. Patient/family oriented to hospital policies and general routines including ID bracelet, bed and alarms, visiting hours, pain management, procedures, bathroom and other care routines, personal items, smoking policy, room service/diet, and visiting hours. Information on how to activate the Rapid Response Team has been discussed. Patient/Family are encouraged to report perceived risks to care and to ask questions if they do not understand what they are told or what they should do.
[2025-04-09 23:38] LABS: Influenza A QL RT-PCR Negative (Negative); Influenza B QL RT-PCR Negative (Negative); RSV RNA, RT-PCR Negative (Negative); SARS-CoV-2 RNA PCR Negative (Negative)
[2025-04-10] VITALS (19 sets, daily range): BP systolic 113–133; BP diastolic 55–64; PULSE 54–66; RESP 16–26; TEMP 36.4–36.7; O2SAT 87–98
--- NOTE | 2025-04-10 00:15 | ECHO_ITS ---
Patient Info Name: Pepito Ott Age: 80 years : 1945 Gender: Male Ht: 64 in Wt: 147 lbs BSA: 1.75 m2 HR: 58 bpm BP: 115 / 55 mmHg Technical Quality: Good Exam Date: 04/10/2025 1:49 PM Patient Status: I Admit Date: 04/10/2025 Exam Type: CA echo doppler color flow Complete two-dimensional, color flow and Doppler transthoracic echocardiogram is performed. Staff Referring Physician: Hoda Reddy Atmospheric Drier Tender: Di Soares Attending Provider: Hoda Reddy Summary 1. Complete two-dimensional, color flow and Doppler transthoracic echocardiogram is performed. 2. Left ventricular chamber dimension is normal. 3. Left ventricular systolic function is normal, estimated at 65-70. 4. The left ventricular diastolic function is grade I diastolic dysfunction. 5. There is trace mitral valve regurgitation. 6. There is trace tricuspid valve regurgitation. 7. There is trace pulmonic regurgitation. 8. There is small circumferential pericardial effusion. Left Ventricle Left ventricular chamber dimension is normal. Left ventricular systolic function is normal, estimated at 65-70. The left ventricular diastolic function is grade I diastolic dysfunction. E/e' 8 is minimally elevated. Right Ventricle Right ventricular chamber dimension is normal. Right ventricular systolic function is normal and with normal TAPSE 2.4 cm. Left Atria Left atrial chamber dimension is normal. Right Atria Right atrial chamber dimension is normal. Aortic Valve The aortic valve is trileaflet. There is no aortic valve stenosis. There is no aortic valve regurgitation. Pulmonic Valve There is trace pulmonic regurgitation. Mitral Valve There is no mitral valve stenosis. There is trace mitral valve regurgitation. Tricuspid Valve There is trace tricuspid valve regurgitation. RVSP is not measured due to an inadequate TR jet. Pericardium/Pleural There is small circumferential pericardial effusion. No cardiac tamponade. Inferior Vena Cava Dilated inferior vena cava with >50% collapse upon inspiration consistent with elevated right atrial pressure, 10 mmHg. Aorta The aortic root size at the sinus of Valsalva is normal. Left Ventricular Outflow Tract Name Value Normal LVOT 2D LVOT Diameter 2.0 cm LVOT Doppler LVOT Peak Velocity 139 cm/s LVOT Peak Gradient 8 mmHg LVOT Mean Gradient 4 mmHg LVOT VTI 35 cm LVOT VTI/AV VTI Ratio 0.7 LVOT Stroke Volume 109 ml LVOT CO 6.4 l/min LVOT CI 3.6 l/min/m2 Pulmonic Valve Name Value Normal RVOT Doppler RVOT Peak Velocity 79 cm/s RVOT Peak Gradient 2 mmHg PV Doppler PV Peak Velocity 112 cm/s PV Peak Gradient 5 mmHg Mitral Valve Name Value Normal MV Diastolic Function MV E Peak Velocity 66 cm/s MV A Peak Velocity 89 cm/s MV E/A 0.7 MV Decel Time (PW) 242 ms MV Annular TDI MV E/e' (Septal) 7.6 MV E/e' (Lateral) 9.1 MV E/e' (Average) 8.4 Tricuspid Valve Name Value Normal Estimated PAP/RSVP RA Pressure 10 mmHg <=5 Aortic Valve Name Value Normal AV Doppler AV Peak Velocity 229 cm/s AV Peak Gradient 21 mmHg AV Mean Gradient 10 mmHg AV VTI 48 cm AV Area (Cont Eq VTI) 2.3 cm2 >=3.0 AV Area (Cont Eq Vinicius) 1.9 cm2 AV DI (Vinicius) 0.61 AV Regurgitation 2D LVOT Area 3.2 cm2 Ventricles Name Value Normal LV Dimensions 2D/MM IVS Diastolic Thickness (2D) 0.8 cm 0.6-1.0 LVID Diastole (2D) 5.6 cm 4.2-5.8 LVIW Diastolic Thickness (2D) 1.0 cm 0.6-1.0 LVID Systole (2D) 3.2 cm 2.5-4.0 LVOT Diameter 2.0 cm LV Mass (2D Cubed) 188.55 g 88.00-224.00 LV Mass Index (2D Cubed) 108 g/m2 49-115 Relative Wall Thickness (2D) 0.37 <=0.42 LV Fractional Shortening/Ejection Fraction 2D/MM LV Fractional Shortening (2D) 43 % 25-43 LV EF (2D Teichholz) 73 % LV Diastolic Volume (4C MOD) 86 ml LV EF (4C MOD) 60 % LV Diastolic Volume (2C MOD) 118 ml LV EF (2C MOD) 63 % LV Diastolic Volume (BP MOD) 102 ml 62-150 LV Diastolic Volume Index (BP MOD) 58 ml/m2 34-74 LV Systolic Volume (BP MOD) 40 ml 21-61 LV Systolic Volume Index (BP MOD) 23 ml/m2 11-31 LV EF (BP MOD) 60 % 52-72 LV Diastolic Length (4C) 8.5 cm LV Systolic Length (4C) 7.2 cm LV Stroke Volume (4C MOD) 51 ml Atria Name Value Normal LA Dimensions LA Volume (4C A-L) 36 ml LA Volume (BP A-L) 41 ml RA Dimensions RA Systolic Major Garfield Length (4C) 6.5 cm 2.1-2.7 RA Area (4C) 21.4 cm2 <=18.0 Report Signatures
--- NOTE | 2025-04-10 00:18 | ECG_ITS ---
Test Date: 2025-04-10 09:38:23 Measurements Intervals [place] Rate: 64 P: 31 KS: 165 QRS: 75 QRSD: 90 T: 73 QT: 397 QTc: 410 Interpretive Statements SINUS RHYTHM CONSIDER ANTERIOR INFARCT, AGE INDETERMINATE BORDERLINE T WAVE ABNORMALITY- HIGH LATERAL LEADS ABNORMAL ECG Compared to ECG 04/09/2025 19:18:35 NO SIGNIFICANT CHANGE Electronically Signed On 04-10-2025 09:45:09 CDT by Severino Gamez D.O.
[2025-04-10] MEDS: ZOLPIDEM TARTRATE (*CRX) 5 MG TABLET 10 MG PO ×2 (00:26→20:33)
[2025-04-10 01:07] LABS: Troponin I < 0.012 ng/mL (0.000-0.034)
[2025-04-10 01:57] LABS: Thyroid Stimulating Hormone Reflex 0.067 uIU/mL (0.465-4.68)
[2025-04-10] MEDS: IPRATROPIUM 0.5 MG/ALBUTEROL SULFATE 2.5 MG AMPUL.NEB 3 ML INHALATION ×3 (02:28→21:11)
[2025-04-10] MEDS: LEVOTHYROXINE SODIUM 100 MCG TABLET 200 MCG PO (06:07)
[2025-04-10 06:28] LABS: Anion Gap 5 mmol/L (4-12); Blood Urea Nitrogen 19 mg/dL (9-20); Calcium 8.5 mg/dL (8.4-10.2); Carbon Dioxide 25 mmol/L (22-30); Chloride 106 mmol/L (98-107); Cholesterol 61 mg/dL (0-200); Estimated CRCL calculation 43 ml/min; Estimated Glomerular Filt Rate > 60; Glucose 88 mg/dL (65-110); HDL Direct 20 mg/dL; Magnesium 1.8 mg/dL (1.6-2.3); Potassium 4.1 mmol/L (3.4-5.0); Sodium 136 mmol/L (137-145); Triglycerides 108 mg/dL (<150)
[2025-04-10] MEDS: ACETAMINOPHEN 325 MG TABLET 650 MG PO ×3 (06:58→18:35)
[2025-04-10 07:31] LABS: LDL Cholesterol Direct < 30 mg/dL
--- NOTE | 2025-04-10 07:44 | PM.IMPN ---
Progress Note: A&P Assessment and Plan (1) Hypoxia: Code(s): R09.02 - Hypoxemia Status: Acute Assessment and Plan: SpO2 of 87% on room air with a respiratory rate of 25 in the ED. Placed on 2L NC. - Oxygen supplementation: 2L NC (baseline room air), wean as tolerated to maintain spo2 >90 - EKG showed borderline ST T-wave abnormalities with possible age indeterminate anterior infarct. No EKG to compare. Denies any chest pain, he does report weakness and shortness of breath. Possible cardiac etiology. - Given d dimer elevation, sedentary lifestyle (per primarily using wheelchair lately), and not anticoagulated will obtain CTA CTA showed no PE - Viral panel negative - Chest XR: Unremarkable - Possible worsening COPD, however no wheezing noted - Will need home o2 prior to dc (2) Abnormal EKG: Code(s): R94.31 - Abnormal electrocardiogram [ECG] [EKG] Status: Acute Assessment and Plan: - EKG showed borderline ST T-wave abnormalities with possible age indeterminate anterior infarct. No EKG to compare. Denies any chest pain, he does report weakness and shortness of breath - Troponin negative, BNP only slightly elevated at 298 (chest xr nonconcerning for possible CHF exacerbation) - monitored on telemetry - echocardiogram showed LVEF 65-70% with grade I diastolic dysfunction, trace mitral/tricuspid/pulmonic regurgitation, and a small circumferential pericardial effusion - Monitor vital signs, I&Os, chest pain, shortness of breath and patient is a fall risk - Monitor serum electrolytes, and cbc - Keep serum potassium >4 and keep magnesium >2 (3) Chronic obstructive pulmonary disease: Code(s): J44.9 - Chronic obstructive pulmonary disease, unspecified Status: Acute Assessment and Plan: - Started on scheduled bronchodilators as Marita did help in the ED. No indication for steroids or antibiotics at this time. - Chest XR unremarkable - CHest CTA showed emphysematous changes - Monitor vital signs, I&Os, neuro status and patient is a fall risk - Monitor serum electrolytes, cultures and CBC - Monitor Oxygen saturation, Oxygen via NC; wean oxygen as tolerated, keep SpO2 greater than 90% (4) Hypertension: Code(s): I10 - Essential (primary) hypertension Status: Acute Assessment and Plan: Chronic, continue home medications - amlodipine 10 mg daily - carvedilol 6.25 mg BID - hydralazine 50 mg TID - blood pressures well controlled, continue to monitor (5) Hypothyroidism: Code(s): E03.9 - Hypothyroidism, unspecified Status: Acute Assessment and Plan: Chronic, continue synthroid 200 mcg daily - TSH 0.67 - T4 pending (6) AMBER (obstructive sleep apnea): Code(s): G47.33 - Obstructive sleep apnea (adult) (pediatric) Status: Acute Assessment and Plan: Continue home CPAP Time Spent With Patient Time with patient: 25 - 35 minutes Subjective Date/time seen: 04/10/25 07:44 Interval history: 80-year-old male with smoker with chronic obstructive pulmonary disease, hypertension, hyperlipidemia, and hypothyroidism who presented to the hospital via private vehicle from home with complaints of weakness and shortness of breath. Patient is pleasant lying in bed. He endorses increased restless legs syndrome. He notes that this has worsened since being placed on ropinirole and has since stopped taking his medication. On medication review noted that patient was started on ropinirole on admission, the since been discontinued given family concern. Patient has no complaints at this time denying chest pain, shortness a breath, palpitations, nausea/vomiting, abdominal pain. Per patient is primarily sedentary and has been using his wheelchair often. Review of Systems Review of Systems: All systems reviewed & are unremarkable except as noted in HPI and below Exam Narrative: AF HR 65 RR 18 SPO2 97 2L NC (baseline RA) BP 113/56 General: male in no acute respiratory distress who is nontoxic appearing, lying semi recumbent in bed. HEENT: Normocephalic. Atraumatic. Extraocular movement intact. Sclera clear and anicteric. No facial asymmetry. Chest: Lungs are diminished to auscultation bilaterally. No wheezes or crackles. CV: Heart was regular rate and rhythm. S1/S2. No murmurs, gallops, or rubs. Abd: Abdomen was soft. Nontender. Nondistended. Positive bowel sounds. No organomegaly or masses. Ext: No clubbing, cyanosis, or edema. DP pulses bilaterally. Neuro: Patient is alert and oriented x4. Speech is clear. Restless legs. Objective Data Vital Signs Vital Signs: Vital Signs - 24 hr 04/09/25 18:30 04/09/25 18:39 04/09/25 19:09 Temperature Pulse Rate 62 Respiratory Rate 25 H Blood Pressure 139/75 Pulse Oximetry 87 L 96 95 Oxygen Delivery Room Air Nasal Cannula Nasal Cannula Oxygen Flow Rate 2 2 04/09/25 19:11 04/09/25 19:28 04/09/25 20:19 Temperature Pulse Rate 61 63 59 L Respiratory Rate 16 20 25 H Blood Pressure 132/71 Pulse Oximetry 95 Oxygen Delivery Oxygen Flow Rate 04/09/25 22:39 04/09/25 23:15 04/10/25 02:28 Temperature 97.6 F Pulse Rate 59 L 64 Respiratory Rate 20 18 Blood Pressure 122/79 Pulse Oximetry 96 96 Oxygen Delivery Nasal Cannula Oxygen Flow Rate 2 04/10/25 02:48 04/10/25 02:51 04/10/25 04:00 Temperature Pulse Rate 64 66 58 L Respiratory Rate 18 Blood Pressure Pulse Oximetry 87 L Oxygen Delivery Nasal Cannula Oxygen Flow Rate 1 04/10/25 04:48 Temperature 97.6 F Pulse Rate 60 Respiratory Rate 18 Blood Pressure 115/55 L Pulse Oximetry 96 Oxygen Delivery Oxygen Flow Rate Intake/Output Intake/Output: Intake & Output 04/07/25 04/08/25 04/09/25 04/10/25 23:59 23:59 23:59 23:59 Intake Total 1000 660 Output Total 1100 Balance 1000 -440 Meds/Results Medications: Active Medications Generic Name Dose Route Start Last Admin Trade Name Freq PRN Reason Stop Dose Admin Acetaminophen 650 mg 04/10/25 06:34 04/10/25 06:58 Acetaminophen 325 Mg Tablet PO 650 mg Q6H PRN Administration Mild Pain (1-3) or Fever Albuterol/Ipratropium 3 ml 04/10/25 02:00 04/10/25 02:28 Ipratropium 0.5 Mg/Albuterol Sulfate 2.5 Mg Ampul.Neb 3 Ml INHALATION 3 ml Q6HRT [facility] Administration Amlodipine Besylate 10 mg 04/10/25 09:00 Amlodipine Besylate 10 Mg Tablet PO DAILY [facility] Atorvastatin Calcium 40 mg 04/10/25 09:00 Atorvastatin 40 Mg Tablet PO DAILY [facility] Carvedilol 6.25 mg 04/10/25 09:00 Carvedilol 6.25 Mg Tablet PO Q12HR [facility] Enoxaparin Sodium 40 mg 04/10/25 09:00 Enoxaparin 40 Mg/0.4 Ml Syringe SUB-Q DAILY [facility] Fluticasone Propionate 2 spray 04/10/25 09:00 Fluticasone Propionate 0.05% Na Spr 16 Gm Btl (*Bkc) NASAL DAILY [facility] Guaifenesin 1,200 mg 04/10/25 09:00 Guaifenesin 12 Hr 600 Mg Tabcr PO Q12HR [facility] Hydralazine HCl 50 mg 04/10/25 08:00 Hydralazine Hcl 50 Mg Tablet PO TIDWM [facility] Lactobacillus Acidophilus 2 tablet 04/10/25 09:00 Acidophilus/Bulgaricus Chewable Tablet BY MOUTH DAILY [facility] Levothyroxine Sodium 200 mcg 04/10/25 06:30 04/10/25 06:07 Levothyroxine Sodium 100 Mcg Tablet PO 200 mcg DAILY@0630 [facility] Administration Perflutren Lipid Microsphere 0 ml 04/10/25 00:15 Perflutren Lipid Microspheres 1.5 Ml Vial Diluted To 10 Ml Total Volume IV PUSH 04/13/25 00:15 ONCE PRN adequate visualization Protocol Potassium Chloride 40 meq 04/10/25 08:00 Potassium Chloride 20 Meq Packet (For Liquid) PO DAILY@0800 [facility] Sertraline HCl 200 mg 04/10/25 09:00 Sertraline Hcl 50 Mg Tablet PO DAILY [facility] Vitamin B Complex 1 cap 04/10/25 09:00 Vitamin B Complex Capsule PO DAILY [facility] Zolpidem Tartrate 10 mg 04/10/25 00:00 04/10/25 00:26 Zolpidem Tartrate (*Crx) 5 Mg Tablet PO 10 mg HS [facility]AHIRA Administration Radiology Results: ITS Impressions Chest X-Ray 04/09/25 19:03 IMPRESSION: No acute cardiopulmonary pathology. Labs Labs: Laboratory Results - last 24 hr 04/09/25 04/09/25 04/09/25 18:37 18:58 19:06 WBC 5.3 RBC 3.93 L Hgb 11.5 L Hct 34.9 L MCV 88.8 MCH 29.3 MCHC 33.0 RDW 14.4 Plt Count 197 MPV 8.5 Immature Gran % (Auto) 0.4 Neut % (Auto) 67.3 Lymph % (Auto) 19.4 [place] % (Auto) 7.4 Eos % (Auto) 4.2 Baso % (Auto) 1.3 H Lymph # (Auto) 1.03 [place] # (Auto) 0.4 Eos # (Auto) 0.2 Baso # (Auto) 0.1 Abs Immat Gran (auto) 0.02 Absolute Neuts (auto) 3.6 Absolute Nucleated RBC 0.000 Nucleated RBC % 0.0 VBG pH 7.341 VBG pCO2 49.2 H VBG pO2 33.8 L VBG HCO3 26.0 O2 Delivery Device Nasal cannula O2 Liters/Min 3.0 FiO2 32 Sodium 138 Potassium 4.3 Chloride 105 Carbon Dioxide 24 Anion Gap 9 BUN 24 H Creatinine 1.35 H Estim Creat Clear Calc 33 Estimated GFR 51 L Glucose 105 Calcium 8.9 Magnesium Total Bilirubin 0.7 AST 28 ALT 17 Alkaline Phosphatase 88 Troponin I < 0.012 NT-Pro-B Natriuret Pep 298 H Total Protein 6.7 Albumin 3.6 Triglycerides Cholesterol LDL Cholesterol Direct HDL Direct TSH (Reflex) Influenza A (RT-PCR) Influenza B (RT-PCR) RSV (RT-PCR) SARS-CoV-2 RNA (RT-PCR) 04/09/25 04/10/25 04/10/25 22:53 00:34 05:25 WBC RBC Hgb Hct MCV MCH MCHC RDW Plt Count MPV Immature Gran % (Auto) Neut % (Auto) Lymph % (Auto) [place] % (Auto) Eos % (Auto) Baso % (Auto) Lymph # (Auto) [place] # (Auto) Eos # (Auto) Baso # (Auto) Abs Immat Gran (auto) Absolute Neuts (auto) Absolute Nucleated RBC Nucleated RBC % VBG pH VBG pCO2 VBG pO2 VBG HCO3 O2 Delivery Device O2 Liters/Min FiO2 Sodium 136 L Potassium 4.1 Chloride 106 Carbon Dioxide 25 Anion Gap 5 BUN 19 Creatinine 1.02 Estim Creat Clear Calc 43 Estimated GFR > 60 Glucose 88 Calcium 8.5 Magnesium 1.8 Total Bilirubin AST ALT Alkaline Phosphatase Troponin I < 0.012 NT-Pro-B Natriuret Pep Total Protein Albumin Triglycerides 108 Cholesterol 61 LDL Cholesterol Direct < 30 HDL Direct 20 TSH (Reflex) 0.067 L Influenza A (RT-PCR) Negative Influenza B (RT-PCR) Negative RSV (RT-PCR) Negative SARS-CoV-2 RNA (RT-PCR) Negative Quality VTE Prophylaxis VTE prophylaxis: mechanical ordered
[2025-04-10] MEDS: hydrALAZINE HCL 50 MG TABLET PO ×3 (09:06→17:28)
[2025-04-10] MEDS: ACIDOPHILUS/BULGARICUS CHEWABLE TABLET 2 TABLET BY MOUTH (09:06)
[2025-04-10] MEDS: VITAMIN B COMPLEX CAPSULE 1 CAP PO (09:06)
[2025-04-10] MEDS: ATORVASTATIN 40 MG TABLET PO (09:06)
[2025-04-10] MEDS: SERTRALINE HCL 50 MG TABLET 200 MG PO (09:06)
[2025-04-10] MEDS: carvediloL 6.25 MG TABLET PO ×2 (09:07→20:32)
[2025-04-10] MEDS: guaiFENesin 12 HR 600 MG TABCR 1200 MG PO ×2 (09:07→20:33)
[2025-04-10] MEDS: amLODIPine BESYLATE 10 MG TABLET PO (09:07)
[2025-04-10] MEDS: POTASSIUM CHLORIDE 20 MEQ PACKET (FOR LIQUID) 40 MEQ PO (09:07)
[2025-04-10] MEDS: FLUTICASONE PROPIONATE 0.05% NA SPR 16 GM BTL (*BKC) 2 SPRAY NASAL (09:16)
[2025-04-10 10:22] LABS: Free T4 Free Thyroxine Reflex 2.11 ng/dL (0.78-2.19)
[2025-04-10 11:35] LABS: Total Triiodothyronine (T3) 2.39 NG/ML (0.82-1.58)
[2025-04-10 12:47] LABS: D Dimer 2.38 ug/mL (<0.48)
[2025-04-11] VITALS (15 sets, daily range): BP systolic 104–156; BP diastolic 56–67; PULSE 57–101; RESP 16–20; TEMP 36.4–36.7; O2SAT 93–97
[2025-04-11] MEDS: IPRATROPIUM 0.5 MG/ALBUTEROL SULFATE 2.5 MG AMPUL.NEB 3 ML INHALATION ×3 (02:30→13:13)
[2025-04-11] MEDS: LEVOTHYROXINE SODIUM 100 MCG TABLET 200 MCG PO (06:03)
[2025-04-11] MEDS: FLUTICASONE PROPIONATE 0.05% NA SPR 16 GM BTL (*BKC) 2 SPRAY NASAL (08:29)
[2025-04-11] MEDS: ATORVASTATIN 40 MG TABLET PO (08:30)
[2025-04-11] MEDS: SERTRALINE HCL 50 MG TABLET 200 MG PO (08:30)
[2025-04-11] MEDS: VITAMIN B COMPLEX CAPSULE 1 CAP PO (08:30)
[2025-04-11] MEDS: guaiFENesin 12 HR 600 MG TABCR 1200 MG PO (08:30)
[2025-04-11] MEDS: ACIDOPHILUS/BULGARICUS CHEWABLE TABLET 2 TABLET BY MOUTH (08:30)
[2025-04-11] MEDS: hydrALAZINE HCL 50 MG TABLET PO ×2 (08:30→12:31)
[2025-04-11] MEDS: POTASSIUM CHLORIDE 20 MEQ PACKET (FOR LIQUID) 40 MEQ PO (08:30)
[2025-04-11] MEDS: amLODIPine BESYLATE 10 MG TABLET PO (08:30)
[2025-04-11] MEDS: carvediloL 6.25 MG TABLET PO (08:31)
[2025-04-11 09:38] LABS: Hematocrit 34.4 % (42.0-52.0); Hemoglobin 11.4 g/dL (14.0-18.0); Mean Corpuscular HGB Conc 33.1 g/dl (32-36); Mean Corpuscular Volume 87.5 fl (80-100); Mean Platelet Volume 8.3 fl (7.4-10.4); Platelet Count Result 161 k/mm3 (150-375); Red Blood Count 3.93 M/mm3 (4.6-6.20); White Blood Count 4.5 K/mm3 (4.5-10.0)
[2025-04-11 09:50] LABS: Alanine Aminotransferase 18 U/L (6-50); Albumin Level 3.8 g/dL (3.5-5.1); Alkaline Phosphatase 69 U/L (38-126); Anion Gap 8 mmol/L (4-12); Aspartate Amino Transferase 29 U/L (17-59); Bilirubin,Total 0.9 mg/dL (0.2-1.3); Blood Urea Nitrogen 15 mg/dL (9-20); Calcium 9.1 mg/dL (8.4-10.2); Carbon Dioxide 27 mmol/L (22-30); Chloride 103 mmol/L (98-107); Estimated CRCL calculation 45 ml/min; Estimated Glomerular Filt Rate > 60; Glucose 102 mg/dL (65-110); Potassium 4.9 mmol/L (3.4-5.0); Sodium 138 mmol/L (137-145); Total Protein 7.2 g/dL (6.3-8.2)
[2025-04-11] MEDS: ENOXAPARIN 40 MG/0.4 ML SYRINGE SUB-Q (12:30)
--- NOTE | 2025-04-11 13:31 | PCRCNOTE ---
pt did very well walking the large loop in the [place]. Pt walked 400 feet and the lowest oxygen saturation was 93% on room air. Pt tolerated the walk and said he was not short of breath. pt does not qualify got home oxygen at this time.
--- NOTE | 2025-04-11 14:42 | P.DS_ITS ---
DS: Admitting Diagnosis Discharge Date 04/11/2025 Admitting Diagnosis hypoxia abnormal ekg copd htn hypothyroidism AMBER DS: Discharge Diagnosis Discharge Diagnosis (1) Hypoxia: Code(s): R09.02 - Hypoxemia Status: Acute (2) Abnormal EKG: Code(s): R94.31 - Abnormal electrocardiogram [ECG] [EKG] Status: Acute (3) Chronic obstructive pulmonary disease: Code(s): J44.9 - Chronic obstructive pulmonary disease, unspecified Status: Acute (4) Hypertension: Code(s): I10 - Essential (primary) hypertension Status: Acute (5) Hypothyroidism: Code(s): E03.9 - Hypothyroidism, unspecified Status: Acute (6) AMBER (obstructive sleep apnea): Code(s): G47.33 - Obstructive sleep apnea (adult) (pediatric) Status: Acute DS: Summary Hospital Course Reason for hospitalization: hypoxia abnormal ekg copd htn hypothyroidism AMBER Hospital Course: 80-year-old male with smoker with chronic obstructive pulmonary disease, hypertension, hyperlipidemia, and hypothyroidism who presented to the hospital via private vehicle from home with complaints of weakness and shortness of breath. On arrival to the ED patients SpO2 was 87% on room air with a respiratory rate of 25. Placed on 2L NC. Viral panel negative. Chest xr unremarkable. Given d dimer elevation, sedentary lifestyle (per primarily using wheelchair lately), and not anticoagulated a CTA chest was obtained and showed no PE, but emphysema noted. Possible that hypoxia secondary to COPD. An EKG showed borderline ST T-wave abnormalities with possible age indeterminate anterior infarct. No EKG to compare. Troponin negative and BNP only slightly elevated. Echo obtained and showed LVEF 65-70% with grade I diastolic dysfunction, trace mitral/tricuspid/pulmonic regurgitation, and a small circumferential pericardial effusion. Patient denied any chest pain and palpitations throughout admission. During admission patient was weaned back to room air. Home o2 eval was performed and no home oxygen is required at rest or with ambulation. Patient was also evaluated by PT/OT who recommend outpatient therapy. Patient states that at his long term home there is group physical therapy that he plans to resume. Patient has no complaints at time of discharge denying chest pain, shortness a breath, palpitations, nausea/vomiting, abdominal pain, and dizziness/lightheadedness. Patient discharged home with family in a stable condition. He is to follow up with his primary care provider in 1 week and his senior informatica developer as scheduled. Status at Discharge Functional status at discharge: uses cane/walker Time Spent with Patient Time attestation: Total time spent providing and/or coordinating discharge services: Time spent: Greater than 30 minutes Exam Narrative: AF HR 93 RR 20 Spo2 98 RA BP 141/66 General: male in no acute respiratory distress who is nontoxic appearing, sitting up in chair HEENT: Normocephalic. Atraumatic. Extraocular movement intact. Sclera clear and anicteric. No facial asymmetry. Chest: Lungs are clear to auscultation bilaterally. No wheezes or crackles. CV: Heart was regular rate and rhythm. S1/S2. No murmurs, gallops, or rubs. Abd: Abdomen was soft. Nontender. Nondistended. Positive bowel sounds. No organomegaly or masses. Ext: No clubbing, cyanosis, or edema. DP pulses bilaterally. Neuro: Patient is alert and oriented x4. Speech is clear. Restless legs. DS: Data Data Completed and Pending Completed studies during hospitalization: chest xr chest cta Labs on day of discharge: Labs from last 24 hours 04/11/25 09:33 WBC 4.5 RBC 3.93 L Hgb 11.4 L Hct 34.4 L MCV 87.5 MCH 29.0 MCHC 33.1 RDW 14.0 Plt Count 161 MPV 8.3 Sodium 138 Potassium 4.9 Chloride 103 Carbon Dioxide 27 Anion Gap 8 BUN 15 Creatinine 0.98 Estim Creat Clear Calc 45 Estimated GFR > 60 Glucose 102 Calcium 9.1 Total Bilirubin 0.9 AST 29 ALT 18 Alkaline Phosphatase 69 Total Protein 7.2 Albumin 3.8 Discharge Plan Discharge Attending physician on discharge: Maurice Lira Discharging Clinician: Hoda Reddy Anticipated Discharge Date/Time: 04/11/25 14:08 Patient Disposition: Home Activity: as tolerated Diet: as tolerated and heart healthy Discharge Instructions: Discharge disposition: Patient admitted to the hospital with hypoxia, weaned back to room air at time of discharge Imaging was unremarkable for blood clots or infection Possibly secondary to COPD Home O2 evaluation performed by respiratory therapy and patient does not require oxygen at this time Patient is to follow up with his senior informatica developer in the outpatient setting Discuss with primary care or senior informatica developer about need for inhalers Strongly encourage continued physical therapy and remain active Monitor blood pressures Take caution while standing, rising, or moving Change positions slowly taking a break between each position change If you standing feel dizzy sit back down and take a break Encouraged to continue with yearly vaccinations Return to the emergency department if he developed sudden shortness of breath, chest pain, nausea, vomiting, upset stomach or intractable diarrhea Return to the emergency department if you develop fever greater than 101.5 Follow-up with the primary care physician within 1-2 weeks Thank you for [facility] for your healthcare needs Patient Instructions: COPD (Chronic Obstructive Pulmonary Disease) (DC) Patient Language: Micronesian Stand Alone Forms: General Discharge Information Follow-up/Referrals: Trudy,Indra Botello MD [Primary Care Provider] - 1 Week Discharge Medications: Continued zolpidem 10 mg tablet 10 mg PO .hs levothyroxine [Unithroid] 200 mcg tablet 200 mcg PO DAILY carvedilol 6.25 mg tablet 6.25 mg PO Q12H amlodipine 10 mg tablet 10 mg PO DAILY hydralazine 50 mg tablet 50 mg PO TID atorvastatin 40 mg tablet 40 mg PO DAILY fluticasone propionate [Flonase Allergy Relief] 50 mcg/actuation spray,suspension 2 spray intranasal BID Qty: 16 3RF Rx Instructions: administer into each nostril. Aim back/up/out dicyclomine 20 mg tablet 20 mg PO QID PRN (Reason: abdominal pain) Qty: 20 0RF sertraline 100 mg tablet 200 mg PO DAILY potassium chloride 20 mEq packet 40 meq PO DAILY Fiber Gummies 1.7 gram tablet,chewable 6 g PO DAILY vitamin B complex Capsule 1 cap PO DAILY Align (B.infantis) 10.5 mg (10 million cell) tablet,chewable 10.5 mg PO DAILY Date of admission: 04/10/25 07:30 Primary Care Provider: TrudyIndra Admitting Provider: Velasquez Chavarria Attending physician on admission: Hoda Reddy Condition: Stable Hospitalist MIPS Heart Failure (Exclusion) Patient has history of Heart Transplant or Left Ventricular Assistive Device?: No IF YES, STOP HERE Heart Failure (Qualifier) Patient has current or prior documentation of LVEF less than or equal to 40%, or mod/servere depressed LVSF?: No IF NO, STOP HERE
== END 2025-04-11 15:38 | disposition home or self-care (01) | DRG 192 ==
LOC: ANHED 20:43 → ANH2MED 21:31
PROVIDERS: Physician Assistant; Admitting Provider Internal Medicine; Emergency Provider Student in an Organized Health Care Education/Training Program; PCP Family Medicine; Visit Provider Student in an Organized Health Care Education/Training Program
DX: J44.9 Chronic obstructive pulmonary disease, unspecified (principal); R09.02 Hypoxemia; F41.8 Other specified anxiety disorders; E03.9 Hypothyroidism, unspecified; E78.5 Hyperlipidemia, unspecified; I10 Essential (primary) hypertension; G47.33 Obstructive sleep apnea (adult) (pediatric); E86.0 Dehydration; F17.210 Nicotine dependence, cigarettes, uncomplicated; Z66 Do not resuscitate; G25.81 Restless legs syndrome; Z85.828 Personal history of other malignant neoplasm of skin
CPT/HCPCS: 36415; 71045; 71275; 80048; 80053; 80061; 82803; 83735; 83880; 84439; 84443; 84480; 84484; 85025; 85027; 85380; 87637; 93005; 93306; 94618; 94640; 94667; 96361; 96374; 97161; 97165; 99285; A9270; G0378; J1650; J7120; Q9967

== ENCOUNTER 2025-07-23 17:56 | Inpatient (IN) | payer MEDICARE, SELFPAY ==
[2025-07-23] VITALS (11 sets, daily range): BP systolic 103–135; BP diastolic 53–65; PULSE 66–77; RESP 18–33; TEMP 36.8–37.7; O2SAT 90–97
--- NOTE | ~2025-07-23 | XR_ITS ---
XR chest 1V portable 07/24/2025 18:43 Indication: Shortness of breath Procedure: AP portable chest Comparison: 04/09/2025 Findings: There is bilateral airspace disease, most confluent in the right upper lung. Small pleural effusions. No pneumothorax. No acute osseous abnormality. Heart size normal. Impression: 1: Bilateral airspace disease, compatible with pneumonia. Reviewed, dictated and finalized at location O. Impression: 1: Bilateral airspace disease, compatible with pneumonia.
--- NOTE | ~2025-07-23 | XR_ITS ---
Examination: XR chest 1V portable Clinical History: intubation/chf Comparison: 1 day prior Technique: Portable AP Findings: ET tube. Heart size unchanged. Persistent airspace opacities right lung. With effusion. Emphysema. No acute bony abnormality. IMPRESSION: 1. ET tube tip above bhargav. 2. No significant cardiopulmonary change, with persistent right lung pneumonia and pleural effusion. Reviewed, dictated and finalized at location R.
--- NOTE | ~2025-07-23 | XR_ITS ---
Examination: XR chest 1V portable Clinical History: Mechanical ventilation, pneumonia Comparison: 1 day prior Technique: Portable AP Findings: ET tube, NG tube. Heart size unchanged. Improving but persistent airspace disease right lung. Improving diffuse interstitial markings. Emphysema. No acute bony abnormality. IMPRESSION: 1. Improving airspace disease right lung. 2. Improving diffuse interstitial markings and/or edema. Reviewed, dictated and finalized at location R.
--- NOTE | ~2025-07-23 | CT_ITS ---
EXAMINATION: CT abdomen pelvis w con DATE: 07/23/2025 21:53 INDICATION: Fever, abdomen pain and diarrhea TECHNIQUE: Computed tomography (CT) of the abdomen and pelvis was performed with intravenous contrast. The dose-length product was 314.65 mGy-cm. Automated exposure control and iterative reconstruction technique were employed. COMPARISON: CT dated 03/17/2025 FINDINGS: There are bilateral pleural calcifications suggesting previous asbestos exposure. There is focal peripheral consolidation in the right middle lobe laterally. This is new compared with prior CT. Heart size normal. No significant pleural or pericardial effusion. There is right pleural thickening. There is focal consolidation in the right lower lobe which may represent atelectasis or scarring. No focal bowel abnormalities are seen. No obstruction. No free air or free fluid. Status post cholecystectomy. The liver, adrenal glands and kidneys are unremarkable. There is splenomegaly. There is atherosclerosis of the aorta without evidence for aneurysm. No lymphadenopathy. Bladder is decompressed limiting evaluation for bladder wall thickening. Prostate gland is enlarged. No lymphadenopathy. There is severe lower thoracic and lumbar spondylosis. No focal lytic or blastic lesions. There is scoliosis. IMPRESSION: 1. New wedge-shaped pleural-based soft tissue right middle lobe laterally. Considering bilateral pleural calcifications, malignancy should be considered including mesothelioma. There is pleural based soft tissue mass measures 3.6 x 1.7 cm. 2: Splenomegaly. Reviewed, dictated and finalized at location O. IMPRESSION: 1. New wedge-shaped pleural-based soft tissue right middle lobe laterally. Cons idering bilateral pleural calcifications, malignancy should be considered inclu ding mesothelioma. There is pleural based soft tissue mass measures 3.6 x 1.7 c m. 2: Splenomegaly.
--- NOTE | ~2025-07-23 | XR_ITS ---
XR chest 1V portable 07/28/2025 06:08 Indication: Respiratory failure. Pneumonia. Procedure: AP portable chest Comparison: Comparison to multiple prior studies sequentially, with oldest reviewed study dated 07/24/2025. Findings: Endotracheal tube tip 3.7 cm above the bhargav. Heart size normal. Left lung clear. Persistent opacities right mid and lower lung zone peripherally, consistent with pneumonia. No pleural effusion. There are likely pleural calcifications on the right. No significant effusion or pneumothorax. NG tube in the stomach. Impression: 1: Unchanged asymmetric right-sided airspace disease, consistent with pneumonia. Reviewed, dictated and finalized at location B. Impression: 1: Unchanged asymmetric right-sided airspace disease, consistent with pneumonia .
--- NOTE | ~2025-07-23 | CT_ITS ---
EXAMINATION: CT diagnostic chest w con, 07/23/2025 23:28 CDT HISTORY: PNA vs malignancy COMPARISON: 04/10/2025. TECHNIQUE: CT scan of the chest was performed with contrast. Isovue 300, 92cc injected IV. One or more of the following dose reduction techniques were used: automated exposure control, adjustment of the mA and/or kV according to patient size, use of iterative reconstruction technique. FINDINGS: No significant coronary calcification is present ([id number]) LUNGS: There are calcified pleural-based plaques. No tracheomalacia. No bronchiectasis. Bilateral micronodules along septal below 6 mm. Large right upper lobe infiltrate. Small right lower lobe infiltrate. Mild pulmonary venous congestion. HEART AND PERICARDIUM: Within normal limits. AORTA: Normal caliber aorta. ADENOPATHY/MEDIASTINUM: Enlarged pretracheal lymph node 2.4 x 2 cm with calcified mediastinal and hilar lymph nodes also noted. LIMITED VIEWS OF THE ABDOMEN: Within normal limits. OSSEOUS STRUCTURES: There are remote left-sided rib fractures. No sclerotic or lytic lesions. Moderate loss of vertebral heights and disc height throughout. OVERLYING SOFT TISSUES: Unremarkable. THYROID: The thyroid is unremarkable. IMPRESSION: 1. Bronchopneumonia detailed above superimposed upon mild CHF. Follow-up recommended to assess resolution 2. Sequelae of previous granulomatous disease. Bilateral micronodules which are new compared to the previous study, in a high-risk patient six-month follow-up is recommended Reviewed, dictated and finalized at location P. IMPRESSION: 1. Bronchopneumonia detailed above superimposed upon mild CHF. Follow-up recomm ended to assess resolution 2. Sequelae of previous granulomatous disease. Bilateral micronodules which are new compared to the previous study, in a high-risk patient six-month follow-up is recommended
--- NOTE | ~2025-07-23 | CT_ITS ---
EXAMINATION: CT chest abdomen pelvis wo con DATE: 07/24/2025 21:54 INDICATION: Angioedema. TECHNIQUE: Computed tomography (CT) of the chest, abdomen, and pelvis was performed without intravenous contrast. Automated exposure control and iterative reconstruction technique were employed. The dose-length product was 822.99 mGy-cm. COMPARISON: Chest CT 07/23/2025 FINDINGS: CHEST CT: There is moderate emphysema. There are airspace opacities in right upper lobe and right lower lobe, consistent with pneumonia. There are calcified pleural plaques bilaterally which may be seen with asbestos exposure. There is mild atelectasis in left lung. Calcified pulmonary nodules and calcified hilar and mediastinal lymph nodes are consistent with old granulomatous disease. There is a small right pleural effusion. The heart size is normal. There are coronary artery calcifications. No pericardial effusion. The endotracheal tube tip is in expected position. There is mild mediastinal lymphadenopathy, likely reactive. There is bilateral gynecomastia. There is severe thoracic spondylosis. ABDOMEN/PELVIS CT: The liver is normal. There are changes of cholecystectomy. Calcifications in the spleen are consistent with old granulomatous disease. The pancreas and adrenal glands are normal. There are faint bilateral contrast nephrograms, consistent with decreased kidney function. There is a 10 mm cyst in right kidney. The bladder is decompressed by a Khalil catheter. The prostate is moderately enlarged. There is diverticulosis of the colon without evidence of diverticulitis. There are no dilated loops of bowel. The appendix is normal. There are no pathologically enlarged lymph nodes. There is trace pelvic ascites. There is severe lumbar spondylosis. There are laminectomies from L2 to L5. IMPRESSION: 1. Pneumonia in right upper lobe and right lower lobe, worsened from 07/23/2025. 2. Moderate emphysema. 3. Worsened small right pleural effusion. 4. Mild mediastinal lymphadenopathy, likely reactive. Reviewed, dictated and finalized at location E.
--- NOTE | ~2025-07-23 | XR_ITS ---
EXAMINATION: XR chest 1V portable DATE: 07/27/2025 06:12 INDICATION: Respiratory failure and pneumonia TECHNIQUE: frontal view of the chest was obtained. COMPARISON: Chest radiograph dated 07/26/[address] dated 07/24/2025 FINDINGS: Endotracheal tube tip 2.0 cm above the bhargav.. Nasogastric tube extends below the left hemidiaphragm with distal tip collimated off the study. Persistent airspace opacities in the right midlung zone with appearance favoring pneumonia on prior CTs. Mild streaky left basilar atelectasis. Very small right pleural effusion. No pneumothorax or evident left pleural effusion. The cardiomediastinal silhouette is normal. IMPRESSION: 1. Persistent opacities in the right midlung zone consistent with pneumonia. 2. Very small right pleural effusion. Reviewed, dictated and finalized at location A.
--- NOTE | ~2025-07-23 | XR_ITS ---
XR chest ET placement 07/24/2025 19:23 Indication: Intubation. Respiratory distress. Procedure: AP portable chest Comparison and 04/09/2025 Findings: Extensive right-sided airspace disease, compatible with pneumonia. Interval placement of endotracheal tube, tip 3.7 cm above the bhargav. No significant effusion. No pneumothorax. There are healed left upper rib fractures. Impression: 1: Persistent diffuse right-sided airspace disease, compatible with pneumonia. Reviewed, dictated and finalized at location O. Impression: 1: Persistent diffuse right-sided airspace disease, compatible with pneumonia.
--- NOTE | ~2025-07-23 | CT_ITS ---
EXAMINATION: CT soft tissue neck wo con DATE: 07/24/2025 21:54 INDICATION: Edema. TECHNIQUE: Computed tomography (CT) of the neck was performed without intravenous contrast. Automated exposure control and iterative reconstruction technique were employed. The dose-length product was 519.84 mGy-cm. COMPARISON: Neck CT 03/18/2025 FINDINGS: Emphysema is noted. There are airspace opacities in right upper lobe, consistent with pneumonia. There are likely changes of ocular lens replacement surgeries. There is mucosal thickening in the paranasal sinuses and nasal cavity. There is subcutaneous edema in the face and anterior neck. There is swelling of the pharyngeal mucosal space. There is an endotracheal tube in expected position. There are nodules in the thyroid measuring up to 9 mm, likely not clinically significant. Mediastinal lymphadenopathy is noted. There is severe cervical spondylosis. IMPRESSION: 1. Right upper lobe pneumonia. 2. Emphysema. 3. Mediastinal lymphadenopathy, likely reactive. 4. Soft tissue swelling of the pharyngeal mucosal space. Reviewed, dictated and finalized at location E.
--- NOTE | ~2025-07-23 | XR_ITS ---
EXAMINATION: XR abdomen gastric tube insert, 07/25/2025 14:45 CDT HISTORY: NG placement COMPARISON: No comparisons available. Technique: 3 view. Findings: Bowel gas pattern unremarkable. No obstruction. No free air. No abnormal calcifications No acute osseous abnormality. Nasogastric tube terminates in the stomach Impression: 1. No acute abnormality. Reviewed, dictated and finalized at location P. Impression: 1. No acute abnormality.
--- NOTE | ~2025-07-23 | XR_ITS ---
MODIFIED ESOPHAGRAM HISTORY: Recent angioedema. Intubation. TECHNIQUE: Modified barium esophagram was performed on 07/29/2025. I administered fluoroscopy and performed the exam with speech pathologist. Patient was seated for lateral fluoroscopic imaging for ingestion of thin liquids, pudding, solids and quantified amounts, followed by thin liquids in uncontrolled amounts. This was recorded on tape. A single fluoroscopic spot image was also recorded. The DAP for this procedure was 1.456 Gycm2. The amount of fluoroscopy time used during this procedure was 2.3 minutes. FINDINGS: Oral stage: Adequate function. Pharyngeal stage: . Trace vallecular and piriform sinus residue. Trace transient/flash laryngeal penetration without aspiration. There are prominent anterior endplate osteophytes at C3-C4 and C4-C5. Cervical/esophageal stage: Adequate function. IMPRESSION: Mild pharyngeal dysphagia with trace transient/flash laryngeal penetration without aspiration. Please correlate with speech pathologist findings and specific feeding recommendations. Reviewed, dictated and finalized at location A. IMPRESSION: Mild pharyngeal dysphagia with trace transient/flash laryngeal pene tration without aspiration. Please correlate with speech pathologist findings and specific feeding recommendations.
--- NOTE | ~2025-07-23 | CT_ITS ---
EXAMINATION: CT soft tissue neck wo con COMPARISON: None HISTORY: Airway edema TECHNIQUE: Axial images were obtained without IV contrast. Sagittal, coronal reconstruction images were obtained from the axial views. CT scan performed using dose optimization techniques including the following automated exposure control; adjustment of mA and/or kV; use of iterative reconstruction technique. Automatic exposure control was used to reduce radiation dose. Permanent radiation dose record is archived to PACS. FINDINGS: Visualized brain parenchyma and optic globes appear unremarkable. There is no gross thickening of the prevertebral space. ET and nasogastric tubes are noted distorting the airway, evaluation for edema is limited. There is no gross asymmetry of the base of the tongue or the visualized aryepiglottic folds. No asymmetry of the visualized vocal cords. There is no lymphadenopathy in the anterior superior mediastinum wall thickening of the visualized esophagus The parapharyngeal spaces appear intact. No asymmetry of the tonsillar tissue The submandibular and parotid glands unremarkable There is no jugulodigastric, posterior cervical or supraclavicular lymphadenopathy The lung apices demonstrate chronic changes. No sclerotic or lytic lesions. Sequelae of previous right mastoiditis. Severe right maxillary sinusitis with underlying polyp formation suspected The soft tissues appear unremarkable IMPRESSION: Limited study. Evaluation for edema is limited without contrast with no gross rim-enhancing abscess visualized. If there remains clinical suspicion repeat exam with contrast is recommended Reviewed, dictated and finalized at location P. IMPRESSION: Limited study. Evaluation for edema is limited without contrast wit h no gross rim-enhancing abscess visualized. If there remains clinical suspicio n repeat exam with contrast is recommended
[2025-07-23 19:49] LABS: Alanine Aminotransferase 32 U/L (6-50); Albumin Level 3.1 g/dL (3.5-5.1); Alkaline Phosphatase 74 U/L (38-126); Anion Gap 6 mmol/L (4-12); Aspartate Amino Transferase 36 U/L (17-59); Bilirubin,Total 1.2 mg/dL (0.2-1.3); Blood Urea Nitrogen 25 mg/dL (9-20); Calcium 8.2 mg/dL (8.4-10.2); Carbon Dioxide 22 mmol/L (22-30); Chloride 103 mmol/L (98-107); Estimated CRCL calculation 43 ml/min; Estimated Glomerular Filt Rate > 60; Glucose 121 mg/dL (65-110); Lipase 23 U/L (23-300); Potassium 4.0 mmol/L (3.4-5.0); Sodium 131 mmol/L (137-145); Total Protein 6.6 g/dL (6.3-8.2)
[2025-07-23 19:52] LABS: Hematocrit 31.0 % (42.0-52.0); Hemoglobin 10.5 g/dL (14.0-18.0); Immature Granulocyte Percent A 0.2 % (0-0.5); Lymphocytes Absolute Auto 0.55 K/mm3 (0.9-3.2); Mean Corpuscular HGB Conc 33.9 g/dl (32-36); Mean Corpuscular Hemoglobin 28.9 pg (26-34); Mean Corpuscular Volume 85.4 fl (80-100); Nucleated Red Blood Cells Absolute Auto 0.000 K/mm3 (0.0-0.012); Nucleated Red Blood Cells Perc 0.0 % (0.0-0.2); Platelet Count Result 194 k/mm3 (150-375); Red Blood Count 3.63 M/mm3 (4.6-6.20); White Blood Count 8.2 K/mm3 (4.5-10.0)
--- NOTE | 2025-07-23 20:09 | ED.NAVMDI ---
HPI - Nausea/Vomiting/Diarrhea General Chief complaint: Nausea/Vomiting/Diarrhea Stated complaint: N/V/D X2D Time Seen by Provider: 07/23/25 19:02 History of Present Illness HPI Narrative: 80-year-old male with a past medical history including COPD not on any supplemental oxygen, hypertension, hyperlipidemia. Patient presents to the emergency department today for fever, chills, sweats, abdominal pain and nausea vomiting with diarrhea. Symptoms going on for several days. Patient has not tried anything for symptom control at home. He endorses soft diarrhea without any liquid stool. Endorses feeling hot and cold alternating. Had some difficulty breathing today as well. Denies any chest pain, headache, vision changes. No traumatic injuries or recent hospitalizations. Was otherwise in his normal state of health recently. No medication changes recently. Related Data Home Medications ?Medication ?Instructions ?Recorded ?Confirmed ?Last Taken ?Type amlodipine 10 mg tablet 10 mg PO DAILY 03/18/25 07/24/25 Unknown History atorvastatin 40 mg tablet 40 mg PO DAILY 03/18/25 07/24/25 Unknown History carvedilol 6.25 mg tablet 6.25 mg PO Q12H 03/18/25 07/24/25 Unknown History hydralazine 50 mg tablet 50 mg PO TID 03/18/25 07/24/25 Unknown History levothyroxine 200 mcg tablet 200 mcg PO DAILY 03/18/25 07/24/25 Unknown History (Unithroid) zolpidem 10 mg tablet 10 mg PO .hs 03/18/25 07/24/25 Unknown History Bifidobacterium infantis 10.5 mg 10.5 mg PO DAILY 03/20/25 07/24/25 Unknown History (10 million cell) chewable tablet (Align (B.infantis)) inulin 1.7 gram chewable tablet 6 g PO DAILY 03/20/25 07/24/25 Unknown History (Fiber Gummies) potassium chloride 20 mEq oral 40 meq PO DAILY 03/20/25 07/24/25 Unknown History packet sertraline 100 mg tablet 200 mg PO DAILY 03/20/25 07/24/25 Unknown History vitamin B complex 1 cap PO DAILY 03/20/25 07/24/25 Unknown History albuterol sulfate 90 mcg/actuation 2 puff inhalation PRN 05/14/25 07/24/25 Unknown History aerosol inhaler alprazolam 0.25 mg tablet 0.25 mg PO QID 05/14/25 07/24/25 Unknown History ipratropium 0.5 mg-albuterol 3 mg 3 ml inhalation Q6-8H 05/14/25 07/24/25 Unknown History (2.5 mg base)/3 mL nebulization soln peppermint oil 90 mg 90 mg PO BID PRN abdominal 07/24/25 07/24/25 Unknown History capsule,delayed,extended release discomfort Allergies Allergy/AdvReac Type Severity Reaction Status Date / Time bupropion AdvReac Mild Unknown Verified 07/23/25 17:56 Review of Systems Review of Systems: As reviewed above in HPI [facility] Past Medical History Medical History Tongue ulcer Basal cell carcinoma (BCC) Depression with anxiety Hypothyroidism Skin cancer Pleural plaque Emphysema of lung Chronic obstructive pulmonary disease Hyperlipidemia Hypertension Surgical History Surgical History History of tonsillectomy History of spinal surgery Social History Social History Social History: Surrogate medical decision maker: Alicia Ott, spouse. Code status: Do not resuscitate. Smoking packs per day: 1 Smoking cigarettes per day: 20.0 Years smoked: 60 Smoking pack-years: 60.00 Smoking status: Heavy tobacco smoker Alcohol intake: former Substance use: never Substance use type: does not use Do You Feel Safe in your Home?: Yes Lack of Transportation: No Lack of Food: Never True Current Housing: I Have Housing Concerned About Future Housing: No Difficulty Paying Gas/Electric Bills: No Difficulty Paying for Meds: No Currently Unemployed: No Education: Decline to Answer Difficulty w/ Childcare or Family Care: No Spiritual care concerns: No Exam Narrative: GENERAL: ill-appearing, febrile and very warm to the touch but awake and answering questions. HEAD: [Normocephalic, atraumatic.] EYES: [PERRLA and EOMI.] ENT: Nares clear, no rhinorrhea or epistaxis. Mucous membranes moist. NECK: Supple. CHEST: Tachypneic, clear apical breath sounds some minor bibasilar crackles. No wheezing or decreased air entry or retractions. HEART: [Regular rate and rhythm]. No murmur heard. [Normal peripheral pulses.] ABDOMEN: [Soft, nondistended], Mildly tender, no signs of peritonitis, [No rigidity or guarding] EXTREMITIES: Normal range of motion. [No edema.] SKIN: Warm, dry, no rash. NEURO: [No focal deficits]. Alert and oriented [x3.] PSYCH: [Normal mood and affect.] Course Vital Signs Vital signs: Vital Signs Temperature 37.7 C H 07/23/25 18:19 Pulse Rate 77 07/23/25 18:19 Respiratory Rate 19 07/23/25 18:19 Blood Pressure 117/62 07/23/25 18:19 Pulse Oximetry 94 07/23/25 18:19 Oxygen Delivery Room Air 07/23/25 18:19 Temperature 36.8 C 07/23/25 21:16 Pulse Rate 86 07/24/25 01:31 Respiratory Rate 19 07/24/25 01:31 Blood Pressure 121/62 07/24/25 01:31 Pulse Oximetry 94 07/24/25 01:31 Oxygen Delivery Nasal Cannula 07/23/25 20:36 Oxygen Flow Rate 2 07/23/25 20:36 MDM - Nausea/Vomiting/Diarrhea MDM Narrative Medical decision making narrative: 80-year-old male with a past medical history including COPD not on any supplemental oxygen, hypertension, hyperlipidemia. Patient presents to the emergency department today for fever, chills, sweats, abdominal pain and nausea vomiting with diarrhea. Symptoms going on for several days. Patient has not tried anything for symptom control at home. He endorses soft diarrhea without any liquid stool. Endorses feeling hot and cold alternating. Had some difficulty breathing today as well. Denies any chest pain, headache, vision changes. No traumatic injuries or recent hospitalizations. Was otherwise in his normal state of health recently. No medication changes recently. patient is ill-appearing and febrile here as well as tachypneic. He is hypoxic at 88% saturation on room air requiring supplemental oxygen. Given 2 L and improved 94%. No tachycardia or blood pressure concerns at this time. He is very warm to the touch and has a tender abdomen. His a history of gallbladder removal but no other abdominal surgeries. Endorses nausea vomiting diarrhea as well as fever and chills. Suspicion for gastroenteritis, gastritis, appendicitis, pancreatitis, dehydration, pneumonia. No recent antibiotics use or recent hospitalizations. Septic appearing and given 30 cc/kg bolus of fluid, started on Rocephin empirically, blood cultures lactic acid and CBC, CMP obtained Urinalysis with straight catheterization obtained. Chest x-ray, CT of the abdomen with contrast ordered. Patient started on supplemental oxygen. Patient's fever did come down with Tylenol. Remains approximate 93% saturation on 2 L nasal cannula. Hemodynamically stable. Soft blood pressure 103/53. No tachycardia or tachypnea. No white count or anemia worse than baseline. Normal platelet count. Chemistry panel shows some dehydration but no creatinine elevation. Normal glucose negative lactic acid. Normal LFTs. C-reactive protein elevated. Lipase normal. Urinalysis without signs of infection. Viral panel negative. Abdomen CT shows splenomegaly, post cholecystectomy, decompressed bladder, enlarged prostate gland. No focal intra-abdominal process. Wedge-shaped pleural-based right lobe infiltrate and bilateral pleural calcifications. Could be malignancy. CT of the thorax was ordered this time which revealed right upper lobe pneumonia otherwise no pleural effusions or pneumothorax. Patient started on appropriate antibiotics including azithromycin and ceftriaxone for pneumonia with hypoxemia requiring oxygen and patient is stable for admission at this time. Awaiting discussion with hospitalist. Spoke to the hospitalist Dr. Malik who accepted the patient to a telemetry monitored bed after we discussed patient's care plan, hypoxia requiring oxygen, current antibiotic regimen and fever that is now resolved. Family and patient updated on plan for admission. Medical Records Attestation: I reviewed the patient's medical records. Lab Data Attestation: I reviewed the patient's lab results. 07/23/25 19:31 07/23/25 19:31 Labs: Lab Results 07/23/25 07/23/25 Range/Units 19:31 20:12 WBC 8.2 (4.5-10.0) K/mm3 RBC 3.63 L (4.6-6.20) M/mm3 Hgb 10.5 L (14.0-18.0) g/dL Hct 31.0 L (42.0-52.0) % MCV 85.4 (80-100) fl MCH 28.9 (26-34) pg MCHC 33.9 (32-36) g/dl RDW 14.2 (11.5-14.5) % Plt Count 194 (150-375) k/mm3 MPV 8.6 (7.4-10.4) fl Immature Gran % (Auto) 0.2 (0-0.5) % Neut % (Auto) 83.2 H (45.5-73.1) % Lymph % (Auto) 6.7 L (18.3-44.2) % Jefferson % (Auto) 8.8 H (2.6-8.5) % Eos % (Auto) 0.4 (0-4.4) % Baso % (Auto) 0.7 (0.2-1.2) % Lymph # (Auto) 0.55 L (0.9-3.2) K/mm3 Jefferson # (Auto) 0.7 H (0.1-0.6) K/mm3 Eos # (Auto) 0.0 (0-0.3) K/mm3 Baso # (Auto) 0.1 (0.0-0.1) K/mm3 Abs Immat Gran (auto) 0.02 (0.00-0.031) K/mm3 Absolute Neuts (auto) 6.8 H (1.3-6.7) K/mm3 Absolute Nucleated RBC 0.000 (0.0-0.012) K/mm3 Nucleated RBC % 0.0 (0.0-0.2) % Sodium 131 L (137-145) mmol/L Potassium 4.0 (3.4-5.0) mmol/L Chloride 103 (98-107) mmol/L Carbon Dioxide 22 (22-30) mmol/L Anion Gap 6 (4-12) mmol/L BUN 25 H D (9-20) mg/dL Creatinine 0.99 (0.7-1.3) mg/dL Estim Creat Clear Calc 43 ml/min Estimated GFR > 60 (59 - ) Glucose 121 H (65-110) mg/dL Lactic Acid 0.8 (0.7-2.0) mmol/L Calcium 8.2 L (8.4-10.2) mg/dL Total Bilirubin 1.2 (0.2-1.3) mg/dL AST 36 (17-59) U/L ALT 32 (6-50) U/L Alkaline Phosphatase 74 (38-126) U/L C-Reactive Protein 25.2 H (<1.0) mg/dL Total Protein 6.6 (6.3-8.2) g/dL Albumin 3.1 L (3.5-5.1) g/dL Lipase 23 (23-300) U/L Urine Color Yellow (Yellow) Urine Appearance Cloudy H (Clear) Urine pH 5.5 (5.0-9.0) Ur Specific [place] 1.023 (1.001-1.035) Urine Protein 3+ H (Negative) mg/dL Urine Glucose (UA) Negative (Negative) mg/dL Urine Ketones Negative (Negative) mg/dL Ur Blood (Man) Negative (Negative) Urine Nitrate Negative (Negative) Urine Bilirubin Negative (Negative) Urine Urobilinogen 1.0 (<2.0) mg/dL Add Ur Microanalysis Reviewed Leukocyte Esterase Rfl Trace H (Negative) CARLA/UL Urine RBC 6-10 H (0-2) /hpf Urine WBC 0-5 (0-3) /hpf Ur Squamous Epith Cells Occasional (Few) /hpf Urine Bacteria None seen /hpf Urine Casts 3-5 Influenza A (RT-PCR) Negative (Negative) Influenza B (RT-PCR) Negative (Negative) RSV (RT-PCR) Negative (Negative) SARS-CoV-2 RNA (RT-PCR) Negative (Negative) Imaging Data Attestation: I personally reviewed and interpreted this imaging study as follows: My impression: Right-sided pneumonia. Critical Care Time Critical Care Time Critical Care Time: Yes Total Critical Care Time: 35 Discharge Plan Discharge Clinical Impression: Hypoxemia requiring supplemental oxygen, Fever, Acute pneumonia Patient Disposition: Still a Patient Condition: Stable Patient Language: Yoruba Prescriptions: No Action zolpidem 10 mg tablet 10 mg PO .hs levothyroxine [Unithroid] 200 mcg tablet 200 mcg PO DAILY carvedilol 6.25 mg tablet 6.25 mg PO Q12H amlodipine 10 mg tablet 10 mg PO DAILY hydralazine 50 mg tablet 50 mg PO TID atorvastatin 40 mg tablet 40 mg PO DAILY alprazolam 0.25 mg tablet 0.25 mg PO QID albuterol sulfate 90 mcg/actuation HFA aerosol inhaler 2 puff inhalation PRN ipratropium-albuterol 0.5 mg-3 mg(2.5 mg base)/3 mL solution for nebulization 3 ml inhalation Q6-8H sertraline 100 mg tablet 200 mg PO DAILY potassium chloride 20 mEq packet 40 meq PO DAILY Fiber Gummies 1.7 gram tablet,chewable 6 g PO DAILY vitamin B complex Capsule 1 cap PO DAILY Align (B.infantis) 10.5 mg (10 million cell) tablet,chewable 10.5 mg PO DAILY peppermint oil 90 mg capsule,delayed,extend.release 90 mg PO BID PRN (Reason: abdominal discomfort) Follow-up/Referrals: Trudy,Indra Botello MD [Primary Care Provider, Unknown] Time of Disposition: 02:10
[2025-07-23] MEDS: LACTATED RINGERS 1,000 ML 999 ML IV CONT ×2 (20:24→20:25)
[2025-07-23] MEDS: ONDANSETRON INJ 4 MG/2 ML VIAL IV PUSH (20:24)
[2025-07-23] MEDS: cefTRIAXone 1 GM in SODIUM CHLORIDE 0.9% IV 50 ML 100 ML IVPB (20:24)
[2025-07-23] MEDS: ACETAMINOPHEN 500 MG TABLET 1000 MG PO (20:24)
[2025-07-23 20:39] LABS: CRP 25.2 mg/dL (<1.0)
[2025-07-23 20:45] LABS: Add Urine Microscopic? YES; Appearance Urine Cloudy (Clear); Glucose Urine UA Negative (Negative); Leukocyte Esterase Ur Trace LEU/UL (Negative); Need Manual Microscopic Reviewed; Nitrate Urine Negative (Negative); Specific Grav Ur 1.023 (1.001-1.035)
[2025-07-23 21:04] LABS: Influenza A QL RT-PCR Negative (Negative); Influenza B QL RT-PCR Negative (Negative); RSV RNA, RT-PCR Negative (Negative); SARS-CoV-2 RNA PCR Negative (Negative)
--- NOTE | 2025-07-23 21:21 | PC.NURSE ---
at 2100 RN was made aware of infiltration of pt Iv in L wrist. all fluids were stopped. Iv was removed. swelling noted to area. cold pack applied. Pt denies any pain or warmth to site. new 18 G IV placed in R AC. Fluids restarted. EDP notified .
[2025-07-24] VITALS (43 sets, daily range): BP systolic 108–164; BP diastolic 52–94; PULSE 56–88; RESP 15–29; TEMP 36.7–37.9; O2SAT 91–100; BMI 25.7
[2025-07-24] MEDS: AZITHROMYCIN IV 500 MG in SODIUM CHLORIDE 0.9% IV 250 ML IVPB (01:15)
--- NOTE | 2025-07-24 01:44 | ECG_ITS ---
Test Date: 2025-07-24 01:49:47 Measurements Intervals [place] Rate: 64 P: 2 NM: 153 QRS: 53 QRSD: 100 T: 50 QT: 428 QTc: 444 Interpretive Statements SINUS RHYTHM POOR R-WAVE PROGRESSION BORDERLINE ECG Compared to ECG 04/10/2025 09:38:23 NO SIGNIFICANT CHANGE Electronically Signed On 07-24-2025 07:41:27 CDT by Macario Fagan M.D.
--- NOTE | 2025-07-24 06:38 | PC.NURSE ---
Pt wants to be referred to as Ed
--- NOTE | 2025-07-24 07:46 | PC.NURSE ---
Patient put up to 4L NC oxygen. Patient states he is feeling worse than he did when he came into the ER. Patient repositioned. Will put a call in to hospitalist to give them an update on patient condition.
--- NOTE | 2025-07-24 08:25 | PC.NURSE ---
Spoke with CHRIS Zepeda about patient for an update on patient's condition with requiring increasing oxygen. She states she will come and evaluate the patient.
--- NOTE | 2025-07-24 09:42 | PC.NURSE ---
Pharmacy called for patient's home medications
[2025-07-24] MEDS: SERTRALINE HCL 50 MG TABLET 200 MG PO (10:02)
[2025-07-24] MEDS: VITAMIN B COMPLEX CAPSULE 1 CAP PO (10:02)
[2025-07-24] MEDS: ATORVASTATIN 40 MG TABLET PO (10:02)
[2025-07-24] MEDS: LEVOTHYROXINE SODIUM 100 MCG TABLET 200 MCG PO (10:04)
--- NOTE | 2025-07-24 10:31 | PC.NURSE ---
Patient placed in hospital bed for comfort
[2025-07-24] MEDS: ACETAMINOPHEN 325 MG TABLET 650 MG PO ×2 (10:35→15:29)
--- NOTE | 2025-07-24 10:46 | PM.IMHP ---
H&P: HPI History of Present Illness Date/Time: 07/24/25 0830 Chief Complaint: vomiting, diarrhea, dyspnea Narrative: 80 y/o male with a PMH of COPD not on any supplemental oxygen, emphysema, HTN, hyperlipidemia, depression, anxiety, BCC presented to the ED on 07/23/25 with complaints of fever, chills, sweats, abdominal pain, nausea vomiting with diarrhea, and shortness of breath. Symptoms have been going on for the past 2 days. Patient states he has been using his PRN albuterol more frequently with minimal relief. Endorses soft stool but not liquid. Patient has been been experiencing chills. Denies chest pain, vision changes, headaches, recent injuries. Patient has been in his normal state of health until symptom onset. ED course: Hypoxic at 88% on RA requiring 2 L supplmental O2 with improvement to 94%. BP stable. Abd tender but no guarding. No recent use of abx. CMP shows some dehydration but no creatinine elevation. Normal glucose, negative lactic acid. Normal LFTs. CRP elevated at 25.2. Lipase normal. UA without signs of infection. Viral panel negative. 30 mL/kg bolus given. Rocephin and Azithromycin started. Abdomen CT reads splenomegaly, post cholecystectomy, decompressed bladder, enlarged prostate gland. No focal intra-abdominal process. Wedge-shaped pleural-based right lobe infiltrate and bilateral pleural calcifications. Possiable malignancy. CT chest read right upper lobe pneumonia, bilateral micronodules (new from previous study). Six month f/u is recommended. Review of Systems Review of Systems: Constitutional: Constitutional: Reports chills and Reports weakness Eyes: Eyes: Denies no additional eye complaints ENT: Reports nasal congestion Cardiovascular: Cardiovascular: Denies no additional cardiovascular complaints Respiratory: Respiratory: Reports chest congestion, Reports cough, Reports dyspnea and Reports dyspnea on exertion Gastrointestinal: Gastrointestinal: Reports diarrhea, Reports nausea and Reports vomiting Genitourinary: Genitourinary: Reports urinary incontinence Musculoskeletal: Musculoskeletal: Reports back pain Integumentary/Breasts: Skin/Breast: Denies system reviewed and no additional complaints, except as docu Neurologic: Denies system reviewed and no additional complaints, except as documented Psychiatric: Psychiatric: Denies no additional psychiatric complaints [facility] Past Medical History Medical History (Updated 07/24/25 @ 14:54 by Eugenia Gaines APRN) Tongue ulcer Basal cell carcinoma (BCC) Depression with anxiety Hypothyroidism Skin cancer Pleural plaque Emphysema of lung Chronic obstructive pulmonary disease Hyperlipidemia Hypertension Insomnia Surgical History Surgical History History of tonsillectomy History of spinal surgery Social History Social History Social History: Surrogate medical decision maker: Alicia Ott, spouse. Code status: Do not resuscitate. Smoking packs per day: 1 Smoking cigarettes per day: 20.0 Years smoked: 60 Smoking pack-years: 60.00 Smoking status: Heavy tobacco smoker Alcohol intake: former Substance use: never Substance use type: does not use Do You Feel Safe in your Home?: Yes Lack of Transportation: No Lack of Food: Never True Current Housing: I Have Housing Concerned About Future Housing: No Difficulty Paying Gas/Electric Bills: No Difficulty Paying for Meds: No Currently Unemployed: No Education: Decline to Answer Difficulty w/ Childcare or Family Care: No Spiritual care concerns: No Meds Home Medications and Allergies Home Medications ?Medication ?Instructions ?Recorded ?Confirmed ?Type amlodipine 10 mg tablet 10 mg PO DAILY 03/18/25 07/24/25 History atorvastatin 40 mg tablet 40 mg PO DAILY 03/18/25 07/24/25 History carvedilol 6.25 mg tablet 6.25 mg PO Q12H 03/18/25 07/24/25 History hydralazine 50 mg tablet 50 mg PO TID 03/18/25 07/24/25 History levothyroxine 200 mcg tablet 200 mcg PO DAILY 03/18/25 07/24/25 History (Unithroid) zolpidem 10 mg tablet 10 mg PO .hs 03/18/25 07/24/25 History Bifidobacterium infantis 10.5 mg 10.5 mg PO DAILY 03/20/25 07/24/25 History (10 million cell) chewable tablet (Align (B.infantis)) inulin 1.7 gram chewable tablet 6 g PO DAILY 03/20/25 07/24/25 History (Fiber Gummies) potassium chloride 20 mEq oral 40 meq PO DAILY 03/20/25 07/24/25 History packet sertraline 100 mg tablet 200 mg PO DAILY 03/20/25 07/24/25 History vitamin B complex 1 cap PO DAILY 03/20/25 07/24/25 History albuterol sulfate 90 mcg/actuation 2 puff inhalation PRN 05/14/25 07/24/25 History aerosol inhaler alprazolam 0.25 mg tablet 0.25 mg PO QID 05/14/25 07/24/25 History ipratropium 0.5 mg-albuterol 3 mg 3 ml inhalation Q6-8H 05/14/25 07/24/25 History (2.5 mg base)/3 mL nebulization soln peppermint oil 90 mg 90 mg PO BID PRN abdominal 07/24/25 07/24/25 History capsule,delayed,extended release discomfort Allergies Allergy/AdvReac Type Severity Reaction Status Date / Time bupropion AdvReac Mild Unknown Verified 07/23/25 17:56 Vital Signs Vital Signs - 24 hr 07/23/25 18:19 07/23/25 18:50 07/23/25 19:16 Temperature 99.8 F H 99.6 F Pulse Rate 77 73 74 Respiratory Rate 19 26 H 24 H Blood Pressure 117/62 120/56 L 119/58 L Pulse Oximetry 94 91 91 Oxygen Delivery Room Air Room Air Oxygen Flow Rate 07/23/25 19:22 07/23/25 20:15 07/23/25 20:18 Temperature 99.9 F H Pulse Rate 77 76 75 Respiratory Rate 28 H 33 H 20 Blood Pressure 135/65 126/61 126/61 Pulse Oximetry 90 94 94 Oxygen Delivery Oxygen Flow Rate 07/23/25 20:31 07/23/25 20:36 07/23/25 21:16 Temperature 98.3 F Pulse Rate 75 Respiratory Rate 24 H Blood Pressure 132/61 Pulse Oximetry 97 94 Oxygen Delivery Nasal Cannula Oxygen Flow Rate 2 07/23/25 21:30 07/23/25 23:38 07/24/25 00:31 Temperature Pulse Rate 67 66 Respiratory Rate 20 18 Blood Pressure 103/53 L 109/54 L Pulse Oximetry 95 93 95 Oxygen Delivery Oxygen Flow Rate 07/24/25 01:31 07/24/25 01:45 07/24/25 02:01 Temperature Pulse Rate 86 66 63 Respiratory Rate 19 20 18 Blood Pressure 121/62 112/64 Pulse Oximetry 94 92 Oxygen Delivery Oxygen Flow Rate 07/24/25 02:31 07/24/25 03:29 07/24/25 03:31 Temperature Pulse Rate 62 66 72 Respiratory Rate 17 18 22 H Blood Pressure 108/67 142/55 H 112/60 Pulse Oximetry 94 Oxygen Delivery Oxygen Flow Rate 07/24/25 04:00 07/24/25 05:01 07/24/25 05:31 Temperature Pulse Rate 69 65 82 Respiratory Rate 15 19 18 Blood Pressure 112/57 L 129/94 H Pulse Oximetry 96 93 Oxygen Delivery Oxygen Flow Rate 07/24/25 07:12 07/24/25 07:13 07/24/25 08:18 Temperature 98.8 F Pulse Rate 72 Respiratory Rate 22 H Blood Pressure 124/65 Pulse Oximetry 92 92 91 Oxygen Delivery Nasal Cannula Nasal Cannula Oxygen Flow Rate 3 4 07/24/25 09:43 07/24/25 10:02 07/24/25 10:31 Temperature 99.5 F Pulse Rate 78 80 75 Respiratory Rate 23 H 24 H Blood Pressure 128/66 129/69 Pulse Oximetry 92 93 Oxygen Delivery Oxygen Flow Rate 07/24/25 10:35 Temperature 99.5 F Pulse Rate Respiratory Rate Blood Pressure Pulse Oximetry Oxygen Delivery Oxygen Flow Rate Exam Narrative: GENERAL: warm to the touch but awake and alert. HEAD: Normocephalic, atraumatic. EYES: PERRLA ENT: Nares clear, no rhinorrhea or epistaxis. Mucous membranes moist. NECK: Supple. Trachea midline CHEST: Tachypneic, clear apical breath sounds some minor bibasilar crackles. No wheezing or decreased air entry or retractions. HEART: Regular rate and rhythm. No murmur heard. pulses intact ABDOMEN: Soft, nondistended, Mildly tender, no guarding EXTREMITIES: Normal range of motion. SKIN: Warm, dry, no rash. NEURO: No focal deficits. A&Ox4 PSYCH: Normal mood and affect H&P: Results Labs Labs: Short CBC 07/23/25 Range/Units 19:31 WBC 8.2 (4.5-10.0) K/mm3 Hgb 10.5 L (14.0-18.0) g/dL Hct 31.0 L (42.0-52.0) % Plt Count 194 (150-375) k/mm3 BMP 07/23/25 19:31 Sodium 131 L Potassium 4.0 Chloride 103 Carbon Dioxide 22 BUN 25 H D Creatinine 0.99 Glucose 121 H Calcium 8.2 L Liver Function 07/23/25 Range/Units 19:31 Total Bilirubin 1.2 (0.2-1.3) mg/dL AST 36 (17-59) U/L ALT 32 (6-50) U/L Alkaline Phosphatase 74 (38-126) U/L Albumin 3.1 L (3.5-5.1) g/dL Urine 07/23/25 Range/Units 20:12 Urine Color Yellow (Yellow) Urine Appearance Cloudy H (Clear) Urine pH 5.5 (5.0-9.0) Ur Specific [place] 1.023 (1.001-1.035) Urine Protein 3+ H (Negative) mg/dL Urine Glucose (UA) Negative (Negative) mg/dL Assessment and Plan Assessment and plan (1) Acute pneumonia: Code(s): J18.9 - Pneumonia, unspecified organism Status: Acute Assessment and Plan: -CT chest with large right upper lobe infiltrate. Small right lower lobe infiltrate. Recommended f/u in six months -Rocephin and Azithromycin -encourage mobilization -Hypoxemia. Supplemental O2 PRN (2) Hypoxemia requiring supplemental oxygen: Code(s): R09.02 - Hypoxemia; Z99.81 - Dependence on supplemental oxygen Status: Acute Assessment and Plan: -Dyspnea on exertion -Supplemental O2 for SpO2 below 88% -PRN albuterol (3) AMBER (obstructive sleep apnea): Code(s): G47.33 - Obstructive sleep apnea (adult) (pediatric) Status: Chronic Assessment and Plan: -May use home CPAP (4) Hypertension: Qualifiers: Hypertension type: unspecified Qualified Code(s): I10 - Essential (primary) hypertension Code(s): I10 - Essential (primary) hypertension Status: Chronic Assessment and Plan: -continue home amlodipine, carvedilol, hydralazine (5) Depression with anxiety: Code(s): F41.8 - Other specified anxiety disorders Status: Chronic Assessment and Plan: -continue home dose Xanax, and sertraline (6) Chronic obstructive pulmonary disease: Qualifiers: COPD type: unspecified COPD Qualified Code(s): J44.9 - Chronic obstructive pulmonary disease, unspecified Code(s): J44.9 - Chronic obstructive pulmonary disease, unspecified Status: Chronic Assessment and Plan: -home dose DuoNeb -p.r.n. albuterol (7) Nausea: Code(s): R11.0 - Nausea Status: Acute Assessment and Plan: -p.r.n. Zofran IV (8) Diarrhea: Qualifiers: Diarrhea type: unspecified type Qualified Code(s): R19.7 - Diarrhea, unspecified Code(s): R19.7 - Diarrhea, unspecified Status: Acute Assessment and Plan: -monitor electrolytes and fluid balance (9) Insomnia: Qualifiers: Insomnia type: unspecified Qualified Code(s): G47.00 - Insomnia, unspecified Code(s): G47.00 - Insomnia, unspecified Status: Acute Assessment and Plan: -continue home zolpidem 10 mg HS -patient educated extensively on risks associated with this medication and its dosage Plan 80 y/o male with a PMH of COPD not on any supplemental oxygen, emphysema, HTN, hyperlipidemia, depression, anxiety, BCC presented to the ED on 07/23/25 with complaints of fever, chills, sweats, abdominal pain, nausea vomiting with diarrhea, and shortness of breath. Symptoms have been going on for the past 2 days. Patient states he has been using his PRN albuterol more frequently with minimal relief. Endorses soft stool but not liquid. Patient has been been experiencing chills. Denies chest pain, vision changes, headaches, recent injuries. Patient has been in his normal state of health until symptom onset. Patient assessed in the ED. He is A&Ox4 and appears comfortable. Supplemental O2 in place with O2 saturations between 91% and 95%. Updated patient on test results and plan. Discussed code status with patient. He wishes to be DNR/DNI. Quality VTE Prophylaxis VTE prophylaxis: pharmacologic ordered (Lovenox) Hospitalist [facility] Advance Care Plan I have confirmed that the patient's Advanced Care Plan is present, code status is documented, or surrogate decision maker is listed in patient medical record.: Yes Medication Reconciliation I have utilized all available resources to obtain, update and review the patients current medications (includes all prescriptions, OTC, herbals, cannabis, and nutritional supplements).: Yes
[2025-07-24] MEDS: IPRATROPIUM 0.5 MG/ALBUTEROL SULFATE 2.5 MG AMPUL.NEB 3 ML INHALATION ×2 (13:57→19:36)
--- NOTE | 2025-07-24 14:20 | PC.NURSE ---
Patient's states patient takes the xanax at bedtime instead of during the day.
--- NOTE | 2025-07-24 15:13 | ADMGEN ---
This patient, Pepito Ott, was admitted to Medical Room 246-. Patient/family oriented to hospital policies and general routines including ID bracelet, bed and alarms, visiting hours, pain management, procedures, bathroom and other care routines, personal items, smoking policy, room service/diet, and visiting hours. Information on how to activate the Rapid Response Team has been discussed. Patient/Family are encouraged to report perceived risks to care and to ask questions if they do not understand what they are told or what they should do.
[2025-07-24] MEDS: ALPRAZolam (*CRX) 0.25 MG TABLET PO (17:08)
[2025-07-24] MEDS: WATER FOR IRRIGATION, STERILE 500 ML BOTTLE (17:08)
[2025-07-24] MEDS: PHENOL/SOD PHENO SPRAY CHERRY (*BKC) 1 SPRAY MUCOUS MEM (17:10)
[2025-07-24] MEDS: racEPINEPHrine 2.25% NEBU SOLN 0.5 ML VIAL.NEB INHALATION (18:13)
[2025-07-24] MEDS: FAMOTIDINE 20 MG/2 ML VIAL IV PUSH (18:19)
[2025-07-24] MEDS: EPINEPHrine HCL INJ 1 MG/ML AMPUL 0.3 MG IM ×2 (18:19→19:27)
--- NOTE | 2025-07-24 18:26 | P.RRN_ITS ---
Critical Care Event Note Summary Code activated: No Narrative: Rapid response called for tongue swelling At 3:46 p.m. patient had increased oxygen demands and the nurse notice slight swelling of the tongue he was able swallow his medications at that time. Patient then had hypoxia and increase the oxygen to 8 L and called a rapid response. On assessment the patient's tongue is protruding out of his mouth, he is having difficulty swallowing, and drooling. Positive stridor. Breath sounds are decreased. Patient and asked if patient would want to be intubated due to respiratory distress from airway swelling both him and the agree to intubation or emergency tracheotomy Patient given racemic epi, IM epi, Solu-Medrol, famotidine. Chest x-ray ordered Patient moved to ICU for possible intubation Patient's stridor did not improve with racemic epi so ED was called for intu bation. Patient was a difficult intubation. Chest x-ray shows pulmonary edema will give 40 of IV Lasix in Khalil catheter CT neck soft tissue, chest abdomen pelvis pending Patient is resting comfortably on the vent with secure airway. Family updated on patient Critical Care Time Critical Care Time: Yes Total Critical Care Time: 95 minutes Due to a high probability of clinically significant, life threatening deterioration, the patient required my highest level of preparedness to intervene emergently and I personally spent this critical care time directly and personally managing the patient. This critical care time included obtaining a history; examining the patient; pulse oximetry; ordering and review of studies; arranging urgent treatment with development of a management plan; evaluation of patient's response to treatment; frequent reassessment; and discussions with other providers. It was exclusive of separately billable procedures and treating other patients and teaching time. Please see Assessment and Plan section and the rest of the note for further information on patient assessment and treatment. This case had a high probability of a clinically significant, sudden, or life threatening deterioration of this patient's condition which required my full and direct attention, intervention and personal management. Critical care time: 75 - 104 mins
[2025-07-24] MEDS: FUROSEMIDE INJ 40 MG/4 ML VIAL IV PUSH (18:55)
[2025-07-24] MEDS: SUCCINYLCHOLINE CHLORIDE 20 MG/ML 10 ML VIAL 100 MG IV PUSH (18:56)
[2025-07-24] MEDS: ETOMIDATE 20 MG/10 ML AMPUL 30 MG IV PUSH (18:56)
[2025-07-24] MEDS: PROPOFOL IV EMULSION 100 ML 9.87 MG IV CONT (19:05)
--- NOTE | 2025-07-24 19:19 | ED.PROCEDURE ---
Procedures Intubation Intubation Date: 07/24/25 Intubation Time: 18:50 A pre-procedural Time-Out was completed immediately before starting the procedure and confirmed: Patient Identification, Site, Procedure, Patient Position and the Availability of Requisite Equipment: Yes Sedative: etomidate Mg given: 30 Paralytic: succinylcholine Mg given: 100 Laryngoscope: fiber optic video scope ET tube size: 7.5 Tube secured depth (cm): 25 Tube secured location: lips Tube placement confirmation: visualized tube passing through cords, equal breath sounds bilaterally, no breath sounds over epigastrium and confirmation by capnometry Patient tolerated procedure: well Intubation complications: difficult intubation Additional comments: Difficulty passing the vocal cords, possible injury. Severe edema of the tongue, posterior oropharynx, and directly above the cords. Discussed the procedure with the patients and daughter as well as possibility of cord injury.
[2025-07-24] MEDS: MIDAZOLAM HCL (*CRX) 2 MG/2 ML VIAL IV PUSH (19:25)
--- NOTE | 2025-07-24 19:37 | PC.NURSE ---
Pt difficult intubation per Dr. Vicente, due to swelling. Propofol ordered and tirtrated up per protocol due to excessive coughing per pt.
[2025-07-24 20:58] LABS: Alveolar/Arterial O2 Gradient 336.3 mmHg; Fractional Inspired Oxygen 100 %; HCO3 ABG 22.6 mEq/l (22.0-26.0); Oxygen Content ABG 16.5 %vol (16.0-22.0); Oxygen Saturation ABG 99.7 % (95.0-100.0); PCO2 ABG 41.9 mmHg (35.0-45.0); PO2 ABG 334.8 mmHg (80.0-100.0); PO2 FiO2 Ratio Arterial Blood 3.35 %
[2025-07-24 20:59] LABS: Modified Allen's Test Pass; Site Drawn RIGHT RADIAL
[2025-07-24 21:00] LABS: Arterial Blood Gas Tidal Volume 500 ml; Arterial Blood Gas Ventilator rate 16 /MIN
[2025-07-24] MEDS: MINERAL OIL/WHITE PETROLATUM OINTMENT 1 APPLIC EACH EYE (21:47)
--- NOTE | 2025-07-24 21:59 | PC.NURSE ---
[address] via bed with respiratory, RN and CCT. [address]
[2025-07-24] MEDS: PROPOFOL IV EMULSION 100 ML 17.76 MG IV CONT (22:50)
[2025-07-25] VITALS (52 sets, daily range): BP systolic 110–147; BP diastolic 58–81; PULSE 45–68; RESP 16–85; TEMP 35.8–36.9; O2SAT 98–100
[2025-07-25] MEDS: DOXYCYCLINE IV 100 MG in SODIUM CHLORIDE 0.9% IV 100 ML IVPB ×3 (00:06→20:29)
[2025-07-25] MEDS: levoFLOXacin 500 MG/D5W 100 ML 500 MG/100 ML BAG 100 MG IVPB (01:06)
[2025-07-25] MEDS: IPRATROPIUM 0.5 MG/ALBUTEROL SULFATE 2.5 MG AMPUL.NEB 3 ML INHALATION ×4 (01:07→20:05)
[2025-07-25 04:09] LABS: Hematocrit 29.6 % (42.0-52.0); Hemoglobin 9.6 g/dL (14.0-18.0); Immature Granulocyte Percent A 0.4 % (0-0.5); Lymphocytes Absolute Auto 0.46 K/mm3 (0.9-3.2); Mean Corpuscular HGB Conc 32.4 g/dl (32-36); Mean Corpuscular Hemoglobin 28.8 pg (26-34); Mean Corpuscular Volume 88.9 fl (80-100); Nucleated Red Blood Cells Absolute Auto 0.000 K/mm3 (0.0-0.012); Nucleated Red Blood Cells Perc 0.0 % (0.0-0.2); Platelet Count Result 208 k/mm3 (150-375); Red Blood Count 3.33 M/mm3 (4.6-6.20); White Blood Count 5.6 K/mm3 (4.5-10.0)
[2025-07-25 04:23] LABS: Alanine Aminotransferase 46 U/L (6-50); Albumin Level 2.7 g/dL (3.5-5.1); Alkaline Phosphatase 62 U/L (38-126); Anion Gap 5 mmol/L (4-12); Aspartate Amino Transferase 50 U/L (17-59); Bilirubin,Total 0.4 mg/dL (0.2-1.3); Blood Urea Nitrogen 23 mg/dL (9-20); Calcium 8.0 mg/dL (8.4-10.2); Carbon Dioxide 24 mmol/L (22-30); Chloride 103 mmol/L (98-107); Estimated CRCL calculation 42 ml/min; Estimated Glomerular Filt Rate > 60; Glucose 175 mg/dL (65-110); Magnesium 1.9 mg/dL (1.6-2.3); Potassium 3.9 mmol/L (3.4-5.0); Sodium 132 mmol/L (137-145); Total Protein 6.0 g/dL (6.3-8.2); Triglycerides 88 mg/dL (<150)
[2025-07-25 04:39] LABS: Alveolar/Arterial O2 Gradient 198.1 mmHg; Carboxyhemoglobin 0.3 % THb (0-2.0); Fractional Inspired Oxygen 60 %; HCO3 ABG 22.5 mEq/l (22.0-26.0); Methemoglobin ABG 0.1 %THb (0-1.5); Oxygen Content ABG 15.0 %vol (16.0-22.0); Oxygen Saturation ABG 99.3 % (95.0-100.0); PCO2 ABG 39.5 mmHg (35.0-45.0); PO2 ABG 186.3 mmHg (80.0-100.0); PO2 FiO2 Ratio Arterial Blood 3.11 %; Reduced Hemoglobin 0.8 %THb (0-5.0)
[2025-07-25 04:40] LABS: Arterial Blood Gas Tidal Volume 500 ml; Arterial Blood Gas Ventilator rate 16 /MIN; Modified Allen's Test Pass; Site Drawn RIGHT RADIAL
[2025-07-25] MEDS: PROPOFOL IV EMULSION 100 ML 13.81 MG IV CONT ×2 (04:54→20:26)
--- NOTE | 2025-07-25 08:32 | WPDCNINT ---
Assessment and Plan Assessment and plan (1) Respiratory failure: Code(s): J96.90 - Respiratory failure, unspecified, unspecified whether with hypoxia or hypercapnia Status: Acute Assessment and Plan: 07/24/2025: Patient received Chloraseptic for ulcers on his tongue, 1 hour after that patient has swelling of the tongue, drooling, difficulty swallowing, shortness of breath. Patient was transferred from the medical floor to the ICU in the ER physician intubated the patient with a size 7.5 ET tube. it was difficult intubation given severe edema of the tongue, posterior oropharynx and directly above the cords. There is some possible injury to the vocal cords -currently on CMV mode of ventilation, peep of 5, 60% FiO2, tidal volume of 500 and rate of 16. -will decrease tidal volume to 450, increase the rate to 18, decrease FiO2 to 40%. -started patient on DuoNebs -sedated with propofol infusion, maintain RASS of -2 at all times (2) Angioedema: Code(s): T78.3XXA - Angioneurotic edema, initial encounter Status: Acute Assessment and Plan: Angioedema likely related to Chloraseptic, as he has developed swelling of the tongue, drooling, difficulty swallowing and shortness of breath an hour after receiving the Chloraseptic -patient was intubated by ER physician as above -received epinephrine, Solu-Medrol, H1 and H2 timo -will continue Solu-Medrol, famotidine, Benadryl 07/25/2025: CT soft tissue neck Impression: CT soft tissue neck showed right upper lobe pneumonia, emphysema, mediastinal lymphadenopathy, likely reactive. Soft tissue swelling of the financial mucosal space (3) Acute pneumonia: Code(s): J18.9 - Pneumonia, unspecified organism Status: Acute Assessment and Plan: Patient presented with acute pneumonia, right upper lobe and right lower lobe pneumonia, and small right effusion -patient was on ceftriaxone and azithromycin, given patient's angioedema, switched antibiotics to levofloxacin and doxycycline (07/24) -will obtain sputum culture -Legionella antigen has been ordered and pending (4) COPD (chronic obstructive pulmonary disease): Code(s): J44.9 - Chronic obstructive pulmonary disease, unspecified Status: Acute Assessment and Plan: Patient is a history of COPD, continue mechanical ventilation, steroids and antibiotics (5) Hypothyroidism: Code(s): E03.9 - Hypothyroidism, unspecified Status: Acute Assessment and Plan: Levothyroxine has been switched to IV (6) Hypertension: Qualifiers: Hypertension type: unspecified Qualified Code(s): I10 - Essential (primary) hypertension Code(s): I10 - Essential (primary) hypertension Status: Chronic Assessment and Plan: Will hold antihypertensives as patient's blood pressures are stable on propofol infusion in positive-pressure ventilation Plan DVT prophylaxis: Lovenox Stress ulcer prophylaxis: Famotidine Nutrition: Will try and place NG tube and start tube feeds Code Status: Patient is a MODIFIED CODE, NO CPR Critical Care Time Spent: 49 minutes Discussed with daughter in rounds, updated with patient's condition plan of care. I answered all the questions Due to a high probability of clinically significant, life threatening deterioration, the patient required my highest level of preparedness to intervene emergently and I personally spent this critical care time directly and personally managing the patient. This critical care time included obtaining a history; examining the patient; pulse oximetry; ordering and review of studies; arranging urgent treatment with development of a management plan; evaluation of patient's response to treatment; frequent reassessment; and discussions with other providers. It was exclusive of separately billable procedures and treating other patients and teaching time. Please see Assessment and Plan section and the rest of the note for further information on patient assessment and treatment This dictation may have been done utilizing a voice recognition system. Attempts have been made to correct errors. However, there may be uncorrected grammatical, spelling, and recognitions errors present. Health Promotion Coordinator Consult Note Consult date: 07/25/25 HPI: Pepito Ott is a 80 year old male medical history of depression, anxiety, hypothyroidism, emphysema, COPD, hyperlipidemia, essential hypertension, basal cell carcinoma presented the ED on 07/23/2025 with complains of fevers, chills, sweats, abdominal pain, nausea, vomiting with diarrhea along with shortness of breath. Symptoms have been going on for the past 10 days. Endorses soft stool but not liquid, also has been experiencing chills. In the ED patient was found to be hypoxic with O2 sats in the upper 80s on room air, improved with placement of 2 L oxygen via nasal cannula to mid 90s. Hemodynamically stable, WBC count of 8.2 on admission, hemoglobin 10.5 and platelets 194. Sodium 131, potassium 4.0, BUN 25, creatinine 0.99, CO2 22. Lactic acid 0.8, LFTs were within normal limits, C-reactive protein at 25.5. Patient was negative for influenza, RSV and SARS-CoV-[address] scan of the chest abdomen and pelvis showed airspace consolidation throughout the right lung consistent with multilobar pneumonia. Small right parapneumonic effusion. Hepatic steatosis. Pt was started on Ceftriaxone and Azithromycin. ON 07/24: Pt received Chloraseptic for tongue ulcers and one hour after getting it his tongue was swollen, patient had ruling, difficulty breathing, stridor, difficulty swallowing. Close decision to intubate the patient for airway protection. The ER physician intubated patient in the ICU, according to his procedure note, it was difficult intubation given severe edema of the tongue, posterior oropharynx and directly above the cords. There is some possible injury to the vocal cords CT soft tissue neck showed right upper lobe pneumonia, emphysema, mediastinal lymphadenopathy, likely reactive. Soft tissue swelling of the financial mucosal space Patient seen and examined the ICU this morning, remains intubated on CMV mode of ventilation peep 5, 60% FiO2. Sedated with propofol infusion, does not open his eyes to name of follows simple commands. Hemodynamically stable. The could not insert an NG are OG tube overnight possible due to edema Review of Systems Review of Systems: ROS unobtainable: Yes unobtainable due to endotracheal tube, unobtainable due to medical condition and unobtainable due to mental status PMFSH Past Medical History Medical History (Updated 07/25/25 @ 09:03 by Michael Jewell MD) Tongue ulcer Basal cell carcinoma (BCC) Depression with anxiety Hypothyroidism Skin cancer Pleural plaque Emphysema of lung Chronic obstructive pulmonary disease Hyperlipidemia Hypertension Insomnia Surgical History Surgical History History of tonsillectomy History of spinal surgery Social History Social History Social History: Surrogate medical decision maker: Alicia Ott, spouse. Code status: Do not resuscitate. Smoking packs per day: 1 Smoking cigarettes per day: 20.0 Years smoked: 64 Smoking pack-years: 64.00 Smoking status: Current every day smoker Tobacco type: cigarettes and e-cigarettes/vaping Alcohol intake: former Substance use: never Substance use type: does not use Do You Feel Safe in your Home?: Yes Lack of Transportation: No Lack of Food: Never True Current Housing: I Have Housing Concerned About Future Housing: No Difficulty Paying Gas/Electric Bills: No Difficulty Paying for Meds: No Currently Unemployed: No Education: Decline to Answer Difficulty w/ Childcare or Family Care: No Spiritual care concerns: No Meds Home Medications and Allergies Home Medications ?Medication ?Instructions ?Recorded ?Confirmed ?Type amlodipine 10 mg tablet 10 mg PO DAILY 03/18/25 07/24/25 History atorvastatin 40 mg tablet 40 mg PO DAILY 03/18/25 07/24/25 History carvedilol 6.25 mg tablet 6.25 mg PO Q12H 03/18/25 07/24/25 History hydralazine 50 mg tablet 50 mg PO TID 03/18/25 07/24/25 History levothyroxine 200 mcg tablet 200 mcg PO DAILY 03/18/25 07/24/25 History (Unithroid) zolpidem 10 mg tablet 10 mg PO .hs 03/18/25 07/24/25 History Bifidobacterium infantis 10.5 mg 10.5 mg PO DAILY 03/20/25 07/24/25 History (10 million cell) chewable tablet (Align (B.infantis)) inulin 1.7 gram chewable tablet 6 g PO DAILY 03/20/25 07/24/25 History (Fiber Gummies) potassium chloride 20 mEq oral 40 meq PO DAILY 03/20/25 07/24/25 History packet sertraline 100 mg tablet 200 mg PO DAILY 03/20/25 07/24/25 History vitamin B complex 1 cap PO DAILY 03/20/25 07/24/25 History albuterol sulfate 90 mcg/actuation 2 puff inhalation PRN 05/14/25 07/24/25 History aerosol inhaler alprazolam 0.25 mg tablet 0.25 mg PO QID 05/14/25 07/24/25 History ipratropium 0.5 mg-albuterol 3 mg 3 ml inhalation Q6-8H 05/14/25 07/24/25 History (2.5 mg base)/3 mL nebulization soln peppermint oil 90 mg 90 mg PO BID PRN abdominal 07/24/25 07/24/25 History capsule,delayed,extended release discomfort Allergies Allergy/AdvReac Type Severity Reaction Status Date / Time bupropion AdvReac Mild Unknown Verified 07/23/25 17:56 Vital Signs Vital Signs - 24 hr 07/24/25 09:43 07/24/25 10:02 07/24/25 10:31 Temperature 99.5 F Pulse Rate 78 80 75 Respiratory Rate 23 H 24 H Blood Pressure 128/66 129/69 Pulse Oximetry 92 93 Oxygen Delivery Oxygen Flow Rate Fraction of Inspired Oxygen 07/24/25 10:35 07/24/25 12:27 07/24/25 13:58 Temperature 99.5 F Pulse Rate 70 64 Respiratory Rate 18 24 H Blood Pressure 127/69 Pulse Oximetry 91 Oxygen Delivery Oxygen Flow Rate Fraction of Inspired Oxygen 07/24/25 14:00 07/24/25 14:06 07/24/25 14:20 Temperature Pulse Rate 66 65 66 Respiratory Rate 22 H 22 H 18 Blood Pressure 117/52 L 112/55 L Pulse Oximetry 93 92 Oxygen Delivery Oxygen Flow Rate Fraction of Inspired Oxygen 07/24/25 14:37 07/24/25 15:46 07/24/25 16:00 Temperature 99 F Pulse Rate 66 67 Respiratory Rate 17 Blood Pressure 112/60 Pulse Oximetry 92 92 Oxygen Delivery High Flow Nasal Cannula Oxygen Flow Rate 4.5 Fraction of Inspired Oxygen 07/24/25 18:13 07/24/25 18:22 07/24/25 18:50 Temperature Pulse Rate 73 72 82 Respiratory Rate 20 20 Blood Pressure Pulse Oximetry 100 Oxygen Delivery Mechanical Ventilation Oxygen Flow Rate Fraction of Inspired Oxygen 100 07/24/25 19:00 07/24/25 19:05 07/24/25 19:25 Temperature 99.0 F Pulse Rate 82 80 81 Respiratory Rate 28 H 17 22 H Blood Pressure 164/79 H Pulse Oximetry 100 Oxygen Delivery Oxygen Flow Rate Fraction of Inspired Oxygen 07/24/25 19:36 07/24/25 19:36 07/24/25 19:39 Temperature Pulse Rate 79 81 Respiratory Rate 23 H 20 Blood Pressure Pulse Oximetry Oxygen Delivery Oxygen Flow Rate Fraction of Inspired Oxygen 100 07/24/25 19:44 07/24/25 19:46 07/24/25 19:56 Temperature Pulse Rate 80 81 88 Respiratory Rate 20 29 H 24 H Blood Pressure Pulse Oximetry Oxygen Delivery Oxygen Flow Rate Fraction of Inspired Oxygen 07/24/25 19:57 07/24/25 20:00 07/24/25 20:00 Temperature 100.0 F H Pulse Rate 73 Respiratory Rate 23 H Blood Pressure 141/72 H Pulse Oximetry 100 Oxygen Delivery Mechanical Ventilation Oxygen Flow Rate Fraction of Inspired Oxygen 100 100 07/24/25 20:00 07/24/25 20:14 07/24/25 21:00 Temperature 100.2 F H Pulse Rate 78 81 65 Respiratory Rate 25 H 19 Blood Pressure 120/61 Pulse Oximetry 100 Oxygen Delivery Oxygen Flow Rate Fraction of Inspired Oxygen 07/24/25 22:00 07/24/25 22:00 07/24/25 22:02 Temperature 99.5 F Pulse Rate 61 62 61 Respiratory Rate 16 16 Blood Pressure 120/62 Pulse Oximetry 99 Oxygen Delivery Oxygen Flow Rate Fraction of Inspired Oxygen 07/24/25 22:18 07/24/25 22:50 07/24/25 22:50 Temperature Pulse Rate 62 56 L 56 L Respiratory Rate 16 16 Blood Pressure Pulse Oximetry 99 Oxygen Delivery Mechanical Ventilation Oxygen Flow Rate Fraction of Inspired Oxygen 60 07/24/25 23:00 07/25/25 00:00 07/25/25 00:00 Temperature 98.1 F Pulse Rate 59 L Respiratory Rate 16 Blood Pressure 114/62 Pulse Oximetry 100 Oxygen Delivery Mechanical Ventilation Oxygen Flow Rate Fraction of Inspired Oxygen 60 60 07/25/25 00:00 07/25/25 00:00 07/25/25 00:00 Temperature 98.2 F Pulse Rate 52 L 52 L 54 L Respiratory Rate 16 16 Blood Pressure 120/65 Pulse Oximetry 100 Oxygen Delivery Oxygen Flow Rate Fraction of Inspired Oxygen 07/25/25 00:26 07/25/25 01:00 07/25/25 01:08 Temperature 97.9 F Pulse Rate 51 L 53 L 50 L Respiratory Rate 16 16 Blood Pressure 120/58 L Pulse Oximetry 100 100 Oxygen Delivery Mechanical Ventilation Oxygen Flow Rate Fraction of Inspired Oxygen 60 07/25/25 01:08 07/25/25 01:13 07/25/25 02:00 Temperature 96.7 F L Pulse Rate 50 L 56 L 57 L Respiratory Rate 16 16 18 Blood Pressure 110/58 L Pulse Oximetry 100 Oxygen Delivery Oxygen Flow Rate Fraction of Inspired Oxygen 07/25/25 02:00 07/25/25 02:00 07/25/25 03:00 Temperature 98.1 F Pulse Rate 57 L 57 L 51 L Respiratory Rate 18 17 Blood Pressure 112/61 Pulse Oximetry 100 Oxygen Delivery Oxygen Flow Rate Fraction of Inspired Oxygen 07/25/25 04:00 07/25/25 04:00 07/25/25 04:00 Temperature 97.0 F L Pulse Rate 51 L Respiratory Rate 16 Blood Pressure 117/61 Pulse Oximetry 100 Oxygen Delivery Mechanical Ventilation Oxygen Flow Rate Fraction of Inspired Oxygen 60 60 07/25/25 04:00 07/25/25 04:00 07/25/25 04:41 Temperature Pulse Rate 50 L 52 L 50 L Respiratory Rate 16 Blood Pressure Pulse Oximetry 100 Oxygen Delivery Mechanical Ventilation Oxygen Flow Rate Fraction of Inspired Oxygen 60 07/25/25 04:54 07/25/25 04:54 07/25/25 05:00 Temperature 97.2 F L Pulse Rate 50 L 50 L 53 L Respiratory Rate 16 16 16 Blood Pressure 119/63 Pulse Oximetry 100 Oxygen Delivery Oxygen Flow Rate Fraction of Inspired Oxygen 07/25/25 05:34 07/25/25 06:00 07/25/25 06:00 Temperature Pulse Rate 52 L 56 L 56 L Respiratory Rate 16 16 16 Blood Pressure 127/66 Pulse Oximetry 100 Oxygen Delivery Oxygen Flow Rate Fraction of Inspired Oxygen 07/25/25 06:00 07/25/25 06:33 07/25/25 07:00 Temperature Pulse Rate 56 L 55 L 62 Respiratory Rate 17 28 H Blood Pressure 140/74 Pulse Oximetry 100 Oxygen Delivery Oxygen Flow Rate Fraction of Inspired Oxygen 07/25/25 07:10 07/25/25 07:14 07/25/25 08:02 Temperature Pulse Rate 56 L 66 54 L Respiratory Rate 16 25 H 18 Blood Pressure Pulse Oximetry Oxygen Delivery Oxygen Flow Rate Fraction of Inspired Oxygen 07/25/25 08:09 07/25/25 08:18 Temperature Pulse Rate 55 L 55 L Respiratory Rate 18 Blood Pressure Pulse Oximetry 99 Oxygen Delivery Mechanical Ventilation Oxygen Flow Rate Fraction of Inspired Oxygen 40 Exam Narrative: General: Intubated, sedated, no acute distress HEENT:? Pupils equal and reactive, sclera is clear, ETT in place Neck: Supple Respiratory:? Coarse breath sounds right > left, adequate air entry, no wheezing Cardiac:? S1-S2 normal, bradycardia Abdomen:? Soft, nontender, nondistended, normoactive bowel sounds Extremities:? No edema, palpable pedal pulses Neuro:? Patient is intubated, sedated, does not open his eyes or follow simple commands Skin:? Warm and dry Psych:? Unable to assess at this time Results Labs 07/25/25 03:43 07/25/25 03:43 Labs: Short CBC 07/25/25 Range/Units 03:43 WBC 5.6 (4.5-10.0) K/mm3 Hgb 9.6 L (14.0-18.0) g/dL Hct 29.6 L (42.0-52.0) % Plt Count 208 (150-375) k/mm3 BMP 07/25/25 03:43 Sodium 132 L Potassium 3.9 Chloride 103 Carbon Dioxide 24 BUN 23 H Creatinine 1.02 Glucose 175 H Calcium 8.0 L Liver Function 07/25/25 Range/Units 03:43 Total Bilirubin 0.4 (0.2-1.3) mg/dL AST 50 (17-59) U/L ALT 46 (6-50) U/L Alkaline Phosphatase 62 (38-126) U/L Albumin 2.7 L (3.5-5.1) g/dL Quality VTE Prophylaxis VTE prophylaxis: pharmacologic ordered Hospitalist MIPS Advance Care Plan I have confirmed that the patient's Advanced Care Plan is present, code status is documented, or surrogate decision maker is listed in patient medical record.: Yes Medication Reconciliation I have utilized all available resources to obtain, update and review the patients current medications (includes all prescriptions, OTC, herbals, cannabis, and nutritional supplements).: Yes
[2025-07-25] MEDS: LEVOTHYROXINE SODIUM INJ 100 MCG/5 ML VIAL IV PUSH (09:15)
[2025-07-25] MEDS: ENOXAPARIN 40 MG/0.4 ML SYRINGE SUB-Q (09:15)
[2025-07-25] MEDS: FAMOTIDINE 20 MG/2 ML VIAL IV PUSH ×2 (09:15→20:29)
[2025-07-25] MEDS: MINERAL OIL/WHITE PETROLATUM OINTMENT 1 APPLIC EACH EYE ×2 (09:16→20:30)
[2025-07-25] MEDS: PROPOFOL IV EMULSION 100 ML 15.79 MG IV CONT (10:37)
[2025-07-25] MEDS: LACTATED RINGERS 1,000 ML 75 ML IV CONT (10:38)
[2025-07-25] MEDS: PROPOFOL IV EMULSION 100 ML 19.73 MG IV CONT (14:39)
[2025-07-25] MEDS: FENTANYL 2,500MCG/NS250ML(*CRX 2,500 MCG/250 ML BAG IV CONT (16:23)
[2025-07-25] MEDS: MIDAZOLAM HCL (*CRX) 2 MG/2 ML VIAL IV PUSH (16:33)
[2025-07-26] VITALS (47 sets, daily range): BP systolic 116–138; BP diastolic 62–82; PULSE 44–58; RESP 16–20; TEMP 35.7–36.6; O2SAT 98–100
[2025-07-26] MEDS: LACTATED RINGERS 1,000 ML 75 ML IV CONT (00:10)
[2025-07-26] MEDS: IPRATROPIUM 0.5 MG/ALBUTEROL SULFATE 2.5 MG AMPUL.NEB 3 ML INHALATION ×4 (01:36→19:38)
[2025-07-26] MEDS: PROPOFOL IV EMULSION 100 ML 13.81 MG IV CONT ×3 (02:14→13:52)
[2025-07-26 04:15] LABS: Alveolar/Arterial O2 Gradient 72.0 mmHg; Carboxyhemoglobin 0.2 % THb (0-2.0); Fractional Inspired Oxygen 30 %; HCO3 ABG 21.7 mEq/l (22.0-26.0); Methemoglobin ABG 0.3 %THb (0-1.5); Oxygen Content ABG 14.4 %vol (16.0-22.0); Oxygen Saturation ABG 97.6 % (95.0-100.0); PCO2 ABG 35.4 mmHg (35.0-45.0); PO2 ABG 100.3 mmHg (80.0-100.0); PO2 FiO2 Ratio Arterial Blood 3.34 %; Reduced Hemoglobin 2.7 %THb (0-5.0)
[2025-07-26 04:16] LABS: Modified Allen's Test Pass; Site Drawn RIGHT RADIAL
[2025-07-26 04:17] LABS: Arterial Blood Gas Tidal Volume 450 ml; Arterial Blood Gas Ventilator rate 18 /MIN
[2025-07-26 04:29] LABS: Hematocrit 29.7 % (42.0-52.0); Hemoglobin 9.5 g/dL (14.0-18.0); Immature Granulocyte Percent A 0.5 % (0-0.5); Lymphocytes Absolute Auto 0.41 K/mm3 (0.9-3.2); Mean Corpuscular HGB Conc 32.0 g/dl (32-36); Mean Corpuscular Hemoglobin 28.4 pg (26-34); Mean Corpuscular Volume 88.7 fl (80-100); Nucleated Red Blood Cells Absolute Auto 0.000 K/mm3 (0.0-0.012); Nucleated Red Blood Cells Perc 0.0 % (0.0-0.2); Platelet Count Result 256 k/mm3 (150-375); Red Blood Count 3.35 M/mm3 (4.6-6.20); White Blood Count 7.6 K/mm3 (4.5-10.0)
[2025-07-26 04:55] LABS: Alanine Aminotransferase 69 U/L (6-50); Albumin Level 2.8 g/dL (3.5-5.1); Alkaline Phosphatase 66 U/L (38-126); Anion Gap 5 mmol/L (4-12); Aspartate Amino Transferase 70 U/L (17-59); Bilirubin,Total 0.3 mg/dL (0.2-1.3); Blood Urea Nitrogen 33 mg/dL (9-20); Calcium 8.1 mg/dL (8.4-10.2); Carbon Dioxide 23 mmol/L (22-30); Chloride 106 mmol/L (98-107); Estimated CRCL calculation 44 ml/min; Estimated Glomerular Filt Rate > 60; Glucose 170 mg/dL (65-110); Magnesium 2.2 mg/dL (1.6-2.3); Potassium 3.9 mmol/L (3.4-5.0); Sodium 134 mmol/L (137-145); Total Protein 6.1 g/dL (6.3-8.2)
[2025-07-26] MEDS: LEVOTHYROXINE SODIUM INJ 100 MCG/5 ML VIAL IV PUSH (06:47)
[2025-07-26] MEDS: FAMOTIDINE 20 MG/2 ML VIAL IV PUSH ×2 (08:11→20:26)
[2025-07-26] MEDS: ENOXAPARIN 40 MG/0.4 ML SYRINGE SUB-Q (08:11)
[2025-07-26] MEDS: ATORVASTATIN 40 MG TABLET FEED TUBE (08:12)
[2025-07-26] MEDS: DOXYCYCLINE IV 100 MG in SODIUM CHLORIDE 0.9% IV 100 ML IVPB ×2 (08:12→20:26)
[2025-07-26] MEDS: SERTRALINE HCL 50 MG TABLET 200 MG FEED TUBE (08:12)
[2025-07-26] MEDS: MINERAL OIL/WHITE PETROLATUM OINTMENT 1 APPLIC EACH EYE ×2 (08:13→20:28)
--- NOTE | 2025-07-26 08:18 | P.PNINT_ITS ---
Progress Note: A&P Assessment and Plan (1) Respiratory failure: Code(s): J96.90 - Respiratory failure, unspecified, unspecified whether with hypoxia or hypercapnia Status: Acute Assessment and Plan: 07/24/2025: Patient received Chloraseptic for ulcers on his tongue, 1 hour after that patient has swelling of the tongue, drooling, difficulty swallowing, shortness of breath. Patient was transferred from the medical floor to the ICU in the ER physician intubated the patient with a size 7.5 ET tube. it was difficult intubation given severe edema of the tongue, posterior oropharynx and directly above the cords. There is some possible injury to the vocal cords -currently on CMV mode of ventilation,, peep of 8, off 30% FiO2 -ABGs and chest x-ray reviewed, -continue DuoNebs -sedated with propofol infusion and fentanyl, maintain RASS of -2 at all times (2) Angioedema: Code(s): T78.3XXA - Angioneurotic edema, initial encounter Status: Acute Assessment and Plan: Angioedema likely related to Chloraseptic, as he has developed swelling of the tongue, drooling, difficulty swallowing and shortness of breath an hour after receiving the Chloraseptic -patient was intubated by ER physician as above -received epinephrine, Solu-Medrol, H1 and H2 timo -will continue Solu-Medrol, famotidine, Benadryl 07/25/2025: CT soft tissue neck Impression: CT soft tissue neck showed right upper lobe pneumonia, emphysema, mediastinal lymphadenopathy, likely reactive. Soft tissue swelling of the financial mucosal space (3) Acute pneumonia: Code(s): J18.9 - Pneumonia, unspecified organism Status: Acute Assessment and Plan: Patient presented with acute pneumonia, right upper lobe and right lower lobe pneumonia, and small right effusion -patient was on ceftriaxone and azithromycin, given patient's angioedema, switched antibiotics to levofloxacin and doxycycline (07/24) -07/25/2025: Sputum culture are pending -07/23/2025: Legionella antigen has been ordered and pending -07/23/2025: Blood cultures are pending (4) COPD (chronic obstructive pulmonary disease): Code(s): J44.9 - Chronic obstructive pulmonary disease, unspecified Status: Acute Assessment and Plan: Patient is a history of COPD, continue mechanical ventilation, steroids, bronchodilators and antibiotics (5) Hypothyroidism: Code(s): E03.9 - Hypothyroidism, unspecified Status: Acute Assessment and Plan: Levothyroxine has been switched to IV (6) Hypertension: Qualifiers: Hypertension type: unspecified Qualified Code(s): I10 - Essential (primary) hypertension Code(s): I10 - Essential (primary) hypertension Status: Chronic Assessment and Plan: Will hold antihypertensives as patient's blood pressures are stable on propofol infusion in positive-pressure ventilation Plan DVT prophylaxis: Lovenox Stress ulcer prophylaxis: Famotidine Nutrition: Tolerating tube feeds at goal Code Status: Patient is a MODIFIED CODE, NO CPR Critical Care Time Spent: 49 minutes 07/25: Discussed with daughter and and on separate occasion, updated with patient's condition plan of care. I answered all the questions Due to a high probability of clinically significant, life threatening deterioration, the patient required my highest level of preparedness to interv bruce emergently and I personally spent this critical care time directly and personally managing the patient. This critical care time included obtaining a history; examining the patient; pulse oximetry; ordering and review of studies; arranging urgent treatment with development of a management plan; evaluation of patient's response to treatment; frequent reassessment; and discussions with other providers. It was exclusive of separately billable procedures and treating other patients and teaching time. Please see Assessment and Plan section and the rest of the note for further information on patient assessment and treatment This dictation may have been done utilizing a voice recognition system. Attempts have been made to correct errors. However, there may be uncorrected grammatical, spelling, and recognitions errors present. Subjective Date/time seen: 07/26/25 08:18 Interval history: Reason for consult:, angioedema, swelling of the tongue, difficulty breathing, difficulty swallowing, drooling in stride 07/24: Intubated by ER physician 07/26/2025: Patient seen examined the ICU, remains intubated on CMV mode of ventilation, peep of 8, 30% FiO2. Patient is sedated with fentanyl and propofol infusion, opens his eyes, follows simple commands. Urine output has been adequate, afebrile, hemodynamically stable. Tolerating tube feeds at goal Review of Systems Review of Systems: ROS unobtainable: Yes unobtainable due to endotracheal tube, unobtainable due to medical condition and unobtainable due to mental status Exam Narrative: General: Intubated, sedated, no acute distress HEENT:? Pupils equal and reactive, sclera is clear, tongue still looks to be swollen Neck: Supple Respiratory:? Coarse breath sounds right > left, adequate air entry, no wheezing Cardiac:? S1-S2 normal, bradycardia Abdomen:? Soft, nontender, nondistended, normoactive bowel sounds Extremities:? No edema, palpable pedal pulses Neuro:? Patient is intubated, sedated with propofol and fentanyl, opens his eyes, follows simple commands Skin:? Warm and dry Psych:? Unable to assess at this time Objective Data Vital Signs Vital Signs: Vital Signs - 24 hr 07/25/25 09:00 07/25/25 10:00 07/25/25 10:00 Temperature Pulse Rate 54 L 54 L 54 L Respiratory Rate 18 21 H Blood Pressure 119/68 133/68 Pulse Oximetry 100 100 Oxygen Delivery Fraction of Inspired Oxygen 07/25/25 10:00 07/25/25 10:37 07/25/25 10:37 Temperature Pulse Rate 54 L 53 L 53 L Respiratory Rate 85 H 18 18 Blood Pressure Pulse Oximetry Oxygen Delivery Fraction of Inspired Oxygen 07/25/25 10:58 07/25/25 11:00 07/25/25 11:14 Temperature Pulse Rate 68 61 55 L Respiratory Rate 19 18 Blood Pressure 138/69 Pulse Oximetry 100 100 Oxygen Delivery Mechanical Ventilation Fraction of Inspired Oxygen 30 07/25/25 12:00 07/25/25 12:00 07/25/25 12:00 Temperature Pulse Rate 53 L Respiratory Rate 18 Blood Pressure 124/64 Pulse Oximetry 98 Oxygen Delivery Mechanical Ventilation Fraction of Inspired Oxygen 30 30 07/25/25 12:00 07/25/25 12:00 07/25/25 13:00 Temperature Pulse Rate 53 L 53 L 48 L Respiratory Rate 18 23 H Blood Pressure 125/66 Pulse Oximetry 98 Oxygen Delivery Fraction of Inspired Oxygen 07/25/25 14:00 07/25/25 14:00 07/25/25 14:03 Temperature Pulse Rate 57 L 50 L 53 L Respiratory Rate 18 18 Blood Pressure 123/66 Pulse Oximetry 99 Oxygen Delivery Fraction of Inspired Oxygen 07/25/25 14:05 07/25/25 14:14 07/25/25 14:39 Temperature Pulse Rate 49 L 49 L 50 L Respiratory Rate 18 18 Blood Pressure Pulse Oximetry 99 Oxygen Delivery Mechanical Ventilation Fraction of Inspired Oxygen 30 07/25/25 14:39 07/25/25 15:00 07/25/25 16:00 Temperature 98.0 F Pulse Rate 50 L 54 L Respiratory Rate 18 18 Blood Pressure 135/72 Pulse Oximetry 99 98 Oxygen Delivery Mechanical Ventilation Fraction of Inspired Oxygen 30 07/25/25 16:00 07/25/25 16:00 07/25/25 16:00 Temperature Pulse Rate 61 58 L Respiratory Rate 21 H Blood Pressure 141/81 H Pulse Oximetry 99 Oxygen Delivery Fraction of Inspired Oxygen 30 07/25/25 16:00 07/25/25 16:23 07/25/25 17:00 Temperature 98.4 F Pulse Rate 58 L 63 63 Respiratory Rate 21 H 19 19 Blood Pressure 112/61 Pulse Oximetry 98 Oxygen Delivery Fraction of Inspired Oxygen 07/25/25 17:02 07/25/25 18:00 07/25/25 18:00 Temperature Pulse Rate 60 50 L 49 L Respiratory Rate 18 Blood Pressure 116/61 Pulse Oximetry 98 98 Oxygen Delivery Mechanical Ventilation Fraction of Inspired Oxygen 30 07/25/25 18:02 07/25/25 18:04 07/25/25 18:21 Temperature Pulse Rate 50 L 50 L 50 L Respiratory Rate 18 18 18 Blood Pressure Pulse Oximetry Oxygen Delivery Fraction of Inspired Oxygen 07/25/25 19:00 07/25/25 20:00 07/25/25 20:00 Temperature 96.4 F L Pulse Rate 46 L 52 L 52 L Respiratory Rate 18 18 18 Blood Pressure 117/62 120/62 Pulse Oximetry 98 100 Oxygen Delivery Fraction of Inspired Oxygen 07/25/25 20:00 07/25/25 20:00 07/25/25 20:00 Temperature Pulse Rate 45 L Respiratory Rate Blood Pressure Pulse Oximetry Oxygen Delivery Mechanical Ventilation Fraction of Inspired Oxygen 30 30 07/25/25 20:06 07/25/25 20:07 07/25/25 20:22 Temperature Pulse Rate 45 L 46 L 48 L Respiratory Rate 18 18 Blood Pressure Pulse Oximetry 99 Oxygen Delivery Mechanical Ventilation Fraction of Inspired Oxygen 30 07/25/25 20:26 07/25/25 20:26 07/25/25 21:00 Temperature Pulse Rate 45 L 45 L 59 L Respiratory Rate 18 18 18 Blood Pressure 147/73 H Pulse Oximetry 99 Oxygen Delivery Fraction of Inspired Oxygen 07/25/25 22:00 07/25/25 22:00 07/25/25 22:00 Temperature Pulse Rate 63 63 63 Respiratory Rate 18 18 Blood Pressure Pulse Oximetry Oxygen Delivery Fraction of Inspired Oxygen 07/25/25 22:00 07/25/25 23:00 07/25/25 23:00 Temperature Pulse Rate 63 50 L 50 L Respiratory Rate 18 18 Blood Pressure 139/75 117/63 Pulse Oximetry 100 98 98 Oxygen Delivery Mechanical Ventilation Fraction of Inspired Oxygen 30 07/26/25 00:00 07/26/25 00:00 07/26/25 00:00 Temperature 96.3 F L Pulse Rate 52 L 52 L 52 L Respiratory Rate 18 18 18 Blood Pressure 129/82 Pulse Oximetry 100 Oxygen Delivery Fraction of Inspired Oxygen 07/26/25 00:00 07/26/25 00:00 07/26/25 00:00 Temperature Pulse Rate 55 L Respiratory Rate Blood Pressure Pulse Oximetry Oxygen Delivery Mechanical Ventilation Fraction of Inspired Oxygen 30 07/26/25 00:50 07/26/25 01:00 07/26/25 01:36 Temperature Pulse Rate 49 L 47 L 47 L Respiratory Rate 18 18 18 Blood Pressure 128/64 Pulse Oximetry 100 Oxygen Delivery Fraction of Inspired Oxygen 07/26/25 01:41 07/26/25 02:00 07/26/25 02:00 Temperature Pulse Rate 52 L 48 L 48 L Respiratory Rate 18 Blood Pressure 124/67 Pulse Oximetry 99 99 Oxygen Delivery Mechanical Ventilation Fraction of Inspired Oxygen 30 07/26/25 02:10 07/26/25 02:14 07/26/25 02:14 Temperature Pulse Rate 50 L 48 L 48 L Respiratory Rate 18 18 18 Blood Pressure Pulse Oximetry Oxygen Delivery Fraction of Inspired Oxygen 07/26/25 02:16 07/26/25 03:00 07/26/25 04:00 Temperature Pulse Rate 48 L 49 L 52 L Respiratory Rate 18 18 18 Blood Pressure 121/67 Pulse Oximetry 100 Oxygen Delivery Fraction of Inspired Oxygen 07/26/25 04:00 07/26/25 04:00 07/26/25 04:00 Temperature Pulse Rate 52 L Respiratory Rate 18 Blood Pressure Pulse Oximetry Oxygen Delivery Mechanical Ventilation Fraction of Inspired Oxygen 30 30 07/26/25 04:00 07/26/25 04:00 07/26/25 04:08 Temperature 97.5 F L Pulse Rate 52 L 53 L 53 L Respiratory Rate 18 Blood Pressure 127/67 Pulse Oximetry 99 98 Oxygen Delivery Mechanical Ventilation Fraction of Inspired Oxygen 30 07/26/25 05:00 07/26/25 06:00 07/26/25 06:00 Temperature Pulse Rate 49 L 49 L 49 L Respiratory Rate 18 18 18 Blood Pressure 126/66 Pulse Oximetry 100 Oxygen Delivery Fraction of Inspired Oxygen 07/26/25 06:00 07/26/25 06:00 07/26/25 07:00 Temperature Pulse Rate 49 L 49 L 49 L Respiratory Rate 18 18 Blood Pressure 127/66 136/69 Pulse Oximetry 98 98 Oxygen Delivery Fraction of Inspired Oxygen 07/26/25 07:41 07/26/25 07:43 07/26/25 07:52 Temperature Pulse Rate 51 L 51 L 54 L Respiratory Rate 18 16 Blood Pressure Pulse Oximetry 100 Oxygen Delivery Mechanical Ventilation Fraction of Inspired Oxygen 30 Intake/Output Intake/Output: Intake & Output 07/23/25 07/24/25 07/25/25 07/26/25 23:59 23:59 23:59 23:59 Intake Total 2050 317.0 838.8 1643.4 Output Total 75 100 2350 450 Balance 1975 217.0 -1511.2 1193.4 Meds/Results Medications: Active Medications Generic Name Dose Route Start Last Admin Trade Name Freq PRN Reason Stop Dose Admin Acetaminophen 650 mg 07/24/25 19:00 Acetaminophen 325 Mg Tablet FEED TUBE Q4H PRN Mild Pain (1-3) or Fever Acetaminophen 650 mg 07/24/25 21:04 Acetaminophen 650 Mg Suppository RECTAL Q6H PRN Mild Pain (1-3) or Fever Albuterol/Ipratropium 3 ml 07/25/25 08:00 07/26/25 07:41 Ipratropium 0.5 Mg/Albuterol Sulfate 2.5 Mg Ampul.Neb 3 Ml INHALATION 3 ml Q6HRT ZAHIRA Administration Alprazolam 0.25 mg 07/24/25 09:00 07/24/25 17:08 Alprazolam (*Crx) 0.25 Mg Tablet PO 0.25 mg On Hold: 07/24/25 18:58 QID ZAHIRA Administration Amlodipine Besylate 10 mg 07/25/25 09:00 07/25/25 09:16 Amlodipine Besylate 10 Mg Tablet FEED TUBE Not Given On Hold: 07/25/25 09:03 DAILY ZAHIRA Atorvastatin Calcium 40 mg 07/25/25 09:00 07/25/25 09:16 Atorvastatin 40 Mg Tablet FEED TUBE Not Given DAILY ZAHIRA Carvedilol 6.25 mg 07/24/25 21:00 07/24/25 21:10 Carvedilol 6.25 Mg Tablet FEED TUBE Not Given On Hold: 07/25/25 07:20 Q12H ZAHIRA Dextrose 12.5 gm 07/25/25 10:12 Dextrose 50% 25 Gm/50 Ml Syringe IV PUSH PRN PRN Hypoglycemia Protocol Diphenhydramine HCl 25 mg 07/25/25 00:00 07/26/25 06:47 Diphenhydramine Hcl Inj 50 Mg/Ml Vial IV PUSH 25 mg Q6H ZAHIRA Administration Enoxaparin Sodium 40 mg 07/25/25 09:00 07/25/25 09:15 Enoxaparin 40 Mg/0.4 Ml Syringe SUB-Q 40 mg DAILY ZAHIRA Administration Famotidine 20 mg 07/25/25 09:00 07/25/25 20:29 Famotidine 20 Mg/2 Ml Vial IV PUSH 20 mg Q12HR ZAHIRA Administration Glucagon 1 mg 07/25/25 10:12 Glucagon For Inj 1 Mg Vial IM PRN PRN Hypoglycemia Protocol Glucose 15 gm 07/25/25 10:12 Glucose Oral Gel 15 Gm Of Glucse In 37.5 Gm Tube PO PRN PRN Hypoglycemia Protocol Hydralazine HCl 50 mg 07/24/25 09:00 07/24/25 17:10 Hydralazine Hcl 50 Mg Tablet PO Not Given On Hold: 07/25/25 07:18 TID ZAHIRA Propofol 100 mls @ 13.812 mls/hr 07/24/25 19:15 07/26/25 06:00 Diprivan IV CONT 35 mcg/kg/min .Q7H15M ZAHIRA 13.81 mls/hr Protocol Titration 35 MCG/KG/MIN Levofloxacin/Dextrose 500 mg in 100 mls @ 100 mls/hr 07/24/25 23:00 07/25/25 02:06 Levaquin 500 Mg/D5w 100 Ml IVPB Infused Q48H ZAHIRA Infusion Doxycycline Hyclate 100 mg/ 100 mls @ 100 mls/hr 07/24/25 22:25 07/25/25 21:29 Sodium Chloride IVPB Infused Q12HR ZAHIRA Infusion Lactated Ringer's 1,000 mls @ 75 mls/hr 07/25/25 09:15 07/26/25 00:10 Lr - Lactated Ringers Iv IV CONT 07/26/25 11:54 75 mls/hr .[id number] ZAHIRA Administration Dextrose 1,000 mls @ 100 mls/hr 07/25/25 10:12 Dextrose 5% 1,000 Ml IVPB PRN PRN Hypoglycemia Protocol Fentanyl Citrate 2,500 mcg in 250 mls @ 5 mls/hr 07/25/25 16:10 07/26/25 06:00 Fentanyl 2,500 Mcg/Ns 250 Ml IV CONT 50 mcg/hr .Q50H ZAHIRA 5 mls/hr Protocol Titration 50 MCG/HR Insulin Aspart 3 - 6 units 07/25/25 12:00 07/26/25 06:49 Insulin Aspart (*Bkc) 100 Units/Ml SUB-Q Not Given Q6HR [facility] Protocol Levothyroxine Sodium 100 mcg 07/25/25 07:25 07/26/25 06:47 Levothyroxine Sodium Inj 100 Mcg/5 Ml Vial IV PUSH 100 mcg DAILY@0630 ZAHIRA Administration Methylprednisolone Sodium Succinate 60 mg 07/25/25 00:00 07/26/25 06:47 Methylprednisolone Sod Succ 125 Mg Vial IV PUSH 60 mg Q6HR ZAHIRA Administration Multi-Ingred Cream/Lotion/Oil/Oint 1 applic 07/24/25 21:00 07/25/25 20:30 Mineral Oil/White Petrolatum Ointment EACH EYE 1 applic Q12HR ZAHIRA Administration Ondansetron HCl 4 mg 07/24/25 01:45 Ondansetron Inj 4 Mg/2 Ml Vial IV PUSH Q4H PRN Nausea Sertraline HCl 200 mg 07/25/25 09:00 07/25/25 09:16 Sertraline Hcl 50 Mg Tablet FEED TUBE Not Given DAILY [facility] Zolpidem Tartrate 10 mg 07/24/25 14:58 Zolpidem Tartrate (*Crx) 5 Mg Tablet PO On Hold: 07/24/25 19:00 HS PRN Insomnia Radiology Results: ITS Impressions Abdomen/Pelvis CT 07/23/25 21:54 IMPRESSION: 1. New wedge-shaped pleural-based soft tissue right middle lobe laterally. Considering bilateral pleural calcifications, malignancy should be considered including mesothelioma. There is pleural based soft tissue mass measures 3.6 x 1.7 cm. 2: Splenomegaly. Chest CT 07/24/25 08:52 IMPRESSION: 1. Bronchopneumonia detailed above superimposed upon mild CHF. Follow-up recomm ended to assess resolution 2. Sequelae of previous granulomatous disease. Bilateral micronodules which are new compared to the previous study, in a high-risk patient six-month follow-up is recommended Soft Tissue Neck CT 07/25/25 08:34 IMPRESSION: 1. Right upper lobe pneumonia. 2. Emphysema. 3. Mediastinal lymphadenopathy, likely reactive. 4. Soft tissue swelling of the pharyngeal mucosal space. Chest/Abdomen/Pelvis CT 07/25/25 08:40 IMPRESSION: 1. Pneumonia in right upper lobe and right lower lobe, worsened from 07/23/2025. 2. Moderate emphysema. 3. Worsened small right pleural effusion. 4. Mild mediastinal lymphadenopathy, likely reactive. Abdomen X-Ray 07/25/25 15:20 Impression: 1. No acute abnormality. Labs Labs: Laboratory Results - last 24 hr 07/25/25 07/25/25 07/25/25 12:59 18:13 23:53 WBC RBC Hgb Hct MCV MCH MCHC RDW Plt Count MPV Immature Gran % (Auto) Neut % (Auto) Lymph % (Auto) Bartholomew % (Auto) Eos % (Auto) Baso % (Auto) Lymph # (Auto) Bartholomew # (Auto) Eos # (Auto) Baso # (Auto) Abs Immat Gran (auto) Absolute Neuts (auto) Absolute Nucleated RBC Nucleated RBC % Puncture Site ABG pH ABG pCO2 ABG pO2 ABG PO2/FiO2 Ratio ABG HCO3 ABG O2 Saturation ABG O2 Content ABG Base Excess A-a Gradient Oxyhemoglobin Carboxyhemoglobin Methemoglobin Reduced Hemoglobin Total Hemoglobin O2 Delivery Device O2 Liters/Min Minute Volume Vent Rate Vent Mode FiO2 Tidal Volume PEEP Peak Inspir Pressure Pressure Support Sodium Potassium Chloride Carbon Dioxide Anion Gap BUN Creatinine Estim Creat Clear Calc Estimated GFR Glucose POC Capillary Glucose 138 H 151 H 161 H Calcium Phosphorus Magnesium Total Bilirubin AST ALT Alkaline Phosphatase Total Protein Albumin 07/26/25 07/26/25 03:58 03:59 WBC 7.6 RBC 3.35 L Hgb 9.5 L Hct 29.7 L MCV 88.7 MCH 28.4 MCHC 32.0 RDW 14.3 Plt Count 256 MPV 9.1 Immature Gran % (Auto) 0.5 Neut % (Auto) 87.9 H Lymph % (Auto) 5.4 L Bartholomew % (Auto) 6.1 Eos % (Auto) 0.0 Baso % (Auto) 0.1 L Lymph # (Auto) 0.41 L Bartholomew # (Auto) 0.5 Eos # (Auto) 0.0 Baso # (Auto) 0.0 Abs Immat Gran (auto) 0.04 H Absolute Neuts (auto) 6.6 Absolute Nucleated RBC 0.000 Nucleated RBC % 0.0 Puncture Site Right radial ABG pH 7.405 ABG pCO2 35.4 ABG pO2 100.3 H ABG PO2/FiO2 Ratio 3.34 ABG HCO3 21.7 L ABG O2 Saturation 97.6 ABG O2 Content 14.4 L ABG Base Excess -2.6 A-a Gradient 72.0 Oxyhemoglobin 96.8 Carboxyhemoglobin 0.2 Methemoglobin 0.3 Reduced Hemoglobin 2.7 Total Hemoglobin 10.5 L O2 Delivery Device Ventilator O2 Liters/Min Not Reportable Minute Volume Not Reportable Vent Rate 18 Vent Mode Cmv FiO2 30 Tidal Volume 450 PEEP 8 Peak Inspir Pressure Not Reportable Pressure Support Not Reportable Sodium 134 L Potassium 3.9 Chloride 106 Carbon Dioxide 23 Anion Gap 5 BUN 33 H D Creatinine 0.96 Estim Creat Clear Calc 44 Estimated GFR > 60 Glucose 170 H POC Capillary Glucose Calcium 8.1 L Phosphorus 4.5 Magnesium 2.2 Total Bilirubin 0.3 AST 70 H ALT 69 H Alkaline Phosphatase 66 Total Protein 6.1 L Albumin 2.8 L Quality VTE Prophylaxis VTE prophylaxis: pharmacologic ordered
[2025-07-26] MEDS: PROPOFOL IV EMULSION 100 ML 11.84 MG IV CONT (21:30)
[2025-07-26] MEDS: levoFLOXacin 500 MG/D5W 100 ML 500 MG/100 ML BAG 100 MG IVPB (23:36)
[2025-07-27] VITALS (51 sets, daily range): BP systolic 121–151; BP diastolic 62–83; PULSE 44–78; RESP 16–25; TEMP 36.1–36.6; O2SAT 9–100; BMI 27.8
[2025-07-27] MEDS: IPRATROPIUM 0.5 MG/ALBUTEROL SULFATE 2.5 MG AMPUL.NEB 3 ML INHALATION ×4 (01:35→20:19)
[2025-07-27] MEDS: PROPOFOL IV EMULSION 100 ML 15.79 MG IV CONT ×4 (04:00→19:33)
[2025-07-27 04:07] LABS: Hematocrit 30.5 % (42.0-52.0); Hemoglobin 9.9 g/dL (14.0-18.0); Immature Granulocyte Percent A 1.3 % (0-0.5); Lymphocytes Absolute Auto 0.34 K/mm3 (0.9-3.2); Mean Corpuscular HGB Conc 32.5 g/dl (32-36); Mean Corpuscular Hemoglobin 28.8 pg (26-34); Mean Corpuscular Volume 88.7 fl (80-100); Nucleated Red Blood Cells Absolute Auto 0.000 K/mm3 (0.0-0.012); Nucleated Red Blood Cells Perc 0.0 % (0.0-0.2); Platelet Count Result 322 k/mm3 (150-375); Red Blood Count 3.44 M/mm3 (4.6-6.20); White Blood Count 8.5 K/mm3 (4.5-10.0)
[2025-07-27 04:22] LABS: Alanine Aminotransferase 63 U/L (6-50); Albumin Level 2.8 g/dL (3.5-5.1); Alkaline Phosphatase 72 U/L (38-126); Anion Gap 6 mmol/L (4-12); Aspartate Amino Transferase 40 U/L (17-59); Bilirubin,Total 0.3 mg/dL (0.2-1.3); Blood Urea Nitrogen 41 mg/dL (9-20); Calcium 8.0 mg/dL (8.4-10.2); Carbon Dioxide 25 mmol/L (22-30); Chloride 106 mmol/L (98-107); Estimated CRCL calculation 47 ml/min; Estimated Glomerular Filt Rate > 60; Glucose 151 mg/dL (65-110); Magnesium 2.3 mg/dL (1.6-2.3); Potassium 4.2 mmol/L (3.4-5.0); Sodium 137 mmol/L (137-145); Total Protein 6.0 g/dL (6.3-8.2); Triglycerides 118 mg/dL (<150)
[2025-07-27 04:34] LABS: Alveolar/Arterial O2 Gradient 62.9 mmHg; Carboxyhemoglobin 0.5 % THb (0-2.0); Fractional Inspired Oxygen 30 %; HCO3 ABG 24.9 mEq/l (22.0-26.0); Methemoglobin ABG 0.3 %THb (0-1.5); Oxygen Content ABG 17.1 %vol (16.0-22.0); Oxygen Saturation ABG 97.2 % (95.0-100.0); PCO2 ABG 45.0 mmHg (35.0-45.0); PO2 ABG 98.1 mmHg (80.0-100.0); PO2 FiO2 Ratio Arterial Blood 3.27 %; Reduced Hemoglobin 2.7 %THb (0-5.0)
[2025-07-27 04:35] LABS: Modified Allen's Test Pass; Site Drawn RIGHT RADIAL
[2025-07-27 04:36] LABS: Arterial Blood Gas Tidal Volume 450 ml; Arterial Blood Gas Ventilator rate 18 /MIN
[2025-07-27] MEDS: LEVOTHYROXINE SODIUM INJ 100 MCG/5 ML VIAL IV PUSH (06:09)
[2025-07-27] MEDS: ENOXAPARIN 40 MG/0.4 ML SYRINGE SUB-Q (08:28)
[2025-07-27] MEDS: SERTRALINE HCL 50 MG TABLET 200 MG FEED TUBE (08:28)
[2025-07-27] MEDS: DOXYCYCLINE IV 100 MG in SODIUM CHLORIDE 0.9% IV 100 ML IVPB (08:28)
[2025-07-27] MEDS: FAMOTIDINE 20 MG/2 ML VIAL IV PUSH ×2 (08:28→20:03)
[2025-07-27] MEDS: ATORVASTATIN 40 MG TABLET FEED TUBE (08:28)
[2025-07-27] MEDS: MINERAL OIL/WHITE PETROLATUM OINTMENT 1 APPLIC EACH EYE ×2 (08:30→20:03)
--- NOTE | 2025-07-27 10:58 | P.PNINT_ITS ---
Progress Note: A&P Assessment and Plan (1) Respiratory failure: Code(s): J96.90 - Respiratory failure, unspecified, unspecified whether with hypoxia or hypercapnia Status: Acute Assessment and Plan: 07/24/2025: Patient received Chloraseptic for ulcers on his tongue, 1 hour after that patient has swelling of the tongue, drooling, difficulty swallowing, shortness of breath. Patient was transferred from the medical floor to the ICU in the ER physician intubated the patient with a size 7.5 ET tube. it was difficult intubation given severe edema of the tongue, posterior oropharynx and directly above the cords. There is some possible injury to the vocal cords -currently on CMV mode of ventilation,, peep of 8, off 30% FiO2 -ABGs and chest x-ray reviewed, -continue DuoNebs -sedated with propofol infusion and fentanyl, maintain RASS of -2 at all times 07/27: Patient does not have a cuff leak this morning which was checked on separate occasions by respiratory therapist and myself. (2) Angioedema: Code(s): T78.3XXA - Angioneurotic edema, initial encounter Status: Acute Assessment and Plan: Angioedema likely related to Chloraseptic, as he has developed swelling of the tongue, drooling, difficulty swallowing and shortness of breath an hour after receiving the Chloraseptic -patient was intubated by ER physician as above -received epinephrine, Solu-Medrol, H1 and H2 timo -continue Solu-Medrol, famotidine, Benadryl -07/27: swelling of the tongue is improving, patient did not have a cuff leak 07/25/2025: CT soft tissue neck Impression: CT soft tissue neck showed right upper lobe pneumonia, emphysema, mediastinal lymphadenopathy, likely reactive. Soft tissue swelling of the financial mucosal space (3) Acute pneumonia: Code(s): J18.9 - Pneumonia, unspecified organism Status: Acute Assessment and Plan: Patient presented with acute pneumonia, right upper lobe and right lower lobe pneumonia, and small right effusion -patient was on ceftriaxone and azithromycin, given patient's angioedema, switched antibiotics to levofloxacin and doxycycline (07/24) -07/25/2025: Sputum culture are pending -07/23/2025: Legionella antigen has been ordered and pending -07/23/2025: Blood cultures are pending (4) COPD (chronic obstructive pulmonary disease): Code(s): J44.9 - Chronic obstructive pulmonary disease, unspecified Status: Acute Assessment and Plan: Patient is a history of COPD, continue mechanical ventilation, steroids, bronchodilators and antibiotics (5) Hypothyroidism: Code(s): E03.9 - Hypothyroidism, unspecified Status: Acute Assessment and Plan: Levothyroxine has been switched to IV (6) Hypertension: Qualifiers: Hypertension type: unspecified Qualified Code(s): I10 - Essential (primary) hypertension Code(s): I10 - Essential (primary) hypertension Status: Chronic Assessment and Plan: Will hold antihypertensives as patient's blood pressures are stable on propofol infusion in positive-pressure ventilation Plan DVT prophylaxis: Lovenox Stress ulcer prophylaxis: Famotidine Nutrition: Tolerating tube feeds at goal Code Status: Patient is a MODIFIED CODE, NO CPR Critical Care Time Spent: 32 minutes 07/27: Discussed with daughter in rounds and updated her with patient's conditio n plan of care. I did explain to her regarding the cuff leak and that tongue is still swollen but improving, will continue treatment for angioedema at this time. No plan to extubate today. I answered all the questions Due to a high probability of clinically significant, life threatening deterioration, the patient required my highest level of preparedness to intervene emergently and I personally spent this critical care time directly and personally managing the patient. This critical care time included obtaining a history; examining the patient; pulse oximetry; ordering and review of studies; arranging urgent treatment with development of a management plan; evaluation of patient's response to treatment; frequent reassessment; and discussions with other providers. It was exclusive of separately billable procedures and treating other patients and teaching time. Please see Assessment and Plan section and the rest of the note for further information on patient assessment and treatment This dictation may have been done utilizing a voice recognition system. Attempts have been made to correct errors. However, there may be uncorrected grammatical, spelling, and recognitions errors present. Subjective Date/time seen: 07/27/25 10:58 Interval history: Reason for consult:, angioedema, swelling of the tongue, difficulty breathing, difficulty swallowing, drooling in stride 07/24: Intubated by ER physician 07/27/2025: Patient seen examined the ICU, remains intubated on CMV mode of ventilation, peep of 8, 30% FiO2. Patient is sedated with fentanyl and propofol infusion, opens his eyes, follows simple commands. Urine output has been adequate, afebrile, hemodynamically stable. Tolerating tube feeds at goal. Patient does not have a cuff leak Review of Systems Review of Systems: ROS unobtainable: Yes unobtainable due to endotracheal tube, unobtainable due to medical condition and unobtainable due to mental status Exam Narrative: General: Intubated, sedated, no acute distress HEENT:? Pupils equal and reactive, sclera is clear, swelling of the tongue seems to be improving Neck: Supple Respiratory:? Coarse breath sounds right > left, adequate air entry, no wheezing Cardiac:? S1-S2 normal, bradycardia Abdomen:? Soft, nontender, nondistended, normoactive bowel sounds Extremities:? No edema, palpable pedal pulses Neuro:? Patient is intubated, sedated with propofol and fentanyl, opens his eyes, follows simple commands Skin:? Warm and dry Psych:? Unable to assess at this time Objective Data Vital Signs Vital Signs: Vital Signs - 24 hr 07/26/25 11:00 07/26/25 11:28 07/26/25 12:00 Temperature Pulse Rate 53 L 58 L 56 L Respiratory Rate 18 20 Blood Pressure 127/66 Pulse Oximetry 98 98 Oxygen Delivery Mechanical Ventilation Fraction of Inspired Oxygen 07/26/25 12:00 07/26/25 12:00 07/26/25 12:00 Temperature 97.9 F Pulse Rate 53 L 56 L Respiratory Rate 20 Blood Pressure 132/68 Pulse Oximetry 98 Oxygen Delivery Mechanical Ventilation Fraction of Inspired Oxygen 07/26/25 12:00 07/26/25 12:00 07/26/25 13:00 Temperature Pulse Rate 56 L 50 L Respiratory Rate 20 19 Blood Pressure 131/66 Pulse Oximetry 98 Oxygen Delivery Fraction of Inspired Oxygen 30 07/26/25 13:52 07/26/25 13:52 07/26/25 14:00 Temperature Pulse Rate 49 L 49 L 51 L Respiratory Rate 18 18 Blood Pressure Pulse Oximetry Oxygen Delivery Fraction of Inspired Oxygen 07/26/25 14:00 07/26/25 14:00 07/26/25 14:00 Temperature Pulse Rate 48 L 48 L 48 L Respiratory Rate 18 18 18 Blood Pressure 138/69 Pulse Oximetry 98 Oxygen Delivery Fraction of Inspired Oxygen 07/26/25 14:02 07/26/25 14:12 07/26/25 14:17 Temperature Pulse Rate 49 L 48 L 48 L Respiratory Rate 18 18 Blood Pressure Pulse Oximetry 98 Oxygen Delivery Mechanical Ventilation Fraction of Inspired Oxygen 30 07/26/25 15:00 07/26/25 16:00 07/26/25 16:00 Temperature 97.9 F Pulse Rate 48 L 54 L 54 L Respiratory Rate 18 20 20 Blood Pressure 122/66 125/82 Pulse Oximetry 98 99 Oxygen Delivery Fraction of Inspired Oxygen 07/26/25 16:00 07/26/25 16:00 07/26/25 16:00 Temperature Pulse Rate 54 L 51 L Respiratory Rate 20 Blood Pressure Pulse Oximetry Oxygen Delivery Mechanical Ventilation Fraction of Inspired Oxygen 30 07/26/25 16:00 07/26/25 17:00 07/26/25 17:28 Temperature Pulse Rate 48 L 50 L Respiratory Rate 18 Blood Pressure 129/66 Pulse Oximetry 99 99 Oxygen Delivery Mechanical Ventilation Fraction of Inspired Oxygen 30 07/26/25 18:00 07/26/25 18:00 07/26/25 18:00 Temperature Pulse Rate 46 L 46 L 46 L Respiratory Rate 18 18 19 Blood Pressure 129/65 Pulse Oximetry 99 Oxygen Delivery Fraction of Inspired Oxygen 07/26/25 18:00 07/26/25 18:50 07/26/25 19:00 Temperature Pulse Rate 46 L 44 L 44 L Respiratory Rate 18 18 Blood Pressure 135/67 Pulse Oximetry 99 Oxygen Delivery Fraction of Inspired Oxygen 07/26/25 19:39 07/26/25 19:40 07/26/25 19:45 Temperature Pulse Rate 44 L 44 L 46 L Respiratory Rate 18 20 Blood Pressure Pulse Oximetry 99 Oxygen Delivery Mechanical Ventilation Fraction of Inspired Oxygen 07/26/25 20:00 07/26/25 20:00 07/26/25 20:00 Temperature Pulse Rate 44 L 44 L Respiratory Rate 18 18 Blood Pressure Pulse Oximetry Oxygen Delivery Fraction of Inspired Oxygen 07/26/25 20:00 07/26/25 20:00 07/26/25 20:00 Temperature 97.8 F Pulse Rate 44 L 44 L 44 L Respiratory Rate 18 18 Blood Pressure 126/64 Pulse Oximetry 99 99 Oxygen Delivery Mechanical Ventilation Fraction of Inspired Oxygen 07/26/25 21:00 07/26/25 21:30 07/26/25 21:30 Temperature Pulse Rate 48 L 45 L 45 L Respiratory Rate 18 18 18 Blood Pressure 122/66 Pulse Oximetry 98 Oxygen Delivery Fraction of Inspired Oxygen 07/26/25 22:00 07/26/25 22:00 07/26/25 22:00 Temperature Pulse Rate 46 L 44 L 44 L Respiratory Rate 18 18 Blood Pressure 120/62 Pulse Oximetry 98 Oxygen Delivery Fraction of Inspired Oxygen 07/26/25 22:00 07/26/25 23:00 07/26/25 23:17 Temperature Pulse Rate 44 L 52 L 51 L Respiratory Rate 18 18 Blood Pressure 116/66 Pulse Oximetry 100 99 Oxygen Delivery Mechanical Ventilation Fraction of Inspired Oxygen 30 07/27/25 00:00 07/27/25 00:00 07/27/25 00:00 Temperature 97.8 F Pulse Rate 49 L 49 L Respiratory Rate 18 18 Blood Pressure 132/83 Pulse Oximetry 99 99 Oxygen Delivery Mechanical Ventilation Fraction of Inspired Oxygen 30 07/27/25 00:00 07/27/25 00:00 07/27/25 00:00 Temperature Pulse Rate 49 L 49 L 49 L Respiratory Rate 18 18 Blood Pressure Pulse Oximetry Oxygen Delivery Fraction of Inspired Oxygen 07/27/25 01:00 07/27/25 01:36 07/27/25 01:38 Temperature Pulse Rate 46 L 44 L 45 L Respiratory Rate 19 20 Blood Pressure 125/66 Pulse Oximetry 98 98 Oxygen Delivery Mechanical Ventilation Fraction of Inspired Oxygen 07/27/25 02:00 07/27/25 02:00 07/27/25 02:00 Temperature Pulse Rate 46 L 46 L 46 L Respiratory Rate 21 H 21 H Blood Pressure 125/62 Pulse Oximetry 99 Oxygen Delivery Fraction of Inspired Oxygen 07/27/25 02:00 07/27/25 03:00 07/27/25 03:23 Temperature Pulse Rate 46 L 58 L 58 L Respiratory Rate 21 H 18 22 H Blood Pressure 151/77 H Pulse Oximetry 99 Oxygen Delivery Fraction of Inspired Oxygen 07/27/25 04:00 07/27/25 04:00 07/27/25 04:00 Temperature Pulse Rate 52 L 52 L 52 L Respiratory Rate 22 H 22 H 22 H Blood Pressure Pulse Oximetry Oxygen Delivery Fraction of Inspired Oxygen 07/27/25 04:00 07/27/25 04:00 07/27/25 04:00 Temperature 98 F Pulse Rate 52 L 52 L Respiratory Rate 22 H 18 Blood Pressure 121/63 Pulse Oximetry 98 98 Oxygen Delivery Mechanical Ventilation Fraction of Inspired Oxygen 30 30 07/27/25 04:00 07/27/25 04:27 07/27/25 05:00 Temperature Pulse Rate 52 L 52 L 51 L Respiratory Rate 21 H Blood Pressure 132/64 Pulse Oximetry 99 99 Oxygen Delivery Mechanical Ventilation Fraction of Inspired Oxygen 30 07/27/25 06:00 07/27/25 06:00 07/27/25 06:00 Temperature Pulse Rate 46 L 46 L 46 L Respiratory Rate 18 18 18 Blood Pressure 138/69 Pulse Oximetry 100 Oxygen Delivery Fraction of Inspired Oxygen 07/27/25 06:00 07/27/25 06:06 07/27/25 06:08 Temperature Pulse Rate 46 L 46 L 45 L Respiratory Rate 18 18 Blood Pressure Pulse Oximetry Oxygen Delivery Fraction of Inspired Oxygen 07/27/25 06:17 07/27/25 06:34 07/27/25 07:00 Temperature Pulse Rate 46 L 70 49 L Respiratory Rate 19 24 H 18 Blood Pressure 135/74 Pulse Oximetry 98 Oxygen Delivery Fraction of Inspired Oxygen 07/27/25 07:17 07/27/25 07:17 07/27/25 07:48 Temperature Pulse Rate 64 64 49 L Respiratory Rate 20 20 Blood Pressure Pulse Oximetry 98 Oxygen Delivery Mechanical Ventilation Fraction of Inspired Oxygen 30 07/27/25 07:51 07/27/25 08:00 07/27/25 08:00 Temperature 98 F Pulse Rate 49 L 48 L 47 L Respiratory Rate 18 18 18 Blood Pressure 140/73 Pulse Oximetry 98 Oxygen Delivery Fraction of Inspired Oxygen 07/27/25 08:00 07/27/25 08:00 07/27/25 08:00 Temperature Pulse Rate 48 L 53 L Respiratory Rate 18 20 Blood Pressure Pulse Oximetry 99 Oxygen Delivery Mechanical Ventilation Fraction of Inspired Oxygen 30 30 07/27/25 08:00 07/27/25 08:12 07/27/25 09:00 Temperature Pulse Rate 49 L 59 L 53 L Respiratory Rate 18 25 H Blood Pressure 142/71 H Pulse Oximetry 98 Oxygen Delivery Fraction of Inspired Oxygen 07/27/25 09:03 07/27/25 09:03 07/27/25 09:04 Temperature Pulse Rate 55 L 55 L 54 L Respiratory Rate 25 H 25 H 25 H Blood Pressure Pulse Oximetry Oxygen Delivery Fraction of Inspired Oxygen 07/27/25 10:30 Temperature Pulse Rate 53 L Respiratory Rate Blood Pressure Pulse Oximetry 97 Oxygen Delivery Mechanical Ventilation Fraction of Inspired Oxygen 30 Intake/Output Intake/Output: Intake & Output 07/24/25 07/25/25 07/26/25 07/27/25 23:59 23:59 23:59 23:59 Intake Total 317.0 838.8 3713.0 977.0 Output Total 100 2350 850 550 Balance 217.0 -1511.2 2863.0 427.0 Meds/Results Medications: Active Medications Generic Name Dose Route Start Last Admin Trade Name Freq PRN Reason Stop Dose Admin Acetaminophen 650 mg 07/24/25 19:00 Acetaminophen 325 Mg Tablet FEED TUBE Q4H PRN Mild Pain (1-3) or Fever Acetaminophen 650 mg 07/24/25 21:04 Acetaminophen 650 Mg Suppository RECTAL Q6H PRN Mild Pain (1-3) or Fever Albuterol/Ipratropium 3 ml 07/25/25 08:00 07/27/25 07:43 Ipratropium 0.5 Mg/Albuterol Sulfate 2.5 Mg Ampul.Neb 3 Ml INHALATION 3 ml Q6HRT ZAHIRA Administration Alprazolam 0.25 mg 07/24/25 09:00 07/24/25 17:08 Alprazolam (*Crx) 0.25 Mg Tablet PO 0.25 mg On Hold: 07/24/25 18:58 QID ZAHIRA Administration Amlodipine Besylate 10 mg 07/25/25 09:00 07/25/25 09:16 Amlodipine Besylate 10 Mg Tablet FEED TUBE Not Given On Hold: 07/25/25 09:03 DAILY ZAHIRA Atorvastatin Calcium 40 mg 07/25/25 09:00 07/27/25 08:28 Atorvastatin 40 Mg Tablet FEED TUBE 40 mg DAILY ZAHIRA Administration Carvedilol 6.25 mg 07/24/25 21:00 07/24/25 21:10 Carvedilol 6.25 Mg Tablet FEED TUBE Not Given On Hold: 07/25/25 07:20 Q12H ZAHIRA Dextrose 12.5 gm 07/25/25 10:12 Dextrose 50% 25 Gm/50 Ml Syringe IV PUSH PRN PRN Hypoglycemia Protocol Diphenhydramine HCl 25 mg 07/25/25 00:00 07/27/25 06:09 Diphenhydramine Hcl Inj 50 Mg/Ml Vial IV PUSH 25 mg Q6H ZAHIRA Administration Enoxaparin Sodium 40 mg 07/25/25 09:00 07/27/25 08:28 Enoxaparin 40 Mg/0.4 Ml Syringe SUB-Q 40 mg DAILY ZAHIRA Administration Famotidine 20 mg 07/25/25 09:00 07/27/25 08:28 Famotidine 20 Mg/2 Ml Vial IV PUSH 20 mg Q12HR ZAHIRA Administration Glucagon 1 mg 07/25/25 10:12 Glucagon For Inj 1 Mg Vial IM PRN PRN Hypoglycemia Protocol Glucose 15 gm 07/25/25 10:12 Glucose Oral Gel 15 Gm Of Glucse In 37.5 Gm Tube PO PRN PRN Hypoglycemia Protocol Hydralazine HCl 50 mg 07/24/25 09:00 07/24/25 17:10 Hydralazine Hcl 50 Mg Tablet PO Not Given On Hold: 07/25/25 07:18 TID ZAHIRA Propofol 100 mls @ 15.785 mls/hr 07/24/25 19:15 07/27/25 09:03 Diprivan IV CONT 40 mcg/kg/min .Q6H21M ZAHIRA 15.79 mls/hr Protocol Administration 40 MCG/KG/MIN Dextrose 1,000 mls @ 100 mls/hr 07/25/25 10:12 Dextrose 5% 1,000 Ml IVPB PRN PRN Hypoglycemia Protocol Fentanyl Citrate 2,500 mcg in 250 mls @ 7.5 mls/hr 07/25/25 16:10 07/27/25 09:04 Fentanyl 2,500 Mcg/Ns 250 Ml IV CONT 75 mcg/hr .[id number] ZAHIRA 7.5 mls/hr Protocol Titration 75 MCG/HR Levofloxacin/Dextrose 750 mg in 150 mls @ 100 mls/hr 07/28/25 21:00 Levaquin 750 Mg/D5w 150 Ml IVPB Q48H [facility] Insulin Aspart 3 - 6 units 07/25/25 12:00 07/27/25 06:10 Insulin Aspart (*Bkc) 100 Units/Ml SUB-Q Not Given Q6HR [facility] Protocol Levothyroxine Sodium 100 mcg 07/25/25 07:25 07/27/25 06:09 Levothyroxine Sodium Inj 100 Mcg/5 Ml Vial IV PUSH 100 mcg DAILY@0630 ZAHIRA Administration Methylprednisolone Sodium Succinate 60 mg 07/25/25 00:00 07/27/25 06:09 Methylprednisolone Sod Succ 125 Mg Vial IV PUSH 60 mg Q6HR ZAHIRA Administration Multi-Ingred Cream/Lotion/Oil/Oint 1 applic 07/24/25 21:00 07/27/25 08:30 Mineral Oil/White Petrolatum Ointment EACH EYE 1 applic Q12HR ZAHIRA Administration Ondansetron HCl 4 mg 07/24/25 01:45 Ondansetron Inj 4 Mg/2 Ml Vial IV PUSH Q4H PRN Nausea Sertraline HCl 200 mg 07/25/25 09:00 07/27/25 08:28 Sertraline Hcl 50 Mg Tablet FEED TUBE 200 mg DAILY ZAHIRA Administration Zolpidem Tartrate 10 mg 07/24/25 14:58 Zolpidem Tartrate (*Crx) 5 Mg Tablet PO On Hold: 07/24/25 19:00 HS PRN Insomnia Radiology Results: ITS Impressions Abdomen/Pelvis CT 07/23/25 21:54 IMPRESSION: 1. New wedge-shaped pleural-based soft tissue right middle lobe laterally. Considering bilateral pleural calcifications, malignancy should be considered including mesothelioma. There is pleural based soft tissue mass measures 3.6 x 1.7 cm. 2: Splenomegaly. Chest CT 07/24/25 08:52 IMPRESSION: 1. Bronchopneumonia detailed above superimposed upon mild CHF. Follow-up recommended to assess resolution 2. Sequelae of previous granulomatous disease. Bilateral micronodules which are new compared to the previous study, in a high-risk patient six-month follow-up is recommended Soft Tissue Neck CT 07/25/25 08:34 IMPRESSION: 1. Right upper lobe pneumonia. 2. Emphysema. 3. Mediastinal lymphadenopathy, likely reactive. 4. Soft tissue swelling of the pharyngeal mucosal space. Chest/Abdomen/Pelvis CT 07/25/25 08:40 IMPRESSION: 1. Pneumonia in right upper lobe and right lower lobe, worsened from 07/23/2025. 2. Moderate emphysema. 3. Worsened small right pleural effusion. 4. Mild mediastinal lymphadenopathy, likely reactive. Abdomen X-Ray 07/25/25 15:20 Impression: 1. No acute abnormality. Chest X-Ray 07/27/25 09:31 IMPRESSION: 1. Persistent opacities in the right midlung zone consistent with pneumonia. 2. Very small right pleural effusion. Labs Labs: Laboratory Results - last 24 hr 07/26/25 07/26/25 07/26/25 11:17 17:19 23:56 WBC RBC Hgb Hct MCV MCH MCHC RDW Plt Count MPV Immature Gran % (Auto) Neut % (Auto) Lymph % (Auto) Gonzales % (Auto) Eos % (Auto) Baso % (Auto) Lymph # (Auto) Gonzales # (Auto) Eos # (Auto) Baso # (Auto) Abs Immat Gran (auto) Absolute Neuts (auto) Absolute Nucleated RBC Nucleated RBC % Puncture Site ABG pH ABG pCO2 ABG pO2 ABG PO2/FiO2 Ratio ABG HCO3 ABG O2 Saturation ABG O2 Content ABG Base Excess A-a Gradient Oxyhemoglobin Carboxyhemoglobin Methemoglobin Reduced Hemoglobin Total Hemoglobin O2 Delivery Device O2 Liters/Min Minute Volume Vent Rate Vent Mode FiO2 Tidal Volume PEEP Peak Inspir Pressure Pressure Support Sodium Potassium Chloride Carbon Dioxide Anion Gap BUN Creatinine Estim Creat Clear Calc Estimated GFR Glucose POC Capillary Glucose 200 H 176 H 177 H Calcium Phosphorus Magnesium Total Bilirubin AST ALT Alkaline Phosphatase Total Protein Albumin Triglycerides 07/27/25 07/27/25 07/27/25 03:47 04:20 06:00 WBC 8.5 RBC 3.44 L Hgb 9.9 L Hct 30.5 L MCV 88.7 MCH 28.8 MCHC 32.5 RDW 14.4 Plt Count 322 MPV 8.9 Immature Gran % (Auto) 1.3 H Neut % (Auto) 89.7 H Lymph % (Auto) 4.0 L Gonzales % (Auto) 4.9 Eos % (Auto) 0.0 Baso % (Auto) 0.1 L Lymph # (Auto) 0.34 L Gonzales # (Auto) 0.4 Eos # (Auto) 0.0 Baso # (Auto) 0.0 Abs Immat Gran (auto) 0.11 H Absolute Neuts (auto) 7.6 H Absolute Nucleated RBC 0.000 Nucleated RBC % 0.0 Puncture Site Right radial ABG pH 7.361 ABG pCO2 45.0 ABG pO2 98.1 ABG PO2/FiO2 Ratio 3.27 ABG HCO3 24.9 ABG O2 Saturation 97.2 ABG O2 Content 17.1 ABG Base Excess -0.7 A-a Gradient 62.9 Oxyhemoglobin 96.5 Carboxyhemoglobin 0.5 Methemoglobin 0.3 Reduced Hemoglobin 2.7 Total Hemoglobin 12.5 O2 Delivery Device Ventilator O2 Liters/Min Not Reportable Minute Volume Not Reportable Vent Rate 18 Vent Mode Cmv FiO2 30 Tidal Volume 450 PEEP 8 Peak Inspir Pressure Not Reportable Pressure Support Not Reportable Sodium 137 Potassium 4.2 Chloride 106 Carbon Dioxide 25 Anion Gap 6 BUN 41 H Creatinine 0.90 Estim Creat Clear Calc 47 Estimated GFR > 60 Glucose 151 H POC Capillary Glucose 166 H Calcium 8.0 L Phosphorus 3.8 Magnesium 2.3 Total Bilirubin 0.3 AST 40 ALT 63 H Alkaline Phosphatase 72 Total Protein 6.0 L Albumin 2.8 L Triglycerides 118 Quality VTE Prophylaxis VTE prophylaxis: pharmacologic ordered
[2025-07-27] MEDS: FENTANYL 2,500MCG/NS250ML(*CRX 2,500 MCG/250 ML BAG 7.5 MCG IV CONT (14:31)
[2025-07-28] VITALS (40 sets, daily range): BP systolic 132–181; BP diastolic 54–97; PULSE 43–66; RESP 17–28; TEMP 36.2–37.6; O2SAT 91–100
[2025-07-28] MEDS: PROPOFOL IV EMULSION 100 ML 15.79 MG IV CONT ×2 (00:06→05:51)
[2025-07-28] MEDS: IPRATROPIUM 0.5 MG/ALBUTEROL SULFATE 2.5 MG AMPUL.NEB 3 ML INHALATION ×2 (01:56→07:45)
[2025-07-28 04:43] LABS: Hematocrit 30.6 % (42.0-52.0); Hemoglobin 9.9 g/dL (14.0-18.0); Immature Granulocyte Percent A 1.3 % (0-0.5); Lymphocytes Absolute Auto 0.38 K/mm3 (0.9-3.2); Mean Corpuscular HGB Conc 32.4 g/dl (32-36); Mean Corpuscular Hemoglobin 29.2 pg (26-34); Mean Corpuscular Volume 90.3 fl (80-100); Nucleated Red Blood Cells Absolute Auto 0.000 K/mm3 (0.0-0.012); Nucleated Red Blood Cells Perc 0.0 % (0.0-0.2); Platelet Count Result 323 k/mm3 (150-375); Red Blood Count 3.39 M/mm3 (4.6-6.20); White Blood Count 6.8 K/mm3 (4.5-10.0)
[2025-07-28 04:52] LABS: Alveolar/Arterial O2 Gradient 60.0 mmHg; Carboxyhemoglobin 0.3 % THb (0-2.0); Fractional Inspired Oxygen 30 %; HCO3 ABG 28.1 mEq/l (22.0-26.0); Methemoglobin ABG 0.3 %THb (0-1.5); Oxygen Content ABG 14.5 %vol (16.0-22.0); Oxygen Saturation ABG 96.9 % (95.0-100.0); PCO2 ABG 50.7 mmHg (35.0-45.0); PO2 ABG 94.3 mmHg (80.0-100.0); PO2 FiO2 Ratio Arterial Blood 3.14 %; Reduced Hemoglobin 3.1 %THb (0-5.0)
[2025-07-28 05:05] LABS: Alanine Aminotransferase 48 U/L (6-50); Albumin Level 2.7 g/dL (3.5-5.1); Alkaline Phosphatase 75 U/L (38-126); Anion Gap 1 mmol/L (4-12); Aspartate Amino Transferase 33 U/L (17-59); Bilirubin,Total 0.2 mg/dL (0.2-1.3); Blood Urea Nitrogen 41 mg/dL (9-20); Calcium 8.1 mg/dL (8.4-10.2); Carbon Dioxide 28 mmol/L (22-30); Chloride 106 mmol/L (98-107); Estimated CRCL calculation 52 ml/min; Estimated Glomerular Filt Rate > 60; Glucose 170 mg/dL (65-110); Magnesium 2.4 mg/dL (1.6-2.3); Potassium 4.8 mmol/L (3.4-5.0); Sodium 135 mmol/L (137-145); Total Protein 5.8 g/dL (6.3-8.2)
[2025-07-28 05:14] LABS: Arterial Blood Gas Ventilator rate 18 /MIN; Modified Allen's Test Pass; Site Drawn RIGHT RADIAL
[2025-07-28 05:15] LABS: Arterial Blood Gas Tidal Volume 450 ml
[2025-07-28] MEDS: LEVOTHYROXINE SODIUM INJ 100 MCG/5 ML VIAL IV PUSH (05:50)
[2025-07-28] MEDS: ATORVASTATIN 40 MG TABLET FEED TUBE (08:23)
[2025-07-28] MEDS: MINERAL OIL/WHITE PETROLATUM OINTMENT 1 APPLIC EACH EYE (08:23)
[2025-07-28] MEDS: SERTRALINE HCL 50 MG TABLET 200 MG FEED TUBE (08:23)
[2025-07-28] MEDS: FAMOTIDINE 20 MG/2 ML VIAL IV PUSH ×2 (08:23→20:51)
[2025-07-28] MEDS: ENOXAPARIN 40 MG/0.4 ML SYRINGE SUB-Q (08:23)
--- NOTE | 2025-07-28 08:54 | WPDINTPN ---
Progress Note: A&P Assessment and Plan (1) Respiratory failure: Code(s): J96.90 - Respiratory failure, unspecified, unspecified whether with hypoxia or hypercapnia Status: Acute Assessment and Plan: 07/24/2025: Patient received Chloraseptic for ulcers on his tongue, 1 hour after that patient has swelling of the tongue, drooling, difficulty swallowing, shortness of breath. Patient was transferred from the medical floor to the ICU in the ER physician intubated the patient with a size 7.5 ET tube. it was difficult intubation given severe edema of the tongue, posterior oropharynx and directly above the cords. There is some possible injury to the vocal cords -currently on CMV mode of ventilation,, peep of 8, off 30% FiO2 -ABGs and chest x-ray reviewed, -continue DuoNebs -sedated with propofol infusion and fentanyl, maintain RASS of -2 at all times 07/27: Patient does not have a cuff leak this morning which was checked on separate occasions by respiratory therapist and myself. 07/28: Leak present on deflation of the cuff. Will repeat CT scan of the neck. If it shows improvement will proceed with weaning trial and possible extubation. (2) Angioedema: Code(s): T78.3XXA - Angioneurotic edema, initial encounter Status: Acute Assessment and Plan: Angioedema likely related to Chloraseptic, as he has developed swelling of the tongue, drooling, difficulty swallowing and shortness of breath an hour after receiving the Chloraseptic -patient was intubated by ER physician as above -received epinephrine, Solu-Medrol, H1 and H2 timo -continue Solu-Medrol but decrease dose, famotidine, Benadryl -07/27: swelling of the tongue is improving, patient did not have a cuff leak 07/25/2025: CT soft tissue neck Impression: CT soft tissue neck showed right upper lobe pneumonia, emphysema, mediastinal lymphadenopathy, likely reactive. Soft tissue swelling of the financial mucosal space (3) Acute pneumonia: Code(s): J18.9 - Pneumonia, unspecified organism Status: Acute Assessment and Plan: Patient presented with acute pneumonia, right upper lobe and right lower lobe pneumonia, and small right effusion -patient was on ceftriaxone and azithromycin, given patient's angioedema, switched antibiotics to levofloxacin and doxycycline (07/24) -07/25/2025: Sputum culture are pending -07/23/2025: Blood cultures are negative till now (4) COPD (chronic obstructive pulmonary disease): Code(s): J44.9 - Chronic obstructive pulmonary disease, unspecified Status: Acute Assessment and Plan: Patient is a history of COPD, continue mechanical ventilation, steroids, bronchodilators and antibiotics (5) Hypothyroidism: Code(s): E03.9 - Hypothyroidism, unspecified Status: Acute Assessment and Plan: Levothyroxine has been switched to IV (6) Hypertension: Qualifiers: Hypertension type: unspecified Qualified Code(s): I10 - Essential (primary) hypertension Code(s): I10 - Essential (primary) hypertension Status: Chronic Assessment and Plan: Will hold antihypertensives as patient's blood pressures are stable on propofol infusion in positive-pressure ventilation Plan DVT prophylaxis: Lovenox Stress ulcer prophylaxis: Famotidine Nutrition: Tolerating tube feeds at goal Code Status: Patient is a MODIFIED CODE, NO CPR Spoke to and updated patient's at bedside and answered all questions. Critical Care Time Spent: 30 minutes Due to a high probability of clinically significant, life threatening deterioration, the patient required my highest level of preparedness to intervene emergently and I personally spent this critical care time directly and personally managing the patient. This critical care time included obtaining a history; examining the patient; pulse oximetry; ordering and review of studies; arranging urgent treatment with development of a management plan; evaluation of patient's response to treatment; frequent reassessment; and discussions with other providers. It was exclusive of separately billable procedures and treating other patients and teaching time. Please see Assessment and Plan section and the rest of the note for further information on patient assessment and treatment This dictation may have been done utilizing a voice recognition system. Attempts have been made to correct errors. However, there may be uncorrected grammatical, spelling, and recognitions errors present. Subjective Date/time seen: 07/28/25 Overnight events reviewed. Afebrile Continues to be on mechanical ventilation 30% FiO2 Continues to be sedated with propofol and [place] Tolerating tube feeds Good urine output Interval history: Reason for consult:, angioedema, swelling of the tongue, difficulty breathing, difficulty swallowing, drooling in stride 07/24: Intubated by ER physician Review of Systems Review of Systems: ROS unobtainable: Yes unobtainable due to endotracheal tube, unobtainable due to medical condition and unobtainable due to mental status Exam Narrative: General: Intubated, sedated, no acute distress HEENT:? Pupils equal and reactive, sclera is clear, swelling of the tongue appears to have improved as I do not see any significant swelling on my today's exam Neck: Supple Respiratory:? Coarse breath sounds right > left, adequate air entry, no wheezing Cardiac:? S1-S2 normal, bradycardia Abdomen:? Soft, nontender, nondistended, normoactive bowel sounds Extremities:? No edema, palpable pedal pulses Neuro:? Patient is intubated, sedated with propofol and fentanyl, opens his eyes, follows simple commands Skin:? Warm and dry Psych:? Unable to assess at this time Objective Data Vital Signs Vital Signs: Vital Signs - 24 hr 07/27/25 09:00 07/27/25 09:03 07/27/25 09:03 Temperature Pulse Rate 53 L 55 L 55 L Respiratory Rate 25 H 25 H 25 H Blood Pressure 142/71 H Pulse Oximetry 98 Oxygen Delivery Fraction of Inspired Oxygen 07/27/25 09:04 07/27/25 10:00 07/27/25 10:00 Temperature Pulse Rate 54 L 51 L 51 L Respiratory Rate 25 H 18 18 Blood Pressure Pulse Oximetry Oxygen Delivery Fraction of Inspired Oxygen 07/27/25 10:00 07/27/25 10:00 07/27/25 10:30 Temperature 36.6 C Pulse Rate 51 L 51 L 53 L Respiratory Rate 18 Blood Pressure 145/71 H Pulse Oximetry 98 97 Oxygen Delivery Mechanical Ventilation Fraction of Inspired Oxygen 07/27/25 11:00 07/27/25 11:00 07/27/25 11:00 Temperature Pulse Rate 50 L 50 L 50 L Respiratory Rate 18 18 18 Blood Pressure 141/69 H Pulse Oximetry 98 Oxygen Delivery Fraction of Inspired Oxygen 07/27/25 12:00 07/27/25 12:00 07/27/25 12:00 Temperature Pulse Rate 48 L 48 L 48 L Respiratory Rate 18 18 19 Blood Pressure Pulse Oximetry 98 Oxygen Delivery Mechanical Ventilation Fraction of Inspired Oxygen 07/27/25 12:00 07/27/25 12:00 07/27/25 12:00 Temperature 36.5 C Pulse Rate 48 L 48 L Respiratory Rate 19 Blood Pressure 144/69 H Pulse Oximetry 9 L Oxygen Delivery Fraction of Inspired Oxygen 30 07/27/25 13:00 07/27/25 13:00 07/27/25 13:00 Temperature Pulse Rate 47 L 47 L 47 L Respiratory Rate 19 19 19 Blood Pressure 138/71 Pulse Oximetry 98 Oxygen Delivery Fraction of Inspired Oxygen 07/27/25 13:37 07/27/25 13:37 07/27/25 13:40 Temperature Pulse Rate 47 L 47 L 47 L Respiratory Rate 18 18 Blood Pressure Pulse Oximetry 98 Oxygen Delivery Mechanical Ventilation Fraction of Inspired Oxygen 30 07/27/25 13:40 07/27/25 13:54 07/27/25 14:00 Temperature Pulse Rate 47 L 48 L 49 L Respiratory Rate 18 18 18 Blood Pressure Pulse Oximetry Oxygen Delivery Fraction of Inspired Oxygen 07/27/25 14:00 07/27/25 14:00 07/27/25 14:00 Temperature Pulse Rate 49 L 49 L 49 L Respiratory Rate 18 19 Blood Pressure 138/68 Pulse Oximetry 97 Oxygen Delivery Fraction of Inspired Oxygen 07/27/25 14:31 07/27/25 14:31 07/27/25 15:00 Temperature Pulse Rate 49 L 49 L 49 L Respiratory Rate 18 18 18 Blood Pressure 139/68 Pulse Oximetry 98 Oxygen Delivery Fraction of Inspired Oxygen 07/27/25 15:25 07/27/25 16:00 07/27/25 16:00 Temperature Pulse Rate 49 L 47 L 47 L Respiratory Rate 18 18 18 Blood Pressure Pulse Oximetry 98 Oxygen Delivery Mechanical Ventilation Fraction of Inspired Oxygen 07/27/25 16:00 07/27/25 16:00 07/27/25 16:00 Temperature 36.6 C Pulse Rate 49 L 47 L Respiratory Rate 18 Blood Pressure 137/67 Pulse Oximetry 98 Oxygen Delivery Fraction of Inspired Oxygen 07/27/25 17:00 07/27/25 17:45 07/27/25 18:00 Temperature Pulse Rate 78 46 L 45 L Respiratory Rate 18 Blood Pressure 142/67 H Pulse Oximetry 98 98 Oxygen Delivery Mechanical Ventilation Fraction of Inspired Oxygen 07/27/25 18:00 07/27/25 18:00 07/27/25 18:00 Temperature Pulse Rate 45 L 44 L 45 L Respiratory Rate 18 16 18 Blood Pressure 140/67 Pulse Oximetry 98 Oxygen Delivery Fraction of Inspired Oxygen 07/27/25 19:00 07/27/25 19:33 07/27/25 19:33 Temperature Pulse Rate 47 L 45 L 45 L Respiratory Rate 18 18 18 Blood Pressure 142/72 H Pulse Oximetry 100 Oxygen Delivery Fraction of Inspired Oxygen 07/27/25 20:00 07/27/25 20:00 07/27/25 20:00 Temperature 36.4 C L Pulse Rate 46 L 46 L 46 L Respiratory Rate 18 18 18 Blood Pressure 138/69 Pulse Oximetry 100 Oxygen Delivery Fraction of Inspired Oxygen 07/27/25 20:00 07/27/25 20:00 07/27/25 20:00 Temperature Pulse Rate 46 L 46 L Respiratory Rate 18 Blood Pressure Pulse Oximetry 100 Oxygen Delivery Mechanical Ventilation Fraction of Inspired Oxygen 30 07/27/25 20:19 07/27/25 20:21 07/27/25 20:25 Temperature Pulse Rate 47 L 47 L 47 L Respiratory Rate 21 H 21 H Blood Pressure Pulse Oximetry 100 Oxygen Delivery Mechanical Ventilation Fraction of Inspired Oxygen 30 07/27/25 21:00 07/27/25 22:00 07/27/25 22:00 Temperature 36.1 C L Pulse Rate 46 L 44 L 44 L Respiratory Rate 18 18 Blood Pressure 140/67 145/72 H Pulse Oximetry 100 100 Oxygen Delivery Fraction of Inspired Oxygen 07/27/25 22:00 07/27/25 22:00 07/27/25 23:00 Temperature Pulse Rate 44 L 44 L 46 L Respiratory Rate 18 18 18 Blood Pressure 135/70 Pulse Oximetry 99 Oxygen Delivery Fraction of Inspired Oxygen 07/27/25 23:15 07/28/25 00:00 07/28/25 00:00 Temperature Pulse Rate 47 L 45 L 45 L Respiratory Rate 18 18 Blood Pressure Pulse Oximetry 100 Oxygen Delivery Mechanical Ventilation Fraction of Inspired Oxygen 07/28/25 00:00 07/28/25 00:00 07/28/25 00:00 Temperature Pulse Rate 44 L Respiratory Rate Blood Pressure Pulse Oximetry 97 Oxygen Delivery Mechanical Ventilation Fraction of Inspired Oxygen 07/28/25 00:00 07/28/25 00:06 07/28/25 00:06 Temperature 36.3 C L Pulse Rate 46 L 44 L 44 L Respiratory Rate 18 18 18 Blood Pressure 136/69 Pulse Oximetry 97 Oxygen Delivery Fraction of Inspired Oxygen 07/28/25 01:00 07/28/25 01:57 07/28/25 01:59 Temperature 36.3 C L Pulse Rate 43 L 44 L 44 L Respiratory Rate 18 21 H Blood Pressure 135/66 Pulse Oximetry 99 98 Oxygen Delivery Mechanical Ventilation Fraction of Inspired Oxygen 30 07/28/25 02:00 07/28/25 02:00 07/28/25 02:00 Temperature Pulse Rate 45 L 45 L 45 L Respiratory Rate 18 18 Blood Pressure 140/73 Pulse Oximetry 99 Oxygen Delivery Fraction of Inspired Oxygen 07/28/25 02:00 07/28/25 02:09 07/28/25 03:00 Temperature 36.2 C L Pulse Rate 45 L 44 L 47 L Respiratory Rate 18 21 H 18 Blood Pressure 147/73 H Pulse Oximetry 100 Oxygen Delivery Fraction of Inspired Oxygen 07/28/25 04:00 07/28/25 04:00 07/28/25 04:00 Temperature Pulse Rate 46 L 46 L Respiratory Rate 18 18 Blood Pressure Pulse Oximetry 99 Oxygen Delivery Mechanical Ventilation Fraction of Inspired Oxygen 07/28/25 04:00 07/28/25 04:00 07/28/25 04:00 Temperature 36.3 C L Pulse Rate 46 L 46 L Respiratory Rate 18 Blood Pressure 132/67 Pulse Oximetry 99 Oxygen Delivery Fraction of Inspired Oxygen 07/28/25 04:53 07/28/25 05:00 07/28/25 05:51 Temperature 36.5 C Pulse Rate 48 L 51 L 47 L Respiratory Rate 18 18 Blood Pressure 140/93 H Pulse Oximetry 99 99 Oxygen Delivery Mechanical Ventilation Fraction of Inspired Oxygen 07/28/25 05:51 07/28/25 06:00 07/28/25 06:00 Temperature 36.6 C Pulse Rate 47 L 45 L 45 L Respiratory Rate 18 18 Blood Pressure 144/74 H Pulse Oximetry 99 Oxygen Delivery Fraction of Inspired Oxygen 07/28/25 06:00 07/28/25 06:15 07/28/25 07:00 Temperature 36.6 C Pulse Rate 45 L 44 L 43 L Respiratory Rate 18 18 19 Blood Pressure 136/70 Pulse Oximetry 99 Oxygen Delivery Fraction of Inspired Oxygen 07/28/25 07:47 07/28/25 07:48 07/28/25 08:00 Temperature Pulse Rate 44 L 44 L 46 L Respiratory Rate 18 18 Blood Pressure Pulse Oximetry 99 99 Oxygen Delivery Mechanical Ventilation Mechanical Ventilation Fraction of Inspired Oxygen 30 07/28/25 08:00 07/28/25 08:00 07/28/25 08:00 Temperature 36.6 C Pulse Rate 46 L 46 L Respiratory Rate 18 Blood Pressure 146/71 H Pulse Oximetry 100 Oxygen Delivery Fraction of Inspired Oxygen 30 Intake/Output Intake/Output: Intake & Output 07/25/25 07/26/25 07/27/25 07/28/25 23:59 23:59 23:59 23:59 Intake Total 838.8 3713.0 1803.2 860.3 Output Total 2350 850 1100 675 Balance -1511.2 2863.0 703.2 185.3 Meds/Results Medications: Active Medications Generic Name Dose Route Start Last Admin Trade Name Freq PRN Reason Stop Dose Admin Acetaminophen 650 mg 07/24/25 19:00 Acetaminophen 325 Mg Tablet FEED TUBE Q4H PRN Mild Pain (1-3) or Fever Acetaminophen 650 mg 07/24/25 21:04 Acetaminophen 650 Mg Suppository RECTAL Q6H PRN Mild Pain (1-3) or Fever Albuterol/Ipratropium 3 ml 07/25/25 08:00 07/28/25 07:45 Ipratropium 0.5 Mg/Albuterol Sulfate 2.5 Mg Ampul.Neb 3 Ml INHALATION 3 ml Q6HRT ZAHIRA Administration Alprazolam 0.25 mg 07/24/25 09:00 07/24/25 17:08 Alprazolam (*Crx) 0.25 Mg Tablet PO 0.25 mg On Hold: 07/24/25 18:58 QID ZAHIRA Administration Amlodipine Besylate 10 mg 07/25/25 09:00 07/25/25 09:16 Amlodipine Besylate 10 Mg Tablet FEED TUBE Not Given On Hold: 07/25/25 09:03 DAILY ZAHIRA Atorvastatin Calcium 40 mg 07/25/25 09:00 07/28/25 08:23 Atorvastatin 40 Mg Tablet FEED TUBE 40 mg DAILY ZAHIRA Administration Carvedilol 6.25 mg 07/24/25 21:00 07/24/25 21:10 Carvedilol 6.25 Mg Tablet FEED TUBE Not Given On Hold: 07/25/25 07:20 Q12H ZAHIRA Dextrose 12.5 gm 07/25/25 10:12 Dextrose 50% 25 Gm/50 Ml Syringe IV PUSH PRN PRN Hypoglycemia Protocol Diphenhydramine HCl 25 mg 07/25/25 00:00 07/28/25 05:49 Diphenhydramine Hcl Inj 50 Mg/Ml Vial IV PUSH 25 mg Q6H ZAHIRA Administration Enoxaparin Sodium 40 mg 07/25/25 09:00 07/28/25 08:23 Enoxaparin 40 Mg/0.4 Ml Syringe SUB-Q 40 mg DAILY ZAHIRA Administration Famotidine 20 mg 07/25/25 09:00 07/28/25 08:23 Famotidine 20 Mg/2 Ml Vial IV PUSH 20 mg Q12HR ZAHIRA Administration Glucagon 1 mg 07/25/25 10:12 Glucagon For Inj 1 Mg Vial IM PRN PRN Hypoglycemia Protocol Glucose 15 gm 07/25/25 10:12 Glucose Oral Gel 15 Gm Of Glucse In 37.5 Gm Tube PO PRN PRN Hypoglycemia Protocol Hydralazine HCl 50 mg 07/24/25 09:00 07/24/25 17:10 Hydralazine Hcl 50 Mg Tablet PO Not Given On Hold: 07/25/25 07:18 TID ZAHIRA Propofol 100 mls @ 15.785 mls/hr 07/24/25 19:15 07/28/25 06:15 Diprivan IV CONT 40 mcg/kg/min .Q6H21M ZAHIRA 15.79 mls/hr Protocol Titration 40 MCG/KG/MIN Dextrose 1,000 mls @ 100 mls/hr 07/25/25 10:12 Dextrose 5% 1,000 Ml IVPB PRN PRN Hypoglycemia Protocol Fentanyl Citrate 2,500 mcg in 250 mls @ 7.5 mls/hr 07/25/25 16:10 07/28/25 06:00 Fentanyl 2,500 Mcg/Ns 250 Ml IV CONT 75 mcg/hr .[id number] ZAHIRA 7.5 mls/hr Protocol Titration 75 MCG/HR Levofloxacin/Dextrose 750 mg in 150 mls @ 100 mls/hr 07/28/25 21:00 Levaquin 750 Mg/D5w 150 Ml IVPB Q48H [facility] Insulin Aspart 3 - 6 units 07/25/25 12:00 07/28/25 05:10 Insulin Aspart (*Bkc) 100 Units/Ml SUB-Q Not Given Q6HR [facility] Protocol Levothyroxine Sodium 100 mcg 07/25/25 07:25 07/28/25 05:50 Levothyroxine Sodium Inj 100 Mcg/5 Ml Vial IV PUSH 100 mcg DAILY@0630 ZAHIRA Administration Methylprednisolone Sodium Succinate 60 mg 07/25/25 00:00 07/28/25 05:49 Methylprednisolone Sod Succ 125 Mg Vial IV PUSH 60 mg Q6HR ZAHIRA Administration Miscellaneous Information 1 each 07/28/25 03:50 07/28/25 04:21 Please Renew Propofol. Per [employer] Procedure, It Will Discontinue If Not Renewed XX 08/27/25 03:49 Not Given CLARIFY ZAHIRA Multi-Ingred Cream/Lotion/Oil/Oint 1 applic 07/24/25 21:00 07/28/25 08:23 Mineral Oil/White Petrolatum Ointment EACH EYE 1 applic Q12HR ZAHIRA Administration Ondansetron HCl 4 mg 07/24/25 01:45 Ondansetron Inj 4 Mg/2 Ml Vial IV PUSH Q4H PRN Nausea Sertraline HCl 200 mg 07/25/25 09:00 07/28/25 08:23 Sertraline Hcl 50 Mg Tablet FEED TUBE 200 mg DAILY ZAHIRA Administration Zolpidem Tartrate 10 mg 07/24/25 14:58 Zolpidem Tartrate (*Crx) 5 Mg Tablet PO On Hold: 07/24/25 19:00 HS PRN Insomnia Radiology Results: ITS Impressions Abdomen/Pelvis CT 07/23/25 21:54 IMPRESSION: 1. New wedge-shaped pleural-based soft tissue right middle lobe laterally. Considering bilateral pleural calcifications, malignancy should be considered including mesothelioma. There is pleural based soft tissue mass measures 3.6 x 1.7 cm. 2: Splenomegaly. Chest CT 07/24/25 08:52 IMPRESSION: 1. Bronchopneumonia detailed above superimposed upon mild CHF. Follow-up recommended to assess resolution 2. Sequelae of previous granulomatous disease. Bilateral micronodules which are new compared to the previous study, in a high-risk patient six-month follow-up is recommended Soft Tissue Neck CT 07/25/25 08:34 IMPRESSION: 1. Right upper lobe pneumonia. 2. Emphysema. 3. Mediastinal lymphadenopathy, likely reactive. 4. Soft tissue swelling of the pharyngeal mucosal space. Chest/Abdomen/Pelvis CT 07/25/25 08:40 IMPRESSION: 1. Pneumonia in right upper lobe and right lower lobe, worsened from 07/23/2025. 2. Moderate emphysema. 3. Worsened small right pleural effusion. 4. Mild mediastinal lymphadenopathy, likely reactive. Abdomen X-Ray 07/25/25 15:20 Impression: 1. No acute abnormality. Chest X-Ray 07/28/25 07:41 Impression: 1: Unchanged asymmetric right-sided airspace disease, consistent with pneumonia. Labs Labs: Laboratory Results - last 24 hr 07/27/25 07/27/25 07/27/25 11:53 17:05 23:59 WBC RBC Hgb Hct MCV MCH MCHC RDW Plt Count MPV Immature Gran % (Auto) Neut % (Auto) Lymph % (Auto) [place] % (Auto) Eos % (Auto) Baso % (Auto) Lymph # (Auto) [place] # (Auto) Eos # (Auto) Baso # (Auto) Abs Immat Gran (auto) Absolute Neuts (auto) Absolute Nucleated RBC Nucleated RBC % Puncture Site ABG pH ABG pCO2 ABG pO2 ABG PO2/FiO2 Ratio ABG HCO3 ABG O2 Saturation ABG O2 Content ABG Base Excess A-a Gradient Oxyhemoglobin Carboxyhemoglobin Methemoglobin Reduced Hemoglobin Total Hemoglobin O2 Delivery Device O2 Liters/Min Minute Volume Vent Rate Vent Mode FiO2 Tidal Volume PEEP Peak Inspir Pressure Pressure Support Sodium Potassium Chloride Carbon Dioxide Anion Gap BUN Creatinine Estim Creat Clear Calc Estimated GFR Glucose POC Capillary Glucose 153 H 163 H 169 H Calcium Phosphorus Magnesium Total Bilirubin AST ALT Alkaline Phosphatase Total Protein Albumin 07/28/25 07/28/25 04:22 04:43 WBC 6.8 RBC 3.39 L Hgb 9.9 L Hct 30.6 L MCV 90.3 MCH 29.2 MCHC 32.4 RDW 14.4 Plt Count 323 MPV 8.8 Immature Gran % (Auto) 1.3 H Neut % (Auto) 87.0 H Lymph % (Auto) 5.6 L [place] % (Auto) 6.0 Eos % (Auto) 0.0 Baso % (Auto) 0.1 L Lymph # (Auto) 0.38 L [place] # (Auto) 0.4 Eos # (Auto) 0.0 Baso # (Auto) 0.0 Abs Immat Gran (auto) 0.09 H Absolute Neuts (auto) 5.9 Absolute Nucleated RBC 0.000 Nucleated RBC % 0.0 Puncture Site Right radial ABG pH 7.362 ABG pCO2 50.7 H ABG pO2 94.3 ABG PO2/FiO2 Ratio 3.14 ABG HCO3 28.1 H ABG O2 Saturation 96.9 ABG O2 Content 14.5 L ABG Base Excess 2.1 A-a Gradient 60.0 Oxyhemoglobin 96.3 Carboxyhemoglobin 0.3 Methemoglobin 0.3 Reduced Hemoglobin 3.1 Total Hemoglobin 10.6 L O2 Delivery Device Ventilator O2 Liters/Min Not Reportable Minute Volume Not Reportable Vent Rate 18 Vent Mode Cmv FiO2 30 Tidal Volume 450 PEEP 5 Peak Inspir Pressure Not Reportable Pressure Support Not Reportable Sodium 135 L Potassium 4.8 Chloride 106 Carbon Dioxide 28 Anion Gap 1 L BUN 41 H Creatinine 0.81 Estim Creat Clear Calc 52 Estimated GFR > 60 Glucose 170 H POC Capillary Glucose Calcium 8.1 L Phosphorus 3.6 Magnesium 2.4 H Total Bilirubin 0.2 AST 33 ALT 48 Alkaline Phosphatase 75 Total Protein 5.8 L Albumin 2.7 L Quality VTE Prophylaxis VTE prophylaxis: pharmacologic ordered
--- NOTE | 2025-07-28 11:15 | PCNFU ---
Nutrition Follow-Up Complete: Increased protein energy needs related to mechanical ventilation as evidenced by need for full tube feeding Goal: Meet estimated nutrition needs Patient will continue current goal. Pt current nutrition is Vital AF 1.2 at 45 ml/hr. Last recorded weight is 74.7 kg, up from 71.4 kg on admit. Bowel Motility: No BM reported. Labs Reviewed: Glu 170, BUN 41, Alb 2.85, Na 135 Meds Noted: NovoLog, Lovenox Skin: WNL Additional Notes: Patient remains on mechanical vent. Propofol has been discontinued. Tube feedings being tolerated. Possible extubated today. Monitoring medication, vent status, labs, weights, swallowing ability, plan of care Follow up Sunday/Sunday.
[2025-07-28 11:39] LABS: Alveolar/Arterial O2 Gradient 63.6 mmHg; Fractional Inspired Oxygen 30 %; HCO3 ABG 26.7 mEq/l (22.0-26.0); Oxygen Content ABG 15.9 %vol (16.0-22.0); Oxygen Saturation ABG 96.7 % (95.0-100.0); PCO2 ABG 49.3 mmHg (35.0-45.0); PO2 ABG 92.4 mmHg (80.0-100.0); PO2 FiO2 Ratio Arterial Blood 3.08 %
[2025-07-28 12:01] LABS: Liters per Minute 0.0 LPM; Modified Allen's Test Pass; Site Drawn LEFT RADIAL
[2025-07-28 12:02] LABS: Arterial Blood Gas Minute Volume 0.0 LPM; Arterial Blood Gas Pressure Support 5 cmH2O; Arterial Blood Gas Tidal Volume 0 ml; Arterial Blood Gas Ventilator rate 0 /MIN; Peak Inspiratory Pressure 0 cmH2O
[2025-07-29] VITALS (39 sets, daily range): BP systolic 123–163; BP diastolic 60–86; PULSE 49–79; RESP 14–28; TEMP 35.3–37.3; O2SAT 88–100
[2025-07-29 04:36] LABS: Hematocrit 34.1 % (42.0-52.0); Hemoglobin 11.3 g/dL (14.0-18.0); Mean Corpuscular HGB Conc 33.1 g/dl (32-36); Mean Corpuscular Hemoglobin 29.0 pg (26-34); Mean Corpuscular Volume 87.4 fl (80-100); Platelet Count Result 363 k/mm3 (150-375); Red Blood Count 3.90 M/mm3 (4.6-6.20); White Blood Count 7.3 K/mm3 (4.5-10.0)
[2025-07-29 04:46] LABS: Alanine Aminotransferase 43 U/L (6-50); Albumin Level 2.8 g/dL (3.5-5.1); Alkaline Phosphatase 68 U/L (38-126); Anion Gap 1 mmol/L (4-12); Aspartate Amino Transferase 33 U/L (17-59); Bilirubin,Total 0.6 mg/dL (0.2-1.3); Blood Urea Nitrogen 37 mg/dL (9-20); Calcium 8.4 mg/dL (8.4-10.2); Carbon Dioxide 35 mmol/L (22-30); Chloride 99 mmol/L (98-107); Estimated CRCL calculation 53 ml/min; Estimated Glomerular Filt Rate > 60; Glucose 81 mg/dL (65-110); Magnesium 2.2 mg/dL (1.6-2.3); Potassium 4.1 mmol/L (3.4-5.0); Sodium 135 mmol/L (137-145); Total Protein 6.1 g/dL (6.3-8.2); Triglycerides 282 mg/dL (<150)
[2025-07-29 05:14] LABS: Alveolar/Arterial O2 Gradient 98.3 mmHg; Carboxyhemoglobin 0.9 % THb (0-2.0); Fractional Inspired Oxygen 28 %; HCO3 ABG 32.7 mEq/l (22.0-26.0); Methemoglobin ABG 0.3 %THb (0-1.5); Oxygen Content ABG 14.8 %vol (16.0-22.0); Oxygen Saturation ABG 90.1 % (95.0-100.0); PCO2 ABG 41.5 mmHg (35.0-45.0); PO2 ABG 52.4 mmHg (80.0-100.0); PO2 FiO2 Ratio Arterial Blood 1.87 %; Reduced Hemoglobin 10.3 %THb (0-5.0)
[2025-07-29 05:15] LABS: Liters per Minute 2.0 LPM; Site Drawn RIGHT BRACHIAL
[2025-07-29] MEDS: LEVOTHYROXINE SODIUM INJ 100 MCG/5 ML VIAL IV PUSH (05:38)
[2025-07-29] MEDS: ATORVASTATIN 40 MG TABLET FEED TUBE (09:06)
[2025-07-29] MEDS: levoFLOXacin 750 MG/D5W 150 ML 750 MG/150 ML BAG 100 MG IVPB (09:08)
[2025-07-29] MEDS: SERTRALINE HCL 50 MG TABLET 200 MG FEED TUBE (09:08)
[2025-07-29] MEDS: FAMOTIDINE 20 MG/2 ML VIAL IV PUSH ×2 (09:09→21:19)
[2025-07-29] MEDS: ENOXAPARIN 40 MG/0.4 ML SYRINGE SUB-Q (09:09)
--- NOTE | 2025-07-29 09:32 | WPDINTPN ---
Progress Note: A&P Assessment and Plan (1) Respiratory failure: Code(s): J96.90 - Respiratory failure, unspecified, unspecified whether with hypoxia or hypercapnia Status: Acute Assessment and Plan: 07/24/2025: Patient received Chloraseptic for ulcers on his tongue, 1 hour after that patient has swelling of the tongue, drooling, difficulty swallowing, shortness of breath. Patient was transferred from the medical floor to the ICU in the ER physician intubated the patient with a size 7.5 ET tube. it was difficult intubation given severe edema of the tongue, posterior oropharynx and directly above the cords. There is some possible injury to the vocal cords 07/27: Patient does not have a cuff leak this morning which was checked on separate occasions by respiratory therapist and myself. 07/28: Leak present on deflation of the cuff. Repeat the CT of soft tissue neck showed Limited study. Evaluation for edema is limited without contrast with no gross rim-enhancing abscess visualized. If there remains clinical suspicion repeat exam with contrast is recommended'' Weaning trial was done and patient was extubated. Patient doing well and now on 2 L nasal cannula. No respiratory symptoms and no stridor on exam. Incentive spirometer Wean steroids (2) Angioedema: Code(s): T78.3XXA - Angioneurotic edema, initial encounter Status: Acute Assessment and Plan: Angioedema likely related to Chloraseptic, as he has developed swelling of the tongue, drooling, difficulty swallowing and shortness of breath an hour after receiving the Chloraseptic -patient was intubated by ER physician as above -received epinephrine, Solu-Medrol, H1 and H2 timo -continue Solu-Medrol but decrease dose further, continue famotidine, DC Benadryl -07/27: swelling of the tongue is improving, patient did not have a cuff leak 07/28 extubated (3) Acute pneumonia: Code(s): J18.9 - Pneumonia, unspecified organism Status: Acute Assessment and Plan: Patient presented with acute pneumonia, right upper lobe and right lower lobe pneumonia, and small right effusion -patient was on ceftriaxone and azithromycin, given patient's angioedema, switched antibiotics to levofloxacin and doxycycline (07/24) -07/25/2025: Sputum culture are pending -07/23/2025: Blood cultures are negative till now (4) COPD (chronic obstructive pulmonary disease): Code(s): J44.9 - Chronic obstructive pulmonary disease, unspecified Status: Acute Assessment and Plan: Patient is a history of COPD, continue mechanical ventilation, steroids, bronchodilators and antibiotics (5) Hypothyroidism: Code(s): E03.9 - Hypothyroidism, unspecified Status: Acute Assessment and Plan: Levothyroxine has been switched to IV (6) Hypertension: Qualifiers: Hypertension type: unspecified Qualified Code(s): I10 - Essential (primary) hypertension Code(s): I10 - Essential (primary) hypertension Status: Chronic Assessment and Plan: Resume losartan and Coreg P.r.n. labetalol Plan DVT prophylaxis: Lovenox Stress ulcer prophylaxis: Famotidine Nutrition: Speech evaluation followed by diet Code Status: Patient is a MODIFIED CODE, NO CPR Spoke to and updated patient's at bedside and answered all questions. Incentive spirometry, PT OT Transfer out of ICU Subjective Date/time seen: 07/29/25 Complains of sore throat, states he is hungry and thirsty and would like some food and water. He also complains of being constipated. He was extubated yesterday and overnight has done well and is on 2 L nasal cannula Blood pressure slightly elevated He is afebrile Good urine output Interval history: Reason for consult:, angioedema, swelling of the tongue, difficulty breathing, difficulty swallowing, drooling in stride 07/24: Intubated by ER physician Exam Narrative: General: Alert awake in no distress HEENT:? Pupils equal and reactive, sclera is clear, no noticeable swelling seen in the tongue Neck: Supple Respiratory:? Bilateral no wheezing or crackles. No stridor. Cardiac:? S1-S2 normal, bradycardia Abdomen:? Soft, nontender, nondistended, normoactive bowel sounds Extremities:? No edema, palpable pedal pulses Neuro:? Patient is AO x3, follows commands all 4 extremities Skin:? Warm and dry Psych:? Normal speech and affect Objective Data Vital Signs Vital Signs: Vital Signs - 24 hr 07/28/25 09:35 07/28/25 10:00 07/28/25 10:00 Temperature 36.5 C Pulse Rate 44 L 45 L 45 L Respiratory Rate 18 Blood Pressure 135/58 L Pulse Oximetry 98 99 Oxygen Delivery Mechanical Ventilation Oxygen Flow Rate Fraction of Inspired Oxygen 30 07/28/25 10:55 07/28/25 10:55 07/28/25 10:56 Temperature Pulse Rate 45 L 45 L Respiratory Rate 18 18 Blood Pressure Pulse Oximetry Oxygen Delivery Mechanical Ventilation Oxygen Flow Rate Fraction of Inspired Oxygen 30 07/28/25 11:00 07/28/25 12:00 07/28/25 12:00 Temperature 36.8 C Pulse Rate 63 62 63 Respiratory Rate 21 H 20 Blood Pressure 154/54 H Pulse Oximetry 100 98 Oxygen Delivery Nasal Cannula Oxygen Flow Rate 2 Fraction of Inspired Oxygen 07/28/25 12:00 07/28/25 12:03 07/28/25 13:00 Temperature 36.9 C 36.8 C Pulse Rate 62 63 Respiratory Rate 20 22 H Blood Pressure 163/71 H 157/75 H Pulse Oximetry 98 95 94 Oxygen Delivery Nasal Cannula Oxygen Flow Rate 2 Fraction of Inspired Oxygen 07/28/25 14:00 07/28/25 14:00 07/28/25 15:00 Temperature 37.2 C 37.2 C Pulse Rate 61 61 65 Respiratory Rate 23 H 22 H Blood Pressure 164/73 H 158/78 H Pulse Oximetry 96 94 Oxygen Delivery Oxygen Flow Rate Fraction of Inspired Oxygen 07/28/25 16:00 07/28/25 16:00 07/28/25 16:00 Temperature 37.3 C Pulse Rate 58 L 58 L 58 L Respiratory Rate 22 H 22 H Blood Pressure 147/90 H Pulse Oximetry 93 93 Oxygen Delivery Nasal Cannula Oxygen Flow Rate 2 Fraction of Inspired Oxygen 07/28/25 17:00 07/28/25 18:00 07/28/25 18:00 Temperature 37.3 C 37.6 C H Pulse Rate 61 58 L 58 L Respiratory Rate 28 H 20 Blood Pressure 140/75 168/97 H Pulse Oximetry 93 95 Oxygen Delivery Oxygen Flow Rate Fraction of Inspired Oxygen 07/28/25 19:00 07/28/25 20:00 07/28/25 20:00 Temperature 37.5 C Pulse Rate 61 61 61 Respiratory Rate 19 23 H Blood Pressure 179/82 H Pulse Oximetry 93 92 Oxygen Delivery Nasal Cannula Oxygen Flow Rate 2 Fraction of Inspired Oxygen 07/28/25 20:02 07/28/25 20:40 07/28/25 21:40 Temperature 37.4 C 37.4 C Pulse Rate 66 55 L 57 L Respiratory Rate 22 H 21 H Blood Pressure 165/74 H 154/85 H Pulse Oximetry 94 93 91 Oxygen Delivery Nasal Cannula Oxygen Flow Rate 2 Fraction of Inspired Oxygen 07/28/25 22:00 07/28/25 22:00 07/28/25 23:00 Temperature 37.4 C 37.3 C Pulse Rate 58 L 58 L 54 L Respiratory Rate 17 19 Blood Pressure 173/68 H 173/70 H Pulse Oximetry 95 93 Oxygen Delivery Oxygen Flow Rate Fraction of Inspired Oxygen 07/28/25 23:51 07/29/25 00:00 07/29/25 00:00 Temperature 37.3 C Pulse Rate 57 L 53 L 53 L Respiratory Rate 23 H 16 Blood Pressure 181/71 H Pulse Oximetry 94 96 Oxygen Delivery Nasal Cannula Oxygen Flow Rate 2 Fraction of Inspired Oxygen 07/29/25 00:04 07/29/25 00:15 07/29/25 00:30 Temperature 37.3 C 37.3 C 37.3 C Pulse Rate 55 L 55 L 53 L Respiratory Rate 20 14 20 Blood Pressure 151/72 H 163/74 H 162/74 H Pulse Oximetry 92 93 Oxygen Delivery Oxygen Flow Rate Fraction of Inspired Oxygen 07/29/25 00:45 07/29/25 01:01 07/29/25 01:15 Temperature 37.3 C 35.3 C L 37.1 C Pulse Rate 53 L 58 L 55 L Respiratory Rate 19 17 17 Blood Pressure 152/66 H 145/67 H 148/67 H Pulse Oximetry 90 92 94 Oxygen Delivery Oxygen Flow Rate Fraction of Inspired Oxygen 07/29/25 01:30 07/29/25 02:00 07/29/25 02:00 Temperature 37.2 C 37.2 C Pulse Rate 55 L 56 L 56 L Respiratory Rate 19 20 Blood Pressure 146/71 H 123/86 Pulse Oximetry 91 88 L Oxygen Delivery Oxygen Flow Rate Fraction of Inspired Oxygen 07/29/25 03:00 07/29/25 03:00 07/29/25 03:15 Temperature 37.3 C 37.3 C 37.3 C Pulse Rate 57 L 55 L 53 L Respiratory Rate 17 22 H 15 Blood Pressure 140/64 140/64 139/72 Pulse Oximetry 94 93 94 Oxygen Delivery Oxygen Flow Rate Fraction of Inspired Oxygen 07/29/25 03:30 07/29/25 03:46 07/29/25 04:00 Temperature 37.2 C 37.1 C Pulse Rate 53 L 51 L 54 L Respiratory Rate 28 H 22 H 21 H Blood Pressure 153/68 H 152/66 H Pulse Oximetry 91 94 93 Oxygen Delivery Nasal Cannula Oxygen Flow Rate 2 Fraction of Inspired Oxygen 07/29/25 04:00 07/29/25 04:01 07/29/25 04:16 Temperature 37.1 C 37.1 C Pulse Rate 54 L 54 L 52 L Respiratory Rate 16 21 H Blood Pressure 141/66 H 151/60 H Pulse Oximetry 91 91 Oxygen Delivery Oxygen Flow Rate Fraction of Inspired Oxygen 07/29/25 04:31 07/29/25 04:46 07/29/25 05:01 Temperature 37.2 C 37.1 C 37.1 C Pulse Rate 51 L 49 L 56 L Respiratory Rate 25 H 23 H 18 Blood Pressure 143/66 H 147/68 H 144/70 H Pulse Oximetry 88 L 93 92 Oxygen Delivery Oxygen Flow Rate Fraction of Inspired Oxygen 07/29/25 05:16 07/29/25 05:31 07/29/25 05:46 Temperature 37.2 C 37.2 C 37.2 C Pulse Rate 51 L 54 L 49 L Respiratory Rate 21 H 18 20 Blood Pressure 140/65 153/64 H 155/66 H Pulse Oximetry 93 90 89 L Oxygen Delivery Oxygen Flow Rate Fraction of Inspired Oxygen 07/29/25 06:00 07/29/25 06:02 07/29/25 06:16 Temperature 37.2 C 37.2 C Pulse Rate 53 L 53 L 54 L Respiratory Rate 14 18 Blood Pressure 141/68 H 145/72 H Pulse Oximetry 93 92 Oxygen Delivery Oxygen Flow Rate Fraction of Inspired Oxygen 07/29/25 06:31 07/29/25 06:46 07/29/25 07:01 Temperature 37.2 C 37.1 C 37.1 C Pulse Rate 54 L 51 L 58 L Respiratory Rate 16 22 H 18 Blood Pressure 156/69 H 158/68 H 148/75 H Pulse Oximetry 88 L 92 Oxygen Delivery Oxygen Flow Rate Fraction of Inspired Oxygen 07/29/25 08:00 07/29/25 09:08 Temperature 37.0 C Pulse Rate 51 L 63 Respiratory Rate 18 Blood Pressure 151/77 H Pulse Oximetry 95 Oxygen Delivery Oxygen Flow Rate Fraction of Inspired Oxygen Intake/Output Intake/Output: Intake & Output 07/26/25 07/27/25 07/28/25 07/29/25 23:59 23:59 23:59 23:59 Intake Total 3713.0 1803.2 1411.1 Output Total 850 1100 2125 2700 Balance 2863.0 703.2 -713.9 -2700 Meds/Results Medications: Active Medications Generic Name Dose Route Start Last Admin Trade Name Freq PRN Reason Stop Dose Admin Acetaminophen 650 mg 07/24/25 19:00 Acetaminophen 325 Mg Tablet FEED TUBE Q4H PRN Mild Pain (1-3) or Fever Acetaminophen 650 mg 07/24/25 21:04 Acetaminophen 650 Mg Suppository RECTAL Q6H PRN Mild Pain (1-3) or Fever Albuterol/Ipratropium 3 ml 07/28/25 08:57 Ipratropium 0.5 Mg/Albuterol Sulfate 2.5 Mg Ampul.Neb 3 Ml INHALATION Q6HRT PRN Wheezing Alprazolam 0.25 mg 07/24/25 09:00 07/24/25 17:08 Alprazolam (*Crx) 0.25 Mg Tablet PO 0.25 mg On Hold: 07/24/25 18:58 QID ZAHIRA Administration Amlodipine Besylate 10 mg 07/25/25 09:00 07/29/25 09:07 Amlodipine Besylate 10 Mg Tablet FEED TUBE 10 mg DAILY ZAHIRA Administration Atorvastatin Calcium 40 mg 07/25/25 09:00 07/29/25 09:06 Atorvastatin 40 Mg Tablet FEED TUBE 40 mg DAILY ZAHIRA Administration Carvedilol 6.25 mg 07/24/25 21:00 07/29/25 09:08 Carvedilol 6.25 Mg Tablet FEED TUBE 6.25 mg Q12H ZAHIRA Administration Dextrose 12.5 gm 07/25/25 10:12 Dextrose 50% 25 Gm/50 Ml Syringe IV PUSH PRN PRN Hypoglycemia Protocol Diphenhydramine HCl 25 mg 07/25/25 00:00 07/29/25 05:38 Diphenhydramine Hcl Inj 50 Mg/Ml Vial IV PUSH 25 mg Q6H ZAHIRA Administration Enoxaparin Sodium 40 mg 07/25/25 09:00 07/29/25 09:09 Enoxaparin 40 Mg/0.4 Ml Syringe SUB-Q 40 mg DAILY ZAHIRA Administration Famotidine 20 mg 07/25/25 09:00 07/29/25 09:09 Famotidine 20 Mg/2 Ml Vial IV PUSH 20 mg Q12HR ZAHIRA Administration Glucagon 1 mg 07/25/25 10:12 Glucagon For Inj 1 Mg Vial IM PRN PRN Hypoglycemia Protocol Glucose 15 gm 07/25/25 10:12 Glucose Oral Gel 15 Gm Of Glucse In 37.5 Gm Tube PO PRN PRN Hypoglycemia Protocol Hydralazine HCl 50 mg 07/24/25 09:00 07/24/25 17:10 Hydralazine Hcl 50 Mg Tablet PO Not Given On Hold: 07/25/25 07:18 TID ZAHIRA Dextrose 1,000 mls @ 100 mls/hr 07/25/25 10:12 Dextrose 5% 1,000 Ml IVPB PRN PRN Hypoglycemia Protocol Levofloxacin/Dextrose 750 mg in 150 mls @ 100 mls/hr 07/29/25 09:00 07/29/25 09:08 Levaquin 750 Mg/D5w 150 Ml IVPB 07/31/25 10:29 100 mls/hr DAILY ZAHIRA Administration Insulin Aspart 3 - 6 units 07/25/25 12:00 07/29/25 05:42 Insulin Aspart (*Bkc) 100 Units/Ml SUB-Q Not Given Q6HR [facility] Protocol Levothyroxine Sodium 100 mcg 07/25/25 07:25 07/29/25 05:38 Levothyroxine Sodium Inj 100 Mcg/5 Ml Vial IV PUSH 100 mcg DAILY@0630 ZAHIRA Administration Methylprednisolone Sodium Succinate 60 mg 07/30/25 09:00 Methylprednisolone Sod Succ 125 Mg Vial IV PUSH QAM ZAHIRA Ondansetron HCl 4 mg 07/24/25 01:45 Ondansetron Inj 4 Mg/2 Ml Vial IV PUSH Q4H PRN Nausea Sertraline HCl 200 mg 07/25/25 09:00 07/29/25 09:08 Sertraline Hcl 50 Mg Tablet FEED TUBE 200 mg DAILY ZAHIRA Administration Zolpidem Tartrate 10 mg 07/24/25 14:58 Zolpidem Tartrate (*Crx) 5 Mg Tablet PO On Hold: 07/24/25 19:00 HS PRN Insomnia Radiology Results: ITS Impressions Abdomen/Pelvis CT 07/23/25 21:54 IMPRESSION: 1. New wedge-shaped pleural-based soft tissue right middle lobe laterally. Considering bilateral pleural calcifications, malignancy should be considered including mesothelioma. There is pleural based soft tissue mass measures 3.6 x 1.7 cm. 2: Splenomegaly. Chest CT 07/24/25 08:52 IMPRESSION: 1. Bronchopneumonia detailed above superimposed upon mild CHF. Follow-up recommended to assess resolution 2. Sequelae of previous granulomatous disease. Bilateral micronodules which are new compared to the previous study, in a high-risk patient six-month follow-up is recommended Chest/Abdomen/Pelvis CT 07/25/25 08:40 IMPRESSION: 1. Pneumonia in right upper lobe and right lower lobe, worsened from 07/23/2025. 2. Moderate emphysema. 3. Worsened small right pleural effusion. 4. Mild mediastinal lymphadenopathy, likely reactive. Abdomen X-Ray 07/25/25 15:20 Impression: 1. No acute abnormality. Chest X-Ray 07/28/25 07:41 Impression: 1: Unchanged asymmetric right-sided airspace disease, consistent with pneumonia. Soft Tissue Neck CT 07/28/25 09:45 IMPRESSION: Limited study. Evaluation for edema is limited without contrast with no gross rim-enhancing abscess visualized. If there remains clinical suspicion repeat exam with contrast is recommended Labs Labs: Laboratory Results - last 24 hr 07/28/25 07/28/25 07/29/25 11:37 12:03 00:00 WBC RBC Hgb Hct MCV MCH MCHC RDW Plt Count MPV Puncture Site Left radial ABG pH 7.352 ABG pCO2 49.3 H ABG pO2 92.4 ABG PO2/FiO2 Ratio 3.08 ABG HCO3 26.7 H ABG O2 Saturation 96.7 ABG O2 Content 15.9 L ABG Base Excess 0.6 A-a Gradient 63.6 Oxyhemoglobin 96.0 Carboxyhemoglobin Methemoglobin Reduced Hemoglobin Total Hemoglobin 11.7 L O2 Delivery Device Ventilator O2 Liters/Min 0.0 Minute Volume 0.0 Vent Rate 0 Vent Mode Spontaneous FiO2 30 Tidal Volume 0 PEEP 8 Peak Inspir Pressure 0 Pressure Support 5 Sodium Potassium Chloride Carbon Dioxide Anion Gap BUN Creatinine Estim Creat Clear Calc Estimated GFR Glucose POC Capillary Glucose 166 H 88 Calcium Phosphorus Magnesium Total Bilirubin AST ALT Alkaline Phosphatase Total Protein Albumin Triglycerides 07/29/25 07/29/25 07/29/25 04:12 05:01 05:37 WBC 7.3 RBC 3.90 L Hgb 11.3 L Hct 34.1 L MCV 87.4 MCH 29.0 MCHC 33.1 RDW 14.0 Plt Count 363 MPV 8.7 Puncture Site Right brachial ABG pH 7.514 H* ABG pCO2 41.5 ABG pO2 52.4 L ABG PO2/FiO2 Ratio 1.87 ABG HCO3 32.7 H ABG O2 Saturation 90.1 L ABG O2 Content 14.8 L ABG Base Excess 8.9 A-a Gradient 98.3 Oxyhemoglobin 88.5 L Carboxyhemoglobin 0.9 Methemoglobin 0.3 Reduced Hemoglobin 10.3 H Total Hemoglobin 11.9 L O2 Delivery Device Nasal cannula O2 Liters/Min 2.0 Minute Volume Vent Rate Vent Mode FiO2 28 Tidal Volume PEEP Peak Inspir Pressure Pressure Support Sodium 135 L Potassium 4.1 Chloride 99 Carbon Dioxide 35 H Anion Gap 1 L BUN 37 H Creatinine 0.89 Estim Creat Clear Calc 53 Estimated GFR > 60 Glucose 81 POC Capillary Glucose 86 Calcium 8.4 Phosphorus 2.9 Magnesium 2.2 Total Bilirubin 0.6 AST 33 ALT 43 Alkaline Phosphatase 68 Total Protein 6.1 L Albumin 2.8 L Triglycerides 282 H Quality VTE Prophylaxis VTE prophylaxis: pharmacologic ordered
--- NOTE | 2025-07-29 10:31 | PCFNICU ---
ICU Rounding Note: Pt current nutrition is NPO. Last recorded weight is 66.3 kg, down from 71.4 kg on admit. Bowel Motility: No BM reported. Labs Reviewed: BUN 37, Hgb 11.3, Hct 34.1, Alb 2.8, Na 135 Meds Noted: Lovenox, Lipitor. Skin: WNL Additional Notes: Patient currently NPO for MBS. Will await for results for further nutrition recommendations. Following daily in ICU rounds. Monitoring medication, vent status, labs, weights, swallowing ability, plan of care every 3 days.
--- NOTE | 2025-07-29 12:06 | PCSTNOTE ---
Please refer to the Bedside Swallow Evaluation in the EMR. Please note, silent aspiration cannot be ruled out at bedside. Pt?is 80 y/o male with a PMH of COPD not on any supplemental oxygen, emphysema, HTN, hyperlipidemia, depression, anxiety, BCC presented to the ED on 07/23/25 with complaints of fever, chills, sweats, abdominal pain, nausea vomiting with diarrhea, and shortness of breath. Symptoms have been going on for the past 2 days. Pt?s course complicated by notable hypoxia and subsequent intubation for 4 days. Pt was a difficult airway and is suspected to have sustained an injury to his vocal folds from intubation. 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 RN present and administering medications upon arrival to pt?s room. An oral mechanism exam was completed this date and was noted to be well WFL with adequate lingual and labial strength and ROM. Of note, pt?s voice was notably hoarse throughout the evaluation. His reports that pt had a quiet voice prior to intubation; however, it is notably more hoarse at this time. PO trials include thin liquids via tsp, cup edge (small drink), and straw sip (small drink) and pudding. Pt self-fed occasionally throughout the evaluation. Within the oral phase of swallowing, the pt demonstrated timely swallow initiation and fully cleared the oral cavity. Across consistencies, the pt demonstrated no coughing or throat clearing; however, increase work of breathing was noted after trials of pudding. ?After pudding trial, pt reported a globus sensation in the back of his throat. Dry swallows were reported to clear this sensation. Due to pt?s prolonged intubation (~4 days), change in vocal quality from baseline, and observed increased work of breathing, a modified barium swallow study is recommended to further assess swallow function and safety. Until completion of MBS, it is recommended that pt continue to be NPO with ice chips given sparingly with RN supervision only.? Recommendations: ? 1. NPO pending MBS; ice chips sparingly with RN supervision? 2. Complete MBS to further assess pt?s swallow function and safety. ?
--- NOTE | 2025-07-29 13:08 | PCSTNOTE ---
Please refer to the Modified Barium Swallow Evaluation in the EMR. Pt is 80 y/o male with a PMH of COPD not on any supplemental oxygen, emphysema, HTN, hyperlipidemia, depression, anxiety, BCC presented to the ED on 07/23/25 with complaints of fever, chills, sweats, abdominal pain, nausea vomiting with diarrhea, and shortness of breath. Symptoms have been going on for the past 2 days. Pt?s course complicated by notable hypoxia and subsequent intubation for 4 days. Pt was a difficult airway with edema of the tongue and oropharynx. Pt is suspected to have sustained an injury to his vocal folds from intubation. Modified Barium Swallow Study was recommended following patient report of globus sensation during Bedside Swallow Evaluation. The patient was positioned in a lateral view during the duration of the MBS and presented the following consistencies: 5cc thin liquid, pudding mixed with barium paste, cracker coated with barium paste, and cup trials of thin liquid (thin uncontrolled 1), and thin liquid via straw sip (thin uncontrolled 2). Of note that patient was cooperative, although appeared lethargic throughout completion of MBS. Oral phase: When presented all of the above consistencies, oral preparation and transit was within functional limits. Pharyngeal phase: When presented pudding mixed with barium paste, cracker coated with barium paste, and thin liquid via straw sip swallow initiation was timely without viewed aspiration or penetration. Important to note patient was viewed to have delayed epiglottic inversion. When presented with 5 cc of thin liquid and one cup sip trial, the patient was viewed to have flash, trace laryngeal penetration. Material entered the airway, remained above the vocal folds, and was ejected. Trace residue was viewed in the pyriform sinuses following 5 cc thin liquid trial. Patient was observed to take occasional independent dry swallows which aided in clearing remaining mild residue. Recommend: 1) Regular diet (Level 7) 2) Thin liquids (Level 0) 3) upright for all meals 4) frequent observation during PO intake
--- NOTE | 2025-07-29 16:50 | PC.NURSE ---
This patient, Pepito Ott, was transferred to [facility] on 07/29/25 at 1650. Personal belongings sent with patient. Report given to ARASELI Yin. Appropriate documentation sent with patient.
--- NOTE | 2025-07-29 18:33 | P.PNIM_ITS ---
Progress Note: A&P Assessment and Plan (1) Constipation: Code(s): K59.00 - Constipation, unspecified Status: Acute (2) Angioedema: Code(s): T78.3XXA - Angioneurotic edema, initial encounter Status: Acute (3) Hypertension: Qualifiers: Hypertension type: unspecified Qualified Code(s): I10 - Essential (primary) hypertension Code(s): I10 - Essential (primary) hypertension Status: Chronic (4) Hypothyroidism: Code(s): E03.9 - Hypothyroidism, unspecified Status: Acute (5) Acute pneumonia: Code(s): J18.9 - Pneumonia, unspecified organism Status: Acute Plan Angioedema continues to resolve. Decrease Solu-Medrol to daily. Continue famotidine, may discontinue tomorrow if he continues to improve. Continue incentive spirometer. Extubated on 07/28/2025. He is on room air breathing well. Follow-up blood culture and sputum culture. Ceftriaxone and azithromycin switch to levofloxacin and doxycycline. Continue Lovenox. Modified barium swallow performed today on 07/29/2025. Agree with speech pathology recommendations. Modified code, CPR, intubation okay. Continue incentive spirometer, PT/OT. Transfer to medical floor with telemetry. Patient feels constipated, he would like to mobilize more before trying laxative, he has issues with diarrhea/constipation alternating at home. Time Spent With Patient Time with patient: Greater than 35 minutes Subjective Date/time seen: 07/29/25 18:33 Interval history: Patient doing well post extubation. He has no complaints. Discussed his care with the present. She agrees to the plan as above. Review of Systems Review of Systems: All systems reviewed & are unremarkable except as noted in HPI and below (Subjective) Exam Const: General: comfortable and no acute distress HENMT: Mouth: Yes moist mucous membranes Eyes: Pupils: Equal, round and reactive pupils present Neck: Neck: supple Resp: Effort & Inspection: normal respiratory effort Auscultation: clear to auscultation bilaterally Cardio: Rate: regular rate Rhythm: regular rhythm GI: Inspection: non-distended GI Palp: Yes Soft to palpation Neuro: Other: Generalized weakness Extrem: General: no edema Objective Data Vital Signs Vital Signs: Vital Signs - 24 hr 07/28/25 19:00 07/28/25 20:00 07/28/25 20:00 Temperature 99.5 F Pulse Rate 61 61 61 Respiratory Rate 19 23 H Blood Pressure 179/82 H Pulse Oximetry 93 92 Oxygen Delivery Nasal Cannula Oxygen Flow Rate 2 07/28/25 20:02 07/28/25 20:40 07/28/25 21:40 Temperature 99.4 F 99.4 F Pulse Rate 66 55 L 57 L Respiratory Rate 22 H 21 H Blood Pressure 165/74 H 154/85 H Pulse Oximetry 94 93 91 Oxygen Delivery Nasal Cannula Oxygen Flow Rate 2 07/28/25 22:00 07/28/25 22:00 07/28/25 23:00 Temperature 99.4 F 99.2 F Pulse Rate 58 L 58 L 54 L Respiratory Rate 17 19 Blood Pressure 173/68 H 173/70 H Pulse Oximetry 95 93 Oxygen Delivery Oxygen Flow Rate 07/28/25 23:51 07/29/25 00:00 07/29/25 00:00 Temperature 99.1 F Pulse Rate 57 L 53 L 53 L Respiratory Rate 23 H 16 Blood Pressure 181/71 H Pulse Oximetry 94 96 Oxygen Delivery Nasal Cannula Oxygen Flow Rate 2 07/29/25 00:04 07/29/25 00:15 07/29/25 00:30 Temperature 99.2 F 99.2 F 99.2 F Pulse Rate 55 L 55 L 53 L Respiratory Rate 20 14 20 Blood Pressure 151/72 H 163/74 H 162/74 H Pulse Oximetry 92 93 Oxygen Delivery Oxygen Flow Rate 07/29/25 00:45 07/29/25 01:01 07/29/25 01:15 Temperature 99.1 F 95.6 F L 98.8 F Pulse Rate 53 L 58 L 55 L Respiratory Rate 19 17 17 Blood Pressure 152/66 H 145/67 H 148/67 H Pulse Oximetry 90 92 94 Oxygen Delivery Oxygen Flow Rate 07/29/25 01:30 07/29/25 02:00 07/29/25 02:00 Temperature 98.9 F 99.0 F Pulse Rate 55 L 56 L 56 L Respiratory Rate 19 20 Blood Pressure 146/71 H 123/86 Pulse Oximetry 91 88 L Oxygen Delivery Oxygen Flow Rate 07/29/25 03:00 07/29/25 03:00 07/29/25 03:15 Temperature 99.1 F 99.1 F 99.1 F Pulse Rate 57 L 55 L 53 L Respiratory Rate 17 22 H 15 Blood Pressure 140/64 140/64 139/72 Pulse Oximetry 94 93 94 Oxygen Delivery Oxygen Flow Rate 07/29/25 03:30 07/29/25 03:46 07/29/25 04:00 Temperature 99.0 F 98.8 F Pulse Rate 53 L 51 L 54 L Respiratory Rate 28 H 22 H 21 H Blood Pressure 153/68 H 152/66 H Pulse Oximetry 91 94 93 Oxygen Delivery Nasal Cannula Oxygen Flow Rate 2 07/29/25 04:00 07/29/25 04:01 07/29/25 04:16 Temperature 98.8 F 98.8 F Pulse Rate 54 L 54 L 52 L Respiratory Rate 16 21 H Blood Pressure 141/66 H 151/60 H Pulse Oximetry 91 91 Oxygen Delivery Oxygen Flow Rate 07/29/25 04:31 07/29/25 04:46 07/29/25 05:01 Temperature 98.9 F 98.8 F 98.8 F Pulse Rate 51 L 49 L 56 L Respiratory Rate 25 H 23 H 18 Blood Pressure 143/66 H 147/68 H 144/70 H Pulse Oximetry 88 L 93 92 Oxygen Delivery Oxygen Flow Rate 07/29/25 05:16 07/29/25 05:31 07/29/25 05:46 Temperature 98.9 F 98.9 F 98.9 F Pulse Rate 51 L 54 L 49 L Respiratory Rate 21 H 18 20 Blood Pressure 140/65 153/64 H 155/66 H Pulse Oximetry 93 90 89 L Oxygen Delivery Oxygen Flow Rate 07/29/25 06:00 07/29/25 06:02 07/29/25 06:16 Temperature 98.9 F 98.9 F Pulse Rate 53 L 53 L 54 L Respiratory Rate 14 18 Blood Pressure 141/68 H 145/72 H Pulse Oximetry 93 92 Oxygen Delivery Oxygen Flow Rate 07/29/25 06:31 07/29/25 06:46 07/29/25 07:01 Temperature 98.9 F 98.8 F 98.8 F Pulse Rate 54 L 51 L 58 L Respiratory Rate 16 22 H 18 Blood Pressure 156/69 H 158/68 H 148/75 H Pulse Oximetry 88 L 92 Oxygen Delivery Oxygen Flow Rate 07/29/25 08:00 07/29/25 09:08 07/29/25 10:00 Temperature 98.6 F Pulse Rate 51 L 63 57 L Respiratory Rate 18 Blood Pressure 151/77 H Pulse Oximetry 95 Oxygen Delivery Oxygen Flow Rate 07/29/25 12:00 07/29/25 12:15 07/29/25 16:00 Temperature Pulse Rate 58 L 62 Respiratory Rate Blood Pressure Pulse Oximetry 94 Oxygen Delivery Nasal Cannula Oxygen Flow Rate 1 07/29/25 16:00 07/29/25 16:58 Temperature Pulse Rate 60 62 Respiratory Rate 22 H 18 Blood Pressure 153/76 H 148/69 H Pulse Oximetry 91 92 Oxygen Delivery Oxygen Flow Rate Intake/Output Intake/Output: Intake & Output 07/26/25 07/27/25 07/28/25 07/29/25 23:59 23:59 23:59 23:59 Intake Total 3713.0 1803.2 1411.1 Output Total 850 1100 2125 4200 Balance 2863.0 703.2 -713.9 -4200 Meds/Results Medications: Active Medications Generic Name Dose Route Start Last Admin Trade Name Freq PRN Reason Stop Dose Admin Acetaminophen 650 mg 07/24/25 19:00 Acetaminophen 325 Mg Tablet FEED TUBE Q4H PRN Mild Pain (1-3) or Fever Albuterol/Ipratropium 3 ml 07/28/25 08:57 Ipratropium 0.5 Mg/Albuterol Sulfate 2.5 Mg Ampul.Neb 3 Ml INHALATION Q6HRT PRN Wheezing Amlodipine Besylate 10 mg 07/25/25 09:00 07/29/25 09:07 Amlodipine Besylate 10 Mg Tablet FEED TUBE 10 mg DAILY ZAHIRA Administration Atorvastatin Calcium 40 mg 07/25/25 09:00 07/29/25 09:06 Atorvastatin 40 Mg Tablet FEED TUBE 40 mg DAILY ZAHIRA Administration Carvedilol 6.25 mg 07/24/25 21:00 07/29/25 09:08 Carvedilol 6.25 Mg Tablet FEED TUBE 6.25 mg Q12H ZAHIRA Administration Dextrose 12.5 gm 07/25/25 10:12 Dextrose 50% 25 Gm/50 Ml Syringe IV PUSH PRN PRN Hypoglycemia Protocol Enoxaparin Sodium 40 mg 07/25/25 09:00 07/29/25 09:09 Enoxaparin 40 Mg/0.4 Ml Syringe SUB-Q 40 mg DAILY ZAHIRA Administration Famotidine 20 mg 07/25/25 09:00 07/29/25 09:09 Famotidine 20 Mg/2 Ml Vial IV PUSH 20 mg Q12HR ZAHIRA Administration Glucose 15 gm 07/25/25 10:12 Glucose Oral Gel 15 Gm Of Glucse In 37.5 Gm Tube PO PRN PRN Hypoglycemia Protocol Hydralazine HCl 50 mg 07/24/25 09:00 07/24/25 17:10 Hydralazine Hcl 50 Mg Tablet PO Not Given On Hold: 07/25/25 07:18 TID ZAHIRA Dextrose 1,000 mls @ 100 mls/hr 07/25/25 10:12 Dextrose 5% 1,000 Ml IVPB PRN PRN Hypoglycemia Protocol Levofloxacin/Dextrose 750 mg in 150 mls @ 100 mls/hr 07/29/25 09:00 07/29/25 09:08 Levaquin 750 Mg/D5w 150 Ml IVPB 07/31/25 10:29 100 mls/hr DAILY ZAHIRA Administration Insulin Aspart 3 - 6 units 07/25/25 12:00 07/29/25 18:04 Insulin Aspart (*Bkc) 100 Units/Ml SUB-Q Not Given Q6HR [facility] Protocol Levothyroxine Sodium 100 mcg 07/25/25 07:25 07/29/25 05:38 Levothyroxine Sodium Inj 100 Mcg/5 Ml Vial IV PUSH 100 mcg DAILY@0630 ZAHIRA Administration Methylprednisolone Sodium Succinate 60 mg 07/30/25 09:00 Methylprednisolone Sod Succ 125 Mg Vial IV PUSH QAM ZAHIRA Ondansetron HCl 4 mg 07/24/25 01:45 Ondansetron Inj 4 Mg/2 Ml Vial IV PUSH Q4H PRN Nausea Sertraline HCl 200 mg 07/25/25 09:00 07/29/25 09:08 Sertraline Hcl 50 Mg Tablet FEED TUBE 200 mg DAILY ZAHIRA Administration Zolpidem Tartrate 10 mg 07/24/25 14:58 Zolpidem Tartrate (*Crx) 5 Mg Tablet PO On Hold: 07/24/25 19:00 HS PRN Insomnia Radiology Results: ITS Impressions Abdomen/Pelvis CT 07/23/25 21:54 IMPRESSION: 1. New wedge-shaped pleural-based soft tissue right middle lobe laterally. Considering bilateral pleural calcifications, malignancy should be considered including mesothelioma. There is pleural based soft tissue mass measures 3.6 x 1.7 cm. 2: Splenomegaly. Chest CT 07/24/25 08:52 IMPRESSION: 1. Bronchopneumonia detailed above superimposed upon mild CHF. Follow-up recommended to assess resolution 2. Sequelae of previous granulomatous disease. Bilateral micronodules which are new compared to the previous study, in a high-risk patient six-month follow-up is recommended Chest/Abdomen/Pelvis CT 07/25/25 08:40 IMPRESSION: 1. Pneumonia in right upper lobe and right lower lobe, worsened from 07/23/2025. 2. Moderate emphysema. 3. Worsened small right pleural effusion. 4. Mild mediastinal lymphadenopathy, likely reactive. Abdomen X-Ray 07/25/25 15:20 Impression: 1. No acute abnormality. Chest X-Ray 07/28/25 07:41 Impression: 1: Unchanged asymmetric right-sided airspace disease, consistent with pneumonia. Soft Tissue Neck CT 07/28/25 09:45 IMPRESSION: Limited study. Evaluation for edema is limited without contrast with no gross rim-enhancing abscess visualized. If there remains clinical suspicion repeat exam with contrast is recommended Modified Barium Swallow 07/29/25 12:12 IMPRESSION: Mild pharyngeal dysphagia with trace transient/flash laryngeal penetration without aspiration. Please correlate with speech pathologist findings and specific feeding recommendations. Labs Labs: Laboratory Results - last 24 hr 07/29/25 07/29/25 07/29/25 00:00 04:12 05:01 WBC 7.3 RBC 3.90 L Hgb 11.3 L Hct 34.1 L MCV 87.4 MCH 29.0 MCHC 33.1 RDW 14.0 Plt Count 363 MPV 8.7 Puncture Site Right brachial ABG pH 7.514 H* ABG pCO2 41.5 ABG pO2 52.4 L ABG PO2/FiO2 Ratio 1.87 ABG HCO3 32.7 H ABG O2 Saturation 90.1 L ABG O2 Content 14.8 L ABG Base Excess 8.9 A-a Gradient 98.3 Oxyhemoglobin 88.5 L Carboxyhemoglobin 0.9 Methemoglobin 0.3 Reduced Hemoglobin 10.3 H Total Hemoglobin 11.9 L O2 Delivery Device Nasal cannula O2 Liters/Min 2.0 FiO2 28 Sodium 135 L Potassium 4.1 Chloride 99 Carbon Dioxide 35 H Anion Gap 1 L BUN 37 H Creatinine 0.89 Estim Creat Clear Calc 53 Estimated GFR > 60 Glucose 81 POC Capillary Glucose 88 Calcium 8.4 Phosphorus 2.9 Magnesium 2.2 Total Bilirubin 0.6 AST 33 ALT 43 Alkaline Phosphatase 68 Total Protein 6.1 L Albumin 2.8 L Triglycerides 282 H 07/29/25 07/29/25 07/29/25 05:37 12:24 15:51 WBC RBC Hgb Hct MCV MCH MCHC RDW Plt Count MPV Puncture Site ABG pH ABG pCO2 ABG pO2 ABG PO2/FiO2 Ratio ABG HCO3 ABG O2 Saturation ABG O2 Content ABG Base Excess A-a Gradient Oxyhemoglobin Carboxyhemoglobin Methemoglobin Reduced Hemoglobin Total Hemoglobin O2 Delivery Device O2 Liters/Min FiO2 Sodium Potassium Chloride Carbon Dioxide Anion Gap BUN Creatinine Estim Creat Clear Calc Estimated GFR Glucose POC Capillary Glucose 86 119 H 84 Calcium Phosphorus Magnesium Total Bilirubin AST ALT Alkaline Phosphatase Total Protein Albumin Triglycerides
[2025-07-30] VITALS (15 sets, daily range): BP systolic 146–156; BP diastolic 71–80; PULSE 55–79; RESP 18–22; TEMP 36.4–36.7; O2SAT 93–99
[2025-07-30 05:06] LABS: Alveolar/Arterial O2 Gradient 38.5 mmHg; Fractional Inspired Oxygen 21 %; HCO3 ABG 32.1 mEq/l (22.0-26.0); Oxygen Content ABG 16.6 %vol (16.0-22.0); Oxygen Saturation ABG 93.7 % (95.0-100.0); PCO2 ABG 41.2 mmHg (35.0-45.0); PO2 ABG 61.9 mmHg (80.0-100.0); PO2 FiO2 Ratio Arterial Blood 2.95 %
[2025-07-30 05:11] LABS: Modified Allen's Test Pass; Site Drawn RIGHT RADIAL
[2025-07-30 05:16] LABS: Hematocrit 36.4 % (42.0-52.0); Hemoglobin 12.1 g/dL (14.0-18.0); Mean Corpuscular HGB Conc 33.2 g/dl (32-36); Mean Corpuscular Hemoglobin 28.6 pg (26-34); Mean Corpuscular Volume 86.1 fl (80-100); Platelet Count Result 311 k/mm3 (150-375); Red Blood Count 4.23 M/mm3 (4.6-6.20); White Blood Count 7.2 K/mm3 (4.5-10.0)
[2025-07-30 05:36] LABS: Alanine Aminotransferase 39 U/L (6-50); Albumin Level 2.9 g/dL (3.5-5.1); Alkaline Phosphatase 73 U/L (38-126); Anion Gap 4 mmol/L (4-12); Aspartate Amino Transferase 33 U/L (17-59); Bilirubin,Total 0.8 mg/dL (0.2-1.3); Blood Urea Nitrogen 34 mg/dL (9-20); Calcium 8.3 mg/dL (8.4-10.2); Carbon Dioxide 31 mmol/L (22-30); Chloride 96 mmol/L (98-107); Estimated CRCL calculation 46 ml/min; Estimated Glomerular Filt Rate > 60; Glucose 87 mg/dL (65-110); Magnesium 2.1 mg/dL (1.6-2.3); Potassium 3.9 mmol/L (3.4-5.0); Sodium 131 mmol/L (137-145); Total Protein 6.1 g/dL (6.3-8.2)
--- NOTE | 2025-07-30 05:37 | PC.NURSE ---
Allergy alert flagged for possible severe interaction with suspected menthol allergy and PRN simethicone, per pharmacist Daquan there should be no concern for allergy interaction with simethicone, Lenore Smith notified and confirmed ok to proceed with order.
[2025-07-30] MEDS: LEVOTHYROXINE SODIUM 100 MCG TABLET 200 MCG PO (06:33)
[2025-07-30] MEDS: ATORVASTATIN 40 MG TABLET PO (09:21)
[2025-07-30] MEDS: SERTRALINE HCL 50 MG TABLET 200 MG PO (09:21)
[2025-07-30] MEDS: ENOXAPARIN 40 MG/0.4 ML SYRINGE SUB-Q (09:27)
[2025-07-30] MEDS: FAMOTIDINE 20 MG/2 ML VIAL IV PUSH ×2 (10:38→21:27)
[2025-07-30] MEDS: levoFLOXacin 750 MG/D5W 150 ML 750 MG/150 ML BAG 100 MG IVPB (10:38)
[2025-07-31] VITALS (12 sets, daily range): BP systolic 120–151; BP diastolic 67–89; PULSE 56–77; RESP 16–19; TEMP 36.4–36.7; O2SAT 94–99
[2025-07-31 04:59] LABS: Hematocrit 38.3 % (42.0-52.0); Hemoglobin 12.8 g/dL (14.0-18.0); Mean Corpuscular HGB Conc 33.4 g/dl (32-36); Mean Corpuscular Hemoglobin 28.4 pg (26-34); Mean Corpuscular Volume 85.1 fl (80-100); Platelet Count Result 304 k/mm3 (150-375); Red Blood Count 4.50 M/mm3 (4.6-6.20); White Blood Count 8.4 K/mm3 (4.5-10.0)
[2025-07-31 05:19] LABS: Alanine Aminotransferase 34 U/L (6-50); Albumin Level 2.9 g/dL (3.5-5.1); Alkaline Phosphatase 77 U/L (38-126); Anion Gap 5 mmol/L (4-12); Aspartate Amino Transferase 31 U/L (17-59); Bilirubin,Total 0.5 mg/dL (0.2-1.3); Blood Urea Nitrogen 31 mg/dL (9-20); Calcium 8.2 mg/dL (8.4-10.2); Carbon Dioxide 31 mmol/L (22-30); Chloride 97 mmol/L (98-107); Estimated CRCL calculation 41 ml/min; Estimated Glomerular Filt Rate > 60; Glucose 130 mg/dL (65-110); Magnesium 2.1 mg/dL (1.6-2.3); Potassium 3.7 mmol/L (3.4-5.0); Sodium 133 mmol/L (137-145); Total Protein 6.1 g/dL (6.3-8.2); Triglycerides 297 mg/dL (<150)
[2025-07-31] MEDS: LEVOTHYROXINE SODIUM 100 MCG TABLET 200 MCG PO (05:50)
[2025-07-31] MEDS: ACETAMINOPHEN 325 MG TABLET 650 MG PO (05:54)
--- NOTE | 2025-07-31 07:50 | P.PNIM_ITS ---
Progress Note: A&P Assessment and Plan (1) Constipation: Code(s): K59.00 - Constipation, unspecified Status: Acute (2) Angioedema: Code(s): T78.3XXA - Angioneurotic edema, initial encounter Status: Acute (3) Hypertension: Qualifiers: Hypertension type: unspecified Qualified Code(s): I10 - Essential (primary) hypertension Code(s): I10 - Essential (primary) hypertension Status: Chronic (4) Hypothyroidism: Code(s): E03.9 - Hypothyroidism, unspecified Status: Acute (5) Acute pneumonia: Code(s): J18.9 - Pneumonia, unspecified organism Status: Acute Plan Angioedema continues to resolve. Decreased Solu-Medrol to daily. Discontinue famotidine. Continue incentive spirometer. Extubated on 07/28/2025. He is on room air breathing well. Follow-up blood culture and sputum culture. Ceftriaxone and azithromycin switch to levofloxacin and doxycycline. He was placed back on 1 L today. Fluctuates. You to wean as tolerated. Continue Lovenox. Status post barium swallow study. Agree with speech therapy recommendations. Modified code, CPR, intubation okay. Continue incentive spirometer, PT/OT. Planning for discharge to [facility]. Stable on general medical floor. Constipation resolved status post enema in the ICU. Time Spent With Patient Time with patient: Greater than 35 minutes Subjective Date/time seen: 07/30/2025 at 3:00 p.m. Interval history: No major acute overnight events. Patient reports he is doing well. He appears weak at bedside Review of Systems Review of Systems: All systems reviewed & are unremarkable except as noted in HPI and below (Subjective) Exam Const: General: comfortable and no acute distress HENMT: Mouth: Yes moist mucous membranes Eyes: Pupils: Equal, round and reactive pupils present Neck: Neck: supple Resp: Effort & Inspection: normal respiratory effort Auscultation: clear to auscultation bilaterally Cardio: Rate: regular rate Rhythm: regular rhythm GI: Inspection: non-distended GI Palp: Yes Soft to palpation Neuro: Other: Generalized weakness Extrem: General: no edema Objective Data Vital Signs Vital Signs: Vital Signs - 24 hr 07/30/25 08:00 07/30/25 09:19 07/30/25 09:20 Temperature Pulse Rate 66 65 Respiratory Rate Blood Pressure 149/76 H Pulse Oximetry 97 95 Oxygen Delivery Nasal Cannula Oxygen Flow Rate 1 07/30/25 09:21 07/30/25 09:54 07/30/25 10:50 Temperature Pulse Rate 64 Respiratory Rate Blood Pressure Pulse Oximetry 95 Oxygen Delivery Nasal Cannula Room Air Oxygen Flow Rate 1 07/30/25 12:00 07/30/25 15:29 07/30/25 16:00 Temperature 98.0 F Pulse Rate 75 68 77 Respiratory Rate 18 Blood Pressure 156/77 H Pulse Oximetry 99 Oxygen Delivery Oxygen Flow Rate 07/30/25 20:00 07/30/25 20:00 07/30/25 20:47 Temperature 97.6 F Pulse Rate 73 72 Respiratory Rate 20 Blood Pressure 146/80 H Pulse Oximetry 98 Oxygen Delivery Room Air Oxygen Flow Rate 07/30/25 21:27 07/30/25 22:02 07/31/25 00:00 Temperature Pulse Rate 72 79 59 L Respiratory Rate Blood Pressure Pulse Oximetry 93 Oxygen Delivery Autopap Oxygen Flow Rate 07/31/25 02:06 07/31/25 04:00 Temperature Pulse Rate 77 66 Respiratory Rate Blood Pressure Pulse Oximetry 94 Oxygen Delivery Autopap Oxygen Flow Rate Intake/Output Intake/Output: Intake & Output 07/28/25 07/29/25 07/30/25 07/31/25 23:59 23:59 23:59 23:59 Intake Total 1411.1 150 590 400 Output Total 2125 4200 900 500 [facility]713.9 -4050 -310 -100 Meds/Results Medications: Active Medications Generic Name Dose Route Start Last Admin Trade Name Freq PRN Reason Stop Dose Admin Acetaminophen 650 mg 07/30/25 08:38 07/31/25 05:54 Acetaminophen 325 Mg Tablet PO 650 mg Q4H PRN Administration Mild Pain (1-3) or Fever Albuterol/Ipratropium 3 ml 07/28/25 08:57 Ipratropium 0.5 Mg/Albuterol Sulfate 2.5 Mg Ampul.Neb 3 Ml INHALATION Q6HRT PRN Wheezing Amlodipine Besylate 10 mg 07/30/25 09:00 07/30/25 09:21 Amlodipine Besylate 10 Mg Tablet PO 10 mg DAILY ZAHIRA Administration Atorvastatin Calcium 40 mg 07/30/25 09:00 07/30/25 09:21 Atorvastatin 40 Mg Tablet PO 40 mg DAILY ZAHIRA Administration Carvedilol 6.25 mg 07/30/25 09:00 07/30/25 21:27 Carvedilol 6.25 Mg Tablet PO 6.25 mg Q12H ZAHIRA Administration Dextrose 12.5 gm 07/25/25 10:12 Dextrose 50% 25 Gm/50 Ml Syringe IV PUSH PRN PRN Hypoglycemia Protocol Enoxaparin Sodium 40 mg 07/25/25 09:00 07/30/25 09:27 Enoxaparin 40 Mg/0.4 Ml Syringe SUB-Q 40 mg DAILY ZAHIRA Administration Famotidine 20 mg 07/25/25 09:00 07/30/25 21:27 Famotidine 20 Mg/2 Ml Vial IV PUSH 20 mg Q12HR ZAHIRA Administration Glucose 15 gm 07/25/25 10:12 Glucose Oral Gel 15 Gm Of Glucse In 37.5 Gm Tube PO PRN PRN Hypoglycemia Protocol Hydralazine HCl 50 mg 07/24/25 09:00 07/24/25 17:10 Hydralazine Hcl 50 Mg Tablet PO Not Given On Hold: 07/25/25 07:18 TID ZAHIRA Dextrose 1,000 mls @ 100 mls/hr 07/25/25 10:12 Dextrose 5% 1,000 Ml IVPB PRN PRN Hypoglycemia Protocol Levofloxacin 750 mg 07/31/25 09:00 Levofloxacin 750 Mg Tablet PO 07/31/25 09:01 ONCE ONE Levothyroxine Sodium 200 mcg 07/30/25 06:30 07/31/25 05:50 Levothyroxine Sodium 100 Mcg Tablet PO 200 mcg DAILY@0630 ZAHIRA Administration Methylprednisolone Sodium Succinate 60 mg 07/30/25 09:00 07/30/25 09:25 Methylprednisolone Sod Succ 125 Mg Vial IV PUSH 60 mg QAM ZAHIRA Administration Ondansetron HCl 4 mg 07/24/25 01:45 Ondansetron Inj 4 Mg/2 Ml Vial IV PUSH Q4H PRN Nausea Sertraline HCl 200 mg 07/30/25 09:00 07/30/25 09:21 Sertraline Hcl 50 Mg Tablet PO 200 mg DAILY ZAHIRA Administration Simethicone 80 mg 07/30/25 05:24 Simethicone 80 Mg Tab.Chew PO QID PRN Gas Discomfort Zolpidem Tartrate 10 mg 07/24/25 14:58 Zolpidem Tartrate (*Crx) 5 Mg Tablet PO On Hold: 07/24/25 19:00 HS PRN Insomnia Radiology Results: ITS Impressions Abdomen/Pelvis CT 07/23/25 21:54 IMPRESSION: 1. New wedge-shaped pleural-based soft tissue right middle lobe laterally. Considering bilateral pleural calcifications, malignancy should be considered including mesothelioma. There is pleural based soft tissue mass measures 3.6 x 1.7 cm. 2: Splenomegaly. Chest CT 07/24/25 08:52 IMPRESSION: 1. Bronchopneumonia detailed above superimposed upon mild CHF. Follow-up recommended to assess resolution 2. Sequelae of previous granulomatous disease. Bilateral micronodules which are new compared to the previous study, in a high-risk patient six-month follow-up is recommended Chest/Abdomen/Pelvis CT 07/25/25 08:40 IMPRESSION: 1. Pneumonia in right upper lobe and right lower lobe, worsened from 07/23/2025. 2. Moderate emphysema. 3. Worsened small right pleural effusion. 4. Mild mediastinal lymphadenopathy, likely reactive. Abdomen X-Ray 07/25/25 15:20 Impression: 1. No acute abnormality. Chest X-Ray 07/28/25 07:41 Impression: 1: Unchanged asymmetric right-sided airspace disease, consistent with pneumonia. Soft Tissue Neck CT 07/28/25 09:45 IMPRESSION: Limited study. Evaluation for edema is limited without contrast with no gross rim-enhancing abscess visualized. If there remains clinical suspicion repeat exam with contrast is recommended Modified Barium Swallow 07/29/25 12:12 IMPRESSION: Mild pharyngeal dysphagia with trace transient/flash laryngeal penetration without aspiration. Please correlate with speech pathologist findings and specific feeding recommendations. Labs Labs: Laboratory Results - last 24 hr 07/31/25 04:36 WBC 8.4 RBC 4.50 L Hgb 12.8 L Hct 38.3 L MCV 85.1 MCH 28.4 MCHC 33.4 RDW 13.6 Plt Count 304 MPV 8.5 Sodium 133 L Potassium 3.7 Chloride 97 L Carbon Dioxide 31 H Anion Gap 5 BUN 31 H Creatinine 1.05 Estim Creat Clear Calc 41 Estimated GFR > 60 Glucose 130 H Calcium 8.2 L Phosphorus 4.0 Magnesium 2.1 Total Bilirubin 0.5 AST 31 ALT 34 Alkaline Phosphatase 77 Total Protein 6.1 L Albumin 2.9 L Triglycerides 297 H
[2025-07-31] MEDS: SERTRALINE HCL 50 MG TABLET 200 MG PO (09:08)
[2025-07-31] MEDS: ATORVASTATIN 40 MG TABLET PO (09:08)
[2025-07-31] MEDS: ENOXAPARIN 40 MG/0.4 ML SYRINGE SUB-Q (09:09)
[2025-07-31] MEDS: FAMOTIDINE 20 MG/2 ML VIAL IV PUSH (09:14)
--- NOTE | 2025-07-31 10:23 | PCNFU ---
Nutrition Follow-Up Complete: Increased protein energy needs related to mechanical ventilation as evidenced by need for full tube feeding Goal: Meet estimated nutrition needs Patient is meeting current goal. No new goal. Pt current nutrition is Regular. Last recorded weight is 63 kg, down from 71.4 kg on admit. Bowel Motility: +BM reported 07/31 Labs Reviewed:Glu 130 , TG 297, Alb 2.9 Meds Noted:Lipitor, Lovenox Skin: WNL Additional Notes: Diet order has advanced to a regular diet. Tolerating diet. NO further nutritional intervention needed at this time. Monitoring medication, labs, weights, swallowing ability, plan of care every 7 days.
--- NOTE | 2025-07-31 17:19 | P.PNIM_ITS ---
Progress Note: A&P Assessment and Plan (1) Constipation: Code(s): K59.00 - Constipation, unspecified Status: Acute (2) Angioedema: Code(s): T78.3XXA - Angioneurotic edema, initial encounter Status: Acute (3) Hypertension: Qualifiers: Hypertension type: unspecified Qualified Code(s): I10 - Essential (primary) hypertension Code(s): I10 - Essential (primary) hypertension Status: Chronic (4) Hypothyroidism: Code(s): E03.9 - Hypothyroidism, unspecified Status: Acute (5) Acute pneumonia: Code(s): J18.9 - Pneumonia, unspecified organism Status: Acute Plan Angioedema resolved. Continue Solu-Medrol, continue prednisone 40 mg q.a.m. and continue to taper. Discontinue famotidine. Extubated on 07/28/2025. Continue incentive spirometer. Blood and sputum culture. Ceftriaxone and azithromycin switched to levofloxacin and doxycycline. Continue Lovenox. Status post barium swallow study. Agree with speech therapy recommendations. Modified code, CPR, intubation okay. Continue incentive spirometer, PT/OT. Planning for discharge to therapy, care coordination arrangement in process. Stable on general medical floor. Constipation resolved status post enema in the ICU. Time Spent With Patient Time with patient: Greater than 35 minutes Subjective Date/time seen: 07/31/25 17:19 Interval history: No major acute overnight events. Patient reports he is doing well. He is on room air. Appears a bit stronger. He has no complaints. Review of Systems Review of Systems: All systems reviewed & are unremarkable except as noted in HPI and below (Subjective) Exam Const: General: comfortable and no acute distress HENMT: Mouth: Yes moist mucous membranes Eyes: Pupils: Equal, round and reactive pupils present Neck: Neck: supple Resp: Effort & Inspection: normal respiratory effort Auscultation: clear to auscultation bilaterally Cardio: Rate: regular rate Rhythm: regular rhythm GI: Inspection: non-distended GI Palp: Yes Soft to palpation Neuro: Other: Generalized weakness Extrem: General: no edema Objective Data Vital Signs Vital Signs: Vital Signs - 24 hr 07/30/25 20:00 07/30/25 20:00 07/30/25 20:47 Temperature 97.6 F Pulse Rate 73 72 Respiratory Rate 20 Blood Pressure 146/80 H Pulse Oximetry 98 Oxygen Delivery Room Air 07/30/25 21:27 07/30/25 22:02 07/31/25 00:00 Temperature Pulse Rate 72 79 59 L Respiratory Rate Blood Pressure Pulse Oximetry 93 Oxygen Delivery Autopap 07/31/25 02:06 07/31/25 04:00 07/31/25 08:00 Temperature Pulse Rate 77 66 Respiratory Rate Blood Pressure Pulse Oximetry 94 97 Oxygen Delivery Autopap Room Air 07/31/25 08:00 07/31/25 09:08 07/31/25 09:12 Temperature Pulse Rate 59 L 70 Respiratory Rate Blood Pressure 124/67 Pulse Oximetry Oxygen Delivery 07/31/25 12:00 07/31/25 16:00 Temperature Pulse Rate 64 66 Respiratory Rate Blood Pressure Pulse Oximetry Oxygen Delivery Intake/Output Intake/Output: Intake & Output 07/28/25 07/29/25 07/30/25 07/31/25 23:59 23:59 23:59 23:59 Intake Total 1411.1 150 590 640 Output Total 2125 4200 900 500 Balance -713.9 -4050 -310 140 Meds/Results Medications: Active Medications Generic Name Dose Route Start Last Admin Trade Name Freq PRN Reason Stop Dose Admin Acetaminophen 650 mg 07/30/25 08:38 07/31/25 05:54 Acetaminophen 325 Mg Tablet PO 650 mg Q4H PRN Administration Mild Pain (1-3) or Fever Albuterol/Ipratropium 3 ml 07/28/25 08:57 Ipratropium 0.5 Mg/Albuterol Sulfate 2.5 Mg Ampul.Neb 3 Ml INHALATION Q6HRT PRN Wheezing Amlodipine Besylate 10 mg 07/30/25 09:00 07/31/25 09:08 Amlodipine Besylate 10 Mg Tablet PO 10 mg DAILY ZAHIRA Administration Atorvastatin Calcium 40 mg 07/30/25 09:00 07/31/25 09:08 Atorvastatin 40 Mg Tablet PO 40 mg DAILY ZAHIRA Administration Carvedilol 6.25 mg 07/30/25 09:00 07/31/25 09:08 Carvedilol 6.25 Mg Tablet PO 6.25 mg Q12H ZAHIRA Administration Dextrose 12.5 gm 07/25/25 10:12 Dextrose 50% 25 Gm/50 Ml Syringe IV PUSH PRN PRN Hypoglycemia Protocol Enoxaparin Sodium 40 mg 07/25/25 09:00 07/31/25 09:09 Enoxaparin 40 Mg/0.4 Ml Syringe SUB-Q 40 mg DAILY ZAHIRA Administration Glucose 15 gm 07/25/25 10:12 Glucose Oral Gel 15 Gm Of Glucse In 37.5 Gm Tube PO PRN PRN Hypoglycemia Protocol Hydralazine HCl 50 mg 07/24/25 09:00 07/24/25 17:10 Hydralazine Hcl 50 Mg Tablet PO Not Given On Hold: 07/25/25 07:18 TID ZAHIRA Dextrose 1,000 mls @ 100 mls/hr 07/25/25 10:12 Dextrose 5% 1,000 Ml IVPB PRN PRN Hypoglycemia Protocol Levothyroxine Sodium 200 mcg 07/30/25 06:30 07/31/25 05:50 Levothyroxine Sodium 100 Mcg Tablet PO 200 mcg DAILY@0630 ZAHIRA Administration Ondansetron HCl 4 mg 07/24/25 01:45 Ondansetron Inj 4 Mg/2 Ml Vial IV PUSH Q4H PRN Nausea Prednisone 40 mg 08/01/25 08:00 Prednisone 20 Mg Tablet PO DAILY@0800 [facility] Sertraline HCl 200 mg 07/30/25 09:00 07/31/25 09:08 Sertraline Hcl 50 Mg Tablet PO 200 mg DAILY ZAHIRA Administration Simethicone 80 mg 07/30/25 05:24 Simethicone 80 Mg Tab.Chew PO QID PRN Gas Discomfort Zolpidem Tartrate 10 mg 07/24/25 14:58 Zolpidem Tartrate (*Crx) 5 Mg Tablet PO On Hold: 07/24/25 19:00 HS PRN Insomnia Radiology Results: ITS Impressions Abdomen/Pelvis CT 07/23/25 21:54 IMPRESSION: 1. New wedge-shaped pleural-based soft tissue right middle lobe laterally. Considering bilateral pleural calcifications, malignancy should be considered including mesothelioma. There is pleural based soft tissue mass measures 3.6 x 1.7 cm. 2: Splenomegaly. Chest CT 07/24/25 08:52 IMPRESSION: 1. Bronchopneumonia detailed above superimposed upon mild CHF. Follow-up recommended to assess resolution 2. Sequelae of previous granulomatous disease. Bilateral micronodules which are new compared to the previous study, in a high-risk patient six-month follow-up is recommended Chest/Abdomen/Pelvis CT 07/25/25 08:40 IMPRESSION: 1. Pneumonia in right upper lobe and right lower lobe, worsened from 07/23/2025. 2. Moderate emphysema. 3. Worsened small right pleural effusion. 4. Mild mediastinal lymphadenopathy, likely reactive. Abdomen X-Ray 07/25/25 15:20 Impression: 1. No acute abnormality. Chest X-Ray 07/28/25 07:41 Impression: 1: Unchanged asymmetric right-sided airspace disease, consistent with pneumonia. Soft Tissue Neck CT 07/28/25 09:45 IMPRESSION: Limited study. Evaluation for edema is limited without contrast with no gross rim-enhancing abscess visualized. If there remains clinical suspicion repeat exam with contrast is recommended Modified Barium Swallow 07/29/25 12:12 IMPRESSION: Mild pharyngeal dysphagia with trace transient/flash laryngeal penetration without aspiration. Please correlate with speech pathologist findings and specific feeding recommendations. Labs Labs: Laboratory Results - last 24 hr 07/31/25 04:36 WBC 8.4 RBC 4.50 L Hgb 12.8 L Hct 38.3 L MCV 85.1 MCH 28.4 MCHC 33.4 RDW 13.6 Plt Count 304 MPV 8.5 Sodium 133 L Potassium 3.7 Chloride 97 L Carbon Dioxide 31 H Anion Gap 5 BUN 31 H Creatinine 1.05 Estim Creat Clear Calc 41 Estimated GFR > 60 Glucose 130 H Calcium 8.2 L Phosphorus 4.0 Magnesium 2.1 Total Bilirubin 0.5 AST 31 ALT 34 Alkaline Phosphatase 77 Total Protein 6.1 L Albumin 2.9 L Triglycerides 297 H
[2025-08-01] VITALS (11 sets, daily range): BP systolic 119–151; BP diastolic 70–89; PULSE 57–71; RESP 16–20; TEMP 36.4–37.1; O2SAT 94–97
[2025-08-01 05:24] LABS: Hematocrit 36.5 % (42.0-52.0); Hemoglobin 12.2 g/dL (14.0-18.0); Mean Corpuscular HGB Conc 33.4 g/dl (32-36); Mean Corpuscular Hemoglobin 28.9 pg (26-34); Mean Corpuscular Volume 86.5 fl (80-100); Platelet Count Result 255 k/mm3 (150-375); Red Blood Count 4.22 M/mm3 (4.6-6.20); White Blood Count 7.5 K/mm3 (4.5-10.0)
[2025-08-01] MEDS: LEVOTHYROXINE SODIUM 100 MCG TABLET 200 MCG PO (05:29)
[2025-08-01 05:44] LABS: Alanine Aminotransferase 28 U/L (6-50); Albumin Level 2.8 g/dL (3.5-5.1); Alkaline Phosphatase 66 U/L (38-126); Anion Gap 4 mmol/L (4-12); Aspartate Amino Transferase 27 U/L (17-59); Bilirubin,Total 0.4 mg/dL (0.2-1.3); Blood Urea Nitrogen 29 mg/dL (9-20); Calcium 7.9 mg/dL (8.4-10.2); Carbon Dioxide 26 mmol/L (22-30); Chloride 100 mmol/L (98-107); Estimated CRCL calculation 45 ml/min; Estimated Glomerular Filt Rate > 60; Glucose 93 mg/dL (65-110); Magnesium 2.1 mg/dL (1.6-2.3); Potassium 3.8 mmol/L (3.4-5.0); Sodium 130 mmol/L (137-145); Total Protein 5.8 g/dL (6.3-8.2)
[2025-08-01] MEDS: ATORVASTATIN 40 MG TABLET PO (08:05)
[2025-08-01] MEDS: ENOXAPARIN 40 MG/0.4 ML SYRINGE SUB-Q (11:14)
[2025-08-01] MEDS: SERTRALINE HCL 50 MG TABLET 200 MG PO (11:14)
[2025-08-01] MEDS: ACETAMINOPHEN 325 MG TABLET 650 MG PO (11:29)
--- NOTE | 2025-08-01 17:22 | PM.IMPN ---
Progress Note: A&P Assessment and Plan (1) Constipation: Code(s): K59.00 - Constipation, unspecified Status: Acute (2) Angioedema: Code(s): T78.3XXA - Angioneurotic edema, initial encounter Status: Acute (3) Hypertension: Qualifiers: Hypertension type: unspecified Qualified Code(s): I10 - Essential (primary) hypertension Code(s): I10 - Essential (primary) hypertension Status: Chronic (4) Hypothyroidism: Code(s): E03.9 - Hypothyroidism, unspecified Status: Acute (5) Acute pneumonia: Code(s): J18.9 - Pneumonia, unspecified organism Status: Acute Plan Angioedema resolved. On prednisone 40 mg q.a.m. from Solu-Medrol. Continue to taper. Famotidine discontinued.Extubated on 07/28/2025. Continue incentive spirometer. Follow-up Blood and sputum culture. Ceftriaxone and azithromycin switched to levofloxacin and doxycycline. Continue Lovenox. Status post barium swallow study. Agree with speech therapy recommendations. Modified code, CPR, intubation okay. Continue incentive spirometer, PT/OT. Planning for discharge to therapy, care coordination arrangement in process. Stable on general medical floor. Constipation resolved status post enema in the ICU. Subjective Date/time seen: 08/01/25 17:22 Interval history: No major acute overnight events. He has no complaints. Review of Systems Review of Systems: All systems reviewed & are unremarkable except as noted in HPI and below (Subjective) Exam Const: General: comfortable and no acute distress HENMT: Mouth: Yes moist mucous membranes Eyes: Pupils: Equal, round and reactive pupils present Neck: Neck: supple Resp: Effort & Inspection: normal respiratory effort Auscultation: clear to auscultation bilaterally Cardio: Rate: regular rate Rhythm: regular rhythm GI: Inspection: non-distended GI Palp: Yes Soft to palpation Neuro: Other: Generalized weakness Extrem: General: no edema Objective Data Vital Signs Vital Signs: Vital Signs - 24 hr 07/31/25 20:00 07/31/25 20:22 07/31/25 20:23 Temperature 98.1 F Pulse Rate 56 L 59 L Respiratory Rate 16 Blood Pressure 151/89 H Pulse Oximetry 96 Oxygen Delivery Room Air Fraction of Inspired Oxygen 07/31/25 20:34 07/31/25 23:19 08/01/25 00:00 Temperature 98.1 F 98.1 F Pulse Rate 59 L 59 L 59 L Respiratory Rate 16 16 Blood Pressure 151/89 H 151/89 H Pulse Oximetry 96 96 Oxygen Delivery Fraction of Inspired Oxygen 08/01/25 00:00 08/01/25 04:00 08/01/25 05:20 Temperature 97.6 F Pulse Rate 60 57 L 58 L Respiratory Rate 18 Blood Pressure 132/75 Pulse Oximetry 96 Oxygen Delivery Fraction of Inspired Oxygen 08/01/25 08:00 08/01/25 08:00 08/01/25 08:00 Temperature 98.8 F Pulse Rate 62 59 L 66 Respiratory Rate 18 16 Blood Pressure 143/76 H Pulse Oximetry 96 94 Oxygen Delivery Room Air Fraction of Inspired Oxygen 30 08/01/25 08:03 08/01/25 12:00 08/01/25 14:00 Temperature 97.8 F Pulse Rate 62 67 66 Respiratory Rate 18 Blood Pressure 119/70 Pulse Oximetry 97 Oxygen Delivery Fraction of Inspired Oxygen Intake/Output Intake/Output: Intake & Output 07/29/25 07/30/25 07/31/25 08/01/25 23:59 23:59 23:59 23:59 Intake Total 150 590 760 790 Output Total 4200 147 328 6882 [facility]4050 -310 110 -410 Meds/Results Medications: Active Medications Generic Name Dose Route Start Last Admin Trade Name Freq PRN Reason Stop Dose Admin Acetaminophen 650 mg 07/30/25 08:38 08/01/25 11:29 Acetaminophen 325 Mg Tablet PO 650 mg Q4H PRN Administration Mild Pain (1-3) or Fever Albuterol/Ipratropium 3 ml 07/28/25 08:57 Ipratropium 0.5 Mg/Albuterol Sulfate 2.5 Mg Ampul.Neb 3 Ml INHALATION Q6HRT PRN Wheezing Amlodipine Besylate 10 mg 07/30/25 09:00 08/01/25 08:05 Amlodipine Besylate 10 Mg Tablet PO 10 mg DAILY ZAHIRA Administration Atorvastatin Calcium 40 mg 07/30/25 09:00 08/01/25 08:05 Atorvastatin 40 Mg Tablet PO 40 mg DAILY ZAHIRA Administration Carvedilol 6.25 mg 07/30/25 09:00 08/01/25 08:03 Carvedilol 6.25 Mg Tablet PO 6.25 mg Q12H ZAHIRA Administration Dextrose 12.5 gm 07/25/25 10:12 Dextrose 50% 25 Gm/50 Ml Syringe IV PUSH PRN PRN Hypoglycemia Protocol Enoxaparin Sodium 40 mg 07/25/25 09:00 08/01/25 11:14 Enoxaparin 40 Mg/0.4 Ml Syringe SUB-Q 40 mg DAILY ZAHIRA Administration Glucose 15 gm 07/25/25 10:12 Glucose Oral Gel 15 Gm Of Glucse In 37.5 Gm Tube PO PRN PRN Hypoglycemia Protocol Hydralazine HCl 50 mg 07/24/25 09:00 07/24/25 17:10 Hydralazine Hcl 50 Mg Tablet PO Not Given On Hold: 07/25/25 07:18 TID ZAHIRA Dextrose 1,000 mls @ 100 mls/hr 07/25/25 10:12 Dextrose 5% 1,000 Ml IVPB PRN PRN Hypoglycemia Protocol Levothyroxine Sodium 200 mcg 07/30/25 06:30 08/01/25 05:29 Levothyroxine Sodium 100 Mcg Tablet PO 200 mcg DAILY@0630 ZAHIRA Administration Prednisone 40 mg 08/01/25 08:00 08/01/25 08:03 Prednisone 20 Mg Tablet PO 40 mg DAILY@0800 ZAHIRA Administration Sertraline HCl 200 mg 07/30/25 09:00 08/01/25 11:14 Sertraline Hcl 50 Mg Tablet PO 200 mg DAILY ZAHIRA Administration Simethicone 80 mg 07/30/25 05:24 Simethicone 80 Mg Tab.Chew PO QID PRN Gas Discomfort Zolpidem Tartrate 10 mg 07/24/25 14:58 Zolpidem Tartrate (*Crx) 5 Mg Tablet PO On Hold: 07/24/25 19:00 HS PRN Insomnia Radiology Results: ITS Impressions Abdomen/Pelvis CT 07/23/25 21:54 IMPRESSION: 1. New wedge-shaped pleural-based soft tissue right middle lobe laterally. Considering bilateral pleural calcifications, malignancy should be considered including mesothelioma. There is pleural based soft tissue mass measures 3.6 x 1.7 cm. 2: Splenomegaly. Chest CT 07/24/25 08:52 IMPRESSION: 1. Bronchopneumonia detailed above superimposed upon mild CHF. Follow-up recommended to assess resolution 2. Sequelae of previous granulomatous disease. Bilateral micronodules which are new compared to the previous study, in a high-risk patient six-month follow-up is recommended Chest/Abdomen/Pelvis CT 07/25/25 08:40 IMPRESSION: 1. Pneumonia in right upper lobe and right lower lobe, worsened from 07/23/2025. 2. Moderate emphysema. 3. Worsened small right pleural effusion. 4. Mild mediastinal lymphadenopathy, likely reactive. Abdomen X-Ray 07/25/25 15:20 Impression: 1. No acute abnormality. Chest X-Ray 07/28/25 07:41 Impression: 1: Unchanged asymmetric right-sided airspace disease, consistent with pneumonia. Soft Tissue Neck CT 07/28/25 09:45 IMPRESSION: Limited study. Evaluation for edema is limited without contrast with no gross rim-enhancing abscess visualized. If there remains clinical suspicion repeat exam with contrast is recommended Modified Barium Swallow 07/29/25 12:12 IMPRESSION: Mild pharyngeal dysphagia with trace transient/flash laryngeal penetration without aspiration. Please correlate with speech pathologist findings and specific feeding recommendations. Labs Labs: Laboratory Results - last 24 hr 08/01/25 04:59 WBC 7.5 RBC 4.22 L Hgb 12.2 L Hct 36.5 L MCV 86.5 MCH 28.9 MCHC 33.4 RDW 13.5 Plt Count 255 MPV 8.7 Sodium 130 L Potassium 3.8 Chloride 100 Carbon Dioxide 26 Anion Gap 4 BUN 29 H Creatinine 0.95 Estim Creat Clear Calc 45 Estimated GFR > 60 Glucose 93 Calcium 7.9 L Phosphorus 3.6 Magnesium 2.1 Total Bilirubin 0.4 AST 27 ALT 28 Alkaline Phosphatase 66 Total Protein 5.8 L Albumin 2.8 L
[2025-08-02] VITALS (13 sets, daily range): BP systolic 116–126; BP diastolic 66–84; PULSE 55–67; RESP 18–20; TEMP 36.3–36.4; O2SAT 96–98
[2025-08-02 05:24] LABS: Hematocrit 39.0 % (42.0-52.0); Hemoglobin 13.0 g/dL (14.0-18.0); Mean Corpuscular HGB Conc 33.3 g/dl (32-36); Mean Corpuscular Hemoglobin 28.8 pg (26-34); Mean Corpuscular Volume 86.5 fl (80-100); Platelet Count Result 269 k/mm3 (150-375); Red Blood Count 4.51 M/mm3 (4.6-6.20); White Blood Count 7.9 K/mm3 (4.5-10.0)
[2025-08-02] MEDS: LEVOTHYROXINE SODIUM 100 MCG TABLET 200 MCG PO (05:25)
[2025-08-02 06:01] LABS: Alanine Aminotransferase 30 U/L (6-50); Albumin Level 3.0 g/dL (3.5-5.1); Alkaline Phosphatase 75 U/L (38-126); Anion Gap 6 mmol/L (4-12); Aspartate Amino Transferase 36 U/L (17-59); Bilirubin,Total 0.6 mg/dL (0.2-1.3); Blood Urea Nitrogen 27 mg/dL (9-20); Calcium 8.3 mg/dL (8.4-10.2); Carbon Dioxide 27 mmol/L (22-30); Chloride 100 mmol/L (98-107); Estimated CRCL calculation 41 ml/min; Estimated Glomerular Filt Rate > 60; Glucose 97 mg/dL (65-110); Potassium 3.6 mmol/L (3.4-5.0); Sodium 133 mmol/L (137-145); Total Protein 6.2 g/dL (6.3-8.2)
[2025-08-02 06:11] LABS: Magnesium 2.2 mg/dL (1.6-2.3)
[2025-08-02] MEDS: ATORVASTATIN 40 MG TABLET PO (09:33)
[2025-08-02] MEDS: ENOXAPARIN 40 MG/0.4 ML SYRINGE SUB-Q (09:33)
[2025-08-02] MEDS: SERTRALINE HCL 50 MG TABLET 200 MG PO (09:34)
--- NOTE | 2025-08-02 16:00 | P.PNIM_ITS ---
Progress Note: A&P Assessment and Plan (1) Constipation: Code(s): K59.00 - Constipation, unspecified Status: Acute (2) Angioedema: Code(s): T78.3XXA - Angioneurotic edema, initial encounter Status: Acute (3) Hypertension: Qualifiers: Hypertension type: unspecified Qualified Code(s): I10 - Essential (primary) hypertension Code(s): I10 - Essential (primary) hypertension Status: Chronic (4) Hypothyroidism: Code(s): E03.9 - Hypothyroidism, unspecified Status: Acute (5) Acute pneumonia: Code(s): J18.9 - Pneumonia, unspecified organism Status: Acute Plan 80-year-old male with history of depression, anxiety, 0 thyroidism, emphysema, COPD, hyperlipidemia, hypertension, basal cell carcinoma presents [facility] ER on 07/23/2025 complaining of fever chills sweats abdominal pain nausea vomiting with soft stools/diarrhea and shortness of breath. Symptoms have been going on for 10 days. Patient was hypoxic. Acute hypoxic respiratory failure: Patient received Chloraseptic for ulcers on his tongue, 1 hour later the patient had swelling of the tongue, drooling, difficulty swallowing, shortness of breath. Received epinephrine, Solu-Medrol, H1 and H2 timo. Patient was transferred to ICU and intubated. Extubated on 07/28. Has since been weaned to room air. Continue incentive spirometer. All medications discontinued except for prednisone now at 20 mg p.o. q.day, continue to taper down. Pneumonia, multifocal. This was [facility] presentation at [facility]. Ceftriaxone and azithromycin switched to levofloxacin and doxycycline. Blood culture x2 on 07/23 25 negative, final. Sputum culture negative. COPD: Bronchodilators p.r.n.. No acute exacerbation Hypothyroidism: Continue levothyroxine 200 mcg p.o. q.day. Essential hypertension: At goal, continue losartan and Coreg ----- Modified code: No CPR, intubation okay. Lovenox. Prior to admission the patient lives at home with his . Care coordination arranging for discharge to care home therapy. Continue PT/OT. Barium swallow completed for dysphagia. Continue speech therapy recommendations. Stable on medical floor. Time Spent With Patient Time with patient: Greater than 35 minutes Subjective Date/time seen: 08/02/25 16:00 Interval history: No major acute overnight events. He has no complaints. Review of Systems Review of Systems: All systems reviewed & are unremarkable except as noted in HPI and below (Subjective) Exam Const: General: comfortable and no acute distress HENMT: Mouth: Yes moist mucous membranes Eyes: Pupils: Equal, round and reactive pupils present Neck: Neck: supple Resp: Effort & Inspection: normal respiratory effort Auscultation: clear to auscultation bilaterally Cardio: Rate: regular rate Rhythm: regular rhythm GI: Inspection: non-distended GI Palp: Yes Soft to palpation Neuro: Other: Generalized weakness Extrem: General: no edema Objective Data Vital Signs Vital Signs: Vital Signs - 24 hr 08/01/25 20:00 08/01/25 21:02 08/01/25 21:18 Temperature 97.9 F Pulse Rate 63 64 Respiratory Rate 20 Blood Pressure 130/82 Pulse Oximetry 97 Oxygen Delivery Room Air 08/01/25 21:25 08/02/25 00:00 08/02/25 04:00 Temperature Pulse Rate 64 56 L 55 L Respiratory Rate Blood Pressure Pulse Oximetry Oxygen Delivery 08/02/25 05:02 08/02/25 08:00 08/02/25 08:00 Temperature 97.6 F Pulse Rate 60 55 L Respiratory Rate 18 Blood Pressure 126/84 Pulse Oximetry 98 Oxygen Delivery Room Air 08/02/25 08:35 08/02/25 09:16 08/02/25 09:33 Temperature Pulse Rate 64 64 Respiratory Rate Blood Pressure 116/70 Pulse Oximetry 98 97 Oxygen Delivery Room Air 08/02/25 12:00 Temperature Pulse Rate 63 Respiratory Rate Blood Pressure Pulse Oximetry Oxygen Delivery Intake/Output Intake/Output: Intake & Output 07/30/25 07/31/25 08/01/25 08/02/25 23:59 23:59 23:59 23:59 Intake Total 590 760 790 440 Output Total 468 709 9943 700 Balance -310 997 -743 -561 Meds/Results Medications: Active Medications Generic Name Dose Route Start Last Admin Trade Name Freq PRN Reason Stop Dose Admin Acetaminophen 650 mg 07/30/25 08:38 08/01/25 11:29 Acetaminophen 325 Mg Tablet PO 650 mg Q4H PRN Administration Mild Pain (1-3) or Fever Albuterol/Ipratropium 3 ml 07/28/25 08:57 Ipratropium 0.5 Mg/Albuterol Sulfate 2.5 Mg Ampul.Neb 3 Ml INHALATION Q6HRT PRN Wheezing Amlodipine Besylate 10 mg 07/30/25 09:00 08/02/25 09:33 Amlodipine Besylate 10 Mg Tablet PO 10 mg DAILY ZAHIRA Administration Atorvastatin Calcium 40 mg 07/30/25 09:00 08/02/25 09:33 Atorvastatin 40 Mg Tablet PO 40 mg DAILY ZAHIRA Administration Carvedilol 6.25 mg 07/30/25 09:00 08/02/25 09:33 Carvedilol 6.25 Mg Tablet PO 6.25 mg Q12H ZAHIRA Administration Dextrose 12.5 gm 07/25/25 10:12 Dextrose 50% 25 Gm/50 Ml Syringe IV PUSH PRN PRN Hypoglycemia Protocol Enoxaparin Sodium 40 mg 07/25/25 09:00 08/02/25 09:33 Enoxaparin 40 Mg/0.4 Ml Syringe SUB-Q 40 mg DAILY ZAHIRA Administration Glucose 15 gm 07/25/25 10:12 Glucose Oral Gel 15 Gm Of Glucse In 37.5 Gm Tube PO PRN PRN Hypoglycemia Protocol Hydralazine HCl 50 mg 07/24/25 09:00 07/24/25 17:10 Hydralazine Hcl 50 Mg Tablet PO Not Given On Hold: 07/25/25 07:18 TID ZAHIRA Dextrose 1,000 mls @ 100 mls/hr 07/25/25 10:12 Dextrose 5% 1,000 Ml IVPB PRN PRN Hypoglycemia Protocol Levothyroxine Sodium 200 mcg 07/30/25 06:30 08/02/25 05:25 Levothyroxine Sodium 100 Mcg Tablet PO 200 mcg DAILY@0630 ZAHIRA Administration Prednisone 20 mg 08/03/25 08:00 Prednisone 20 Mg Tablet PO DAILY@0800 ZAHIRA Sertraline HCl 200 mg 07/30/25 09:00 08/02/25 09:34 Sertraline Hcl 50 Mg Tablet PO 200 mg DAILY ZAHIRA Administration Simethicone 80 mg 07/30/25 05:24 Simethicone 80 Mg Tab.Chew PO QID PRN Gas Discomfort Zolpidem Tartrate 10 mg 07/24/25 14:58 Zolpidem Tartrate (*Crx) 5 Mg Tablet PO On Hold: 07/24/25 19:00 HS PRN Insomnia Radiology Results: ITS Impressions Abdomen/Pelvis CT 07/23/25 21:54 IMPRESSION: 1. New wedge-shaped pleural-based soft tissue right middle lobe laterally. Considering bilateral pleural calcifications, malignancy should be considered including mesothelioma. There is pleural based soft tissue mass measures 3.6 x 1.7 cm. 2: Splenomegaly. Chest CT 07/24/25 08:52 IMPRESSION: 1. Bronchopneumonia detailed above superimposed upon mild CHF. Follow-up recommended to assess resolution 2. Sequelae of previous granulomatous disease. Bilateral micronodules which are new compared to the previous study, in a high-risk patient six-month follow-up is recommended Chest/Abdomen/Pelvis CT 07/25/25 08:40 IMPRESSION: 1. Pneumonia in right upper lobe and right lower lobe, worsened from 07/23/2025. 2. Moderate emphysema. 3. Worsened small right pleural effusion. 4. Mild mediastinal lymphadenopathy, likely reactive. Abdomen X-Ray 07/25/25 15:20 Impression: 1. No acute abnormality. Chest X-Ray 07/28/25 07:41 Impression: 1: Unchanged asymmetric right-sided airspace disease, consistent with pneumonia. Soft Tissue Neck CT 07/28/25 09:45 IMPRESSION: Limited study. Evaluation for edema is limited without contrast with no gross rim-enhancing abscess visualized. If there remains clinical suspicion repeat exam with contrast is recommended Modified Barium Swallow 07/29/25 12:12 IMPRESSION: Mild pharyngeal dysphagia with trace transient/flash laryngeal penetration without aspiration. Please correlate with speech pathologist findings and specific feeding recommendations. Labs Labs: Laboratory Results - last 24 hr 08/02/25 04:39 WBC 7.9 RBC 4.51 L Hgb 13.0 L Hct 39.0 L MCV 86.5 MCH 28.8 MCHC 33.3 RDW 13.7 Plt Count 269 MPV 8.9 Sodium 133 L Potassium 3.6 Chloride 100 Carbon Dioxide 27 Anion Gap 6 BUN 27 H Creatinine 1.05 Estim Creat Clear Calc 41 Estimated GFR > 60 Glucose 97 Calcium 8.3 L Phosphorus 3.7 Magnesium 2.2 Total Bilirubin 0.6 AST 36 ALT 30 Alkaline Phosphatase 75 Total Protein 6.2 L Albumin 3.0 L
[2025-08-03] VITALS (13 sets, daily range): BP systolic 109–139; BP diastolic 60–76; PULSE 56–71; RESP 16–18; TEMP 36.3–36.8; O2SAT 94–97
[2025-08-03] MEDS: LEVOTHYROXINE SODIUM 100 MCG TABLET 200 MCG PO (05:56)
[2025-08-03] MEDS: ATORVASTATIN 40 MG TABLET PO (07:59)
[2025-08-03] MEDS: ENOXAPARIN 40 MG/0.4 ML SYRINGE SUB-Q (08:03)
[2025-08-03] MEDS: SERTRALINE HCL 50 MG TABLET 200 MG PO (08:03)
--- NOTE | 2025-08-03 08:13 | P.PNIM_ITS ---
Progress Note: A&P Assessment and Plan (1) Acute respiratory failure with hypoxia: Code(s): J96.01 - Acute respiratory failure with hypoxia Status: Acute Assessment and Plan: Hypoxic at 88% on RA likely secondary to pneumonia as seen on imaging - Suspected cause: pneumonia - Chest XR 07/24: bilateral airspace disease, compatible with pneumonia - Chest CT 07/24: Bronchopneumonia detailed above superimposed upon mild CHF. Follow-up recommended to assess resolution. Sequelae of previous granulomatous disease. Resolved. Continues to have stable saturations on room air. See plan for angioedema 2/2 allergic reaction and pneumonia below (2) Angioedema: Code(s): T78.3XXA - Angioneurotic edema, initial encounter Status: Acute Assessment and Plan: 07/24: Patient received Chloraseptic for ulcers on his tongue, 1 hour after that patient has swelling of the tongue, drooling, difficulty swallowing, shortness of breath. Patient intubated and received epinephrine, Solu-Medrol, H1 and H2 timo. Patient was transferred from the medical floor to the ICU and intubated Soft tissue neck ct 07/25: Mediastinal lymphadenopathy, likely reactive. Soft tissue swelling of the pharyngeal mucosal space. Soft tissue neck ct 07/28: soft tissues appear unremarkable Patient extubated on 07/28. Has since been weaned to room air. Continue incentive spirometer. All medications discontinued except for prednisone taper prednisone as follows (taper started on 08/01): 40 mg x2 days, 20 mg x2 days, 10 mg x2 days, and 5 mg x2 days (3) Acute pneumonia: Code(s): J18.9 - Pneumonia, unspecified organism Status: Acute Assessment and Plan: - Chest XR 07/24: bilateral airspace disease, compatible with pneumonia - Chest CT 07/24: Bronchopneumonia detailed above superimposed upon mild CHF. Follow-up recommended to assess resolution. Sequelae of previous granulomatous disease. - Chest/abdomen/pelvis 07/25: worsening pneumonia, mod emphysema, worsened small right pleural effusion, and mild mediastinal lymphadenopathy - Chest XR 07/26: improving airspace disease right lung - Chest XR 07/27: Persistent opacities in the right midlung zone consistent with pneumonia. Very small right pleural effusion. - Chest XR 07/28: Unchanged asymmetric right-sided airspace disease, consistent with pneumonia. - started on CAP tx: Ceftriaxone and azithromycin on admission switched to levofloxacin and doxycycline given angioedema, course completed during hospitalization Prior provider spoke to pharmacy about possible causes angioedema, pharmacy believes that less likely the antibiotics and more likely Chloraseptic spray causing his angioedema. - Viral PCR: negative for Flu/COVID/RSV - Sputum culture negative - Blood culture x2 on 07/23 25 negative, final. - Monitor vital signs, I&Os, neuro status and patient is a fall risk - Follow WBC, serum electrolytes, temperature curves and cultures (4) Lung nodules: Code(s): R91.8 - Other nonspecific abnormal finding of lung field Status: Acute Assessment and Plan: Chest CT: Bilateral micronodules which are new compared to the previous study, in a high-risk patient six-month follow-up is recommended Patient to have PCP follow up (5) Hypertension: Qualifiers: Hypertension type: unspecified Qualified Code(s): I10 - Essential (primary) hypertension Code(s): I10 - Essential (primary) hypertension Status: Chronic Assessment and Plan: Chronic, continue home medications - hydralazine 50 mg TID, currently on hold. Resume as appropriate. - carvedilol 6.25 mg BID - amlodipine 10 mg daily - blood pressures reviewed and remain stable (6) Hypothyroidism: Code(s): E03.9 - Hypothyroidism, unspecified Status: Acute Assessment and Plan: Continue levothyroxine 200 mcg p.o. q.day. Time Spent With Patient Time with patient: 25 - 35 minutes Subjective Date/time seen: 08/03/25 08:13 Interval history: 80 y/o male with a PMH of COPD not on any supplemental oxygen, emphysema, HTN, hyperlipidemia, depression, anxiety, BCC presented to the ED on 07/23/25 with complaints of fever, chills, sweats, abdominal pain, nausea vomiting with diarrhea, and shortness of breath. Patient is pleasant lying comfortably in bed with family at bedside. He states that he is feeling well today and has no complaints denying chest pain, shortness a breath, palpitations, nausea/vomiting, abdominal pain, and dizziness/lightheadedness. Care coordination continues to follow and placement is pending. Review of Systems Review of Systems: All systems reviewed & are unremarkable except as noted in HPI and below Exam Narrative: AF HR 63 RR 16 Spo2 96 BP 109/61 General: male in no acute respiratory distress who is nontoxic appearing, lying semi recumbent in bed. HEENT: Normocephalic. Atraumatic. Extraocular movement intact. Sclera clear and anicteric. No facial asymmetry. Chest: Lungs are clear to auscultation bilaterally. No wheezes or crackles. Speaking full sentences. CV: Heart was regular rate and rhythm. . Abd: Abdomen was soft. Nontender. Nondistended. Positive bowel sounds. Ext: No clubbing, cyanosis, or edema. DP pulses bilaterally. Neuro: Patient is alert. Speech is clear. Objective Data Vital Signs Vital Signs: Vital Signs - 24 hr 08/02/25 08:35 08/02/25 09:16 08/02/25 09:33 Temperature Pulse Rate 64 64 Respiratory Rate Blood Pressure 116/70 Pulse Oximetry 98 97 Oxygen Delivery Room Air Fraction of Inspired Oxygen 08/02/25 12:00 08/02/25 16:00 08/02/25 16:00 Temperature 97.5 F L Pulse Rate 63 59 L 56 L Respiratory Rate 20 Blood Pressure 123/66 Pulse Oximetry 96 Oxygen Delivery Fraction of Inspired Oxygen 08/02/25 20:00 08/02/25 20:00 08/02/25 20:40 Temperature Pulse Rate 64 63 Respiratory Rate Blood Pressure Pulse Oximetry Oxygen Delivery Room Air Fraction of Inspired Oxygen 08/02/25 20:42 08/02/25 21:36 08/03/25 00:00 Temperature 97.3 F L Pulse Rate 67 64 71 Respiratory Rate 18 20 Blood Pressure 126/82 Pulse Oximetry 97 96 Oxygen Delivery Room Air Fraction of Inspired Oxygen 21 08/03/25 04:00 08/03/25 04:38 08/03/25 07:59 Temperature 97.7 F Pulse Rate 63 60 57 L Respiratory Rate 18 Blood Pressure 125/60 Pulse Oximetry 97 Oxygen Delivery Fraction of Inspired Oxygen Intake/Output Intake/Output: Intake & Output 07/31/25 08/01/25 08/02/25 08/03/25 23:59 23:59 23:59 23:59 Intake Total 760 790 920 300 Output Total 650 1200 850 400 Balance 110 -410 70 -100 Meds/Results Medications: Active Medications Generic Name Dose Route Start Last Admin Trade Name Freq PRN Reason Stop Dose Admin Acetaminophen 650 mg 07/30/25 08:38 08/01/25 11:29 Acetaminophen 325 Mg Tablet PO 650 mg Q4H PRN Administration Mild Pain (1-3) or Fever Albuterol/Ipratropium 3 ml 07/28/25 08:57 Ipratropium 0.5 Mg/Albuterol Sulfate 2.5 Mg Ampul.Neb 3 Ml INHALATION Q6HRT PRN Wheezing Amlodipine Besylate 10 mg 07/30/25 09:00 08/03/25 07:58 Amlodipine Besylate 10 Mg Tablet PO 10 mg DAILY ZAHIRA Administration Atorvastatin Calcium 40 mg 07/30/25 09:00 08/03/25 07:59 Atorvastatin 40 Mg Tablet PO 40 mg DAILY ZAHIRA Administration Carvedilol 6.25 mg 07/30/25 09:00 08/03/25 07:59 Carvedilol 6.25 Mg Tablet PO 6.25 mg Q12H ZAHIRA Administration Dextrose 12.5 gm 07/25/25 10:12 Dextrose 50% 25 Gm/50 Ml Syringe IV PUSH PRN PRN Hypoglycemia Protocol Enoxaparin Sodium 40 mg 07/25/25 09:00 08/03/25 08:03 Enoxaparin 40 Mg/0.4 Ml Syringe SUB-Q 40 mg DAILY ZAHIRA Administration Glucose 15 gm 07/25/25 10:12 Glucose Oral Gel 15 Gm Of Glucse In 37.5 Gm Tube PO PRN PRN Hypoglycemia Protocol Hydralazine HCl 50 mg 07/24/25 09:00 07/24/25 17:10 Hydralazine Hcl 50 Mg Tablet PO Not Given On Hold: 07/25/25 07:18 TID ZAHIRA Dextrose 1,000 mls @ 100 mls/hr 07/25/25 10:12 Dextrose 5% 1,000 Ml IVPB PRN PRN Hypoglycemia Protocol Levothyroxine Sodium 200 mcg 07/30/25 06:30 08/03/25 05:56 Levothyroxine Sodium 100 Mcg Tablet PO 200 mcg DAILY@0630 ZAHIRA Administration Prednisone 20 mg 08/03/25 08:00 08/03/25 07:58 Prednisone 20 Mg Tablet PO 20 mg DAILY@0800 ZAHIRA Administration Sertraline HCl 200 mg 07/30/25 09:00 08/03/25 08:03 Sertraline Hcl 50 Mg Tablet PO 200 mg DAILY ZAHIRA Administration Simethicone 80 mg 07/30/25 05:24 Simethicone 80 Mg Tab.Chew PO QID PRN Gas Discomfort Zolpidem Tartrate 10 mg 07/24/25 14:58 Zolpidem Tartrate (*Crx) 5 Mg Tablet PO On Hold: 07/24/25 19:00 HS PRN Insomnia Radiology Results: ITS Impressions Abdomen/Pelvis CT 07/23/25 21:54 IMPRESSION: 1. New wedge-shaped pleural-based soft tissue right middle lobe laterally. Considering bilateral pleural calcifications, malignancy should be considered including mesothelioma. There is pleural based soft tissue mass measures 3.6 x 1.7 cm. 2: Splenomegaly. Chest CT 07/24/25 08:52 IMPRESSION: 1. Bronchopneumonia detailed above superimposed upon mild CHF. Follow-up recommended to assess resolution 2. Sequelae of previous granulomatous disease. Bilateral micronodules which are new compared to the previous study, in a high-risk patient six-month follow-up is recommended Chest/Abdomen/Pelvis CT 07/25/25 08:40 IMPRESSION: 1. Pneumonia in right upper lobe and right lower lobe, worsened from 07/23/2025. 2. Moderate emphysema. 3. Worsened small right pleural effusion. 4. Mild mediastinal lymphadenopathy, likely reactive. Abdomen X-Ray 07/25/25 15:20 Impression: 1. No acute abnormality. Chest X-Ray 07/28/25 07:41 Impression: 1: Unchanged asymmetric right-sided airspace disease, consistent with pneumonia. Soft Tissue Neck CT 07/28/25 09:45 IMPRESSION: Limited study. Evaluation for edema is limited without contrast with no gross rim-enhancing abscess visualized. If there remains clinical suspicion repeat exam with contrast is recommended Modified Barium Swallow 07/29/25 12:12 IMPRESSION: Mild pharyngeal dysphagia with trace transient/flash laryngeal pene tration without aspiration. Please correlate with speech pathologist findings and specific feeding recommendations. Quality VTE Prophylaxis VTE prophylaxis: pharmacologic ordered
[2025-08-03 08:59] LABS: Hematocrit 41.4 % (42.0-52.0); Hemoglobin 13.8 g/dL (14.0-18.0); Mean Corpuscular HGB Conc 33.3 g/dl (32-36); Mean Corpuscular Hemoglobin 29.0 pg (26-34); Mean Corpuscular Volume 87.0 fl (80-100); Platelet Count Result 273 k/mm3 (150-375); Red Blood Count 4.76 M/mm3 (4.6-6.20); White Blood Count 9.5 K/mm3 (4.5-10.0)
[2025-08-03 09:08] LABS: Alanine Aminotransferase 37 U/L (6-50); Albumin Level 3.1 g/dL (3.5-5.1); Alkaline Phosphatase 87 U/L (38-126); Anion Gap 4 mmol/L (4-12); Aspartate Amino Transferase 35 U/L (17-59); Bilirubin,Total 0.6 mg/dL (0.2-1.3); Blood Urea Nitrogen 24 mg/dL (9-20); Calcium 8.4 mg/dL (8.4-10.2); Carbon Dioxide 30 mmol/L (22-30); Chloride 101 mmol/L (98-107); Estimated CRCL calculation 46 ml/min; Estimated Glomerular Filt Rate > 60; Glucose 94 mg/dL (65-110); Potassium 3.9 mmol/L (3.4-5.0); Sodium 135 mmol/L (137-145); Total Protein 6.4 g/dL (6.3-8.2)
--- NOTE | 2025-08-03 12:37 | PC.NURSE ---
On 08/03/25, the student, Salome Agustin, provided care and completed [facility] documentation on this patient. I have reviewed the student's documentation and agree with the findings.
[2025-08-04] VITALS (7 sets, daily range): BP systolic 119–130; BP diastolic 62–64; PULSE 51–94; RESP 16–18; TEMP 36.3–37.3; O2SAT 94–100
[2025-08-04 05:13] LABS: Hematocrit 37.2 % (42.0-52.0); Hemoglobin 12.1 g/dL (14.0-18.0); Mean Corpuscular HGB Conc 32.5 g/dl (32-36); Mean Corpuscular Hemoglobin 28.5 pg (26-34); Mean Corpuscular Volume 87.5 fl (80-100); Platelet Count Result 242 k/mm3 (150-375); Red Blood Count 4.25 M/mm3 (4.6-6.20); White Blood Count 8.6 K/mm3 (4.5-10.0)
[2025-08-04 05:47] LABS: Alanine Aminotransferase 36 U/L (6-50); Albumin Level 2.7 g/dL (3.5-5.1); Alkaline Phosphatase 91 U/L (38-126); Anion Gap 2 mmol/L (4-12); Aspartate Amino Transferase 38 U/L (17-59); Bilirubin,Total 0.3 mg/dL (0.2-1.3); Blood Urea Nitrogen 26 mg/dL (9-20); Calcium 8.0 mg/dL (8.4-10.2); Carbon Dioxide 25 mmol/L (22-30); Chloride 105 mmol/L (98-107); Estimated CRCL calculation 50 ml/min; Estimated Glomerular Filt Rate > 60; Glucose 81 mg/dL (65-110); Potassium 3.6 mmol/L (3.4-5.0); Sodium 132 mmol/L (137-145); Total Protein 5.6 g/dL (6.3-8.2)
[2025-08-04] MEDS: LEVOTHYROXINE SODIUM 100 MCG TABLET 200 MCG PO (05:59)
--- NOTE | 2025-08-04 07:48 | PM.IMPN ---
Progress Note: A&P Assessment and Plan (1) Acute respiratory failure with hypoxia: Code(s): J96.01 - Acute respiratory failure with hypoxia Status: Acute Assessment and Plan: Hypoxic at 88% on RA likely secondary to pneumonia as seen on imaging - Suspected cause: pneumonia - Chest XR 07/24: bilateral airspace disease, compatible with pneumonia - Chest CT 07/24: Bronchopneumonia detailed above superimposed upon mild CHF. Follow-up recommended to assess resolution. Sequelae of previous granulomatous disease. Resolved. Continues to have stable saturations on room air. See plan for angioedema 2/2 allergic reaction and pneumonia below (2) Angioedema: Code(s): T78.3XXA - Angioneurotic edema, initial encounter Status: Acute Assessment and Plan: 07/24: Patient received Chloraseptic for ulcers on his tongue, 1 hour after that patient has swelling of the tongue, drooling, difficulty swallowing, shortness of breath. Patient intubated and received epinephrine, Solu-Medrol, H1 and H2 timo. Patient was transferred from the medical floor to the ICU and intubated Soft tissue neck ct 07/25: Mediastinal lymphadenopathy, likely reactive. Soft tissue swelling of the pharyngeal mucosal space. Soft tissue neck ct 07/28: soft tissues appear unremarkable Patient extubated on 07/28. Has since been weaned to room air. Continue incentive spirometer. All medications discontinued except for prednisone taper prednisone as follows (taper started on 08/01): 40 mg x2 days, 20 mg x2 days, 10 mg x2 days, and 5 mg x2 days (3) Acute pneumonia: Code(s): J18.9 - Pneumonia, unspecified organism Status: Acute Assessment and Plan: - Chest XR 07/24: bilateral airspace disease, compatible with pneumonia - Chest CT 07/24: Bronchopneumonia detailed above superimposed upon mild CHF. Follow-up recommended to assess resolution. Sequelae of previous granulomatous disease. - Chest/abdomen/pelvis 07/25: worsening pneumonia, mod emphysema, worsened small right pleural effusion, and mild mediastinal lymphadenopathy - Chest XR 07/26: improving airspace disease right lung - Chest XR 07/27: Persistent opacities in the right midlung zone consistent with pneumonia. Very small right pleural effusion. - Chest XR 07/28: Unchanged asymmetric right-sided airspace disease, consistent with pneumonia. - started on CAP tx: Ceftriaxone and azithromycin on admission switched to levofloxacin and doxycycline given angioedema, course completed during hospitalization Prior provider spoke to pharmacy about possible causes angioedema, pharmacy believes that less likely the antibiotics and more likely Chloraseptic spray causing his angioedema. - Viral PCR: negative for Flu/COVID/RSV - Sputum culture negative - Blood culture x2 on 07/23 25 negative, final. - Monitor vital signs, I&Os, neuro status and patient is a fall risk - Follow WBC, serum electrolytes, temperature curves and cultures (4) Lung nodules: Code(s): R91.8 - Other nonspecific abnormal finding of lung field Status: Acute Assessment and Plan: Chest CT: Bilateral micronodules which are new compared to the previous study, in a high-risk patient six-month follow-up is recommended Patient to have PCP follow up (5) Hypertension: Qualifiers: Hypertension type: unspecified Qualified Code(s): I10 - Essential (primary) hypertension Code(s): I10 - Essential (primary) hypertension Status: Chronic Assessment and Plan: Chronic, continue home medications - hydralazine 50 mg TID, currently on hold. Resume as appropriate. - carvedilol 6.25 mg BID - amlodipine 10 mg daily - blood pressures reviewed and remain stable (6) Hypothyroidism: Code(s): E03.9 - Hypothyroidism, unspecified Status: Acute Assessment and Plan: Continue levothyroxine 200 mcg p.o. q.day. Time Spent With Patient Time with patient: 25 - 35 minutes Subjective Date/time seen: 08/04/25 07:48 Interval history: 80 y/o male with a PMH of COPD not on any supplemental oxygen, emphysema, HTN, hyperlipidemia, depression, anxiety, BCC presented to the ED on 07/23/25 with complaints of fever, chills, sweats, abdominal pain, nausea vomiting with diarrhea, and shortness of breath. Review of Systems Review of Systems: All systems reviewed & are unremarkable except as noted in HPI and below Exam Narrative: AF HR General: male in no acute respiratory distress who is nontoxic appearing, lying semi recumbent in bed. HEENT: Normocephalic. Atraumatic. Extraocular movement intact. Sclera clear and anicteric. No facial asymmetry. Chest: Lungs are clear to auscultation bilaterally. No wheezes or crackles. Speaking full sentences. CV: Heart was regular rate and rhythm. . Abd: Abdomen was soft. Nontender. Nondistended. Positive bowel sounds. Ext: No clubbing, cyanosis, or edema. DP pulses bilaterally. Neuro: Patient is alert. Speech is clear. Objective Data Vital Signs Vital Signs: Vital Signs - 24 hr 08/03/25 07:59 08/03/25 08:00 08/03/25 08:01 Temperature Pulse Rate 57 L 57 L 56 L Respiratory Rate Blood Pressure 139/76 Pulse Oximetry 96 Oxygen Delivery 08/03/25 11:54 08/03/25 12:00 08/03/25 13:30 Temperature 97.3 F L 98.2 F Pulse Rate 57 L 65 63 Respiratory Rate 17 16 Blood Pressure 116/62 109/61 Pulse Oximetry 94 96 Oxygen Delivery 08/03/25 16:00 08/03/25 20:00 08/03/25 20:00 Temperature Pulse Rate 59 L 62 Respiratory Rate Blood Pressure Pulse Oximetry Oxygen Delivery Room Air 08/03/25 20:23 08/03/25 20:54 08/04/25 00:00 Temperature 98.1 F Pulse Rate 64 68 51 L Respiratory Rate 18 Blood Pressure 134/74 Pulse Oximetry 97 Oxygen Delivery 08/04/25 04:00 08/04/25 05:02 Temperature 97.4 F L Pulse Rate 53 L 94 Respiratory Rate 18 Blood Pressure 130/62 Pulse Oximetry 94 Oxygen Delivery Intake/Output Intake/Output: Intake & Output 08/01/25 08/02/25 08/03/25 08/04/25 23:59 23:59 23:59 23:59 Intake Total 306 438 5841 240 Output Total 1200 850 800 400 Balance -410 70 960 -160 Meds/Results Medications: Active Medications Generic Name Dose Route Start Last Admin Trade Name Freq PRN Reason Stop Dose Admin Acetaminophen 650 mg 07/30/25 08:38 08/01/25 11:29 Acetaminophen 325 Mg Tablet PO 650 mg Q4H PRN Administration Mild Pain (1-3) or Fever Albuterol/Ipratropium 3 ml 07/28/25 08:57 Ipratropium 0.5 Mg/Albuterol Sulfate 2.5 Mg Ampul.Neb 3 Ml INHALATION Q6HRT PRN Wheezing Amlodipine Besylate 10 mg 07/30/25 09:00 08/03/25 07:58 Amlodipine Besylate 10 Mg Tablet PO 10 mg DAILY ZAHIRA Administration Atorvastatin Calcium 40 mg 07/30/25 09:00 08/03/25 07:59 Atorvastatin 40 Mg Tablet PO 40 mg DAILY ZAHIRA Administration Carvedilol 6.25 mg 07/30/25 09:00 08/03/25 20:54 Carvedilol 6.25 Mg Tablet PO 6.25 mg Q12H ZAHIRA Administration Dextrose 12.5 gm 07/25/25 10:12 Dextrose 50% 25 Gm/50 Ml Syringe IV PUSH PRN PRN Hypoglycemia Protocol Enoxaparin Sodium 40 mg 07/25/25 09:00 08/03/25 08:03 Enoxaparin 40 Mg/0.4 Ml Syringe SUB-Q 40 mg DAILY ZAHIRA Administration Glucose 15 gm 07/25/25 10:12 Glucose Oral Gel 15 Gm Of Glucse In 37.5 Gm Tube PO PRN PRN Hypoglycemia Protocol Hydralazine HCl 50 mg 07/24/25 09:00 07/24/25 17:10 Hydralazine Hcl 50 Mg Tablet PO Not Given On Hold: 07/25/25 07:18 TID ZAHIRA Dextrose 1,000 mls @ 100 mls/hr 07/25/25 10:12 Dextrose 5% 1,000 Ml IVPB PRN PRN Hypoglycemia Protocol Levothyroxine Sodium 200 mcg 07/30/25 06:30 08/04/25 05:59 Levothyroxine Sodium 100 Mcg Tablet PO 200 mcg DAILY@0630 [facility] Administration Prednisone 20 mg 08/03/25 08:00 08/03/25 07:58 Prednisone 20 Mg Tablet PO 08/04/25 08:01 20 mg DAILY@0800 ZAHIRA Administration Prednisone 10 mg 08/05/25 08:00 Prednisone 10 Mg Tablet PO 08/07/25 07:59 DAILY@0800 [facility] Sertraline HCl 200 mg 07/30/25 09:00 08/03/25 08:03 Sertraline Hcl 50 Mg Tablet PO 200 mg DAILY ZAHIRA Administration Simethicone 80 mg 07/30/25 05:24 Simethicone 80 Mg Tab.Chew PO QID PRN Gas Discomfort Radiology Results: ITS Impressions Abdomen/Pelvis CT 07/23/25 21:54 IMPRESSION: 1. New wedge-shaped pleural-based soft tissue right middle lobe laterally. Considering bilateral pleural calcifications, malignancy should be considered including mesothelioma. There is pleural based soft tissue mass measures 3.6 x 1.7 cm. 2: Splenomegaly. Chest CT 07/24/25 08:52 IMPRESSION: 1. Bronchopneumonia detailed above superimposed upon mild CHF. Follow-up recommended to assess resolution 2. Sequelae of previous granulomatous disease. Bilateral micronodules which are new compared to the previous study, in a high-risk patient six-month follow-up is recommended Chest/Abdomen/Pelvis CT 07/25/25 08:40 IMPRESSION: 1. Pneumonia in right upper lobe and right lower lobe, worsened from 07/23/2025. 2. Moderate emphysema. 3. Worsened small right pleural effusion. 4. Mild mediastinal lymphadenopathy, likely reactive. Abdomen X-Ray 07/25/25 15:20 Impression: 1. No acute abnormality. Chest X-Ray 07/28/25 07:41 Impression: 1: Unchanged asymmetric right-sided airspace disease, consistent with pneumonia. Soft Tissue Neck CT 07/28/25 09:45 IMPRESSION: Limited study. Evaluation for edema is limited without contrast with no gross rim-enhancing abscess visualized. If there remains clinical suspicion repeat exam with contrast is recommended Modified Barium Swallow 07/29/25 12:12 IMPRESSION: Mild pharyngeal dysphagia with trace transient/flash laryngeal penetration without aspiration. Please correlate with speech pathologist findings and specific feeding recommendations. Labs Labs: Laboratory Results - last 24 hr 08/03/25 08/04/25 08:40 04:25 WBC 9.5 8.6 RBC 4.76 4.25 L Hgb 13.8 L 12.1 L Hct 41.4 L 37.2 L MCV 87.0 87.5 MCH 29.0 28.5 MCHC 33.3 32.5 RDW 13.8 13.9 Plt Count 273 242 MPV 8.5 9.0 Sodium 135 L 132 L Potassium 3.9 3.6 Chloride 101 105 Carbon Dioxide 30 25 Anion Gap 4 2 L BUN 24 H 26 H Creatinine 0.92 0.84 Estim Creat Clear Calc 46 50 Estimated GFR > 60 > 60 Glucose 94 81 Calcium 8.4 8.0 L Total Bilirubin 0.6 0.3 AST 35 38 ALT 37 36 Alkaline Phosphatase 87 91 Total Protein 6.4 5.6 L Albumin 3.1 L 2.7 L Quality VTE Prophylaxis VTE prophylaxis: pharmacologic ordered
[2025-08-04] MEDS: ATORVASTATIN 40 MG TABLET PO (09:16)
[2025-08-04] MEDS: ENOXAPARIN 40 MG/0.4 ML SYRINGE SUB-Q (09:16)
[2025-08-04] MEDS: SERTRALINE HCL 50 MG TABLET 200 MG PO (09:16)
--- NOTE | 2025-08-04 13:33 | P.DS_ITS ---
DS: Admitting Diagnosis Discharge Date 08/04/2025 Admitting Diagnosis acute respiratory failure with hypoxia angioedema acute pneumonia lung nodules htn hypothyroidism DS: Discharge Diagnosis Discharge Diagnosis (1) Acute respiratory failure with hypoxia: Code(s): J96.01 - Acute respiratory failure with hypoxia Status: Acute (2) Angioedema: Code(s): T78.3XXA - Angioneurotic edema, initial encounter Status: Acute (3) Acute pneumonia: Code(s): J18.9 - Pneumonia, unspecified organism Status: Acute (4) Lung nodules: Code(s): R91.8 - Other nonspecific abnormal finding of lung field Status: Acute (5) Hypertension: Qualifiers: Hypertension type: unspecified Qualified Code(s): I10 - Essential (primary) hypertension Code(s): I10 - Essential (primary) hypertension Status: Chronic (6) Hypothyroidism: Code(s): E03.9 - Hypothyroidism, unspecified Status: Acute DS: Summary Hospital Course Reason for hospitalization: acute respiratory failure with hypoxia angioedema acute pneumonia lung nodules htn hypothyroidism Hospital Course: 80 y/o male with a PMH of COPD not on any supplemental oxygen, emphysema, HTN, hyperlipidemia, depression, anxiety, BCC presented to the ED on 07/23/25 with complaints of fever, chills, sweats, abdominal pain, nausea vomiting with di arrhea, and shortness of breath. On admission patient requiring oxygen supplementation for noted pneumonia on imaging. Chest XR on 07/24 showed bilateral airspace disease, compatible with pneumonia. Chest CT 07/24: Bronchopneumonia detailed above superimposed upon mild CHF. Patient started on IV antibiotics. On 07/24 patient received Chloraseptic for ulcers on his tongue, 1 hour after that patient has swelling of the tongue, drooling, difficulty swallowing, shortness of breath. Per prior provider note they discussed with pharmacy and based on timing of reaction likely related to Chloraseptic and not the azithromycin and Rocephin he had received the night prior. Patient intubated and received epinephrine, Solu-Medrol, H1 and H2 timo. Though pharmacy believed likely related to Chloraseptic spray, antibiotics were changed to be extra cautious. Patient was transferred from the medical floor to the ICU and intubated. Soft tissue neck ct showed mediastinal lymphadenopathy, likely reactive. Soft tissue swelling of the pharyngeal mucosal space. During ICU admission repeat imaging continued to show improvement to the pneumonia. Repeat soft tissue neck ct showed unremarkable soft tissues. Patient was extubating on 07/28 and able to wean back to room air. He completed his antibiotics for the pneumonia during admission. He continued to be weaned off of his steroids, course to be completed outpatient. Patient saturations remain stable on room air and he denied shortness of breath. Chest CT showed bilateral micronodules which are new compared to the previous study. Patient to follow up with PCP for a six-month follow-up imaging. Physical therapy was originally recommending placement for continued therapy, however throughout admission patient continued to improve and physical therapy now recommending outpatient therapy. Patient and family are agreeable with outpatient therapy. Script sent at admission. Patient no complaints at time of discharge denying chest pain, shortness a breath, palpitations, nausea/vomiting, abdominal pain, and dizziness/lightheadedness. Patient discharged home in a stable condition. He has a follow-up with his primary care provider in 1 week. Status at Discharge Functional status at discharge: uses cane/walker Time Spent with Patient Time attestation: Total time spent providing and/or coordinating discharge services: Time spent: Greater than 30 minutes Exam Narrative: AF HR 70 RR 16 Spo2 100 BP 119/64 General: male in no acute respiratory distress who is nontoxic appearing, lying semi recumbent in bed. HEENT: Normocephalic. Atraumatic. Extraocular movement intact. Sclera clear and anicteric. No facial asymmetry. Chest: Lungs are clear to auscultation bilaterally. No wheezes or crackles. S peaking full sentences. CV: Heart was regular rate and rhythm. Abd: Abdomen was soft. Nontender. Nondistended. Positive bowel sounds. Ext: No clubbing, cyanosis, or edema. DP pulses bilaterally. Neuro: Patient is alert. Speech is clear. DS: Data Data Completed and Pending Completed studies during hospitalization: abdomen/pelvis ct chest ct chest xr chest xr soft tissue neck ct chest abdomen pelvis ct chest xr abdomen xr chest xr chest xr Labs on day of discharge: Labs from last 24 hours 08/04/25 04:25 WBC 8.6 RBC 4.25 L Hgb 12.1 L Hct 37.2 L MCV 87.5 MCH 28.5 MCHC 32.5 RDW 13.9 Plt Count 242 MPV 9.0 Sodium 132 L Potassium 3.6 Chloride 105 Carbon Dioxide 25 Anion Gap 2 L BUN 26 H Creatinine 0.84 Estim Creat Clear Calc 50 Estimated GFR > 60 Glucose 81 Calcium 8.0 L Total Bilirubin 0.3 AST 38 ALT 36 Alkaline Phosphatase 91 Total Protein 5.6 L Albumin 2.7 L Preliminary micro results at discharge 07/23/25 20:12 Legionella pneumophila Serogrp 1 Ag - Preliminary Urine - Urine Discharge Plan Discharge Attending physician on discharge: Dimitry Chandler Consulting providers: Michael Jewell; Hoda Reddy Discharging Clinician: Hoda Reddy Anticipated Discharge Date/Time: 08/04/25 13:10 Patient Disposition: Home Activity: as tolerated Diet: as tolerated Discharge Instructions: Discharge disposition: Patient admitted to the hospital for pneumonia Originally requiring oxygen supplementation, weaned back to room air and vitals remain stable Continue home inhaler as previously prescribed CT showed bilateral micronoduled in the lungs Patient to obtain a repeat CT to reassess nodules, PCP to order and follow up During admission patient developed angioedema requiring intubation presumably related to Chloraseptic spray DO NOT USE CHLORASEPTIC SPRAY AGAIN Take medications as prescribed Prednisone taper, follow the taper as prescribed Attached is information on this medication Monitor blood pressures Take caution while standing, rising, or moving Change positions slowly taking a break between each position change If you standing feel dizzy sit back down and take a break Encouraged to continue with yearly vaccinations Return to the emergency department if he developed sudden shortness of breath, chest pain, nausea, vomiting, upset stomach or intractable diarrhea Return to the emergency department if you develop fever greater than 100.5 Follow-up with the primary care physician within 1-2 weeks Thank you for [facility] for your healthcare needs Patient Instructions: Prednisone (By mouth), Cigarette Smoking and Your Health (GEN), Angioedema (ED), Pneumonia (DC) Patient Language: Icelandic Stand Alone Forms: General Discharge Information Follow-up/Referrals: Trudy,Indra Botello MD [Primary Care Provider, Unknown] - 1 Week Discharge Medications: New prednisone 10 mg Tablet 10 mg PO DAILY@0800 Qty: 3 0RF Rx Instructions: Taper instructions: 10 mg (1 tab) x2 days, then 5 mg (0.5 tab) x 2 days, then stop Continued zolpidem 10 mg tablet 10 mg PO .hs levothyroxine [Unithroid] 200 mcg tablet 200 mcg PO DAILY carvedilol 6.25 mg tablet 6.25 mg PO Q12H amlodipine 10 mg tablet 10 mg PO DAILY atorvastatin 40 mg tablet 40 mg PO DAILY alprazolam 0.25 mg tablet 0.25 mg PO QID albuterol sulfate 90 mcg/actuation HFA aerosol inhaler 2 puff inhalation PRN ipratropium-albuterol 0.5 mg-3 mg(2.5 mg base)/3 mL solution for nebulization 3 ml inhalation Q6-8H sertraline 100 mg tablet 200 mg PO DAILY potassium chloride 20 mEq packet 40 meq PO DAILY Fiber Gummies 1.7 gram tablet,chewable 6 g PO DAILY vitamin B complex Capsule 1 cap PO DAILY Align (B.infantis) 10.5 mg (10 million cell) tablet,chewable 10.5 mg PO DAILY peppermint oil 90 mg capsule,delayed,extend.release 90 mg PO BID PRN (Reason: abdominal discomfort) Held hydralazine 50 mg tablet 50 mg PO TID Hold Instructions: Resume on 08/29/25. Hold until follow up with PCP. Other Ambulatory Orders: PT Outpatient Eval and Treat (ONCE) Timeframe: [id number] Location: Determined by Patient Ordered By: Hoda Reddy Date of admission: 07/24/25 01:45 Primary Care Provider: TrudyIndra Admitting Provider: Belen Malik Attending physician on admission: Belen Malik Condition: Stable Hospitalist MIPS Heart Failure (Exclusion) Patient has history of Heart Transplant or Left Ventricular Assistive Device?: No IF YES, STOP HERE Heart Failure (Qualifier) Patient has current or prior documentation of LVEF less than or equal to 40%, or mod/servere depressed LVSF?: No IF NO, STOP HERE
== END 2025-08-04 15:08 | disposition home or self-care (01) | DRG 208 ==
LOC: ANHED 07-24 02:10 → ANH3MEDSUR 07-24 02:48 → ANH2MED 07-24 14:21 → ANHICU 07-24 18:38 → ANH2MED 07-29 16:50
PROVIDERS: Emergency Medicine; Internal Medicine; Nurse Practitioner; Nurse Practitioner Adult Health; Nurse Practitioner Gerontology; Registered Nurse; Admitting Provider Internal Medicine; Emergency Provider Student in an Organized Health Care Education/Training Program; PCP Family Medicine; Visit Provider Student in an Organized Health Care Education/Training Program
DX: J18.9 Pneumonia, unspecified organism (principal); J96.01 Acute respiratory failure with hypoxia; J44.0 Chronic obstructive pulmonary disease with (acute) lower respiratory infection; K14.0 Glossitis; T78.3XXA Angioneurotic edema, initial encounter; T41.3X5A Adverse effect of local anesthetics, initial encounter; Z66 Do not resuscitate; I10 Essential (primary) hypertension; E03.9 Hypothyroidism, unspecified; F41.8 Other specified anxiety disorders; E78.5 Hyperlipidemia, unspecified; E86.0 Dehydration; K59.00 Constipation, unspecified; G47.00 Insomnia, unspecified; G47.33 Obstructive sleep apnea (adult) (pediatric); R91.8 Other nonspecific abnormal finding of lung field; Z85.828 Personal history of other malignant neoplasm of skin; Z99.81 Dependence on supplemental oxygen
CPT/HCPCS: 31500; 36415; 36600; 70490; 71045; 71250; 71260; 74176; 74177; 74230; 80053; 81001; 82375; 82805; 82948; 83050; 83605; 83690; 83735; 84100; 84478; 85018; 85025; 85027; 86140; 87040; 87070; 87205; 87637; 92610; 92611; 93005; 94002; 94003; 94640; 96361; 96365; 96375; 97110; 97116; 97161; 97166; 97530; 97535; 99285; A9270; J0166; J0168; J0330; J0360; J0456; J0650; J0696; J1200; J1650; J1938; J1956; J2250; J2405; J2704; J2919; J3010; J7050; J7120; J7512; Q9967